=== PATIENT | male | born 1965 | race Caucasian/White ===

== ENCOUNTER 2017-10-02 02:49 | Observation (INO) | payer MEDICAID, SELFPAY ==
[2017-10-02] VITALS (16 sets, daily range): BP systolic 108–132; BP diastolic 65–93; PULSE 48–81; RESP 16–22; TEMP 36.5–36.9; O2SAT 97–100; BMI 25.0; BMI 24.5
--- NOTE | 2017-10-02 02:51 | NURSING ---
CALLED FOR EKG PER RN REQUEST, PULLED OLD EKG'S FOR
--- NOTE | 2017-10-02 03:08 | ED.DCSUM_ITS ---
- ER Visit Summary Date of Service: 10/02/17 Chief Complaint: Palpitations History of Present Illness: The patient is a 51 M since to the emergency department and he has been in intermittent atrial fibrillation. The patient has a history of dilated cardiomyopathy. He is unsure of the acute etiology. He states he was told it may be from alcohol, but he states that he would only drink 2 or 3 beers a day. Both his brothers and his father have a dilated cardiomyopathy. The patient states that 2 years ago, he was actually admitted up at [facility]. He underwent significant testing. He was having intermittent runs of ventricular tachycardia. He states that they did place a LifeVest on him but found that he did not meet criteria for defibrillator. He does have a standing EF of 40%. He did follow with Dr. Granado, but when he left, he has not seen cardiology since. He takes 100 mg of Toprol daily. He states that over the past 2 weeks, he has been having increasing intermittent palpitations. Tonight, woke him from sleep. He states he felt his heart was racing he felt very flushed. He did have some chest tightness and felt that he was going to pass out. He states this is the worst it has been. Physical Examination: Vital signs reviewed General: Well-nourished, well-developed Head: Normocephalic, atraumatic Eyes: Pupils equal and reactive, extraocular muscles intact Neck, supple, no lymphadenopathy Heart: Regular rate and rhythm Respiratory: No distress, clear bilaterally Abdomen: Soft, nontender, nondistended, no peritoneal signs Back: Nontender Extremities: Nontender, no edema, no cords Skin: Normal color no rash Neuro: Alert and oriented, no focal or lateralizing deficits Test Results: EKG demonstrates sinus rhythm with normal intervals. There is no acute ischemic change. Screening labs are unremarkable. Emergency Department Course and Treatment: Patient presents with palpitations and then tonight had an episode where he felt as if he was going to pass out because his heart was racing. He does have a history of ventricular tachycardia. He has not seen cardiology in some time. I do have some concern that he is having significant dysrhythmia. Labs were obtained were unremarkable. The patient has had no arrhythmia here on the monitor. With his near syncopal episode and chest pain, I do feel he would benefit from observation on telemetry for further investigation. The patient was discussed with the hospitalist will be admitted to PCU. Treatment Plan: [] Disposition: Admission Impression: 1. Dysrhythmia 2. Near syncope 3. Chest pain This note was generated with [employer] dictation software. It may contain incorrect words, spelling, and punctuation that were not noted in review of the chart prior to signing ED Disposition - Plan for ED Patient: Chief Complaint: Palpitations Referrals: Martin Chung [Primary Care Provider] -
--- NOTE | 2017-10-02 03:08 | RAD_ITS ---
STUDY: X-RAY CHEST REASON FOR EXAM: Male, 51 years old. Palpitations. Patient woke up hot and sweaty. Intermittent episodes for over a month. TECHNIQUE: AP portable chest. COMPARISON: June 14, 2016. June 25, 2015. FINDINGS: The lungs are clear and expanded. There is no demonstrated pleural abnormality. Normal size heart. Normal mediastinum and villa. Normal visualized pulmonary arteries. Normal visualized aortic arch and descending thoracic aorta. Thoracic dextroscoliosis. Normal visualized ribs, clavicles, and shoulders. There is no demonstrated abnormality of the visualized soft tissue structures of the upper abdomen. RAD/Chest 1 View (Portable) IMPRESSION: Stable chest, no acute cardiopulmonary disease. Electronically Signed: Jr Winkler MD at 3:40 EST , Service support ,
--- NOTE | 2017-10-02 03:08 | EKG12_ITS ---
Test Reason : ARRHYTHMIA Blood Pressure : / mmHG Vent. Rate : 070 BPM Atrial Rate : 070 BPM P-R Int : 166 ms QRS Dur : 092 ms QT Int : 388 ms P-R-T Axes : 063 100 070 degrees QTc Int : 419 ms Normal sinus rhythm Low voltage QRS Borderline ECG Confirmed by JASEN MOON, RICH ([id number]), video effects editor ANNITA BROWN ([id number]) on 10/03/2017 2:10:40 PM Referred By: FELIX Confirmed By:RICH AGGARWAL MD
[2017-10-02 03:26] LABS: Absolute Lymphocyte Count 1.61 X10^3/ul (0.83-4.51); Absolute Neutrophil Count 4.9 X10^3/uL (2.0-7.7); Basophil# 0.01 X10^3/uL; Basophil% 0.1 % (0-1); Eosinophil# 0.26 X10^3/uL; Eosinophils% 3.5 % (0-5); Hematocrit 40.2 % (40-54); Hemoglobin 14.2 g/dl (13.0-16.5); Lymphocyte # 1.61 X10^3/ul (4.0); Mean Corp Hgb Conc 35.3 g/gl (32-36); Mean Corpuscular Hgb 34.5 pg (27.0-32.0); Mean Corpuscular Volume 97.6 fL (80-94); Mean Platelet Vol. 9.3 fl (6.2-12.0); Monocyte# 0.58 X10^3/uL; Monocyte% 7.9 % (0-10); Neutrophil # 4.85 X10^3/uL (2.7-7.7); Neutrophil % 66.2 % (47-70); Platelet Count 191 K/mm3 (150-450); RBC Distribution Width CV 11.9 % (11.6-14.6); RBC Distribution Width SD 41.3 fl (35.1-43.9); Red Blood Count 4.12 M/mm3 (4.6-6.2); White Blood Count 7.3 K/mm3 (4.4-11.0)
[2017-10-02] MEDS: 0.9% Normal Saline 1,000 ML 150 ML IV (03:27)
[2017-10-02] MEDS: Aspirin 81 MG TAB.CHEW 324 MG PO (03:27)
[2017-10-02 03:30] LABS: POSITIVE COUNT NO; POSITIVE DIFFERENTIAL NO; POSITIVE MORPHOLOGY NO
[2017-10-02 03:43] LABS: Anion Gap 9 (5-15); BUN 20 mg/dL (7-18); BUN/Creat Ratio 21.5 RATIO (10-20); Calcium,Total 8.7 mg/dL (8.5-10.1); Chloride 104 mmol/L (98-107); Creatinine, Serum 0.93 mg/dL (0.70-1.30); EST Glomerular Filtration Rate 90 mL/min (>60); Est Glom Filt Rate - Afr Amer 109 mL/min (>60); Estimated Creatinine Clearance 100.82 ml/min; Glucose 103 mg/dL (74-106); Magnesium 2.2 mg/dL (1.6-2.6); Sodium Level 139 mmol/L (136-145)
--- NOTE | 2017-10-02 04:08 | PCM.HP.STD ---
Problem List (1) History of cardiomyopathy Status: Chronic (2) Palpitations Status: Acute (3) Near syncope Status: Acute History of Present Illness Date of Admission: 10/02/17 Chief Complaint: irregular heart beat, nearly passing out The patient is a 51 year old male patient who presents to the ER after waking up from sleep with irregular heart palpitations and dizziness. The patient had a significant past medical history of dilated cardiomyopathy thought to have been caused by alcohol , however, he only drank 2-3 beers daily at that time. He pursued his arrhythmia and low ejection fraction by wearing a life vest just over two years ago but he did not meet criteria fo further intervention at that time. He has not followed up since. He is now feeling more comfortable and is free of any chest discomfort and shortness of breath. He will be admitted for further cardiac workup including an echocardiogram. Past Medical History Past Medical History (Chronic Problems): Chronic Problems History of cardiomyopathy (Chronic) Allergies No Known Allergies Allergy (Verified 10/02/17 02:54) Home Medications: Ambulatory Orders Medication Instructions Recorded Metoprolol(XL)Succ [Toprol Xl 100 mg PO DAILY 06/17/15 (Beta Steven)] Lisinopril [Zestril] 10 mg PO DAILY 06/25/15 Aspirin [Lo-Dose Aspirin EC] 81 mg PO DAILY 06/14/16 Smoking Status: Never smoker - *Family History Maternal History Items: No pertinent history Review of Systems Constitutional: Denies: Chills, Fever, Weight Change HEENT: Denies: Head Aches, Sinus Congestion, Sinus Drainage Cardiovascular: Reports: Heaviness, Palpitations. Denies: Chest Pain Respiratory: Denies: Cough, Shortness of breath at rest, Sputum production Gastrointestinal: Denies: Abdominal Pain, Nausea, Vomiting Genitourinary: Denies: Dysuria Musculoskeletal: Denies: Joint Pain, Joint Tenderness Skin: Denies: Rash, Wounds Neurological: Denies: Numbness, Tingling, Focal weakness Psychiatric: Denies: Anxiety, Depression, Homicidal Ideations, Suicidal Ideations Hematologic/ Lymphatic: Denies: Easy Bruising, Easy Bleeding VTE Information - Inpt Only VTE Present on Admission: No VTE Mechan Device Prophylaxis: None VTE Pharm Prophylaxis ordered?: Yes Patient Problems: Active and Suspected Problems Palpitations (Acute) Near syncope (Acute) - Physical Exam General: Alert, Oriented x3, Cooperative HEENT: Atraumatic, Normocephalic Neck: Supple Lungs: Clear to auscultation, Normal air movement, No rhonchi, No wheeze, No rales Cardiovascular: Normal S1, Normal S2, No murmurs, Irregular Rate Abdomen: Bowel Sounds Present, Soft, Non Tender Extremities: No edema Skin: No rashes Musculoskeletal: No Tenderness to Palpation of Joints or Extremities Neurological: Neuro grossly intact Psych/Mental Status: Normal Affect, Appropriate Vital Signs Temp Pulse Resp BP Pulse Ox 97.7 F L 70 20 H 131/93 H 100 10/02/17 02:51 10/02/17 02:51 10/02/17 02:51 10/02/17 02:51 10/02/17 02:51 Oxygen Delivery Method Room Air Weight: 184 lb 4.903 oz Body Mass Index (BMI) 25.0 Finger Stick Blood Glucose 85 Laboratory Tests Past 24 Hrs 10/02/17 10/02/17 03:10 03:10 WBC 7.3 RBC 4.12 L Hgb 14.2 Hct 40.2 MCV 97.6 H MCH 34.5 H MCHC 35.3 RDW 11.9 RDW Differential 41.3 Plt Count 191 MPV 9.3 Immature Gran % (Auto) 0.300 Neut % (Auto) 66.2 Lymph % (Auto) 22.0 Ballard % (Auto) 7.9 Eos % (Auto) 3.5 Baso % (Auto) 0.1 Absolute Neuts (auto) 4.9 Absolute Lymphs (auto) 1.61 Total Counted Not Reportable Sodium 139 Potassium 4.0 Chloride 104 Carbon Dioxide 26.0 Anion Gap 9 BUN 20 H Creatinine 0.93 Estim Creat Clear Calc 100.82 Est GFR (MDRD) Af Amer 109 Est GFR (MDRD) Non-Af 90 BUN/Creatinine Ratio 21.5 H Glucose 103 Calcium 8.7 Magnesium 2.2 Troponin I < 0.02 Assessment/Plan Active and Suspected Problems Palpitations (Acute) Near syncope (Acute) Chronic conditions - hypertension Plan - admit to progressive care unit - cycle cardiac markers - echocardiogram - consider cardiology consult - nitro as needed - continue routine home medications - LMWH for DVT prophylaxis Code Visit Inpatient E&M: 09173 Init Hosp L3
--- NOTE | 2017-10-02 05:55 | ECHOD_ITS ---
Reason For Study: ABN EKG Procedure This was a 2D Doppler, Color Flow transthoracic echocardiogram. Exam performed portable in patient room. Left Ventricle Normal size and thickness. The estimated ejection fraction is 55 %. No regional wall motion abnormalities noted. Right Ventricle Normal size and thickness. Normal systolic function. Atria Normal left atrium. Normal right atrium. Normal atrial septum. Mitral Valve The mitral valve is structurally normal. No prolapse or stenosis seen. Tricuspid Valve Normal tricuspid valve. Trivial tricuspid valve insufficiency. Right ventricular systolic pressure estimated to be 20 mmHg. Aortic Valve Trisinus/trileaflet aortic valve. Mild diffuse aortic valve thickening. Trivial aortic valve insufficiency. Pulmonic Valve Normal pulmonic valve. Great Vessels Normal aortic root. Normal arch. Normal inferior vena cava. Inferior vena cava collapse with sniff. Pericardium/Pleural No pericardial effusion. MMode/2D Measurements & Calculations LVIDd: 5.7 cm IVSd: 0.99 cm Ao root diam: 3.6 cm LVIDs: 4.2 cm LVPWd: 1.1 cm LA dimension: 3.9 cm RVDd: 3.5 cm FS: 26.9 % LAV(MOD-bp): 43.7 ml LA A4 area: 16.9 cm2 RA A4 area: 11.1 cm2 LAV(MOD-bp) Indexed: 21.4 ml/m2 LAV(MOD-sp2): 39.3 ml LAV(MOD-sp4): 47.6 ml Doppler Measurements & Calculations MV E max desmond: 67.2 cm/sec Ao V2 max: 115.1 cm/sec AI max desmond: 371.1 cm/sec MV A max desmond: 63.7 cm/sec Ao max P.3 mmHg AI max P.1 mmHg MV E/A: 1.1 AI dec slope: 200.0 cm/sec2 AI P1/2t: 543.4 msec LV V1 max: 102.2 cm/sec PA V2 max: 98.0 cm/sec PI end-d desmond: 69.5 cm/sec LV V1 max P.2 mmHg TR max desmond: 191.5 cm/sec TR max P.7 mmHg Interpretation Summary The estimated ejection fraction is 55 %. Trivial tricuspid valve insufficiency. Right ventricular systolic pressure estimated to be 20 mmHg. Trivial aortic valve insufficiency. Compared to echo report dated 03/14/2007, LV function has improved from 45% to 55%. Ordering Physician: Nate Singh Referring Physician: RACHAEL MELENDEZ Performed By: Lolita White RDCS, RVT
[2017-10-02 07:12] LABS: Absolute Lymphocyte Count 1.62 X10^3/ul (0.83-4.51); Absolute Neutrophil Count 4.4 X10^3/uL (2.0-7.7); Basophil# 0.01 X10^3/uL; Basophil% 0.2 % (0-1); Eosinophil# 0.16 X10^3/uL; Eosinophils% 2.4 % (0-5); Hematocrit 38.8 % (40-54); Lymphocyte # 1.62 X10^3/ul (4.0); Lymphocyte % 24.6 % (19-41); Mean Corp Hgb Conc 33.5 g/gl (32-36); Mean Corpuscular Hgb 32.7 pg (27.0-32.0); Mean Corpuscular Volume 97.7 fL (80-94); Monocyte# 0.35 X10^3/uL; Monocyte% 5.3 % (0-10); Neutrophil # 4.42 X10^3/uL (2.7-7.7); Neutrophil % 67.2 % (47-70); Platelet Count 167 K/mm3 (150-450); RBC Distribution Width CV 12.1 % (11.6-14.6); RBC Distribution Width SD 43.4 fl (35.1-43.9); Red Blood Count 3.97 M/mm3 (4.6-6.2); White Blood Count 6.6 K/mm3 (4.4-11.0)
[2017-10-02 07:14] LABS: POSITIVE COUNT NO; POSITIVE DIFFERENTIAL NO; POSITIVE MORPHOLOGY NO
[2017-10-02] MEDS: 0.9% Normal Saline 1,000 ML 75 ML IV (07:48)
[2017-10-02 08:01] LABS: Anion Gap 7 (5-15); BUN 19 mg/dL (7-18); BUN/Creat Ratio 21.7 RATIO (10-20); Calcium,Total 8.6 mg/dL (8.5-10.1); Chloride 106 mmol/L (98-107); Cholesterol 212 mg/dL (200); Creatinine, Serum 0.87 mg/dL (0.70-1.30); EST Glomerular Filtration Rate 97 mL/min (>60); Est Glom Filt Rate - Afr Amer 117 mL/min (>60); Estimated Creatinine Clearance 107.78 ml/min; Glucose 90 mg/dL (74-106); High Density Lipoprotein 36 mg/dL; Potassium 4.4 mmol/L (3.5-5.1); Sodium Level 141 mmol/L (136-145); Thyroid Stim Hormone (TSH) 1.03 uIU/mL (0.358-3.74); Triglycerides 278 mg/dL; Very Low Density Lipoprotein 56 mg/dL (5-40)
[2017-10-02] MEDS: Aspirin E.C. 81 MG Tablet PO (10:21)
[2017-10-02] MEDS: Enoxaparin 40 MG/0.4 ML Syringe SC (10:21)
[2017-10-02] MEDS: Metoprolol(XL)Succ 100 MG Tablet PO (10:21)
--- NOTE | 2017-10-02 19:30 | PCM.PN.BLA ---
Progress Note The patient is a 51-year-old male with a past medical history of dilated cardiomyopathy thought to be due to alcohol. He wore a life vest at one point in time. He has not recently followed up with a overedge sewer. He awoke from sleep with palpitations and lightheadedness and came to the ED at [facility]. Vital signs at presentation to the emergency room were temperature 97.7, pulse rate 70, blood pressure 131/93, respiratory rate 20 and he was 100% saturated on room air. Significant lab included a BUN of 20 with a creatinine of 0.93 and normal electrolytes. TSH is normal at 1.03. HDL was 36 with an LDL of 120. Magnesium is normal at 2.2. Serial troponins have been negative. Echocardiogram showed a normal estimated ejection fraction of 55% with trivial TR and trivial AI. Chest x-ray showed no pleural effusions, pulmonary vascular congestion or infiltrates. drink 1-2 cups of coffee. not taking any decongestants recently. No stimulants of any kind. He has never had a PE or DVT. He travels in the car for about 2 hours at a time. Denies any CP with exertion and had a Can in [employer] 2 years ago that had no significant CAD. EF has improved from 30% to 55% in the time. He is not drinking. He does have Restless leg at night and states he jerks in his sleep. Pertaining oriented ?3, no apparent distress Lungs-clear to auscultation throughout with good air exchange No JVD, no carotid bruits Heart-regular rate and rhythm, no murmur, no gallop, no rub, no ectopy Abdomen-soft, flat, nontender, nondistended, normal bowel sounds No peripheral edema, no cyanosis, normal pulses Skin is warm and dry Impressions 1. palpitations associated with diaphoresis not associated with exertion....seem to happen mostly at night.....last night it awoke him from sleep 2. hx of a dilated CM with a 30% EF in 2014 and no significant CAD on cath - possibly due to ETOH or viral 3. HTN - controlled 4. RLS check an overnight trending pulse ox DC the IV fluids encouraged him to ambulate in the halls and see what the HR will do. Unlikely he developed any significant CAD since cath in 2014 If no dysrhythmia overnight will discuss with Dr. Hernandez in the AM......may need an OP holtor to start with.
--- NOTE | 2017-10-02 19:37 | PN_ITS ---
Progress Note The patient is a 51-year-old male with a past medical history of dilated cardiomyopathy thought to be due to alcohol. He wore a life vest at one point in time. He has not recently followed up with a hair spinning machine operator. He awoke from sleep with palpitations and lightheadedness and came to the ED at [facility]. Vital signs at presentation to the emergency room were temperature 97.7, pulse rate 70 , blood pressure 131/93, respiratory rate 20 and he was 100% saturated on room air. Significant lab included a BUN of 20 with a creatinine of 0.93 and normal electrolytes. TSH is normal at 1.03. HDL was 36 with an LDL of 120. Magnesium is normal at 2.2. Serial troponins have been negative. Echocardiogram showed a normal estimated ejection fraction of 55% with trivial TR and trivial AI. Chest x-ray showed no pleural effusions, pulmonary vascular congestion or infiltrates. drink 1-2 cups of coffee. not taking any decongestants recently. No stimulants of any kind. He has never had a PE or DVT. He travels in the car for about 2 hours at a time. Denies any CP with exertion and had a Can in [employer] 2 years ago that had no significant CAD. EF has improved from 30% to 55% in the time. He is not drinking. He does have Restless leg at night and states he jerks in his sleep. Pertaining oriented ?3, no apparent distress Lungs-clear to auscultation throughout with good air exchange No JVD, no carotid bruits Heart-regular rate and rhythm, no murmur, no gallop, no rub, no ectopy Abdomen-soft, flat, nontender, nondistended, normal bowel sounds No peripheral edema, no cyanosis, normal pulses Skin is warm and dry Impressions 1. palpitations associated with diaphoresis not associated with exertion....seem to happen mostly at night.....last night it awoke him from sleep 2. hx of a dilated CM with a 30% EF in 2014 and no significant CAD on cath - possibly due to ETOH or viral 3. HTN - controlled 4. RLS check an overnight trending pulse ox DC the IV fluids encouraged him to ambulate in the halls and see what the HR will do. Unlikely he developed any significant CAD since cath in 2014 If no dysrhythmia overnight will discuss with Dr. Hernandez in the AM......may need an OP holtor to start with.
[2017-10-02] MEDS: Lisinopril 10 MG Tablet PO (21:13)
[2017-10-03] VITALS (8 sets, daily range): BP systolic 100–110; BP diastolic 67–70; PULSE 60–79; RESP 16–20; TEMP 36.7–36.9; O2SAT 96–99
[2017-10-03] MEDS: Metoprolol(XL)Succ 100 MG Tablet PO (08:55)
[2017-10-03] MEDS: Aspirin E.C. 81 MG Tablet PO (08:55)
[2017-10-03] MEDS: Enoxaparin 40 MG/0.4 ML Syringe SC (08:55)
--- NOTE | 2017-10-03 15:30 | PCM.DC ---
- Discharge Diagnoses Current Active Problems: Current Active and Chronic Problems History of cardiomyopathy (Chronic) Palpitations (Acute) Near syncope (Acute) You will use the following diet at home:: Other - Resume previous diet Your food should be the consistency of: Regular Your liquids should be the consistency of: Regular/Thin Discharge Activity: Return to Normal Activity Call your doctor if you observe: Fever of 101 or Higher, Shortness of breath, Fainting spells, Swelling in the ankles, Chest pain Additional Instructions: Everything is negative. There were no significant findings on the overnight trending pulse ox. There was 1 single PVC on the telemetry since admission. I spoke to Dr. Hernandez and he would like you to call the office when you get home to schedulae a time to pick out hand a monitor. Continue the same medications. Allergies/Adverse Reactions: Allergies No Known Allergies Allergy (Verified 10/02/17 02:54) Medications to take at Discharge Metoprolol(XL)Succ [Toprol Xl (Beta Steven)] 100 mg PO DAILY 06/17/15 Lisinopril [Zestril] 10 mg PO QHS 06/25/15 Aspirin [Lo-Dose Aspirin EC] 81 mg PO DAILY 06/14/16 Primary Care Physician: Martin Chung [Primary Care Provider] - Please follow up with your Primary Care Physician in: 7-10 days Please Follow Up With: Nathaniel Hernandez MD When: call the office for appt Proposed Discharge Date: 10/03/17
--- NOTE | 2017-10-03 15:36 | DCINST_ITS ---
- Discharge Diagnoses Current Active Problems: Current Active and Chronic Problems History of cardiomyopathy (Chronic) Palpitations (Acute) Near syncope (Acute) You will use the following diet at home:: Other - Resume previous diet Your food should be the consistency of: Regular Your liquids should be the consistency of: Regular/Thin Discharge Activity: Return to Normal Activity Call your doctor if you observe: Fever of 101 or Higher, Shortness of breath, Fainting spells, Swelling in the ankles, Chest pain Additional Instructions: Everything is negative. There were no significant findings on the overnight trending pulse ox. There was 1 single PVC on the telemetry since admission. I spoke to Dr. Hernandez and he would like you to call the office when you get home to schedulae a time to leaf size picker a monitor. Continue the same medications. Allergies/Adverse Reactions: Allergies No Known Allergies Allergy (Verified 10/02/17 02:54) Medications to take at Discharge Metoprolol(XL)Succ [Toprol Xl (Beta Steven)] 100 mg PO DAILY 06/17/15 Lisinopril [Zestril] 10 mg PO QHS 06/25/15 Aspirin [Lo-Dose Aspirin EC] 81 mg PO DAILY 06/14/16 Primary Care Physician: Martin Chung [Primary Care Provider] - Please follow up with your Primary Care Physician in: 7-10 days Please Follow Up With: Nathaniel Hernandez MD When: call the office for appt Proposed Discharge Date: 10/03/17
--- NOTE | 2017-10-03 15:36 | PCM.DC.SUM ---
Discharge Date and Diagnosis Date of Admission: 10/02/17 Date of Discharge: 10/03/17 - Primary Discharge Diagnosis Active and Suspected Problems Palpitations (Acute) Near syncope (Acute) Suspected panic attack - Secondary Discharge Diagnosis Chronic Problems History of cardiomyopathy (Chronic) anxiety Hospital Course and Treatment Imaging Results: Clinical Impression(s) from Imaging Studies Chest X-Ray 10/02/17 03:08 IMPRESSION: Stable chest, no acute cardiopulmonary disease. Electronically Signed: Jr Winkler MD at 3:40 EST , Service support , Laboratory Tests 10/02/17 10/02/17 10/02/17 03:10 03:10 06:45 WBC 7.3 RBC 4.12 L Hgb 14.2 Hct 40.2 MCV 97.6 H MCH 34.5 H MCHC 35.3 RDW 11.9 RDW Differential 41.3 Plt Count 191 MPV 9.3 Immature Gran % (Auto) 0.300 Neut % (Auto) 66.2 Lymph % (Auto) 22.0 [place] % (Auto) 7.9 Eos % (Auto) 3.5 Baso % (Auto) 0.1 Absolute Neuts (auto) 4.9 Absolute Lymphs (auto) 1.61 Total Counted Not Reportable Sodium 139 141 Potassium 4.0 4.4 Chloride 104 106 Carbon Dioxide 26.0 28.0 Anion Gap 9 7 BUN 20 H 19 H Creatinine 0.93 0.87 Estim Creat Clear Calc 100.82 107.78 Est GFR (MDRD) Af Amer 109 117 Est GFR (MDRD) Non-Af 90 97 BUN/Creatinine Ratio 21.5 H 21.7 H Glucose 103 90 Calcium 8.7 8.6 Magnesium 2.2 Troponin I < 0.02 Triglycerides 278 H Cholesterol 212 H LDL Cholesterol 120 VLDL Cholesterol 56 H HDL Cholesterol 36 L TSH 1.03 10/02/17 10/02/17 10/02/17 06:45 06:45 12:00 WBC 6.6 RBC 3.97 L Hgb 13.0 Hct 38.8 L MCV 97.7 H MCH 32.7 H MCHC 33.5 RDW 12.1 RDW Differential 43.4 Plt Count 167 MPV 9.0 Immature Gran % (Auto) 0.300 Neut % (Auto) 67.2 Lymph % (Auto) 24.6 [place] % (Auto) 5.3 Eos % (Auto) 2.4 Baso % (Auto) 0.2 Absolute Neuts (auto) 4.4 Absolute Lymphs (auto) 1.62 Total Counted Not Reportable Sodium Potassium Chloride Carbon Dioxide Anion Gap BUN Creatinine Estim Creat Clear Calc Est GFR (MDRD) Af Amer Est GFR (MDRD) Non-Af BUN/Creatinine Ratio Glucose Calcium Magnesium Troponin I < 0.02 < 0.02 Triglycerides Cholesterol LDL Cholesterol VLDL Cholesterol HDL Cholesterol TSH 10/02/17 17:02 WBC RBC Hgb Hct MCV MCH MCHC RDW RDW Differential Plt Count MPV Immature Gran % (Auto) Neut % (Auto) Lymph % (Auto) [place] % (Auto) Eos % (Auto) Baso % (Auto) Absolute Neuts (auto) Absolute Lymphs (auto) Total Counted Sodium Potassium Chloride Carbon Dioxide Anion Gap BUN Creatinine Estim Creat Clear Calc Est GFR (MDRD) Af Amer Est GFR (MDRD) Non-Af BUN/Creatinine Ratio Glucose Calcium Magnesium Troponin I < 0.02 Triglycerides Cholesterol LDL Cholesterol VLDL Cholesterol HDL Cholesterol TSH none Operations: None Procedures: 2-D Echocardiogram - Ejection fraction 55%, trivial tricuspid valve insufficiency and trivial aortic valve insufficiency. Right ventricular systolic pressure was estimated at 20 mmHg. Summary of Care Provided: The patient is a 51-year-old male with a past medical history of dilated cardiomyopathy thought to be due to alcohol. He wore a life vest at one point in time. He had not recently followed up with a resistor testing machine operator but had seen Dr. Reyes Hernandez and Dr. Granado in the past. He awoke from sleep with palpitations, diaphoresis and lightheadedness and came to the ED at [facility]. Vital signs at presentation to the emergency room were temperature 97.7, pulse rate 70, blood pressure 131/93, respiratory rate 20 and he was 100% saturated on room air. Significant lab included a BUN of 20 with a creatinine of 0.93 and normal electrolytes. TSH was normal at 1.03. HDL was 36 with an LDL of 120. Magnesium was normal at 2.2. Serial troponins were negative. Echocardiogram showed a normal estimated ejection fraction of 55% with trivial TR and trivial AI. Chest x-ray showed no pleural effusions, pulmonary vascular congestion or infiltrates. He drink 1-2 cups of coffee a day. He denied taking any decongestants recently. No stimulants of any kind. He has never had a PE or DVT. He travels in the car for about 2 hours at a time but, denied any calf pain. Denied any CP with exertion and had a Cath in [place] in 2014 that had no significant CAD. EF has improved from 31% to 55% since the cardiac catheterization. He denied alcohol use. He has Restless leg at night and stated he jerks in his sleep. He was admitted to a monitored bed on the progressive care unit and serial cardiac enzymes were ordered. Cardiac enzymes were negative. Telemetry showed NSR with no SVT, VT or significant ectopy. An overnight trending pulse ox was unremarkable. I spoke with Dr. Hernandez and apparently he has been evaluated multiple times for this complaint and has even had an EP study and no reason for his complaints has been found. I had a discussion with him and his about anxiety and panic attacks. I recommended he seek counselling and discuss possible medication with Dr. Chung. He will call Dr. Hernandez's office and arrange a time to supervisor picking crew a monitor and he will follow up with Dr. Hernandez after the results of the monitor are available. He will follow-up with Dr. Chung in the office in 7-10 days to discuss referral for psychotherapy and possible treatment for anxiety. This note was generated with [employer] dictation software. It may contain incorrect words, spelling, and punctuation that were not noted in checking the note before signing. Discharge Activity: Return to Normal Activity Call your doctor if you observe: Fever of 101 or Higher, Shortness of breath, Fainting spells, Swelling in the ankles, Chest pain Home Medications: Medications to take at Discharge Metoprolol(XL)Succ [Toprol Xl (Beta Steven)] 100 mg PO DAILY 06/17/15 Lisinopril [Zestril] 10 mg PO QHS 06/25/15 Aspirin [Lo-Dose Aspirin EC] 81 mg PO DAILY 06/14/16 Primary Care Physician: Martin Chung [Primary Care Provider] - Please follow up with your Primary Care Physician in: 7-10 days Please Follow Up With: Nathaniel Hernandez MD When: call the office for appt Disposition: Home Minutes spent on discharge:: 35 Patient Condition:: Good Meaningful Use Info Meaningful Use Diagnoses (Choose all that apply): None applicable Code Visit Inpatient E&M: 21687 Disch Hosp
== END 2017-10-03 16:15 | disposition home or self-care (01) ==
LOC: ED 03:13 → PCU 04:45
PROVIDERS: Admitting Provider Family Medicine; Emergency Provider Emergency Medicine; Family Provider Family Medicine; Visit Provider Internal Medicine
DX: R00.2 Palpitations (principal); R55 Syncope and collapse; I08.2 Rheumatic disorders of both aortic and tricuspid valves; I42.0 Dilated cardiomyopathy; G25.81 Restless legs syndrome; I48.91 Unspecified atrial fibrillation; Z79.899 Other long term (current) drug therapy; Z79.82 Long term (current) use of aspirin
CPT/HCPCS: 36415; 71045; 80048; 80061; 83735; 84443; 84484; 85025; 93005; 93306; 94762; 96360; 96361; 96372; 99218; 99283; J7030; A4216; G0378

== ENCOUNTER 2019-04-01 12:18 | Emergency (ER) | payer OTHER, SELFPAY ==
[2019-04-01 12:18] VITALS: BP 118/81; PULSE 71; RESP 16; TEMP 36.2; O2SAT 96; BMI 25.0
--- NOTE | 2019-04-01 12:29 | EKG12_ITS ---
Test Reason : PALP Blood Pressure : / mmHG Vent. Rate : 074 BPM Atrial Rate : 074 BPM P-R Int : 160 ms QRS Dur : 094 ms QT Int : 400 ms P-R-T Axes : 050 091 065 degrees QTc Int : 444 ms Sinus rhythm with occasional Premature ventricular complexes Rightward axis Low voltage QRS Borderline ECG Confirmed by REYES LUU ([id number]), non linear editor RACHANA TINAJERO ([id number]) on 04/08/2019 10:11:28 AM Referred By: MALA
--- NOTE | 2019-04-01 12:37 | ED.VIS.GEN ---
History of Present Illness Chief Complaint: Palpitations Informant: Patient, Significant Other Onset: Yesterday Context: Sudden Onset Timing: Intermittent Quality: Palpitations, nausea and diaphoresis Location: Chest Current Severity: - - Presently no symptoms Maximum Severity: Moderate Worsened by: Nothing Relieved by: Nothing Associated Symptoms: Nausea, lightheadedness and diaphoresis Narrative: Patient is a 53-year-old male with history of hypertension, V. tach secondary to cardiomyopathy who presents with palpitations. He did not check his pulse. States he felt his heart pounding and it was fast. He reported lightheadedness and diaphoresis. He denied neurologic symptoms. He denied chest discomfort of any type. He denies vomiting, melena or hematochezia. He has not seen a physician in greater than [address] Reyes Webb prior to retiring. He had an echo which he states was concerning to Dr. Nathaniel Hernandez. He was instructed to increase his beta-zakiya. He states that made him worse. He went back to his regular dose. Presently has no symptoms. Patient was unaware that he was having ectopy on the monitor. Prior similar symptoms: Yes Recent Illness/Hospitalization: No - Past Medical History (1) History of ventricular tachycardia Status: Acute (2) Palpitations Status: Acute (3) History of cardiomyopathy Status: Chronic Past Medical History - Allergies and Home Meds Allergies/Adverse Reactions: Allergies No Known Allergies Allergy (Verified 04/01/19 12:21) Primary Care Physician: Martin Chung [Primary Care Provider] - Prior records reviewed: Yes Lives: Spouse/ Significant Other Smoking Status: Current some day smoker Alcohol: None Drugs: None - Family History Maternal Family History: Reports: No pertinent history Review of Systems General: Denies: Chills, Fever, Sweats Eyes: Denies: Visual changes - bilaterally, Diplopia ENT: Denies: Rhinorrhea, Sore throat Cardiovascular: Reports: Palpitations, Heart racing, - - Denies symptoms of claudication.. Denies: Chest pain Respiratory: Denies: Dyspnea, Cough, Dyspnea on exertion Gastrointestinal: Denies: Abdominal pain, Nausea, Vomiting, Diarrhea, Melena, Hematochezia Genitourinary: Denies: Dysuria, Hematuria, Frequency Musculoskeletal: Denies: Myalgias, Arthralgias, Neck pain, Back pain, Swelling, Extremity Pain Skin: Denies: Rash, Wounds Neurological: Denies: Headache, Weakness, Numbness Hematologic: Denies: Easy bruising, Easy bleeding Physical Exam Vital Signs/Narrative: Vital Signs Temp Pulse Resp BP Pulse Ox 04/01/19 12:18 97.1 F L 71 16 118/81 H 96 Inital Vital Signs reviewed: Yes General: Well nourished, Well developed, No Acute Distress Head: Normocephalic, Atraumatic Eyes: Perrl, EOMI ENT: Moist mucous membranes, No rhinorrhea Neck: Supple, Nontender, No lymphadenopathy, No JVD Cardiovascular: Regular rate, Regular rhythm, No murmurs, Normal S1, Normal S2 Respiratory: No distress, CTA bilaterally, Chest nontender Abdomen: Soft, Nontender, Nondistended, Normal bowel sounds Back: Nontender, Normal Inspection Extremities: Nontender, No edema Skin: Normal color, No rash Neurological: Alert, Oriented x3, Cranial nerves II-XII grossly intact, Normal Strength, Normal Sensation, Normal DTR Psychological: Normal affect, Normal Mood Diagnostic/Tx/Re-eval Laboratory Results 04/01/19 04/01/19 12:36 12:36 WBC 6.5 RBC 4.35 L Hgb 14.5 Hct 42.3 MCV 97.2 H MCH 33.3 H MCHC 34.3 RDW Std Deviation 43.6 RDW Coeff of Vibha 11.9 Plt Count 175 MPV 9.1 Sodium 142 Potassium 3.9 Chloride 111 H Carbon Dioxide 24.0 Anion Gap 7 BUN 15 Creatinine 0.77 Estim Creat Clear Calc 118.98 Est GFR (MDRD) Af Amer 135 Est GFR (MDRD) Non-Af 112 BUN/Creatinine Ratio 19.5 Glucose 91 Calcium 8.9 Troponin I < 0.015 Laboratory results are unremarkable. Troponin is negative with onset of symptoms approximately 24 hours ago. There is no evidence of anemia. Potassium is normal. - Rhythm Strip Rhythm Strip: Sinus Rhythm Rate: 71 Ectopy: PVC(s) - EKG Initial EKG Interpretation: Sinus Rhythm - Ventricular rate is 74. ME interval is 160 ms. QS duration 94 ms. QT durations 100 ms with a QTC of 444 ms. [place] to the right. There are premature ventricular complexes noted. There is no ischemic changes noted. Voltage is low. - Medical Decision Making Patient presents with palpitations. This may represent premature ventricular beats. This may also represent nonsustained V. tach. With patient's vague symptoms and history of cardiac disease will obtain troponin, CBC to evaluate for anemia, basic medical panel to assess specifically for potassium as well as renal function. EKG was obtained and reveals no acute ischemic changes. Patient has been monitored in the department with no evidence of sustained or nonsustained V. tach. He has had premature ventricular beats noted. He and his were informed of results. She made the comment that he has had symptoms for 30 years and when he comes to the emergency room no one finds anything. ED Disposition - Plan for ED Patient: Disposition: Home or Assisted Living Diagnosis: Ventricular premature beats seen on monitoring engineer, Heart palpitations Instructions: Premature Ventricular Contractions Referrals: Martin Chung [Primary Care Provider] - 1 Week
[2019-04-01 12:42] LABS: Hematocrit 42.3 % (40-54); Hemoglobin 14.5 g/dL (13.0-16.5); Mean Corp Hgb Conc 34.3 g/dL (32-36); Mean Corpuscular Hgb 33.3 pg (27.0-32.0); Mean Corpuscular Volume 97.2 fL (80-94); Mean Platelet Vol. 9.1 fl (6.2-12.0); Platelet Count 175 K/mm3 (150-450); RBC Distribution Width CV 11.9 % (11.6-14.6); RBC Distribution Width SD 43.6 fl (35.1-43.9); Red Blood Count 4.35 M/mm3 (4.6-6.2); White Blood Count 6.5 K/mm3 (4.4-11.0)
[2019-04-01 13:00] LABS: Anion Gap 7 (5-15); BUN 15 mg/dL (7-18); BUN/Creat Ratio 19.5 RATIO (10-20); Calcium,Total 8.9 mg/dL (8.5-10.1); Chloride 111 mmol/L (98-107); Creatinine, Serum 0.77 mg/dL (0.70-1.30); EST Glomerular Filtration Rate 112 mL/min (>60); Est Glom Filt Rate - Afr Amer 135 mL/min (>60); Estimated Creatinine Clearance 118.98 ml/min; Glucose 91 mg/dL (74-106); Potassium 3.9 mmol/L (3.5-5.1); Sodium Level 142 mmol/L (136-145)
[2019-04-01 13:38] VITALS: BP 117/80; PULSE 62; RESP 23; O2SAT 97
== END 2019-04-01 13:39 | disposition home or self-care (01) ==
PROVIDERS: Emergency Provider Emergency Medicine; Family Provider Family Medicine
DX: R00.2 Palpitations (principal); I49.3 Ventricular premature depolarization; I42.9 Cardiomyopathy, unspecified; I10 Essential (primary) hypertension; Z79.899 Other long term (current) drug therapy; Z79.82 Long term (current) use of aspirin; F17.200 Nicotine dependence, unspecified, uncomplicated
CPT/HCPCS: 80048; 84484; 85027; 93005; 99284; A4216

== ENCOUNTER → 2025-02-09 | Outpatient (CLI) | payer OTHER, SELFPAY ==
[2025-02-09 09:30] LABS: AST(SGOT) 25 U/L (<=37); Alanine Aminotransfer ALT/SGPT 23 U/L (<=46); Albumin, Serum 4.4 g/dL (3.4-4.8); Alkaline Phosphatase 51 U/L (40-129); Anion Gap 11 (5-15); BUN 12 mg/dL (4-19); BUN/Creat Ratio 11.7 RATIO (10-20); Calcium,Total 9.3 mg/dL (7.6-11.0); Carbon Dioxide 23.7 mmol/L (21.0-32.0); Chloride 105 mmol/L (98-108); Cholesterol 258 mg/dL (<=200); Globulin 2.7 g/dL (2.2-4.2); Glucose 103 mg/dL (70-99); Low Density Lipoprotein Calc. 151 mg/dL; Magnesium 2.2 mg/dL (1.5-2.2); Potassium 4.3 mmol/L (3.3-5.1); Triglycerides 309 mg/dL; Very Low Density Lipoprotein 62 mg/dL (5-40); cholesterol:hdl ratio screen 5.65
== END | disposition home or self-care (01) ==
PROVIDERS: PCP Clinical Nurse Specialist Adult Health; Referring Provider Internal Medicine Cardiovascular Disease; Visit Provider Internal Medicine Cardiovascular Disease
DX: R00.2 Palpitations (principal); I47.20 Ventricular tachycardia, unspecified; I49.3 Ventricular premature depolarization; E78.2 Mixed hyperlipidemia; Z86.79 Personal history of other diseases of the circulatory system; R55 Syncope and collapse; R42 Dizziness and giddiness
CPT/HCPCS: 36415; 80053; 80061; 83735; 84443; 93225; 93226

== ENCOUNTER → 2025-02-27 | Outpatient (CLI) | payer OTHER, SELFPAY ==
--- NOTE | 2025-02-27 14:20 | ECHOCS_ITS ---
Reason For Study Reason For Study: Other Procedure This was a 2D Doppler, Color Flow transthoracic echocardiogram. Contrast injection was performed. Exam performed in department. Left Ventricle Normal left ventricular thickness. Mildly dilated left ventricle. Moderate global hypokinesis. Estimated LVEF 40-45%. Stage I diastolic dysfunction. Right Ventricle Normal right ventricle. Atria The left and right atria are normal. Mitral Valve Mild (1+) mitral valve insufficiency. Tricuspid Valve Mild tricuspid valve insufficiency. Normal pulmonary artery pressure. Aortic Valve Trisinus/trileaflet aortic valve. Mild (1+) aortic valve insufficiency. Pulmonic Valve The pulmonic valve is not well visualized. Trivial pulmonic valve insufficiency. Great Vessels Normal sized aortic root. Pericardium/Pleural No pericardial effusion. Medication Diluted definity 2ml given slow IV push to enhance endocardial definition. MMode/2D Measurements & Calculations LVIDd: 6.0 cm IVSd: 1.0 cm Ao root diam: 3.0 cm LVIDs: 4.3 cm LVPWd: 0.99 cm RVDd: 4.2 cm FS: 28.7 % LAV(MOD-bp): 51.5 ml LVAd ap4: 43.0 cm2 LVAd ap2: 41.2 cm2 LAV(MOD-bp) Indexed: 25.1 ml/m2 LVLd ap4: 9.0 cm LVLd ap2: 8.0 cm LAV(MOD-sp2): 54.4 ml EDV(MOD-sp4): 170.7 ml EDV(MOD-sp2): 175.7 ml LAV(MOD-sp4): 42.9 ml EDV(sp4-el): 174.1 ml EDV(sp2-el): 180.2 ml LVAs ap4: 26.7 cm2 LVAs ap2: 28.9 cm2 LVLs ap4: 7.3 cm LVLs ap2: 7.4 cm ESV(MOD-sp4): 84.7 ml ESV(MOD-sp2): 95.6 ml ESV(sp4-el): 83.1 ml ESV(sp2-el): 96.4 ml EF(MOD-sp4): 50.4 % EF(MOD-sp2): 45.6 % EF(sp4-el): 52.3 % SV(MOD-sp4): 86.1 ml SV(MOD-sp2): 80.1 ml SV(sp4-el): 91.0 ml SI(MOD-sp4): 41.9 ml/m2 SI(MOD-sp2): 39.1 ml/m2 LA A4 area: 16.9 cm2 LA dimension(2D): 3.5 cm RA A4 area: 15.9 cm2 TAPSE: 2.2 cm Time Measurements MV dec time: 0.18 sec Doppler Measurements & Calculations MV E max lino: 58.4 cm/sec Lat Peak E' Lino: 13.1 cm/sec Med Peak E' Lino: 8.1 cm/sec MV A max lino: 50.0 cm/sec E/E' lat: 4.4 E/E' med: 7.2 MV E/A: 1.2 MV dec slope: 324.2 cm/sec2 Ao V2 max: 93.1 cm/sec LV V1 max: 70.9 cm/sec Ao max P.5 mmHg LV V1 max P.0 mmHg Ao V2 mean: 72.8 cm/sec LV V1 mean P.1 mmHg Ao mean P.2 mmHg LV V1 mean: 47.1 cm/sec Ao V2 VTI: 19.1 cm LV V1 VTI: 14.7 cm AV (velocity ratio): 0.77 PA V2 max: 78.7 cm/sec TR max lino: 206.1 cm/sec TR max P.0 mmHg ECHO/Echo Complete W/ Contrast Interpretation Summary Mildly dilated left ventricle. Moderate global hypokinesis. Estimated LVEF 40-45%. Stage I diastolic dysfuncti on. Mild (1+) mitral valve insufficiency. Mild tricuspid valve insufficiency. Mild (1+) aortic valve insufficiency. Ordering Physician: Qi Martínez Referring Physician: Lynn Tomlin Performed By: Natalie Sosa, BARBARA, RVT
== END | disposition home or self-care (01) ==
LOC: CVS 14:20
PROVIDERS: PCP Clinical Nurse Specialist Adult Health; Referring Provider Internal Medicine Cardiovascular Disease; Visit Provider Internal Medicine Cardiovascular Disease
DX: I51.9 Heart disease, unspecified (principal)
CPT/HCPCS: 93306; Q9957; A4216; C8929

== ENCOUNTER → 2025-03-23 | Outpatient (CLI) | payer OTHER, SELFPAY ==
--- OUTSIDE RECORDS SUMMARY | 2025-03-23 07:08 | XMS RPT_ITS | CCD ---
Author Organization [facility] Care Team Providers Care Maintenance Mechanic Millwright Name Role Phone MARIELLE, NATHANIEL E Unavailable Unavailable MARIELLE, NATHANIEL E Unavailable Unavailable MARIELLE, NATHANIEL E Unavailable Unavailable MARIELLE, NATHANIEL Unavailable Unavailable Al, Martin Unavailable Unavailable MARIELLE, NATHANIEL Unavailable Unavailable MARIELLE, NATHANIEL Unavailable Unavailable Acacia Villas, Martin Unavailable Unavailable Al, Martin Unavailable Unavailable MARIELLE, NATHANIEL Unavailable Unavailable MARIELLE, NATHANIEL Unavailable Unavailable Al, Martin Unavailable Unavailable MARIELLE, NATHANIEL Unavailable Unavailable MARIELLE, NATHANIEL Unavailable Unavailable WILFRED KAPOOR DO Consulting Unavailable [facility] Admitting Unava ilable [facility] Primary Care Unava ilable [facility] Attending Unava ilable PROVIDER, UNKNOWN Consulting Unavailable WILFRED KAPOOR DO Consulting Unavailable [facility] Admitting Unava ilable [facility] Primary Care Unava ilable [facility] Attending Unava ilable PROVIDER, UNKNOWN Consulting Unavailable Martin Melendez MD Primary Care Provider No, Referral Unavailable Unavailable Martin Melendez MD Primary Care Provider No, Referral Unavailable Unavailable Martin Melendez MD Primary Care Provider No, Referral Unavailable Unavailable Martin Melendez MD Primary Care Provider Haagen OSD CLERK.Aretha BERMAN Unavailable Suppan OSD CLERK.Lynn BERMAN Unavailable Suppan OSD CLERK.Lynn BERMAN Unavailable Martin Marks Referring Provider Unavailable Suppan DIRECTOR CRAFT CENTER, Lynn Primary Care Provider Mauricio MOON, Dr. Busby Attending Provider [phone] Dr. Qi Martínez MD Referring Provider [phone] AL, MARTIN Agee Primary Care Unavailable SUPPAN, LYNN Attending Unavailable AL, MARTIN J Primary Care Unavailable SUPPAN, LYNN Referring Unavailable AL, MARTIN J Primary Care Unavailable SUPPAN, LYNN Attending Unavailable AL, MARTIN J Primary Care Unavailable SUPPAN, LYNN Referring Unavailable SUPPAN, LYNN Attending Unavailable AL, MARTIN J Primary Care Unavailable AL, MARTIN J Primary Care Unavailable SUPPAN, LYNN Attending Unavailable AL, MARTIN J Primary Care Unavailable Suppan, Lynn Primary Care Unavailable Mauricio, Qi Attending Unavailable Suppan, Lynn Primary Care Unavailable Mauricio, Qi Attending Unavailable Mauricio, Qi Referring Unavailable Suppan, Lynn Primary Care Unavailable Mike TAXATION AGENT, Gladis Attending Unavailable Mike NESBITT, Gladis Referring Unavailable Suppan, Lynn Primary Care Unavailable Mauricio, Qi Attending Unavailable Al Martin HEARD Referring Unavailable Suppan, Lynn Primary Care Unavailable Mauricio, Qi Attending Unavailable Mauricio, Qi Referring Unavailable Suppan, Lynn Primary Care Unavailable Muaricio, Qi Attending Unavailable Mauricio, Qi Referring Unavailable Allergies Allergy Classification Reported Allergen(s) Allergy Type Date of Onset Reaction(s) Facility (4 sources) Environmental Allergies: Uncoded; Translations: [Environmental Allergies: Uncoded] Allergy to substance Nasal Congestion [facility] Medications Current Medications Medication Drug Class(es) Dates Sig (Normalized) Sig (Original) amoxicillin 875 mg / clavulanate 125 mg oral tablet (1 source) Penicillin-class Antibacterial Start: 01-30-2025 End: 02-09-2025 take 1 tablet by mouth every twelve hours amoxicillin-clavul anate potassium (AUGMENTIN) 875-125 mg per tablet Indications: Tonsillitis , Acute otitis externa of both ears, unspecified type Take 1 tablet by mouth every 12 hours for 10 days. 20 tablet 01/30/2025 02/09/2025 Active aspirin 81 mg delayed release oral tablet (20 sources) Platelet Aggregation Inhibitor, Nonsteroidal Anti-inflammatory Drug Start: 08-01-2011 take 1 tablet by mouth once daily aspirin, enteric coated (ASPIRIN, ENTERIC COATED) 81 mg EC tablet Take 1 tablet by mouth once daily. 0 08/01/2011 Active Comment on above: Take 1 tablet by wandy once daily. azithromycin 250 mg oral tablet (1 source) Macrolide Antimicrobial Start: 12-26-2024 End: 12-31-2024 azithromycin (ZITHROMAX Z-ENA) 250 mg tablet Indications: Pharyngitis due to Streptococcus species Take 2 tablets day one, then, 1 tablet daily until gone. 6 tablet 12/26/2024 12/31/2024 Active dapagliflozin 10 mg oral tablet (6 sources) Sodium-Glucose Cotransporter 2 Inhibitor Start: 01-19-2025 End: 01-21-2025 take 1 tablet by mouth once daily FARXIGA 10 mg tablet Take 1 tablet by mouth once daily. 01/19/2025 Active fexofenadine hydrochloride 180 mg oral tablet (13 sources) Histamine-1 Receptor Antagonist Start: 07-31-2024 End: 07-31-2025 take 1 tablet by mouth once daily Fexofenadine (Allergy Relief (Fexofenadine)) 180 mg tablet Active 180 mg PO daily January 12, 2025 12:00am Start: 11-07-2022 take 1 tablet by wandy once daily fexofenadine (JESSICA) 180 mg tablet Take 180 mg by mouth once daily. 0 11/07/2022 Active Start: 03-06-2022 End: 09-02-2022 take 1 tablet by mouth once daily fexofenadine (JESSICA ALLERGY) 180 mg tablet Take 1 tablet by mouth once daily. 90 tablet 3 03/06/2022 09/02/2022 Active Comment on above: Take 1 tablet by wandy th once daily. Take 180 mg by mouth once daily. 24 hr metoprolol succinate 50 mg extended release oral tablet (20 sources) beta-Adrenergic Zakiya Start: 10-03-2023 End: 07-31-2024 Metoprolol Succinate 50 mg tablet extended release 24 hr Active 75 mg PO DAILY January 19, 2025 9:13am bp Start: 08-11-2021 End: 10-01-2023 take 1.5 tablets by mouth once daily metoprolol succinate ER (TOPROL XL) 50 mg 24 hr tablet Take 1.5 tablets by mouth once daily. 135 tablet 3 08/23/2022 10/01/2023 Discontinued Start: 06-17-2015 End: 01-19-2025 take 1 tablet by mouth once daily Metoprolol Succinate 50 MG tablet Discontinued 50 mg PO DAILY June 17, 2015 1:00am January 19, 2025 9:13am bp Comment on above: Take 1.5 tablets by mouth once daily. MULTIVITAMIN ORAL (18 sources) MULTIVITAMIN ORA L Take by mouth. Active MULTIVITAMIN ORA L Take by mouth. 0 Active Comment on above: Take by mouth. Multivitamin tablet (3 sources) Start: Multivitamin tablet Active 1 {tbl} PO daily January 12, 2025 12:00am ondansetron 4 mg oral tablet (1 source) Serotonin-3 Receptor Antagonist Start: End: take 1 tablet by mouth every eight hours as needed for nausea and nausea ondansetron (ZOFRAN) 4 mg tablet Indications: Nausea Take 1 tablet by mouth every 8 hours as needed for nausea/vomiting. 60 tablet 03/16/2025 04/15/2025 Active sacubitril 24 mg / valsartan 26 mg oral tablet (6 sources) Angiotensin 2 Receptor Zakiya Start: take 1 tablet by mouth every twelve hours ENTRESTO 24-26 mg tablet Take 1 tablet by mouth every 12 hours. 01/19/2025 Active Start: 01-19-2025 End: 01-21-2025 Sacubitril-Valsartan (Entres to) 24-26 mg tablet Active 1 {tbl} PO TWICE A DAY 90 3 January 21, 2025 12:47pm triamcinolone acetonide 1 mg/ml topical cream (1 source) Corticosteroid Start: 06-13-2022 End: 06-20-2022 triamcinolone acetonide (KENALOG) 0.1 % cream Apply 1 application to affected area three times daily for 7 days. Apply sparingly to area for rash/itching. 80 g 0 06/13/2022 06/20/2022 Active Comment on above: Apply 1 application to affected area three times daily for 7 days. Apply sparingly to area for rash/itching. vancomycin 250 mg oral capsule (1 source) Glycopeptide Antibacterial Start: 03-13-2025 End: 03-27-2025 take 1 capsule by mouth four times daily vancomycin (VANCOCIN HCL) 250 mg capsule Indications: Diarrhea of presumed infectious origin Take 1 capsule by mouth four times daily for 14 days. 56 capsule 03/13/2025 03/27/2025 Active Completed/Discontinued Medications Medication Drug Class(es) Dates Sig (Normalized) Sig (Original) lidocaine 0.05 mg/mg medicated patch (5 sources) Antiarrhythmic, Amide Local Anesthetic Start: 09-14-2020 apply 1 dose transdermal route every twelve hours, then apply 1 dose transdermal route every twelve hours lidocaine (LIDODERM) 5 % Apply 1 Patch as directed every 12 hours. Remove old patch prior to placing new patch, 12 hours on 12 hours off. Location: back 7 Patch 0 09/14/2020 Active Comment on above: Apply 1 Patch as dir ected every 12 hours. Remove old patch prior to placing new patch, 12 hours on 12 hours off. Location: back lisinopril 5 mg oral tablet (4 sources) Angiotensin Converting Enzyme Inhibitor Start: 07-31-2024 End: 07-31-2025 take 1 tablet by mouth once daily Lisinopril 5 mg tablet Discontinued 5 mg PO daily January 12, 2025 12:00am January 19, 2025 9:11am meclizine hydrochloride 25 mg oral tablet (5 sources) Antiemetic Start: 04-10-2021 take 1 tablet by mouth every six hours as needed for dizziness meclizine (ANTIVERT) 25 mg tab Indications: Vertigo Take 1 tablet by mouth every 6 hours as needed (dizziness). 12 tablet 0 04/10/2021 Active Comment on above: Take 1 tablet by wandy every 6 hours as needed (dizziness). meloxicam 15 mg oral tablet (4 sources) Nonsteroidal Anti-inflammatory Drug Start: 08-25-2023 End: 09-04-2023 take 1 tablet by mouth once daily at mealtime meloxicam (MOBIC) 15 mg tablet Indications: Lateral epicondylitis of left elbow Take 1 tablet by mouth once daily for 10 days. With food. 10 tablet 08/25/2023 09/04/2023 Start: 09-15-2022 End: 12-18-2022 take 1 tablet by mouth once daily at mealtime meloxicam (MOBIC) 15 mg tablet Indications: Chronic right shoulder pain Take 1 tablet by mouth once daily. Take with food. 10 tablet 0 09/15/2022 12/18/2022 Discontinued Comment on above: Take 1 tablet by wandy th once daily. Take with food. perflutren lipid microspheres 1.3 mL in NaCl (PF) 0.9% 10 mL injection (DEFINITY) (5 sources) Start: 3 End: 4 perflutren lipid microspheres 1.3 mL in NaCl (PF) 0.9% 10 mL injection (DEFINITY) pravastatin sodium 20 mg oral tablet (2 sources) HMG-CoA Reductase Inhibitor Start: 3 take 1 tablet by mouth once daily pravastatin (PRAVACHOL) 20 mg tablet TAKE 1 TABLET BY MOUTH EVERY DAY 30 tablet 11 01/15/2023 Active Start: 12-18-2022 take 1 tablet by wandy th once daily pravastatin (PRAVACHOL) 20 mg tablet Take 1 tablet by mouth once daily. 30 tablet 11 12/18/2022 Active Comment on above: Take 1 tablet by wandy th once daily. TAKE 1 TABLET BY WANDY TH EVERY DAY rosuvastatin calcium 5 mg oral tablet (4 sources) HMG-CoA Reductase Inhibitor Start: 4 End: 5 take 1 tablet by mouth once daily Rosuvastatin 5 mg tablet Discontinued 5 mg PO daily January 12, 2025 12:00am January 19, 2025 9:11am 125 ml sodium chloride 9 mg/ml prefilled syringe (5 sources) Start: 3 End: 4 sodium chloride 0.9 % (flush) 10 mL (BD POSIFLUSH) Problems Active Problems Problem Classification Problem Date Documented Da te Episodic/Chronic Acute and chronic tonsillitis (2 sources) Tonsillitis; Translations: [Acute tonsillitis, unspecified] Onset: 01-30-2025 01-30-2025 Episodic Cardiac dysrhythmias (20 sources) Ventricular tachycardia; Translations: [Ventricular tachycardia] Onset: 07-28-2015 07-28-2015 Chronic Congestive heart failure; nonhypertensive (2 sources) Congestive heart failure; Translations: [Unspecified systolic (congestive) heart failure] Onset: 07-31-2024 07-31-2024 Chronic Coronary atherosclerosis and other heart disease (20 sources) Coronary atherosclerosis; Translations: [Atherosclerotic heart disease of n[place] coronary artery without angina pectoris] Onset: 03-12-2020 03-12-2020 Chronic Disorders of lipid metabolism (20 sources) Mixed hyperlipidemia; Translations: [Mixed hyperlipidemia] Onset: 05-27-2019 05-27-2019 Chronic Essential hypertension (20 sources) Essential (primary) hypertension; Translations: [Essential hypertension] Onset: 10-10-2017 05-27-2019 Chronic Immunizations and screening for infectious disease (4 sources) Patient encounter status; Translations: [Encounter for immunization] 07-31-2024 Episodic Intestinal infection (2 sources) Diarrhea of presumed infectious origin; Translations: [Diarrhea, unspecified] 03-16-2025 Episodic Nausea and vomiting (1 source) Nausea; Translations: [Nausea] 03-16-2025 Episodic Other and ill-defined heart disease (3 sources) Left ventricular systolic dysfunction; Translations: [Other ill-defined heart diseases] 01-12-2025 Chronic Other and ill-defined heart disease (6 sources) Chronic systolic dysfunction of left ventricle; Translations: [Heart disease, unspecified] 01-19-2025 Chronic Other and ill-defined heart disease (1 source) Heart disease, unspecified; Translations: [Heart disease, unspecified] Onset: 03-03-2025 Chronic Other circulatory disease (3 sources) History of cardiac arrhythmia; Translations: [Personal history of other diseases of the circulatory system] 04-01-2019 Episodic Other circulatory disease (3 sources) History of cardiomyopathy; Translations: [Personal history of other diseases of the circulatory system] 10-02-2017 Episodic Other circulatory disease (2 sources) Personal history of other diseases of the circulatory system; Translations: [Personal history of other diseases of the circulatory system] Onset: 01-19-2025 Episodic Other connective tissue disease (1 source) Lateral epicondylitis of left humerus; Translations: [Lateral epicondylitis, left elbow] 08-25-2023 Episodic Other ear and sense organ disorders (1 source) Acute otitis externa of bilateral ears; Translations: [Unspecified acute noninfective otitis externa, bilateral] 01-30-2025 Episodic Other ear and sense organ disorders (1 source) Unspecified acute noninfective otitis externa, bilateral; Translations: [Acute otitis externa of both ears, unspecified type] Onset: 01-30-2025 Episodic Other gastrointestinal disorders (1 source) Diarrhea, unspecified; Translations: [Diarrhea of presumed infectious origin] Onset: 03-13-2025 Episodic Other non-traumatic joint disorders (1 source) Chronic pain of right upper limb; Translations: [Pain in right shoulder] 09-15-2022 Episodic Other screening for suspected conditions (not mental disorders or infectious disease) (2 sources) Encounter for screening for malignant neoplasm of prostate; Translations: [Encounter for screening for diabetes mellitus] Onset: 07-31-2024 Episodic Other upper respiratory infections (1 source) Streptococcal pharyngitis; Translations: [Pharyngitis due to Streptococcus species] Onset: 12-26-2024 Episodic Mana-; endo-; and myocarditis; cardiomyopathy (20 sources) Cardiomyopathy, unspecified; Translations: [Cardiomyopathy] Onset: 06-28-2015 05-27-2019 Chronic Screening and history of mental health and substance abuse codes (3 sources) Tobacco use and exposure - finding; Translations: [Personal history of nicotine dependence] 01-12-2025 Episodic Substance-related disorders (7 sources) Nicotine dependence; Translations: [Nicotine dependence, unspecified, uncomplicated] Onset: 01-19-2025 01-19-2025 Chronic Unclassified (1 source) Unknown / UNK(Unknown) Onset: 10-04-2017 Unclassified (1 source) VT (ventricular tachycardia) (HCC); Translations: [VT (ventricular tachycardia) (HCC)] Onset: 07-28-2015 Unclassified (1 source) Ventricular tachycardia, unspecified; Translations: [Ventricular tachycardia, unspecified] Onset: 03-15-2025 Past or Other Problems Problem Classification Problem Date Documented Da te Episodic/Chronic Alcohol-related disorders (15 sources) Alcohol abuse; Translations: [Alcohol abuse, uncomplicated] Onset: 07-28-2015 Resolved: 07-17-2017 07-17-2017 Chronic Cardiac dysrhythmias (20 sources) Palpitations; Translations: [Palpitations] Onset: 05-27-2019 05-27-2019 Episodic Conditions associated with dizziness or vertigo (20 sources) Lightheadedness; Translations: [Dizziness and giddiness] Onset: 07-28-2015 07-28-2015 Episodic Malaise and fatigue (19 sources) Asthenia; Translations: [Weakness] Onset: 09-15-2022 09-15-2022 Episodic Other connective tissue disease (8 sources) Pain in upper limb; Translations: [Pain in arm, unspecified] Onset: 06-28-2015 Resolved: 07-17-2017 07-17-2017 Episodic Syncope (20 sources) Syncope and collapse; Translations: [Near syncope] Onset: 10-04-2017 Resolved: 09-15-2022 09-15-2022 Episodic Results Test Name Value Interpretation Reference Range Facility C diff Tox gens Stl Ql CADENCE+p robeon 03-14-2025 C. difficile toxin genes CADENCE+probe Ql (Stl) Negative Normal Negative for C. difficile toxin by PCR [facility] Comment on above: Order Comment: Speci men Type: BLOOD SPECIMEN Ordering Facility: [facility] Address: [address] [place] [address] Performed By: #### P SAS1 #### [facility] [place] [id number] [address] [place] [address] OF [facility] FECAL LACTOFERRIN/LEUKOCYTES on 03-14-2025 Lactoferrin IA Ql (Stl) Negative for lactoferrin, which may indicate the absence of fecal white blood cells Normal Negative [facility] Comment on above: Order Comment: Vidal fonseca Type: BLOOD SPECIMEN Ordering Facility: [facility] Address: [address] [place] [address] Performed By: #### P SAS1 #### [facility] [place] [id number] [address] [place] [address] [place] G lamblia+Cryptosp Ag Stl Ql IAon 03-14-2025 G. lamblia+Cryptospori dium sp Ag IA Ql (Stl) CRYPTOSPORIDIUM ANTIGEN BY EIA: Negative for Cryptosporidium by EIA. GIARDIA ANTIGEN BY EIA: Negative for Giardia lamblia by EIA. Normal [facility] Comment on above: Performed By: #### P SAS1 #### [facility] CLIA [id number] [address] [place] [address] [place] CBC W Auto Differential pane l (Bld)on 03-13-2025 Basophils (Bld) [#/Vol] 0.06 10*3/uL Normal <0.11 [facility] Comment on above: Order Comment: Speci men Type: BLOOD SPECIMEN Ordering Facility: [facility] Address: [address] [place] [address] Performed By: #### P SAS1 #### [facility] CLIA [id number] [address] [place] [address] [place] Basophils/100 WBC (Bld) 0.8 % Normal [facility] Comment on above: Order Comment: Speci men Type: BLOOD SPECIMEN Ordering Facility: [facility] Address: [address] [place] [address] Performed By: #### P SAS1 #### [facility] CLIA [id number] [address] [place] [address] [place] Differential cell count method Nom (Bld) Auto Normal [facility] Comment on above: Order Comment: Speci men Type: BLOOD SPECIMEN Ordering Facility: [facility] Address: [address] [place] [address] Performed By: #### P SAS1 #### [facility] CLIA [id number] [address] [place] [address] [place] Eosinophils (Bld) [#/Vol] 0.26 10*3/uL Normal <0.46 [facility] Comment on above: Order Comment: Speci men Type: BLOOD SPECIMEN Ordering Facility: [facility] Address: [address] [place] [address] Performed By: #### P SAS1 #### [facility] CLIA [id number] [address] [place] [address] [place] Eosinophils/100 WBC (Bld) 3.4 % Normal [facility] Comment on above: Order Comment: Speci men Type: BLOOD SPECIMEN Ordering Facility: [facility] Address: [address] [place] [address] Performed By: #### P SAS1 #### [facility] CLIA [id number] [address] [place] [address] [place] Erythrocyte distribution width (RBC) [Ratio] 13.0 % Normal 11.5-15.0 [facility] Comment on above: Order Comment: Speci men Type: BLOOD SPECIMEN Ordering Facility: [facility] Address: [address] [place] [address] Performed By: #### P SAS1 #### [facility] CLIA [id number] [address] [place] [address] [place] Hematocrit (Bld) [Volume fraction] 41.0 % Normal 39.0-51.0 [facility] Comment on above: Order Comment: Speci men Type: BLOOD SPECIMEN Ordering Facility: [facility] Address: [address] [place] [address] Performed By: #### P SAS1 #### [facility] CLIA [id number] [address] [place] [address] [place] Hemoglobin (Bld) [Mass/Vol] 14.0 g/dL Normal 13.0-17.0 [facility] Comment on above: Order Comment: Speci men Type: BLOOD SPECIMEN Ordering Facility: [facility] Address: [address] [place] [address] Performed By: #### P SAS1 #### [facility] CLIA [id number] [address] [place] [address] [place] Immature granulocytes (Bld) [#/Vol] 0.03 10*3/uL Normal <0.10 [facility] Comment on above: Order Comment: Speci men Type: BLOOD SPECIMEN Ordering Facility: [facility] Address: [address] [place] [address] Performed By: #### P SAS1 #### [facility] CLIA [id number] [address] [id number] [address] [place] Immature granulocytes/100 WBC (Bld) 0.4 % Normal [facility] Comment on above: Order Comment: Speci men Type: BLOOD SPECIMEN Ordering Facility: [facility] Address: [address] [place] [address] Performed By: #### P SAS1 #### [facility] CLIA [id number] [address] [place] [address] [place] Lymphocytes (Bld) [#/Vol] 2.02 10*3/uL Normal 1.00-4.00 [facility] Comment on above: Order Comment: Speci men Type: BLOOD SPECIMEN Ordering Facility: [facility] Address: [address] [place] [address] Performed By: #### P SAS1 #### [facility] CLIA [id number] [address] [place] [address] [place] Lymphocytes/100 WBC (Bld) 26.3 % Normal [facility] Comment on above: Order Comment: Speci men Type: BLOOD SPECIMEN Ordering Facility: [facility] Address: [address] [place] [address] Performed By: #### P SAS1 #### [facility] CLIA [id number] [address] [place] [address] [place] MCH (RBC) [Entitic mass] 33.8 pg Normal 26.0-34.0 [facility] Comment on above: Order Comment: Speci men Type: BLOOD SPECIMEN Ordering Facility: [facility] Address: [address] [place] [address] Performed By: #### P SAS1 #### [facility] CLIA [id number] [address] [place] [address] [place] MCHC (RBC) [Mass/Vol] 34.1 g/dL Normal 30.5-36.0 [facility] Comment on above: Order Comment: Speci men Type: BLOOD SPECIMEN Ordering Facility: [facility] Address: [address] [place] [address] Performed By: #### P SAS1 #### [facility] CLIA [id number] [address] [place] [address] [place] MCV (RBC) [Entitic vol] 99.0 fL Normal 80.0-100.0 [facility] Comment on above: Order Comment: Speci men Type: BLOOD SPECIMEN Ordering Facility: [facility] Address: [address] [place] [address] Performed By: #### P SAS1 #### [facility] CLIA [id number] [address] [place] [address] [place] Monocytes (Bld) [#/Vol] 0.54 10*3/uL Normal <0.87 [facility] Comment on above: Order Comment: Speci men Type: BLOOD SPECIMEN Ordering Facility: [facility] Address: [address] [place] [address] Performed By: #### P SAS1 #### [facility] CLIA [id number] [address] [place] [address] [place] Monocytes/100 WBC (Bld) 7.0 % Normal [facility] Comment on above: Order Comment: Speci men Type: BLOOD SPECIMEN Ordering Facility: [facility] Address: [address] [place] [address] Performed By: #### P SAS1 #### [facility] CLIA [id number] [address] [place] [address] [place] Neutrophils (Bld) [#/Vol] 4.78 10*3/uL Normal 1.45-7.50 [facility] Comment on above: Order Comment: Speci men Type: BLOOD SPECIMEN Ordering Facility: [facility] Address: [address] [place] [address] Performed By: #### P SAS1 #### [facility] CLIA [id number] [address] [place] [address] [place] Neutrophils/100 WBC (Bld) 62.1 % Normal [facility] Comment on above: Order Comment: Speci men Type: BLOOD SPECIMEN Ordering Facility: [facility] Address: [address] [place] [address] Performed By: #### P SAS1 #### [facility] CLIA [id number] [address] [place] [address] [place] Nucleated RBC (Bld) [#/Vol] 10*3/uL Normal <0.01 [facility] Comment on above: Order Comment: Speci men Type: BLOOD SPECIMEN Ordering Facility: [facility] Address: [address] [place] [address] Performed By: #### P SAS1 #### [facility] CLIA [id number] [address] [place] [address] [place] Nucleated RBC/100 WBC (Bld) [Ratio] 0.0 /100 WBC Normal [facility] Comment on above: Order Comment: Speci men Type: BLOOD SPECIMEN Ordering Facility: [facility] Address: [address] [place] [address] Performed By: #### P SAS1 #### [facility] CLIA [id number] [address] [place] [address] [place] Platelet mean volume (Bld) [Entitic vol] 9.8 fL Normal 9.0-12.7 [facility] Comment on above: Order Comment: Speci men Type: BLOOD SPECIMEN Ordering Facility: [facility] Address: [address] [place] [address] Performed By: #### P SAS1 #### [facility] CLIA [id number] [address] [place] [address] [place] Platelets (Bld) [#/Vol] 238 10*3/uL Normal 150-400 [facility] Comment on above: Order Comment: Speci men Type: BLOOD SPECIMEN Ordering Facility: [facility] Address: [address] [place] [address] Performed By: #### P SAS1 #### [facility] CLIA [id number] [address] [place] [address] [place] RBC (Bld) [#/Vol] 4.14 10*6/uL Low 4.20-6.00 [facility] Comment on above: Order Comment: Speci men Type: BLOOD SPECIMEN Ordering Facility: [facility] Address: [address] [place] [address] Performed By: #### P SAS1 #### [facility] CLIA [id number] [address] [place] [address] [place] WBC (Bld) [#/Vol] 7.69 10*3/uL Normal 3.70-11.00 [facility] Comment on above: Order Comment: Speci men Type: BLOOD SPECIMEN Ordering Facility: [facility] Address: [address] [place] [address] Performed By: #### P SAS1 #### [facility] CLIA [id number] [address] [place] [address] [place] CNOVon 03-13-2025 CNOV Office Visit (FAMPWS ) JUANCARLOSKELSI ORTEGA ([id number]) 1965 M Date Time Provider Department 03/13/25 4:00 PM LYNN AVALOS FAMPWS During your visit today, we recorded the following information about you: Temperature Pulse Blood pressure Weight 98.7 degrees 80/minute 122/64 81.6 kg Lynn Avalos, OSD CLERK.BIZTALK ADMINISTRATOR 03/13/2025 4:37 PM Addendum This is a 59 year old male who presents today with: Patient presents with: Diarrhea HISTORY OF PRESENT ILLNESS: Kelsi Soto is a 59 year old male. Patient presents with: Diarrhea Kelsi Soto is a 59-year-old male with a history of CHF, presenting with chronic diarrhea. Chronic Diarrhea: - Onset approximately 3 weeks ago, following a course of Augmentin for a sinus infection and suspected food poisoning. - Initially took a Z-Ena, followed by amoxicillin. - Consistency: Watery, with a really bad smell. - Frequency: 3-5 times per night; exacerbated by eating, especially at night. - Associated symptoms: Fatigue, bloating, decreased appetite, mild nausea, and headaches. - Denies fever, chills, abdominal pain, or dysuria. - Attempted to manage symptoms with Pepto-Bismol, which resulted in black, loose stools. - Tried a fiber supplement without relief. - Consuming fluids and able to hold down food, but reports a significant decrease in appetite. - Denies recent camping, hunting, or drinking from streams. - Suspected dehydration led to a temporary discontinuation of Entresto for 2 days, resulting in serious chest pains. - Continues to take Farxiga. PAST MEDICAL HISTORY: PAST MEDICAL HISTORY Diagnosis Date Dilated cardiomyopathy (HCC) Dyslipidemia Essential hypertension Left ventricular systolic dysfunction Nonsustained ventricular tachycardia (HCC) Pain in wrist PAST SURGICAL HISTORY Procedure Laterality Date COLONOSCOPY FLX DX W/COLLJ SPEC WHEN PFRMD 05/27/2018 Colonoscopy EPS: EP STUDY Neelima Reeves - negative LEFT HEART CATH 06/21/2015 ALLERGIES Patient has no known allergies. MEDICATIONS Current Outpatient Medications Medication Sig FARXIGA 10 mg tablet Take 1 tablet by mouth once daily. ENTRESTO 24-26 mg tablet Take 1 tablet by mouth every 12 hours. metoprolol succinate ER (TOPROL XL) 50 mg 24 hr tablet Take 1.5 tablets by mouth once daily. MULTIVITAMIN ORAL Take by mouth. aspirin, enteric coated (ASPIRIN, ENTERIC COATED) 81 mg EC tablet Take 1 tablet by mouth once daily. No current facility-administered medications for this visit. FAMILY HISTORY Problem Relation Age of Onset Heart Father Cardiomyopathy No Known Problems Mother Heart Brother AFIB Heart Brother AFIB Heart Son Age 27 - Cardiomyopathy Social History Tobacco Use Smoking status: Former Current packs/day: 0.00 Average packs/day: 0.3 packs/day for 20.0 years (6.0 ttl pk-yrs) Types: Cigarettes Start date: 06/17/1995 Quit date: 06/17/2015 Years since quittin.7 Smokeless tobacco: Former Types: Snuff Quit date: 06/23/2015 Tobacco comments: Occasional cigar Vaping Use Vaping status: Never Used Substance Use Topics Alcohol use: Yes Alcohol/week: 2.0 standard drinks of alcohol Types: 2 Cans of Beer (12oz) per week Drug use: Never REVIEW OF SYSTEMS Constitutional: (+) fatigue, (+) decreased appetite, (-) fever, (-) chills Head: (+) headache Gastrointestinal: (+) watery diarrhea, (+) abdominal bloating, (+) nausea, (-) abdominal pain, (-) abdominal tenderness Genitourinary: (-) dysuria Musculoskeletal: (+) low back pain EXAM: BP 122/64 Pulse 80 Temp 37.1 ?C (98.7 ?F) (Right Tympanic) Wt 81.6 kg (180 lb) SpO2 96% BMI 24.41 kg/m? PHYSICAL EXAM: GENERAL: NAD, alert and oriented. SKIN: Unremarkable, no rash or skin lesions. LUNGS: Clear to auscultation bilaterally, no wheezes/rhonchi/rales. HEART: Regular rate and rhythm, no murmurs. No ectopy. ABDOMEN: Soft, non-tender, no guarding or rebound tenderness. Bowel sounds hyperactive. NEURO: Awake, alert and oriented x3, normal gait, no involuntary motions. LABS: labs and stool specimen ASSESSMENT/PLAN: 1. Diarrhea of presumed infectious origin - ICD9: 009.3, ICD10: R19.7 - Persistent watery diarrhea for 2-3 weeks following recent antibiotic use (Z-Ena, amoxicillin, Augmentin) and suspected food poisoning; no fever or chills, but notable fatigue, bloating, and decreased appetite. - Differential includes C. difficile infection and prolonged infectious gastroenteritis. - Ordered stool studies to evaluate for C. difficile and other infectious etiologies. - Ordered labs to assess renal function and hydration status. - Advised against use of anti-diarrheal medications such as Imodium until infectious causes are ruled out. - Emphasized importance of maintaining adequate hydration. - Will follow up by phone with results; patient (more content not included)... Normal [facility] Comprehensive metabolic 2000 panelon 03-13-2025 Albumin [Mass/Vol] 4.3 g/dL Normal 3.9-4.9 [facility] Comment on above: Order Comment: Speci men Type: BLOOD SPECIMENOrdering Facility: [facility] Address: [address] [place] [address] Performed By: #### 1 9123-9, 3, ####[facility] [id number] [address] [address] [place] ALP [Catalytic activity/Vol] 46 U/L Normal 38-113 [facility] Comment on above: Order Comment: Speci men Type: BLOOD SPECIMENOrdering Facility: [facility] Address: [address] [place], [place] [address] Performed By: #### 1 9123-9, 3, ####[facility] [id number] [place] [id number] [place] ALT [Catalytic activity/Vol] 22 U/L Normal 10-54 [facility] Comment on above: Order Comment: Speci men Type: BLOOD SPECIMENOrdering Facility: [facility] Address: [address] [place] [address] Performed By: #### 1 9123-9, 3, ####[facility] [id number] [address] [address] [place] Anion gap [Moles/Vol] 14 mmol/L Normal 8-15 [facility] Comment on above: Order Comment: Speci men Type: BLOOD SPECIMENOrdering Facility: [facility] Address: [address] [place] [address] Performed By: #### 1 9123-9, 3, 06696-7 ####[facility] [id number] [address] [address] [place] AST [Catalytic activity/Vol] 23 U/L Normal 14-40 [facility] Comment on above: Order Comment: Speci men Type: BLOOD SPECIMENOrdering Facility: [facility] Address: [address] [place] [address] Performed By: #### 1 9123-9, 3016-3, 76445-6 ####[facility] [id number] [place] [address] [place] Bilirubin [Mass/Vol] 0.3 mg/dL Normal 0.2-1.3 [facility] Comment on above: Order Comment: Speci men Type: BLOOD SPECIMENOrdering Facility: [facility] Address: [address] [place] [address] Performed By: #### 1 9123-9, 3015-3, 33186-5 ####[facility] [id number] [place] [address] [place] Calcium [Mass/Vol] 9.7 mg/dL Normal 8.5-10.2 [facility] Comment on above: Order Comment: Speci men Type: BLOOD SPECIMENOrdering Facility: [facility] Address: [address] [place] [address] Performed By: #### 1 9123-9, 3015-3, 05218-2 ####[facility] [id number] [place] [address] [place] Chloride [Moles/Vol] 108 mmol/L High 98-107 [facility] Comment on above: Order Comment: Speci men Type: BLOOD SPECIMENOrdering Facility: [facility] Address: [address] [place] [address] Performed By: #### 1 9123-9, 6-3, 69658-3 ####[facility] [id number] [place] [id number] [place] CO2 [Moles/Vol] 22 mmol/L Normal 22-30 [facility] Comment on above: Order Comment: Speci men Type: BLOOD SPECIMENOrdering Facility: [facility] Address: [address] [place] [address] Performed By: #### 1 9123-9, 3016-3, 90794-7 ####[facility] [id number] [address] [address] [place] Creatinine [Mass/Vol] 0.86 mg/dL Normal 0.73-1.22 [facility] Comment on above: Order Comment: Speci men Type: BLOOD SPECIMENOrdering Facility: [facility] Address: [address] [place] [address] Performed By: #### 1 9123-9, 6-3, 68915-6 ####[facility] [id number] [address] [address] [place] eGFRcr SerPlBld CKD-EPI 2020 99 mL/min/1.73m??? Normal >=60 [facility] Comment on above: Order Comment: [facility] Type: BLOOD SPECIMENOrdering Facility: [facility] Address: [address] [place] [address] Result Comment: Sejal mated Glomerular Filtration Rate (eGFR) is calculated using the 2020 CKD-EPI creatinine equation. This equation utilizes serum creatinine, sex, and age as parameters. The creatinine assay has traceable calibration to isotope dilution-mass spectrometry. Refer to KDIGO guidelines for clinical interpretation. In patients with unstable renal function, e.g. those with acute kidney injury, the eGFR may not accurately reflect actual GFR. Performed By: #### 1 9123-9, 3015-3, 26550-0 ####[facility] [id number] [address] [address] [place] Glucose [Mass/Vol] 78 mg/dL Normal 74-99 [facility] Comment on above: Order Comment: Speci men Type: BLOOD SPECIMENOrdering Facility: [facility] Address: [address] [place] [address] Result Comment: The [place] Diabetes Association (ADA) provides guidance for cutoff values for fasting glucose and random glucose. The ADA defines fasting as no caloric intake for at least 8 hours. Fasting plasma glucose results between 100 to 125 mg/dL indicate increased risk for diabetes (prediabetes). Fasting plasma glucose results greater than or equal to 126 mg/dL meet the criteria for diagnosis of diabetes. In the absence of unequivocal hyperglycemia, results should be confirmed by repeat testing. In a patient with classic symptoms of hyperglycemia or hyperglycemic crisis, random plasma glucose results greater than or equal to 200 mg/dL meet the criteria for diagnosis of diabetes. Reference: Standards of Medical Care in Diabetes 2016, [place] Diabetes Association. Diabetes Care. 2016.39(Suppl 1). Performed By: #### 1 9123-9, 3015-10, ####[facility] [id number] [place] [address] [place] Potassium [Moles/Vol] 4.2 mmol/L Normal 3.7-5.1 [facility] Comment on above: Order Comment: Speci men Type: BLOOD SPECIMENOrdering Facility: [facility] Address: [address] [place] [address] Performed By: #### 1 9123-9, 3015-10, ####[facility] [id number] [place] [address] [place] Protein [Mass/Vol] 7.0 g/dL Normal 6.3-8.0 [facility] Comment on above: Order Comment: Speci men Type: BLOOD SPECIMENOrdering Facility: [facility] Address: [address] [place] [address] Performed By: #### 1 9123-9, 3015-10, ####[facility] [id number] [place] [id number] [place] Sodium [Moles/Vol] 144 mmol/L Normal 136-144 [facility] Comment on above: Order Comment: Speci men Type: BLOOD SPECIMENOrdering Facility: [facility] Address: [address] [place] [address] Performed By: #### 1 9123-9, 3015-10, ####[facility] [id number] [place] [id number] [place] Urea nitrogen [Mass/Vol] 14 mg/dL Normal 9-24 [facility] Comment on above: Order Comment: Speci men Type: BLOOD SPECIMENOrdering Facility: [facility] Address: [address] [place] [address] Performed By: #### 1 9123-9, 3016-3, 93737-1 ####[facility] [id number] [place] [id number] [place] Magnesium SerPl-mCncon 03-13 Magnesium [Mass/Vol] 2.3 mg/dL Normal 1.7-2.3 [facility] Comment on above: Order Comment: Speci men Type: BLOOD SPECIMENOrdering Facility: [facility] Address: [address] [place] [address] Performed By: #### 1 9123-9, 3016-3, 92086-1 ####[facility] [id number] [place] [id number] [place] TSH SerPl-aCncon 03-13-2025 TSH Qn 0.931 m[IU]/L Normal 0.270-4.20 0 [facility] Comment on above: Order Comment: Speci men Type: BLOOD SPECIMENOrdering Facility: [facility] Address: [address] [place] [address] Performed By: #### 1 9123-9, 3016-3, 27487-5 ####[facility] [id number] [place] [id number] [place] Echocardiogram study reportO rdered By: Qi Martínez on 03-02-2025 Study report [facility] Cardiovascular Services [address] [place] [address] Echo Complete W/ Contrast 02/27/25 1458 MR#: [id number] Acct: [id number] Name: KELSI SOTO Rep #:[id number] : 1965 59 From: Qi Martínez MD Attending Dr: Dr. Qi Martínez MD Status: REG CLI Ordering Dr: Qi Martínez MD Date: Location: [facility] Sex: M C Admitted: Reason For Study Reason For Study: Other Procedure This was a 2D Doppler, Color Flow transthoracic echocardiogram. Contrast injection was performed. Exam performed in department. Left Ventricle Normal left ventricular thickness. Mildly dilated left ventricle. Moderate global hypokinesis. Estimated LVEF 40-45%. Stage I diastolic dysfunction. Right Ventricle Normal right ventricle. Atria The left and right atria are normal. Mitral Valve Mild (1+) mitral valve insufficiency. Tricuspid Valve Mild tricuspid valve insufficiency. Normal pulmonary artery pressure. Aortic Valve Trisinus/trileaflet aortic valve. Mild (1+) aortic valve insufficiency. Pulmonic Valve The pulmonic valve is not well visualized. Trivial pulmonic valve insufficiency. Great Vessels Normal sized aortic root. Pericardium/Pleural No pericardial effusion. Medication Diluted definity 2ml given slow IV push to enhance endocardial definition. MMode/2D Measurements & Calculations LVIDd: 6.0 cm IVSd: 1.0 cm Ao root diam: 3.0 cm LVIDs: 4.3 cm LVPWd: 0.99 cm RVDd: 4.2 cm FS: 28.7 % ____ LAV(MOD-bp): 51.5 ml LVAd ap4: 43.0 cm2 LVAd ap2: 41.2 cm2 LAV(MOD-bp) Indexed: 25.1 ml/m2 LVLd ap4: 9.0 cm LVLd ap2: 8.0 cm LAV(MOD-sp2): 54.4 ml EDV(MOD-sp4): 170.7 ml EDV(MOD-sp2): 175.7 ml LAV(MOD-sp4): 42.9 ml EDV(sp4-el): 174.1 ml EDV(sp2-el): 180.2 ml LVAs ap4: 26.7 cm2 LVAs ap2: 28.9 cm2 LVLs ap4: 7.3 cm LVLs ap2: 7.4 cm ESV(MOD-sp4): 84.7 ml ESV(MOD-sp2): 95.6 ml ESV(sp4-el): 83.1 ml ESV(sp2-el): 96.4 ml EF(MOD-sp4): 50.4 % EF(MOD-sp2): 45.6 % EF(sp4-el): 52.3 % SV(MOD-sp4): 86.1 ml SV(MOD-sp2): 80.1 ml SV(sp4-el): 91.0 ml SI(MOD-sp4): 41.9 ml/m2 SI(MOD-sp2): 39.1 ml/m2 ____ LA A4 area: 16.9 cm2 LA dimension(2D): 3.5 cm RA A4 area: 15.9 cm2 ____ TAPSE: 2.2 cm Time Measurements MV dec time: 0.18 sec Doppler Measurements & Calculations MV E max desmond: 58.4 cm/sec Lat Peak E' Desmond: 13.1 cm/sec Med Peak E' Desmond: 8.1 cm/sec MV A max desmond: 50.0 cm/sec E/E' lat: 4.4 E/E' med: 7.2 MV E/A: 1.2 MV dec slope: 324.2 cm/sec2 Ao V2 max: 93.1 cm/sec LV V1 max: 70.9 cm/sec Ao max P.5 mmHg LV V1 max P.0 mmHg Ao V2 mean: 72.8 cm/sec LV V1 mean P.1 mmHg Ao mean P.2 mmHg LV V1 mean: 47.1 cm/sec Ao V2 VTI: 19.1 cm LV V1 VTI: 14.7 cm AV (velocity ratio): 0.77 PA V2 max: 78.7 cm/sec TR max desmond: 206.1 cm/sec TR max P.0 mmHg ECHO/Echo Complete W/ Contrast Interpretation Summary Mildly dilated left ventricle. Moderate global hypokinesis. Estimated LVEF 40-45%. Stage I diastolic dysfunction. Mild (1+) mitral valve insufficiency. Mild tricuspid valve insufficiency. Mild (1+) aortic valve insufficiency. Ordering Physician: Qi Martínez Referring Physician: Lynn Avalos Performed By: Natalie Sosa, BARBARA, RVT 03/02/25 1324 Date ___ _ Qi Martínez MD CC: MARY Avalos; Dr. Qi Martínez MD ~ Date Dictated: 02/27/258 Date Transcribed: 03/02/25 132 Safety Relief Valve Technician: Signed [facility] Work Phone: Echo Complete W/ Contraston 02-27-2025 Echo Complete W/ Contrast [facility] Cardiovascular Services [address] [place] [address] Echo Complete W/ Contrast 02/27/258 MR#: [id number] Acct: [id number] Name: KELSI SOTO Rep #: [id number] : 1965 59 From: Qi Martínez MD Attending Dr: Dr. Qi Martínez MD Status: REG CLI Ordering Dr: Qi Martínez MD Date: 02/27/25 Location: [facility] Sex: M C Admitted: Reason For Study Reason For Study: Other Procedure This was a 2D Doppler, Color Flow transthoracic echocardiogram. Contrast injection was performed. Exam performed in department. Left Ventricle Normal left ventricular thickness. Mildly dilated left ventricle. Moderate global hypokinesis. Estimated LVEF 40-45%. Stage I diastolic dysfunction. Right Ventricle Normal right ventricle. Atria The left and right atria are normal. Mitral Valve Mild (1+) mitral valve insufficiency. Tricuspid Valve Mild tricuspid valve insufficiency. Normal pulmonary artery pressure. Aortic Valve Trisinus/trileaflet aortic valve. Mild (1+) aortic valve insufficiency. Pulmonic Valve The pulmonic valve is not well visualized. Trivial pulmonic valve insufficiency. Great Vessels Normal sized aortic root. Pericardium/Pleural No pericardial effusion. Medication Diluted definity 2ml given slow IV push to enhance endocardial definition. MMode/2D Measurements Calculations LVIDd: 6.0 cm IVSd: 1.0 cm Ao root diam: 3.0 cm LVIDs: 4.3 cm LVPWd: 0.99 cm RVDd: 4.2 cm FS: 28.7 % ____ LAV(MOD-bp): 51.5 ml LVAd ap4: 43.0 cm2 LVAd ap2: 41.2 cm2 LAV(MOD-bp) Indexed: 25.1 ml/m2 LVLd ap4: 9.0 cm LVLd ap2: 8.0 cm LAV(MOD-sp2): 54.4 ml EDV(MOD-sp4): 170.7 ml EDV(MOD-sp2): 175.7 ml LAV(MOD-sp4): 42.9 ml EDV(sp4-el): 174.1 ml EDV(sp2-el): 180.2 ml LVAs ap4: 26.7 cm2 LVAs ap2: 28.9 cm2 LVLs ap4: 7.3 cm LVLs ap2: 7.4 cm ESV(MOD-sp4): 84.7 ml ESV(MOD-sp2): 95.6 ml ESV(sp4-el): 83.1 ml ESV(sp2-el): 96.4 ml EF(MOD-sp4): 50.4 % EF(MOD-sp2): 45.6 % EF(sp4-el): 52.3 % ____ SV(MOD-sp4): 86.1 ml SV(MOD-sp2): 80.1 ml SV(sp4-el): 91.0 ml SI(MOD-sp4): 41.9 ml/m2 SI(MOD-sp2): 39.1 ml/m2 ____ LA A4 area: 16.9 cm2 LA dimension(2D): 3.5 cm RA A4 area: 15.9 cm2 ____ TAPSE: 2.2 cm Time Measurements MV dec time: 0.18 sec Doppler Measurements Calculations MV E max desmond: 58.4 cm/sec Lat Peak E' Desmond: 13.1 cm/sec Med Peak E' Desmond: 8.1 cm/sec MV A max desmond: 50.0 cm/sec E/E' lat: 4.4 E/E' med: 7.2 MV E/A: 1.2 ____ MV dec slope: 324.2 cm/sec2 Ao V2 max: 93.1 cm/sec LV V1 max: 70.9 cm/sec Ao max P.5 mmHg LV V1 max P.0 mmHg Ao V2 mean: 72.8 cm/sec LV V1 mean P.1 mmHg Ao mean P.2 mmHg LV V1 mean: 47.1 cm/sec Ao V2 VTI: 19.1 cm LV V1 VTI: 14.7 cm AV (velocity ratio): 0.77 ____ PA V2 max: 78.7 cm/sec TR max desmond: 206.1 cm/sec TR max P.0 mmHg ECHO/Echo Complete W/ Contrast Interpretation Summary Mildly dilated left ventricle. Moderate global hypokinesis. Estimated LVEF 40-45%. Stage I diastolic dysfunction. Mild (1+) mitral valve insufficiency. Mild tricuspid valve insufficiency. Mild (1+) aortic valve insufficiency. Ordering Physician: Qi Martínez Referring Physician: Lynn Avalos Performed By: Natalie Sosa, BARBARA, RVT 03/02/25 1324 Date ____ Qi Martínez MD CC: MARY vAalos; Dr. Qi Martínez MD Date Dictated: 02/27/25 1458 Date Transcribed: 03/02/25 1324 Safety Relief Valve Technician: Signed Normal [facility] Anion gap in Serum or Plasma Ordered By: Qi Martínez on 02-09-2025 Anion gap [Moles/Vol] 11 mmol/L 5-15 [facility] BUN/creatinine ratioOrdered By: Qi Martínez on 02-09-2025 Urea nitrogen/Creatinine [Mass ratio] 11.7 mg/mg 10-20 [facility] Bilirubin, totalOrdered By: Qi Martínez on 02-09-2025 Bilirubin [Mass/Vol] 0.43 mg/dL 0.00-1.30 [facility] Calculated very low density lipoprotein (VLDL) cholesterol measurementOrdered By: Qi Martínez on 02-09-2025 Calculated very low density lipoprotein (VLDL) cholesterol measurement 62 mg/dL High 5-40 [facility] Carbon dioxide, total [Moles /volume] in Central venous bloodOrdered By: Qi Martínez on 02-09-2025 CO2 [Moles/Vol] 23.7 mmol/L 21.0-32.0 [facility] Chloride assayOrdered By: Adolfo Martínez on 02-09-2025 Chloride [Moles/Vol] 105 mmol/L 98-108 [facility] Comprehensive Metabolic Prof ilon 02-09-2025 Albumin [Mass/Vol] 4.4 g/dL Normal 3.4-4.8 [facility] Comment on above: Performed By: #### L 501.5200, L501.9520, L500.4050, L500.4100 #### [facility] [address] [place] [place], [address] Albumin/Globulin [Mass ratio] 1.6 {ratio} Normal 0.9-2.4 [facility] Comment on above: Performed By: #### L 501.5200, L501.9520, L500.4050, L500.4100 #### [facility] [address] [place], [address] ALK PHOS 51 U/L Normal 40-129 [facility] Comment on above: Performed By: #### L 501.5200, L501.9520, L500.4050, L500.4100 #### [facility] [address] [place], [address] ALT [Catalytic activity/Vol] 23 U/L Normal <=46 [facility] Comment on above: Performed By: #### L 501.5200, L501.9520, L500.4050, L500.4100 #### [facility] [address] [place], [address] AST [Catalytic activity/Vol] 25 U/L Normal <=37 [facility] Comment on above: Performed By: #### L 501.5200, L501.9520, L500.4050, L500.4100 #### [facility] [address] [place], [address] Bilirubin [Mass/Vol] 0.43 mg/dL Normal 0.00-1.30 [facility] Comment on above: Performed By: #### L 501.5200, L501.9520, L500.4050, L500.4100 #### [facility] [address] [place], [address] BUN/CRE 11.7 RATIO Normal 10-20 [facility] Comment on above: Performed By: #### L 501.5200, L501.9520, L500.4050, L500.4100 #### [facility] [address] [place], [address] Calcium [Mass/Vol] 9.3 mg/dL Normal 7.6-11.0 [facility] Comment on above: Performed By: #### L 501.5200, L501.9520, L500.4050, L500.4100 #### [facility] [address] [place], [address] Chloride [Moles/Vol] 105 mmol/L Normal 98-108 [facility] Comment on above: Performed By: #### L 501.5200, L501.9520, L500.4050, L500.4100 #### [facility] [address] [place], [address] CO2 [Moles/Vol] 23.7 mmol/L Normal 21.0-32.0 [facility] Comment on above: Performed By: #### L 501.5200, L501.9520, L500.4050, L500.4100 #### [facility] [address] [place], [address] Creatinine [Mass/Vol] 1.01 mg/dL Normal 0.70-1.20 [facility] Comment on above: Performed By: #### L 501.5200, L501.9520, L500.4050, L500.4100 #### [facility] [address] [place], [address] GAP 11 Normal 5-15 [facility] Comment on above: Performed By: #### L 501.5200, L501.9520, L500.4050, L500.4100 #### [facility] [address] [place], [address] GFR/1.73 sq M.predicted among non-blacks MDRD (S/P/Bld) [Vol rate/Area] 85 mL/min/{1.73_m2} Normal >60 [facility] Comment on above: Result Comment: mL/m in/1.73m2 CKD-EPI Creatinine Equation (2020) Performed By: #### L 501.5200, L501.9520, L500.4050, L500.4100 #### [facility] [address] [place], [address] Globulin (S) [Mass/Vol] 2.7 g/dL Normal 2.2-4.2 [facility] Comment on above: Performed By: #### L 501.5200, L501.9520, L500.4050, L500.4100 #### [facility] [address] [place], [address] Glucose [Mass/Vol] 103 mg/dL High 70-99 [facility] Comment on above: Performed By: #### L 501.5200, L501.9520, L500.4050, L500.4100 #### [facility] [address] [place], [address] Potassium [Moles/Vol] 4.3 mmol/L Normal 3.3-5.1 [facility] Comment on above: Performed By: #### L 501.5200, L501.9520, L500.4050, L500.4100 #### [facility] [address] [place], [address] Sodium [Moles/Vol] 139 mmol/L Normal 133-145 [facility] Comment on above: Performed By: #### L 501.5200, L501.9520, L500.4050, L500.4100 #### [facility] [address] [place], [address] T PROT 7.1 g/dL Normal 5.9-8.4 [facility] Comment on above: Performed By: #### L 501.5200, L501.9520, L500.4050, L500.4100 #### [facility] [address] [place], [address] Urea nitrogen [Mass/Vol] 12 mg/dL Normal 4-19 [facility] Comment on above: Performed By: #### L 501.5200, L501.9520, L500.4050, L500.4100 #### [facility] [address] [place], [place], [address] Glomerular filtration rate ( GFR) estimation/1.73 sq m using serum, plasma, or whole bOrdered By: Qi Martínez on 02-09-2025 GFR/1.73 sq M.predicted among non-blacks MDRD (S/P/Bld) [Vol rate/Area] 85 mL/min/{1.73_m2} >60 [facility] Comment on above: mL/min/1.73m2 CKD-EP I Creatinine Equation (2020) LDL calc ser/plasOrdered By: Qi Martínez on 02-09-2025 Cholesterol in LDL [Mass/Vol] 151 mg/dL [facility] Comment on above: Sshzqyckdw=585-420 m g/dL & Higher Pchg=152 mg/dL or greater Laboratory - Chemistry and C hemistry - challengeOrdered By: Qi Martínez on 02-09-2025 AST [Catalytic activity/Vol] 25 U/L <38 [facility] Lipid Profileon 02-09-2025 CHOL:HDL 5.65 Normal [facility] Comment on above: Performed By: #### L 501.5200, L501.9520, L500.4050, L500.4100 #### [facility] [address] [place] [place], [address] Cholesterol [Mass/Vol] 258 mg/dL High <=200 [facility] Comment on above: Result Comment: Chol esterol level, Desirable <200 mg/dL Borderline high cholesterol 200-239 mg/dL High cholesterol >=240 mg/dL Recommendations of the NCEP Adult Treatment Panel for the following risk-cutoff thresholds for the [place] population. Performed By: #### L 501.5200, L501.9520, L500.4050, L500.4100 #### [facility] [address] [place], [place], [address] Cholesterol in HDL [Mass/Vol] 46 mg/dL Normal [facility] Comment on above: Result Comment: Georgina onalicia Cholesterol Education Program (NCEP) guidelines: <40 mg/dL: Low HDL-cholesterol (major risk factor for CHD) >= 60 mg/dL: High HDL-cholesterol (negative risk factor for CHD) HDL-cholesterol is affected by a number of factors, e.g. smoking, exercise, hormones, sex and age. Performed By: #### L 501.5200, L501.9520, L500.4050, L500.4100 #### [facility] [address] [place], [address] Cholesterol in LDL [Mass/Vol] 151 mg/dL Normal [facility] Comment on above: Result Comment: Bord qqpjzl=239-573 mg/dL Higher Gume=908 mg/dL or greater Performed By: #### L 501.5200, L501.9520, L500.4050, L500.4100 #### [facility] [address] [place], [address] Cholesterol in VLDL [Mass/Vol] 62 mg/dL High 5-40 [facility] Comment on above: Performed By: #### L 501.5200, L501.9520, L500.4050, L500.4100 #### [facility] [address] [place], [address] Triglyceride [Mass/Vol] 309 mg/dL High [facility] Comment on above: Result Comment: The drugs N-Acetylcysteine and Metamizole may falsely depress this assay. Normal range: <150 mg/dL Borderline High: 150-199 mg/dL High: 200-499 mg/dL Very High: >500 mg/dL Performed By: #### L 501.5200, L501.9520, L500.4050, L500.4100 #### [facility] [address] [place], [address] Magnesiumon 02-09-2025 Magnesium [Mass/Vol] 2.2 mg/dL Normal 1.5-2.2 [facility] Comment on above: Performed By: #### L 501.5200, L501.9520, L500.4050, L500.4100 #### [facility] [place], [address] Magnesium measurement (mass/ volume)Ordered By: Qi Martínez on 02-09-2025 Magnesium (Unsp spec) [Mass/Vol] 2.2 mg/dL 1.5-2.2 [facility] Potassium measurement (mass/ volume)Ordered By: Qi Martínez on 02-09-2025 Potassium (Unsp spec) [Mass/Vol] 4.3 mmol/L 3.3-5.1 [facility] Screening total cholesterol/ high density lipoprotein (HDL) cholesterol ratioOrdered By: Qi Martínez on 02-09-2025 Cholesterol.total/C holesterol in HDL [Mass ratio] 5.65 {ratio} [facility] Serum creatinine measurement (mass/volume)Ordered By: Qi Martínez on 02-09-2025 Creatinine [Mass/Vol] 1.01 mg/dL 0.70-1.20 [facility] Serum globulin measurementOr dered By: Qi Martínez on 02-09-2025 Globulin (S) [Mass/Vol] 2.7 g/dL 2.2-4.2 [facility] Serum glucose measurement (m ass/volume)Ordered By: Qi Martínez on 02-09-2025 Glucose [Mass/Vol] 103 mg/dL High 70-99 [facility] Serum or plasma alanine shore otransferase (ALT) measurementOrdered By: Qi Martínez on 02-09-2025 ALT [Catalytic activity/Vol] 23 U/L <47 [facility] Serum or plasma albumin wan urement (mass/volume)Ordered By: Qi Martínez on 02-09-2025 Albumin [Mass/Vol] 4.4 g/dL 3.4-4.8 [facility] Serum or plasma albumin/glob ulin mass ratioOrdered By: Qi Martínez on 02-09-2025 Albumin/Globulin [Mass ratio] 1.6 {ratio} 0.9-2.4 [facility] Serum or plasma alkaline abigail sphatase measurementOrdered By: Qi Martínez on 02-09-2025 ALP [Catalytic activity/Vol] 51 U/L 40-129 [facility] Serum or plasma calcium wan urement (mass/volume)Ordered By: Qi Martínez on 02-09-2025 Calcium [Mass/Vol] 9.3 mg/dL 7.6-11.0 [facility] Serum or plasma cholesterol in HDL measurement (mass/volume)Ordered By: Qi Martínez on 02-09-2025 Cholesterol in HDL [Mass/Vol] 46 mg/dL >40 [facility] Comment on above: National Cholesterol Education Program (NCEP) guidelines:<40 mg/dL: Low HDL-cholesterol (major risk factor for CHD)>= 60 mg/dL: High HDL-cholesterol (negative risk factor for CHD)HDL-cholesterol is affected by a number of factors, e.g. smoking, exercise, hormones, sex and age. Serum or plasma cholesterol measurement (mass/volume)Ordered By: Qi Martínez on 02-09-2025 Cholesterol [Mass/Vol] 258 mg/dL High <201 [facility] Comment on above: Cholesterol level, D esirable <200 mg/dLBorderline high cholesterol 200-239 mg/dLHigh cholesterol >=240 mg/dLRecommendations of the NCEP Adult Treatment Panel for the following risk-cutoff thresholds for the [place] population. Serum or plasma urea nitroge n measurement (mass/volume)Ordered By: Qi Martínez on 02-09-2025 Urea nitrogen [Mass/Vol] 12 mg/dL 4-19 [facility] Sodium levelOrdered By: Yoni Martínez on 02-09-2025 Sodium [Moles/Vol] 139 mmol/L 133-145 [facility] TSH DL <= 0.005 mIU/L QnOrde red By: Qi Martínez on 02-09-2025 TSH Qn 1.170 uIU/mL 0.300-4.20 0 [facility] Thyroid Stim Hormone (TSH)on 02-09-2025 TSH 1.170 uIU/mL Normal 0.300-4.20 0 [facility] Comment on above: Performed By: #### L 501.5200, L501.9520, L500.4050, L500.4100 #### [facility] [address] [place], [address] Total proteinOrdered By: Denys Martínez on 02-09-2025 Protein [Mass/Vol] 7.1 g/dL 5.9-8.4 [facility] Triglycerides measurementOrd ered By: Qi Martínez on 02-09-2025 Triglyceride [Mass/Vol] 309 mg/dL High <199 [facility] Comment on above: The drugs N-Acetylcy steine and Metamizole may falsely depress this assay. Normal range: <150 mg/dLBorderline High: 150-199 mg/dLHigh: 200-499 mg/dLVery High: >500 mg/dL CNOVon 01-30-2025 CNOV Office Visit ([facility] ) JUANCARLOSKELSI ([id number]) 1965 M Date Time Provider Department 01/30/25 4:20 PM [facility] During your visit today, we recorded the following information about you: Temperature Pulse Blood pressure Weight 97.7 degrees 76/minute 112/68 82.6 kg Lynn Avalos APRN.BIZTALK ADMINISTRATOR 01/30/2025 5:00 PM Signed This is a 59 year old male who presents today with: Patient presents with: 6 Month Exam HISTORY OF PRESENT ILLNESS: Kelsi Soto is a 59 year old male. Patient presents with: 6 Month Exam Kelsi Soto is a 59-year-old male with a history of CHF, presenting for evaluation of persistent earache and sore throat. Earache and Sore Throat: - Persistent earache and sore throat x1 month. - Completed a course of Z-Ena with no improvement. - Right ear pain, sore throat, and neck soreness. - Occasional pinching sensation under the arms. - Night sweats, headaches, and tinnitus. - No fever, chills, or swelling noted. - Denies blurred or double vision, hearing loss, or chest pain. 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 CHF: - Managed by a medical center manager; taking Entresto and Farxiga. - Denies dyspnea, cough, wheezing, or orthopnea. - Occasional palpitations, attributed to inadequate hydration. - Denies leg swelling. PAST MEDICAL HISTORY: PAST MEDICAL HISTORY Diagnosis Date Dilated cardiomyopathy (HCC) Dyslipidemia Essential hypertension Left ventricular systolic dysfunction Nonsustained ventricular tachycardia (HCC) Pain in wrist PAST SURGICAL HISTORY Procedure Laterality Date COLONOSCOPY FLX DX W/COLLJ SPEC WHEN PFRMD 05/27/2018 Colonoscopy EPS: EP STUDY [facility] - negative LEFT HEART CATH 06/21/2015 ALLERGIES Patient has no known allergies. MEDICATIONS Current Outpatient Medications Medication Sig FARXIGA 10 mg tablet Take 1 tablet by mouth once daily. ENTRESTO 24-26 mg tablet Take 1 tablet by mouth every 12 hours. metoprolol succinate ER (TOPROL XL) 50 mg 24 hr tablet Take 1.5 tablets by mouth once daily. MULTIVITAMIN ORAL Take by mouth. aspirin, enteric coated (ASPIRIN, ENTERIC COATED) 81 mg EC tablet Take 1 tablet by mouth once daily. fexofenadine (JESSICA ALLERGY) 180 mg tablet Take 1 tablet by mouth once daily. (Patient not taking: Reported on 01/30/2025) No current facility-administered medications for this visit. FAMILY HISTORY Problem Relation Age of Onset Heart Father Cardiomyopathy No Known Problems Mother Heart Brother AFIB Heart Brother AFIB Heart Son Age 27 - Cardiomyopathy Social History Tobacco Use Smoking status: Former Current packs/day: 0.00 Average packs/day: 0.3 packs/day for 20.0 years (6.0 ttl pk-yrs) Types: Cigarettes Start date: 06/17/1995 Quit date: 06/17/2015 Years since quittin.6 Smokeless tobacco: Former Types: Snuff Quit date: 06/23/2015 Tobacco comments: Occasional cigar Vaping Use Vaping status: Never Used Substance Use Topics Alcohol use: Yes Alcohol/week: 2.0 standard drinks of alcohol Types: 2 Cans of Beer (12oz) per week Drug use: Never REVIEW OF SYSTEMS Constitutional: (+) night sweats, (-) fever, (-) chills Head: (+) headache Ears/Nose/Mouth/Throat: (+) right ear pain, (+) tinnitus, (+) sore throat Neck: (+) neck pain Breast: (+) intermittent axillary pain Cardiovascular: (+) palpitations Respiratory: (-) shortness of breath Gastrointestinal: (+) nausea, (-) diarrhea, (-) constipation Musculoskeletal: (+) joint pain Skin: (-) rash, (-) pruritus EXAM: BP 112/68 Pulse 76 Temp 36.5 ?C (97.7 ?F) (Left Tympanic) Wt 82.6 kg (182 lb) SpO2 96% BMI 24.68 kg/m? PHYSICAL EXAM: GENERAL: NAD, alert and oriented. SKIN: Unremarkable, no rash or skin lesions. HEAD: Normocephalic. EARS: External ears normal. Left ear canal with mild erythema. Right ear canal with significant erythema and bulging noted. NOSE/SINUSES: Nares normal. Septum midline. OROPHARYNX: Lips, mucosa, and tongue normal, good dentition. Pustules noted on tonsils. NECK: Supple, no lymphadenopathy, normal thyroid, no carotid bruits. LUNGS: Clear to auscultation bilaterally, no wheezes/rhonchi/rales. HEART: Regular rate and rhythm, no murmurs. No ectopy. EXTREMITIES: Normal, no deformities, no skin discoloration, no edema. LABS: ASSESSMENT/PLAN: 1. Tonsillitis - ICD9: 463, ICD10: J03.90 (primary diagnosis) Augmentin 2 x day for 10 days 2. Acute otitis externa of both ears, unspecified type - ICD9: 380.10, ICD10: H60.503 Augmentin 2 x day for 10 days 3. Nonischemic cardiomyopathy (HCC) - ICD9: 425.4, ICD10: I42.8 Following with cardiology - on Entresto - on 4. Essential hypertension - ICD9: 401.9, ICD10: I10 - Controlled - Recommend home blood pressure monitoring, to (more content not included)... Normal [facility] Cardiology Visit Reporton Cardiology Visit Report [facility] [address] [place] [address] [address] [place] [address] OFFICE VISIT Date of Service: 01/19/25 MR#: [id number] Acct: [id number] Name: KELSI SOTO Rep #: [id number] : 1965 Provider: Dr. Qi Martínez MD Age/Sex: 59/M Location: [facility] [place] Status: Signed HPI HPI History of Present Illness Details: This gentleman was diagnosed with nonischemic cardiomyopathy about 10 years ago. His last echocardiogram was in 2022 which showed LVEF 40%. A coronary CT angio in 2019 showed mild nonobstructive calcific disease. Patient was previously established with another medical center manager. He wishes to switch to our care. Denies any chest pains or shortness of breath either at rest or with exertion. According to the patient, he gets palpitations almost on a daily basis. No associated lightheadedness or dizziness. No syncope or presyncope. No orthopnea. No PND. No ankle edema. Patient is an occasional smoker. According to him, he drinks 6-12 beers a day on weekends. 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 Intake Vital Signs 01/19/25 08:10 Height 6 ft Weight: 185 lb BMI 25.0 BP 118/82 H Blood Pressure Location Lt brachial Position Sitting Respiration 16 Pulse 69 Pulse Source NIBP Intake Visit Reasons: TACHYCARDIA Reinsurance Claim Analyst Required: No Accompanied by: Self Is patient in pain?: No Allergies Environmental Allergies: Uncoded (seasonal) Allergy (Mild, Verified 01/19/25 09:10) Nasal Congestion Medications ???Medication ???Instructions ???Recorded ???Confirmed ???Type aspirin 81 mg tablet,delayed 81 mg PO DAILY heart health 01/19/25 History release (Lo-Dose Aspirin) fexofenadine 180 mg tablet 180 mg PO QDAY 01/12/25 01/19/25 H istory (Allergy Relief (fexofenadine)) multivitamin 1 tab PO QDAY 01/12/25 01/19/25 Hi story metoprolol succinate 50 mg 75 mg PO DAILY bp 01/19/25 5 History tablet,extended release 24 hr Ejection fraction %: 40 Have you fallen in the past year?: No PFSH Medical History Asthenia 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 Dilated cardiomyopathy Dyslipidemia Earache Essential hypertension Fatigue History of electrophysiologic study History of left heart catheterization Left ventricular systolic dysfunction Lightheadedness Mixed hyperlipidemia Nonischemic cardiomyopathy Nonsustained ventricular tachycardia Other dental procedure status Pain in wrist PVCs (premature ventricular contractions) Sinus congestion Smoking history Sore throat Ventricular tachycardia Surgical History History of colonoscopy Family History Father Cardiomyopathy Brother A-fib Son Cardiomyopathy Social History Smoking Status: Current some day smoker Smokeless tobacco user: snuff and other Electronic Cigarette Use: not used alcohol intake: current alcohol intake frequency: a few times a week substance use type: does not use ROS Const Const: Negative for fatigue, weakness, headache(s) or weight gain ENT ENT: Negative for headache(s), dizziness, Nosebleed/epistaxis or balance problems Cardio Chest Pain: No Palpitations: No Edema: None Muscle aches with walking: None Resp Respiratory: Negative for SOB with activity, SOB at rest or SOB orthopnea SOB lying down GI GI: Negative nausea, vomiting or heartburn Musc Musc: Negative for muscle aches/ myalgia, muscle weakness, joint pain or balance problems Neuro Neuro: Negative for dizziness, lightheadedness, near syncope, syncope, headache(s) or weakness Endo Endo: Negative for fatigue Cardiology Exam Const Appearance: comfortable and no acute distress Nutritional Appearance: well nourished Neck Neck: no JVD Carotids: Negative bruit Chest Auscultation: Bilateral: Clear to Auscultation Cardio Rate: regular rate Rhythm: regular rhythm Heart sounds: S1 normal and S2 normal Neuro General: patient alert, patient awake and patient oriented x3 Extremities Lower Extremity Edema: None: Bilateral Supplemental Info Supplemental Information Echocardiogram 01/12/2023: Conclusions: -Exam indication: NICM -The left ventricle is normal in size. Left ventricular systolic function is moderatelyy decreased. EF = 40 +/- 5% (visual est.) Indeterminate left ventricular diastolic dysfunction. -The right ventricle is normal in size. Right ventricular systolic function is normal. -There are no significant valvular abnormalities. -Exam was compared with the prior echocardiog (more content not included)... Normal [facility] Lipid 1996 panelon 5 Cholesterol [Mass/Vol] 254 mg/dL High <200 [facility] Comment on above: Order Comment: Vidal fonseca Type: BLOOD SPECIMEN Ordering Facility: [facility] Address: [address] [place] [address] Result Comment: <200 mg/dL, Desirable 200-239 mg/dL, Borderline high >239 mg/dL, High Performed By: #### P SAS1 #### [facility] CLIA [id number] [address] [place] [address] [place] Cholesterol in HDL [Mass/Vol] 47 mg/dL Normal >39 [facility] Comment on above: Order Comment: Vidal fonseca Type: BLOOD SPECIMEN Ordering Facility: [facility] Address: [address] [place] [address] Result Comment: 40-5 9 mg/dL, Acceptable >59 mg/dL, High: Negative risk factor for coronary heart disease <40 mg/dL, Low: Positive risk factor for coronary heart disease Performed By: #### P SAS1 #### [facility] CLIA [id number] [address] [place] [address] [place] Cholesterol in LDL [Mass/Vol] 178 mg/dL High <100 [facility] Comment on above: Order Comment: Modestoi marian Type: BLOOD SPECIMEN Ordering Facility: [facility] Address: [address] [place] [address] Result Comment: <100 mg/dL, Optimal 100-129 mg/dL, Near optimal/above optimal 130-159 mg/dL, Borderline high 160-189 mg/dL, High >189 mg/dL, Very high Secondary prevention optimal LDL Cholesterol levels are recommended to be <70 mg/dL LDL cholesterol is calculated using the Sanchez-NIH equation. Performed By: #### P SAS1 #### [facility] CLIA [id number] [address] [place] [address] [place] Cholesterol in LDL/Cholesterol in HDL [Mass ratio] 3.79 {ratio} High <2.54 [facility] Comment on above: Order Comment: Vidal fonseca Type: BLOOD SPECIMEN Ordering Facility: [facility] Address: [address] [place] [address] Result Comment: Jammie prater: 1. National Cholesterol Education Program ATP III Guideline At-A-Glance Quick Desk Reference: National Heart, Lung, and Blood [place]. National Institutes of Health. 2001: NIH Publication No. 01-3305. 2. An International Atherosclerosis Society position paper: global recommendations for the management of dyslipidemia: executive summary, Atherosclerosis. 2014: 232(2):410-413. Performed By: #### P SAS1 #### [facility] CLIA [id number] [address] [place] [address] [place] Cholesterol in VLDL [Mass/Vol] 32 mg/dL High <30 [facility] Comment on above: Order Comment: Vidal fonseca Type: BLOOD SPECIMEN Ordering Facility: [facility] Address: [address] [place] [address] Performed By: #### P SAS1 #### [facility] CLIA [id number] [address] [place] [address] [place] Cholesterol non HDL [Mass/Vol] 207 mg/dL High <130 [facility] Comment on above: Order Comment: Vidal fonseca Type: BLOOD SPECIMEN Ordering Facility: [facility] Address: [address] [place] [address] Result Comment: <130 mg/dL, Optimal 130-159 mg/dL, Near optimal/above optimal 160-189 mg/dL, Borderline high 190-219 mg/dL, High >219 mg/dL, Very high Secondary prevention optimal non HDL Cholesterol levels are recommended to be <100 mg/dL Performed By: #### P SAS1 #### [facility] CLIA [id number] [address] [place] [address] [place] Cholesterol.total/C holesterol in HDL [Mass ratio] 5.40 {ratio} High <5.10 [facility] Comment on above: Order Comment: Vidal fonseca Type: BLOOD SPECIMEN Ordering Facility: [facility] Address: [address] [place] [address] Performed By: #### P SAS1 #### [facility] CLIA [id number] [address] [place] [place] [address] [place] FASTING TIME 12 hrs Normal [facility] Comment on above: Order Comment: Speci men Type: BLOOD SPECIMEN Ordering Facility: [facility] Address: [address] [place] [address] Performed By: #### P SAS1 #### [facility] CLIA [id number] [address] [place] [address] [place] Triglyceride [Mass/Vol] 159 mg/dL High <150 [facility] Comment on above: Order Comment: Speci men Type: BLOOD SPECIMEN Ordering Facility: [facility] Address: [address] [place] [address] Result Comment: <150 mg/dL, Normal 150-199 mg/dL, Borderline high 200-499 mg/dL, High >499 mg/dL, Very high Performed By: #### P SAS1 #### [facility] CLIA [id number] [address] [place] [address] [place] Magnesium SerPl-mCncon 01-19 Magnesium [Mass/Vol] 2.1 mg/dL Normal 1.7-2.3 [facility] Comment on above: Order Comment: Speci men Type: BLOOD SPECIMEN Ordering Facility: [facility] Address: [address] [place] [address] Performed By: #### P SAS1 #### [facility] CLIA [id number] [address] [place] [address] [place] PSA/PROSTATE SPECIFIC ANTIGE N SCREENINGon 01-19-2025 Prostate specific Ag [Mass/Vol] 0.72 ng/mL Normal <2.60 [facility] Comment on above: Order Comment: Speci men Type: BLOOD SPECIMEN Ordering Facility: [facility] Address: [address] [place] [address] Result Comment: Tota l PSA test methodology used is the Electrochemiluminescence Immunoassay by [employer]. Total PSA values by differing methodologies cannot be interchanged. Performed By: #### P SAS1 #### [facility] CLIA [id number] [address] [place] [address] [place] TSH SerPl-aCncon 01-19-2025 TSH Qn 0.716 m[IU]/L Normal 0.270-4.20 0 [facility] Comment on above: Order Comment: Speci men Type: BLOOD SPECIMEN Ordering Facility: [facility] Address: [address] [place] [address] Performed By: #### P SAS1 #### [facility] CLIA [id number] [address] [place] [address] [place] CNPNon 12-31-2024 [facility] KELSI SOTO ([id number]) 1965 M Date Time Provider Department 12/31/24 MARTIN MELENDEZ [facility] During your visit today, we recorded the following information about you: Pati Hdz RN 12/31/2024 8:41 AM Signed Juliane with [facility] called in and reports they have tried to get a hold of Pt twice so far with no success. I told her the work phone # is Pts , to try and call that. She said she will try that, then send him a letter. VIRAJ Duvall William J, MD 12/31/2024 8:43 AM Signed Noted. Thank you. Chloe Hernandez LPN 12/31/2024 1:38 PM Signed Juliane from [facility] calling she did reach the patient and he is scheduled with Dr Meyer on [place] at 9 am. Allergies As of Date: 12/31/2024 (No Known Allergies) Date Reviewed: 12/26/2024 Reviewed by: Didi Valenzuela MA - Fully Assessed Reason for Visit: Appointment [186] Prescriptions as of 12/31/2024 - azithromycin (ZITHROMAX Z-ENA) 250 mg tablet Take 2 tablets day one, then, 1 tablet daily until gone. - fexofenadine (JESSICA ALLERGY) 180 mg tablet Take 1 tablet by mouth once daily. - metoprolol succinate ER (TOPROL XL) 50 mg 24 hr tablet Take 1.5 tablets by mouth once daily. - MULTIVITAMIN ORAL Take by mouth. - aspirin, enteric coated (ASPIRIN, ENTERIC COATED) 81 mg EC tablet Take 1 tablet by mouth once daily. Problem List As Of Date 12/31/2024 Noted Resolved Nonischemic cardiomyopathy (HCC) [I42.8] 06/28/2015 Arm pain, anterior [M79.603] 06/28/2015 07/17/2017 VT (ventricular tachycardia) (HCC) [I47.20] 07/28/2015 Alcohol abuse [F10.10] 07/28/2015 07/17/2017 Episodic lightheadedness [R42] 07/28/2015 PVC's (premature ventricular contractions) [I49*06/15/2016 Essential hypertension [I10] 05/27/2019 Mixed hyperlipidemia [E78.2] 05/27/2019 Palpitations [R00.2] 05/27/2019 Coronary artery disease involving nikolski daigle*03/12/2020 Asthenia [R53.1] 09/15/2022 Near syncope [R55] 09/15/2022 Syncope and collapse [R55] 10/04/2017 09/15/2022 Encounter Status:Closed by MARTIN MELENDEZ on 12/31/24 [facility] Rick 12-26-2024 CNOV Office Visit ([facility] ) JUANCARLOS,KELSI ([id number]) 1965 M Date Time Provider Department 12/26/24 1:40 PM LYNN AVALOS During your visit today, we recorded the following information about you: Temperature Pulse Blood pressure Weight 97.3 degrees 69/minute 120/72 83 kg Lynn Avalos APRN.BIZTALK ADMINISTRATOR 12/26/2024 2:11 PM Signed This is a 59 year old male who presents today with: Patient presents with: Acute Visit: Sore throat, night sweats, swollen lymph nodes in arm pits, and intermittent shortness of breath HISTORY OF PRESENT ILLNESS: Kelsi Soto is a 59 year old male. Patient presents with: Acute Visit: Sore throat, night sweats, swollen lymph nodes in arm pits, and intermittent shortness of breath Kelsi is a 59-year-old male presenting with sore throat, earache, and sinus congestion. Sore Throat: - Onset 5-7 days ago. - Painful swallowing; describes a burning sensation when eating or drinking carbonated beverages. - Denies fever, chills, or headaches. - Denies history of strep throat. Earache: - Right ear pain. - Denies any recent ear infections. Sinus Congestion: - Right-sided head congestion. - Occasional dizziness. - Denies significant sinus pain or pressure. Fatigue: - Reports feeling really tired. Dental Procedures: - Multiple doses of amoxicillin in the past 2 years for dental procedures, including a bridge removal, post placement, and root canal. Smoking History: - Former smoker; occasionally smokes cigarettes from his 's pack. - Has not smoked a cigarette for a while. Stated quit rosuvastatin made him very achy, he quit it Lisinopril made him nauseated. Seeing [facility] [facility] for dilated CM PAST MEDICAL HISTORY: PAST MEDICAL HISTORY Diagnosis Date Dilated cardiomyopathy (HCC) Dyslipidemia Essential hypertension Left ventricular systolic dysfunction Nonsustained ventricular tachycardia (HCC) Pain in wrist PAST SURGICAL HISTORY Procedure Laterality Date COLONOSCOPY FLX DX W/COLLJ SPEC WHEN PFRMD 05/27/2018 Colonoscopy EPS: EP STUDY [facility] - negative LEFT HEART CATH 06/21/2015 ALLERGIES Patient has no known allergies. MEDICATIONS Current Outpatient Medications Medication Sig fexofenadine (JESSICA ALLERGY) 180 mg tablet Take 1 tablet by mouth once daily. metoprolol succinate ER (TOPROL XL) 50 mg 24 hr tablet Take 1.5 tablets by mouth once daily. MULTIVITAMIN ORAL Take by mouth. aspirin, enteric coated (ASPIRIN, ENTERIC COATED) 81 mg EC tablet Take 1 tablet by mouth once daily. lisinopril (ZESTRIL) 5 mg tablet Take 1 tablet by mouth once daily. (Patient not taking: Reported on 12/26/2024) rosuvastatin (CRESTOR) 5 mg tablet Take 1 tablet by mouth once daily. (Patient not taking: Reported on 12/26/2024) No current facility-administered medications for this visit. FAMILY HISTORY Problem Relation Age of Onset Heart Father Cardiomyopathy No Known Problems Mother Heart Brother AFIB Heart Brother AFIB Heart Son Age 27 - Cardiomyopathy Social History Tobacco Use Smoking status: Former Current packs/day: 0.00 Average packs/day: 0.3 packs/day for 20.0 years (6.0 ttl pk-yrs) Types: Cigarettes Start date: 06/17/1995 Quit date: 06/17/2015 Years since quittin.5 Smokeless tobacco: Former Types: Snuff Quit date: 06/23/2015 Tobacco comments: Occasional cigar Vaping Use Vaping status: Never Used Substance Use Topics Alcohol use: Yes Alcohol/week: 2.0 standard drinks of alcohol Types: 2 Cans of Beer (12oz) per week Drug use: Never REVIEW OF SYSTEMS Constitutional: (-) fever, (-) chills, (+) fatigue, (+) generalized discomfort Head: (-) headache Ears/Nose/Mouth/Throat: (+) ear pain (right), (+) sore throat, (+) difficulty swallowing, (+) nasal congestion (right) Respiratory: (+) chest congestion, (+) cough Gastrointestinal: (-) nausea, (-) vomiting, (-) diarrhea Musculoskeletal: (+) myalgia (arms) Neurological: (+) dizziness EXAM: BP 120/72 Pulse 69 Temp 36.3 ?C (97.3 ?F) (Left Tympanic) Wt 83 kg (183 lb) SpO2 97% BMI 24.82 kg/m? PHYSICAL EXAM: GENERAL: NAD, alert and oriented. SKIN: Unremarkable, no rash or skin lesions. HEAD: Normocephalic. EARS: External ears normal. Left canal clear, TM normal. Right TM erythematous and bulging. NOSE/SINUSES: Nares normal. Septum midline. Minimal sinus tenderness. OROPHARYNX: Lips, mucosa, and tongue normal, good dentition. Significant erythema and drainage noted in the oropharynx. NECK: Supple, no lymphadenopathy, normal thyroid, no carotid bruits. LUNGS: Clear to auscultation bilaterally, no wheezes/rhonchi/rales. HEART: Regular rate and rhythm, no murmurs. No ectopy. LABS: Labs: Tests: - EKG: Normal, normal QT interval Imaging: ASSESSMENT/PLAN: 1. Pharyngitis due to Streptococcus specie (more content not included)... Normal [facility] KELSI SOTO ([id number]) 1965 M Date Time Provider Department 12/26/24 MARTIN MELENDEZ [facility] During your visit today, we recorded the following information about you: Carson Chin RN 12/26/2024 10:26 AM Signed Spouse calls to request appointment for sore throat and swollen lymph nodes for atleast 5 days. Scheduled same day. Spouse also reports that patient was to see [facility] cardiology in [place] in February but was cancelled and rescheduled 07/13/2025 which spouse feels is too far out. Faxed cardiology referral to [facility]. Spouse will cancel appt with [facility] once gets scheduled with [facility] to make sure it is sooner. Carson Chin RN Allergies As of Date: 12/26/2024 (No Known Allergies) Date Reviewed: 07/31/2024 Reviewed by: Lynn Avalos APRN.BIZTALK ADMINISTRATOR - Fully Assessed Reason for Visit: Appointment [186] Patient Update [1234] Prescriptions as of 12/26/2024 - fexofenadine (JESSICA ALLERGY) 180 mg tablet Take 1 tablet by mouth once daily. - lisinopril (ZESTRIL) 5 mg tablet Take 1 tablet by mouth once daily. - metoprolol succinate ER (TOPROL XL) 50 mg 24 hr tablet Take 1.5 tablets by mouth once daily. - rosuvastatin (CRESTOR) 5 mg tablet Take 1 tablet by mouth once daily. - MULTIVITAMIN ORAL Take by mouth. - aspirin, enteric coated (ASPIRIN, ENTERIC COATED) 81 mg EC tablet Take 1 tablet by mouth once daily. Problem List As Of Date 12/26/2024 Noted Resolved Nonischemic cardiomyopathy (HCC) [I42.8] 06/28/2015 Arm pain, anterior [M79.603] 06/28/2015 07/17/2017 VT (ventricular tachycardia) (HCC) [I47.20] 07/28/2015 Alcohol abuse [F10.10] 07/28/2015 07/17/2017 Episodic lightheadedness [R42] 07/28/2015 PVC's (premature ventricular contractions) [I49*06/15/2016 Essential hypertension [I10] 05/27/2019 Mixed hyperlipidemia [E78.2] 05/27/2019 Palpitations [R00.2] 05/27/2019 Coronary artery disease involving nikolski daigle*03/12/2020 Asthenia [R53.1] 09/15/2022 Near syncope [R55] 09/15/2022 Syncope and collapse [R55] 10/04/2017 09/15/2022 Encounter Status:Closed by CARSON CHIN on 12/26/24 Normal [facility] CBC W Auto Differential pane l (Bld)on 07-31-2024 Basophils (Bld) [#/Vol] 0.04 10*3/uL [facility] Basophils/100 WBC (Bld) 0.5 % [facility] Differential cell count method Nom (Bld) Auto [facility] Eosinophils (Bld) [#/Vol] 0.28 10*3/uL [facility] Eosinophils/100 WBC (Bld) 3.5 % [facility] Erythrocyte distribution width (RBC) [Ratio] 12.3 % 11.5 - 15.0 % [facility] Hematocrit (Bld) [Volume fraction] 41.7 % 39.0 - 51.0 % [facility] Hemoglobin (Bld) [Mass/Vol] 14.2 g/dL 13.0 - 17.0 g/dL [facility] Immature granulocytes (Bld) [#/Vol] 0.03 10*3/uL [facility] Immature granulocytes/100 WBC (Bld) 0.4 % [facility] Lymphocytes (Bld) [#/Vol] 1.80 10*3/uL [facility] Lymphocytes/100 WBC (Bld) 22.6 % [facility] MCH (RBC) [Entitic mass] 33.4 pg 26.0 - 34.0 pg [facility] MCHC (RBC) [Mass/Vol] 34.1 g/dL 30.5 - 36.0 g/dL [facility] MCV (RBC) [Entitic vol] 98.1 fL 80.0 - 100.0 fL [facility] Monocytes (Bld) [#/Vol] 0.69 10*3/uL [facility] Monocytes/100 WBC (Bld) 8.6 % [facility] Neutrophils (Bld) [#/Vol] 5.14 10*3/uL [facility] Neutrophils/100 WBC (Bld) 64.4 % [facility] Nucleated RBC (Bld) [#/Vol] [facility] Nucleated RBC/100 WBC (Bld) [Ratio] 0.0 % /100 WBC [facility] Platelet mean volume (Bld) [Entitic vol] 9.3 fL 9.0 - 12.7 fL [facility] Platelets (Bld) [#/Vol] 209 10*3/uL [facility] RBC (Bld) [#/Vol] 4.25 10*6/uL 4.20 - 6.00 m/uL [facility] WBC (Bld) [#/Vol] 7.98 10*3/uL [facility] Basophils (Bld) [#/Vol] 0.04 10*3/uL Normal <0.11 [facility] Comment on above: Order Comment: Speci men Type: BLOOD SPECIMEN Ordering Facility: [facility] Address: [address] [place], [place] [address] Performed By: #### 5 7021-8 #### [facility] CLIA [id number] [address] [place], [place] [id number] [place] Basophils/100 WBC (Bld) 0.5 % Normal [facility] Comment on above: Order Comment: Speci men Type: BLOOD SPECIMEN Ordering Facility: [facility] Address: [address] [place] [address] Performed By: #### 5 7021-8 #### [facility] CLIA [id number] [address] [place] [address] [place] Differential cell count method Nom (Bld) Auto Normal [facility] Comment on above: Order Comment: Speci men Type: BLOOD SPECIMEN Ordering Facility: [facility] Address: [address] [place] [address] Performed By: #### 5 7021-8 #### [facility] CLIA [id number] [address] [place] [address] [place] Eosinophils (Bld) [#/Vol] 0.28 10*3/uL Normal <0.46 [facility] Comment on above: Order Comment: Speci men Type: BLOOD SPECIMEN Ordering Facility: [facility] Address: [address] [place] [address] Performed By: #### 5 7021-8 #### [facility] CLIA [id number] [address] [place] [address] [place] Eosinophils/100 WBC (Bld) 3.5 % Normal [facility] Comment on above: Order Comment: Speci men Type: BLOOD SPECIMEN Ordering Facility: [facility] Address: [address] [place] [address] Performed By: #### 5 7021-8 #### [facility] CLIA [id number] [address] [place] [address] [place] Erythrocyte distribution width (RBC) [Ratio] 12.3 % Normal 11.5-15.0 [facility] Comment on above: Order Comment: Speci men Type: BLOOD SPECIMEN Ordering Facility: [facility] Address: [address] [place] [address] Performed By: #### 5 7021-8 #### [facility] CLIA [id number] [address] [place] [address] [place] Hematocrit (Bld) [Volume fraction] 41.7 % Normal 39.0-51.0 [facility] Comment on above: Order Comment: Speci men Type: BLOOD SPECIMEN Ordering Facility: [facility] Address: [address] [place] [address] Performed By: #### 5 7021-8 #### [facility] CLIA [id number] [address] [place] [address] [place] Hemoglobin (Bld) [Mass/Vol] 14.2 g/dL Normal 13.0-17.0 [facility] Comment on above: Order Comment: Speci men Type: BLOOD SPECIMEN Ordering Facility: [facility] Address: [address] [place] [address] Performed By: #### 5 7021-8 #### [facility] CLIA [id number] [address] [place] [address] [place] Immature granulocytes (Bld) [#/Vol] 0.03 10*3/uL Normal <0.10 [facility] Comment on above: Order Comment: Speci men Type: BLOOD SPECIMEN Ordering Facility: [facility] Address: [address] [place] [address] Performed By: #### 5 7021-8 #### [facility] CLIA [id number] [address] [place] [address] [place] Immature granulocytes/100 WBC (Bld) 0.4 % Normal [facility] Comment on above: Order Comment: Speci men Type: BLOOD SPECIMEN Ordering Facility: [facility] Address: [address] [place] [address] Performed By: #### 5 7021-8 #### [facility] CLIA [id number] [address] [place] [address] [place] Lymphocytes (Bld) [#/Vol] 1.80 10*3/uL Normal 1.00-4.00 [facility] Comment on above: Order Comment: Speci men Type: BLOOD SPECIMEN Ordering Facility: [facility] Address: [address] [place] [address] Performed By: #### 5 7021-8 #### [facility] CLIA [id number] [address] [place] [address] [place] Lymphocytes/100 WBC (Bld) 22.6 % Normal [facility] Comment on above: Order Comment: Speci men Type: BLOOD SPECIMEN Ordering Facility: [facility] Address: [address] [place] [address] Performed By: #### 5 7021-8 #### [facility] CLIA [id number] [address] [place] [address] [place] MCH (RBC) [Entitic mass] 33.4 pg Normal 26.0-34.0 [facility] Comment on above: Order Comment: Speci men Type: BLOOD SPECIMEN Ordering Facility: [facility] Address: [address] [place] [address] Performed By: #### 5 7021-8 #### [facility] CLIA [id number] [address] [place] [address] [place] MCHC (RBC) [Mass/Vol] 34.1 g/dL Normal 30.5-36.0 [facility] Comment on above: Order Comment: Speci men Type: BLOOD SPECIMEN Ordering Facility: [facility] Address: [address] [place] [address] Performed By: #### 5 7021-8 #### [facility] CLIA [id number] [address] [place] [address] [place] MCV (RBC) [Entitic vol] 98.1 fL Normal 80.0-100.0 [facility] Comment on above: Order Comment: Speci men Type: BLOOD SPECIMEN Ordering Facility: [facility] Address: [address] [place] [address] Performed By: #### 5 7021-8 #### [facility] CLIA [id number] [address] [place] [address] [place] Monocytes (Bld) [#/Vol] 0.69 10*3/uL Normal <0.87 [facility] Comment on above: Order Comment: Speci men Type: BLOOD SPECIMEN Ordering Facility: [facility] Address: [address] [place] [address] Performed By: #### 5 7021-8 #### [facility] CLIA [id number] [address] [place] [address] [place] Monocytes/100 WBC (Bld) 8.6 % Normal [facility] Comment on above: Order Comment: Speci men Type: BLOOD SPECIMEN Ordering Facility: [facility] Address: [address] [place] [address] Performed By: #### 5 7021-8 #### [facility] CLIA [id number] [address] [place] [address] [place] Neutrophils (Bld) [#/Vol] 5.14 10*3/uL Normal 1.45-7.50 [facility] Comment on above: Order Comment: Speci men Type: BLOOD SPECIMEN Ordering Facility: [facility] Address: [address] [place] [address] Performed By: #### 5 7021-8 #### [facility] CLIA [id number] [address] [place] [address] [place] Neutrophils/100 WBC (Bld) 64.4 % Normal [facility] Comment on above: Order Comment: Speci men Type: BLOOD SPECIMEN Ordering Facility: [facility] Address: [address] [place] [address] Performed By: #### 5 7021-8 #### [facility] CLIA [id number] [address] [place] [address] [place] Nucleated RBC (Bld) [#/Vol] 10*3/uL Normal <0.01 [facility] Comment on above: Order Comment: Speci men Type: BLOOD SPECIMEN Ordering Facility: [facility] Address: [address] [place] [address] Performed By: #### 5 7021-8 #### [facility] CLIA [id number] [address] [place] [address] [place] Nucleated RBC/100 WBC (Bld) [Ratio] 0.0 /100 WBC Normal [facility] Comment on above: Order Comment: Speci men Type: BLOOD SPECIMEN Ordering Facility: [facility] Address: [address] [place] [address] Performed By: #### 5 7021-8 #### [facility] CLIA [id number] [address] [place] [address] [place] Platelet mean volume (Bld) [Entitic vol] 9.3 fL Normal 9.0-12.7 [facility] Comment on above: Order Comment: Speci men Type: BLOOD SPECIMEN [facility] [facility] Address: [address] [place] [address] Performed By: #### 5 7021-8 #### [facility] CLIA [id number] [address] [place] [address] [place] Platelets (Bld) [#/Vol] 209 10*3/uL Normal 150-400 [facility] Comment on above: Order Comment: Speci men Type: BLOOD SPECIMEN Ordering Facility: [facility] Address: [address] [place] [address] Performed By: #### 5 7021-8 #### [facility] CLIA [id number] [address] [place] [address] [place] RBC (Bld) [#/Vol] 4.25 10*6/uL Normal 4.20-6.00 [facility] Comment on above: Order Comment: Speci men Type: BLOOD SPECIMEN Ordering Facility: [facility] Address: [address] [place] [address] Performed By: #### 5 7021-8 #### [facility] CLIA [id number] [address] [place] [address] [place] WBC (Bld) [#/Vol] 7.98 10*3/uL Normal 3.70-11.00 [facility] Comment on above: Order Comment: Speci men Type: BLOOD SPECIMEN Ordering Facility: [facility] Address: [address] [place] [address] Performed By: #### 5 7021-8 #### [facility] CLIA [id number] [address] [place] [address] [place] CNOVon 07-31-2024 CNOV Office Visit (FAMPWS ) KELSI SOTO ([id number]) 1965 M Date Time Provider Department 07/31/24 9:00 AM [facility] During your visit today, we recorded the following information about you: Pulse Respiration Blood pressure Weight 75/minute 16/minute 120/62 83.9 kg Lynn Avalos APRN.CNP 07/31/2024 10:51 AM Signed Chief Reason For Appointment Patient presents with: Yearly Exam Kelsi Soto is a 58 year old male who presents for annual exam. Last office visit date: 08/25/2023 Accompanied By spouse Have you had any critical events, hospital stays, ER visits, surgeries or procedures since your last visit here in our office: No Specialists/Other Healthcare Providers Seen: Patient Care Team: Martin Melendez MD as PCP - General (Family Medicine) No, Referral as Referring (Cardiology) Aretha Hemphill APRN.CNP as Global Coordinator (Family Medicine) Lynn Avalos APRN.CNP as Global Coordinator (Family Medicine) Concerns today: None HPI Hasn't seen cardiology lately, would like to see someone closer Reviewed echo from January Active Problems ACTIVE PROBLEM LIST Asthenia - 09/15/2022 Near Syncope - 09/15/2022 Coronary Artery Disease Involving [place] Coronary Artery of [place] Heart Without Angina Pectoris - 03/12/2020 Comment: Mild CAD by coronary CTA Essential Hypertension - 05/27/2019 Mixed Hyperlipidemia - 05/27/2019 Palpitations - 05/27/2019 Pvc's (Premature Ventricular Contractions) - 06/15/2016 Vt (Ventricular Tachycardia) (Hcc) - 07/28/2015 Episodic Lightheadedness - 07/28/2015 Nonischemic Cardiomyopathy (Hcc) - 06/28/2015 ROS: REVIEW OF SYSTEMS GENERAL: No weight loss, malaise or fevers/chills HEENT: Negative for frequent or significant headaches, No changes in hearing or vision. NECK: Negative for lumps, goiter, pain and significant neck swelling RESPIRATORY: Negative for cough, hemoptysis, wheezing, dyspnea or shortness of breath- smokes on occ, no chewing tobacco CARDIOVASCULAR: Negative for chest pain, leg swelling, orthopnea, or palpitations- occ skipped beats GI: No nausea, vomiting, or diarrhea/constipation. No hematochezia/melena. Occ heartburn or reflux symptoms. : No history of dysuria, frequency or incontinence MUSCULOSKELETAL: Occ. joint pain or swelling. Right tennis elbow SKIN: Negative for lesions, rash, and itching ENDOCRINE: Negative for cold or heat intolerance, polyuria, polydipsia and goiter NEURO: No history of headaches, syncope, paralysis, seizures or tremors MOOD: Negative for depression, anxiety, or suicidal ideation. PAST MEDICAL HISTORY Diagnosis Date Dilated cardiomyopathy (HCC) Dyslipidemia Essential hypertension Left ventricular systolic dysfunction Nonsustained ventricular tachycardia (HCC) Pain in wrist PAST SURGICAL HISTORY Procedure Laterality Date COLONOSCOPY FLX DX W/COLLJ SPEC WHEN PFRMD 05/27/2018 Colonoscopy EPS: EP STUDY Neelima Reeves - negative LEFT HEART CATH 06/21/2015 Medication List Current Outpatient Medications Medication Sig Dispense Refill metoprolol succinate ER (TOPROL XL) 50 mg 24 hr tablet Take 1.5 tablets by mouth once daily. 135 tablet 3 MULTIVITAMIN ORAL Take by mouth. aspirin, enteric coated (ASPIRIN, ENTERIC COATED) 81 mg EC tablet Take 1 tablet by mouth once daily. 0 No current facility-administered medications for this visit. Weight Summary: Weight Change: Body mass index is 25.09 kg/m?. Last Wt 07/31/24 : 83.9 kg (185 lb) 08/25/23 : 86.6 kg (191 lb) 12/18/22 : 84.8 kg (187 lb) 09/15/22 : 86.6 kg (191 lb) 06/13/22 : 86.6 kg (191 lb) Physical Exam: General Appearance: well appearing, alert and oriented. Skin: no suspicious lesion, no rash, no open sores; right forearm with nickel sized area that is freely moving or inflamed Head: normocephalic, no obvious masses, lesions, tenderness or abnormalities. Eyes: Anicteric sclera. Pupils are equally round and reactive to light. Extraocular movements are intact. Ears: external ears normal. Hearing to conversational voice intact. Neck: trachea midline, thyroid without mass or nodularity, thyroid moves normally with swallow, no regional lymphadenopathy. Carotids normal upstroke, no bruit or thrill. Back:no pain to palpation of vertebrae, no percussion tenderness over spine. Lungs: Chest rise AND fall symmetrical, Lungs clear to auscultation. No wheezing or rhonchi. No rales. Abdomen: normal bowel sounds, no mass, non-tender Heart: S1S2, no gallop, no rub, no murmur Lymph Nodes: no lymphadenopathy. Ext: no clubbing, cyanosis or edema. Mood: bright affect, speech clear, answers questions appropriately SCREENINGS Health Maintenance Listing Depression Screening Anxiety Screening Pneumococcal Vaccine: 50+(2 of 2 - PCV) LDL Cholesterol TEST RESULTS: Lab Studies: Date of la (more content not included)... Normal [facility] Comprehensive metabolic 2000 panelon 07-31-2024 Albumin [Mass/Vol] 4.8 g/dL Normal 3.9-4.9 [facility] Comment on above: Order Comment: Speci men Type: BLOOD SPECIMENOrdering Facility: [facility] Address: [address] [place] [address] Performed By: #### 2 4323-8, 33436-0, 3016-3, LIPNF ####[facility] [id number] [address] [address] [place] ALP [Catalytic activity/Vol] 62 U/L Normal 38-113 [facility] Comment on above: Order Comment: Speci men Type: BLOOD SPECIMENOrdering Facility: [facility] Address: [address] [place] [address] Performed By: #### 2 4323-8, 93151-6, 3015-3, LIPNF ####[facility] [id number] [place] [id number] [place] ALT [Catalytic activity/Vol] 24 U/L Normal 10-54 [facility] Comment on above: Order Comment: Speci men Type: BLOOD SPECIMENOrdering Facility: [facility] Address: [address] [place] [address] Performed By: #### 2 4323-8, , 3015-3, LIPNF ####[facility] [id number] [place] [id number] [place] Anion gap [Moles/Vol] 11 mmol/L Normal 8-15 [facility] Comment on above: Order Comment: Speci men Type: BLOOD SPECIMENOrdering Facility: [facility] Address: [address] [place] [address] Performed By: #### 2 4323-8, 99038-6, 3, LIPNF ####[facility] [id number] [place] [id number] [place] AST [Catalytic activity/Vol] 27 U/L Normal 14-40 [facility] Comment on above: Order Comment: Speci men Type: BLOOD SPECIMENOrdering Facility: [facility] Address: [address] [place], [place] [address] Performed By: #### 2 4323-8, 12445-9, 3015-3, LIPNF ####[facility] [id number] [address] [address] [place] Bilirubin [Mass/Vol] 0.5 mg/dL Normal 0.2-1.3 [facility] Comment on above: Order Comment: Speci men Type: BLOOD SPECIMENOrdering Facility: [facility] Address: [address] [place] [address] Performed By: #### 2 4323-8, 67055-5, 3015-3, LIPNF ####[facility] [id number] [place] [id number] [place] Calcium [Mass/Vol] 10.1 mg/dL Normal 8.5-10.2 [facility] Comment on above: Order Comment: Speci men Type: BLOOD SPECIMENOrdering Facility: [facility] Address: [address] [place] [address] Performed By: #### 2 4323-8, , 3, LIPNF ####[facility] [id number] [place] [address] [place] Chloride [Moles/Vol] 102 mmol/L Normal 98-107 [facility] Comment on above: Order Comment: Speci men Type: BLOOD SPECIMENOrdering Facility: [facility] Address: [address] [place] [address] Performed By: #### 2 4323-8, 45440-4, 3, LIPNF ####[facility] [id number] [place] [id number] [place] CO2 [Moles/Vol] 26 mmol/L Normal 22-30 [facility] Comment on above: Order Comment: Speci men Type: BLOOD SPECIMENOrdering Facility: [facility] Address: [address] [place] [address] Performed By: #### 2 4323-8, 68141-9, 3015-3, LIPNF ####[facility] [id number] [place] [id number] [place] Creatinine [Mass/Vol] 0.93 mg/dL Normal 0.73-1.22 [facility] Comment on above: Order Comment: Vidal fonseca Type: BLOOD SPECIMENOrdering Facility: [facility] Address: [address] [place] [address] Performed By: #### 2 4323-8, 50756-6, 3016-3, LIPNF ####[facility] [id number] [place] [address] [place] Creatinine and Glomerular filtration rate.predicted panel (S/P/Bld) 94 mL/min/1.73m??? Normal >=60 [facility] Comment on above: Order Comment: Vidal fonseca Type: BLOOD SPECIMENOrdering Facility: [facility] Address: [address] [place] [address] Result Comment: Sejal mated Glomerular Filtration Rate (eGFR) is calculated using the 2020 CKD-EPI creatinine equation. This equation utilizes serum creatinine, sex, and age as parameters. The creatinine assay has traceable calibration to isotope dilution-mass spectrometry. Refer to KDIGO guidelines for clinical interpretation. In patients with unstable renal function, e.g. those with acute kidney injury, the eGFR may not accurately reflect actual GFR. Performed By: #### 2 4323-8, 80940-3, 3016-3, LIPNF ####[facility] [id number] [place] [address] [place] Glucose [Mass/Vol] 85 mg/dL Normal 74-99 [facility] Comment on above: Order Comment: Vidal fonseca Type: BLOOD SPECIMENOrdering Facility: [facility] Address: [address] [place] [address] Result Comment: The [place] Diabetes Association (ADA) provides guidance for cutoff values for fasting glucose and random glucose. The ADA defines fasting as no caloric intake for at least 8 hours. Fasting plasma glucose results between 100 to 125 mg/dL indicate increased risk for diabetes (prediabetes). Fasting plasma glucose results greater than or equal to 126 mg/dL meet the criteria for diagnosis of diabetes. In the absence of unequivocal hyperglycemia, results should be confirmed by repeat testing. In a patient with classic symptoms of hyperglycemia or hyperglycemic crisis, random plasma glucose results greater than or equal to 200 mg/dL meet the criteria for diagnosis of diabetes. Reference: Standards of Medical Care in Diabetes 2016, [place] Diabetes Association. Diabetes Care. 2016.39(Suppl 1). Performed By: #### 2 4323-8, 49021-3, 6-3, LIPNF ####[facility] [id number] [place] [address] [place] Potassium [Moles/Vol] 4.6 mmol/L Normal 3.7-5.1 [facility] Comment on above: Order Comment: Vidal men Type: BLOOD SPECIMENOrdering Facility: [facility] Address: [address] [place] [address] Performed By: #### 2 4323-8, 03572-6, 3015-3, LIPNF ####[facility] [id number] [place] [address] [place] Protein [Mass/Vol] 7.7 g/dL Normal 6.3-8.0 [facility] Comment on above: Order Comment: Vidal fonseca Type: BLOOD SPECIMENOrdering Facility: [facility] Address: [address] [place] [address] Performed By: #### 2 4323-8, , 3015-3, LIPNF ####[facility] [id number] [place] [address] [place] Sodium [Moles/Vol] 139 mmol/L Normal 136-144 [facility] Comment on above: Order Comment: Modestoi men Type: BLOOD SPECIMENOrdering Facility: [facility] Address: [address] [place] [address] Performed By: #### 2 4323-8, 05837-7, 6-3, LIPNF ####[facility] [id number] [place] [id number] [place] Urea nitrogen [Mass/Vol] 15 mg/dL Normal 9-24 [facility] Comment on above: Order Comment: Vidal fonseca Type: BLOOD SPECIMENOrdering Facility: [facility] Address: [address] [place] [address] Performed By: #### 2 4323-8, 48240-2, 3016-3, LIPNF ####[facility] [id number] [place] [address] [place] HbA1c (Bld)on 07-31-2024 Average glucose Estimated from glycated hemoglobin (Bld) [Mass/Vol] 100 mg/dL Normal [facility] Comment on above: Order Comment: Vidal fonseca Type: BLOOD SPECIMENOrdering Facility: [facility] Address: [address] [place] [address] Result Comment: eAG: (Estimated average glucose) is a calculated value from HgbA1c and is patient registration representative of the average blood glucose level in the last 2-3 month period. Performed By: #### 5 5454-3 ####[facility] [id number] [place] [address] [place] HbA1c (Bld) [Mass fraction] 5.1 % Normal 4.3-5.6 [facility] Comment on above: Order Comment: Vidal fonseca Type: BLOOD SPECIMENOrdering Facility: [facility] Address: [address] [place] [address] Result Comment: [place] Diabetes Association guidelines indicate that patients with HgbA1c in the range 5.7-6.4% are at increased risk for development of diabetes, and intervention by lifestyle modification may be beneficial. HgbA1c greater or equal to 6.5% is considered diagnostic of diabetes. Performed By: #### 5 5454-3 ####[facility] [id number] [place] [id number] [place] LIPID PANEL, NONFASTINGon Cholesterol [Mass/Vol] 292 mg/dL High <200 [facility] Comment on above: Order Comment: Speci men Type: BLOOD SPECIMENOrdering Facility: [facility] Address: [address] [place] [address] Result Comment: <200 mg/dL, Desirable 200-239 mg/dL, Borderline high >239 mg/dL, High Performed By: #### 2 4323-8, 44628-8, 6-3, LIPNF ####[facility] [id number] [place] [address] [place] HDL CHOLESTEROL, NF 50 mg/dL Normal >39 [facility] Comment on above: Order Comment: Speci men Type: BLOOD SPECIMENOrdering Facility: [facility] Address: [address] [place] [address] Result Comment: 40-5 9 mg/dL, Acceptable >59 mg/dL, High: Negative risk factor for coronary heart disease <40 mg/dL, Low: Positive risk factor for coronary heart disease Performed By: #### 2 4323-8, , 3015-3, LIPNF ####[facility] [id number] [place] [address] [place] LDL CHOLESTEROL, NF Normal [facility] Comment on above: Order Comment: Speci men Type: BLOOD SPECIMENOrdering Facility: [facility] Address: [address] [place] [address] Result Comment: Unab le to calculate due to increased Triglycerides. A Direct LDL Cholesterol measurement will not be performed. If clinically indicated, a fasting Basic Lipid Panel (LIPB) may be ordered. Performed By: #### 2 4323-8, 84186-2, 3015-3, LIPNF ####[facility] [id number] [place] [address] [place] LDL/HDL RATIO, NF Normal [facility] Comment on above: Order Comment: Speci men Type: BLOOD SPECIMENOrdering Facility: [facility] Address: [address] [place] [address] Result Comment: Unab le to calculate due to elevated Triglycerides. Reference: 1. National Cholesterol Education Program ATP III Guideline At-A-Glance Quick Desk Reference: National Heart, Lung, and Blood [place]. National Institutes of Health. 2001: NIH Publication No. 01-3305. 2. An International Atherosclerosis Society position paper: global recommendations for the management of dyslipidemia: executive summary, Atherosclerosis. 2014: 232(2):410-413. Performed By: #### 2 4323-8, 11543-3, 3016-3, LIPNF ####[facility] [id number] [place] [address] [place] NON HDL CHOL, NF 242 mg/dL High <130 [facility] Comment on above: Order Comment: Speci men Type: BLOOD SPECIMENOrdering Facility: [facility] Address: [address] [place] [address] Result Comment: <130 mg/dL, Optimal 130-159 mg/dL, Near optimal/above optimal 160-189 mg/dL, Borderline high 190-219 mg/dL, High >219 mg/dL, Very high Secondary prevention optimal non HDL Cholesterol levels are recommended to be <100 mg/dL Performed By: #### 2 4323-8, 59075-8, 3016-3, LIPNF ####[facility] [id number] [place] [address] [place] T CHOL/HDL RATIO NF 5.84 mg/dL High <5.10 [facility] Comment on above: Order Comment: Speci men Type: BLOOD SPECIMENOrdering Facility: [facility] Address: [address] [place] [address] Performed By: #### 2 4323-8, 74920-2, 3016-3, LIPNF ####[facility] [id number] [place] [address] [place] TRIGLYCERIDES, NF 404 mg/dL High <150 [facility] Comment on above: Order Comment: Speci men Type: BLOOD SPECIMENOrdering Facility: [facility] Address: [address] [place] [address] Result Comment: <150 mg/dL, Normal 150-199 mg/dL, Borderline high 200-499 mg/dL, High >499 mg/dL, Very high Performed By: #### 2 3-8, 86693-5, 3, LIPNF ####[facility] [id number] [place] [address] [place] VLDL CHOLESTEROL, NF Normal [facility] Comment on above: Order Comment: Speci men Type: BLOOD SPECIMENOrdering Facility: [facility] Address: [address] [place] [address] Result Comment: Unab le to calculate due to elevated Triglycerides. Performed By: #### 2 4323-8, , 3015-10, LIPNF ####[facility] [id number] [place] [address] [place] Magnesium SerPl-mCncon 07-31 Magnesium [Mass/Vol] 2.2 mg/dL Normal 1.7-2.3 [facility] Comment on above: Order Comment: Speci men Type: BLOOD SPECIMENOrdering Facility: [facility] Address: [address] [place] [address] Performed By: #### 2 4323-8, , 3015-10, LIPNF ####[facility] [id number] [place] [address] [place] TSH SerPl-aCncon 07-31-2024 TSH Qn 0.973 m[IU]/L Normal 0.270-4.20 0 [facility] Comment on above: Order Comment: Speci men Type: BLOOD SPECIMENOrdering Facility: [facility] Address: [address] [place] [address] Performed By: #### 2 4323-8, 28306-5, 3, LIPNF ####[facility] [id number] [place] [address] [place] Vit B12 SerPl-mCncon 024 Cobalamin (Vitamin B12) [Mass/Vol] 662 pg/mL Normal 232-1245 [facility] Comment on above: Order Comment: Speci men Type: BLOOD SPECIMEN Ordering Facility: [facility] Address: [address] [place] [address] Performed By: #### P SAS1 #### [facility] CLIA [id number] [address] [place] [address] [place] [address] [place] XR Elbow - left AP and Later becca 08-26-2023 IMPRESSION: Unremark able left elbow Safety Relief Valve Technician: KATHLEEN Transcribe Date/Time: Aug 26 2023 6:21P Dictated by : REJI SAUNDERS MD This examination was interpreted and the report reviewed and electronically signed by: REJI SAUNDERS MD on Aug 26 2023 6:21PM [facility] DIVISION OF RADIOLOGY * * *Final Report* * * DATE OF EXAM: Aug 25 2023 10:42AM WOX 5322 - XR ELBOW 2V AP/LAT LT / PROCEDURE REASON: Lateral epicondylitis of left elbow * * * * Physician Interpretation * * * * XR ELBOW 2V AP/LAT LT PROVIDED HISTORY: Lateral epicondylitis of left elbow COMPARISON: No previous similar exams are available for comparison TECHNIQUE: 2 views RESULT: Bony mineralization within normal limits. Osseous alignment appears intact. No joint effusion or acute fractures seen DIVISION OF RADIOLOGY Provider, [facility] - 08/26/2023 * * *Final Report* * * DATE OF EXAM: Aug 25 2023 10:42AM WOX 5322 - XR ELBOW 2V AP/LAT LT / PROCEDURE REASON: Lateral epicondylitis of left elbow * * * * Physician Interpretation * * * * XR ELBOW 2V AP/LAT LT PROVIDED HISTORY: Lateral epicondylitis of left elbow COMPARISON: No previous similar exams are available for comparison TECHNIQUE: 2 views RESULT: Bony mineralization within normal limits. Osseous alignment appears intact. No joint effusion or acute fractures seen IMPRESSION IMPRESSION: Unremarkable left elbow Safety Relief Valve Technician: KATHLEEN Transcribe Date/Time: Aug 26 2023 6:21P Dictated by : REJI SAUNDERS MD This examination was interpreted and the report reviewed and electronically signed by: REJI SAUNDERS MD on Aug 26 2023 6:21PM EST [facility] XR Elbow - left AP and Later alOrdered By: [facility] Provider on 08-26-2023 [facility] XR Elbow - left AP and Later becca 08-25-2023 Radiology Study observation (narrative) [facility] XR Shoulder - right 3 Viewso n 09-20-2022 IMPRESSION: Degenerative changes as described. Safety Relief Valve Technician: KATHLEEN Transcribe Date/Time: Sep 20 2022 10:30A Dictated by : ORLANDO ARIAS MD This examination was interpreted and the report reviewed and electronically signed by: ORLANDO ARIAS MD on Sep 20 2022 10:31AM EST DIVISION OF RADIOLOGY * * *Final Report* * * DATE OF EXAM: Sep 15 2022 3:38PM WOX 5253 - XR SHLDR >/=3V AP/EAGLE AP/OTHR RT / PROCEDURE REASON: multiple diagnoses * * * * Physician Interpretation * * * * TITLE: XR SHLDR >/=3V AP/EAGLE AP/OTHR RT CLINICAL INDICATION: Shoulder pain TECHNIQUE: 3 view radiographic study of the right shoulder COMPARISON: None FINDINGS: No acute fracture or dislocation identified. Acromioclavicular joint intact with mild hypertrophic spur formation. No soft tissue calcifications. Dextrocurvature of the visualized upper thoracic spine with multilevel degenerative changes DIVISION OF RADIOLOGY Provider, [facility] - 09/20/2022 * * *Final Report* * * DATE OF EXAM: Sep 15 2022 3:38PM WOX [id number] - XR SHLDR >/=3V AP/EAGLE AP/OTHR RT / PROCEDURE REASON: multiple diagnoses * * * * Physician Interpretation * * * * TITLE: XR SHLDR >/=3V AP/EAGLE AP/OTHR RT CLINICAL INDICATION: Shoulder pain TECHNIQUE: 3 view radiographic study of the right shoulder COMPARISON: None FINDINGS: No acute fracture or dislocation identified. Acromioclavicular joint intact with mild hypertrophic spur formation. No soft tissue calcifications. Dextrocurvature of the visualized upper thoracic spine with multilevel degenerative changes IMPRESSION IMPRESSION: Degenerative changes as described. Safety Relief Valve Technician: PSCB Transcribe Date/Time: Sep 20 2022 10:30A Dictated by : ORLANDO ARIAS MD This examination was interpreted and the report reviewed and electronically signed by: ORLANDO ARIAS MD on Sep 20 2022 10:31AM EST [facility] XR Shoulder - right 3 ViewsO rdered By: [facility] Provider on 09-20-2022 [facility] XR Shoulder - right 3 Viewso n 09-15-2022 Radiology Study observation (narrative) [facility] ALLIED HEALTHon 02-23-2020 ALLIED HEALTH HNO ID: [id number] Author: Jania (Ct) Lazara, CT Service: ? Author Type: Clinical Financial Auditor Type: Allied Health Filed: 02/23/2020 1:13 PM Note Text: Radiology Service Progress Note DATE OF SERVICE: February 23, 2020 TIME: 1:12 PM PATIENT IDENTITY VERIFICATION COMPLETED USING TWO (2) STANDARD IDENTIFIERS: Name and Date of confirmed by patient verbally and Name and Date of confirmed by identification band. FALL SCREENING: Has the patient had 2 falls in the last year or 1 fall with injury or currently using an Ambulatory Assistive Device (Walker, Cane, Wheelchair, Crutches, etc.)? No PATIENT GENDER DATA: Male PATIENT RELEVANT IMPLANT DATA REVIEWED: Not Applicable ALLERGIES: Reviewed and unchanged CONTRAST ALLERGY: NO. EXAM: CT -CONTRAST INDUCED NEPHROPATHY RISK FACTORS: Not applicable CREATININE: Creatinine Date Value Ref Range Status 12/12/2018 0.79 0.73 - 1.22 mg/dL Final 07/17/2017 0.90 0.73 - 1.22 mg/dL Final 06/19/2015 0.83 0.67 - 1.17 mg/dL Final eGFR-All Other Races Date Value Ref Range Status 12/12/2018 >60 . Final Comment: eGFR (Estimated GFR) Units of measure: mL/min/1.73 meters squared eGFR is derived from the reexpressed MDRD Study equation using the following parameters: serum creatinine, age, gender and race. The creatinine assay has been calibrated to be traceable to IDMS. An eGFR <60 mL/min/1.73m2 for >3 months is consistent with chronic kidney disease. Refer to KDOQI guidelines for clinical interpretation. In patients with unstable renal function, e.g. those with acute kidney injury, the eGFR may not accurately reflect actual GFR. eGFR- Date Value Ref Range Status 12/12/2018 >60 Final P.O.C.T. RESULTS: N/A February 23, 2020 TREATMENT: N/A PERIPHERAL IV DATA: air turning machine feeder started iv RADIOLOGY DEPARTMENT: CT; Exam(s) Completed: coronary SIGNATURE: LI Omer PATIENT NAME: Kelsi Soto DATE: February 23, 2020 TIME: 1:12 PM [facility] CTA CORONARY W IVCONon 02-22 CTA CORONARY W IVCON * * *Final Report* * * DATE OF EXAM: Feb 23 2020 1:15PM [facility] [place] [facility] - CTA CORONARY W IVCON / PROCEDURE REASON: multiple diagnoses * * * * Physician Interpretation * * * * Coronary CTA dated 02/23/2020 1:15 PM Comparison: None History: 54 years old Male with chest pain and a history of dilated cardiomyopathy, NSVT/PVCs, hypertension, and dyslipidemia. There is need to define coronary anatomy. Technique: Multi-detector CT technology was employed ( Siemens Definition Flash dual source scanner). Spiral imaging with retrospective gating and minimal slice thickness was performed following the IV administration of contrast material. Because of the patient's cardiovascular disease history, a low-osmolar contrast agent was used (90 ml Omnipaque 350). The patient was premedicated 0.3 mg sublingual nitroglycerin for coronary dilation. CT Dose-Length Product (DLP): [address] Dose Reduction Employed: Yes For optimization of anatomic evaluation, multiplanar reconstruction, maximum intensity projections, and advanced 3-D off-line postprocessing were performed on a dedicated stand-alone workstation under the direct supervision of the interpreting physician. RESULT: Potential study limitations: None. The chest wall, mediastinum, and pericardium are unremarkable. The pulmonary arteries appear normal. No significant adenopathy is identified in the axilla, mediastinum, and villa. Lung windows reveal no acute abnormalities. There is no pulmonary parenchymal mass, infiltrate, or pleural effusion. Bibasilar atelectasis The cardiac chambers demonstrate normal atrioventricular and ventriculoarterial concordance, and systemic and pulmonary venous return. Enlarged left ventricle (basal diastolic dimension 6.3 cm). No mitral annular calcifications. The aortic valve appears trileaflet, and free from calcifications. The visualized thoracic aorta is normal in course, caliber, and contour (aortic root 3.7 cm, mid ascending aorta 3.2 cm). There is no acute aortic pathology, such as dissection, intramural hematoma, or contained rupture. The aortic arch is not included on this examination. Coronary anatomy: There is normal origin of the coronary arteries. Left Main Coronary Artery: The left main is normal sized vessel that bifurcates into the LAD and circumflex. There is no significant atherosclerotic change or stenotic disease. Left Anterior Descending Coronary Artery: The LAD is a normal size vessel that wraps around the apex. It gives rise to 2 acute diagonal branches. Mild focal calcified plaque in the proximal LAD with minimal (1-25%) stenosis, otherwise no atherosclerotic change or stenotic disease. Left Circumflex Coronary Artery: The LCX is a normal size vessel, which is dominant. It gives rise to 2 obtuse marginal branches. Minimal focal calcified plaque in the proximal first OM, otherwise no atherosclerotic change or stenotic disease. Right Coronary Artery: The RCA is a normal size vessel, which is non-dominant. It gives rise to a conus branch, AV rancho branch, and 1 acute marginal branches. In its distal segment it bifurcates into the PDA and PV branch. There is no significant atherosclerotic change or stenotic disease. UPPER ABDOMEN: Limited images of the upper abdomen reveal no abnormalities of the visualized organs. Thickening of the distal esophagus; clinical correlation recommended, and further evaluation with endoscopy could be considered. IMPRESSION: 1. Normal coronary artery origins and courses. Mild focal calcified plaque in the proximal LAD with minimal (1-25%) stenosis and minimal calcified plaque in the proximal first obtuse marginal branch with no significant stenotic disease. 2. Thickening of the distal esophagus; clinical correlation recommended, and further evaluation with endoscopy could be considered. Safety Relief Valve Technician: PSCMaryan Transcribe Date/Time: Feb 23 2020 1:44P Dictated by : JENNIFER DELGADILLO MD This examination was interpreted and the report reviewed and electronically signed by: DAVIDE QUINTANA MD on Feb 23 2020 4:08PM EST [id number] [facility] OBSOLETEon 10-15-2017 OBSOLETE Refill (AGCARDWST) JOSE KELSI BHATIA ([id number]) 1965 [facility] Time Provider Department10/15/17 NATHANIEL PALOMARES During your visit today, we recorded the following information about you:Kirk Adhikari RN, RN 10/15/2017 11:13 AM SignedPatient's spouse phones requesting refills as follows:Pending Prescriptions Disp Refills METOPROLOL SUCCINATE ER 100 MG TABLET,EXTENDED RELEASE 24 HR 90 tablet 3 Sig: Take 1 tablet by mouth once daily. IRENE: No Please review and advise.Chaya Johnson has been identified by name and date of : YesPending Prescriptions Disp Refills METOPROLOL SUCCINATE ER 100 MG TABLET,EXTENDED RELEASE 24 HR 90 tablet 3 Sig: Take 1 tablet by mouth once daily. IRENE: NoRX INSTRUCTIONS:Patient aware RX will be sent to pharmacy. No need to notify patient.Barbara Johnson MD 10/15/2017 11:16 AM SignedNoted and agree.Leti Shin RN, RN 10/15/2017 3:37 PM Signedescript confirmedAllergies As of Date: 10/15/2017(No Known Allergies)Date Reviewed: 10/10/2017Reviewed by: Ayanna Echeverria - Fully AssessedReason for Visit: Refill Request [94]Order(s):metoprolol succinate ER (TOPROL XL) 100 mg Bw50Eand 1 tablet by mouth once daily.Disp: 90 tabletRfl: 3Prescriptions as of 10/15/2017 Sig: METOPROLOL SUCCINATE ER 100 M* Take 1 tablet by mouth once d* LISINOPRIL ORAL Take 10 mg by mouth. FOLIC ACID ORAL Take by mouth. MULTIVITAMIN ORAL Take by mouth. FLUTICASONE 50 MCG/ACTUATION * Use 2 Sprays in each nostril * ASPIRIN 81 MG TABLET,DELAYED * Take 1 tablet by mouth once d*Problem List As Of Date 10/15/2017 Noted Resolved Cardiomyopathy, nonischemic (HCC) [I42.8] INVALID FOR* Arm pain, anterior [M79.603] INVALID FOR*07/17/2017 VT (ventricular tachycardia) (HCC) [I47.2] INVALID FOR* Alcohol abuse [F10.10] INVALID FOR*07/17/2017 Episodic lightheadedness [R42] INVALID FOR* PVC's (premature ventricular contractions) [I49*INVALID FOR*Prescriptions ordered this encounter Disp Refills Start End METOPROLOL SUCCINATE ER 100 MG TABLE* 90 t* 3 10/15/2017 Route: ORAL Sig: Take 1 tablet by mouth once daily.Medications Discontinued During This Encounter metoprolol succinate ER (TOPROL XL) * 07/17/2017 10/15/2017 Class: Med Update Route: ORAL Sig: Take 1 tablet by mouth once daily. Disc: Reason for discontinue is not on file. Status:Closed by KIRK ADHIKARI on 10/15/17 [facility] CNOVon 10-10-2017 CNOV Office Visit (AGCARDWST) [facility] ([id number]) 1965 [facility]10[facility]17 11:00 AM NATHANIEL PALOMARES AGCARDWST During your visit today, we recorded the following information about you: Pulse Blood pressure Weight 62/minute 104/71 82.4 kgNathaniel Palomares MD 10/10/2017 5:09 PM SignedPERTINENT CARDIAC HISTORYCardiomyopathy - nonischemicHTNHLTobaccoismChest pain - cath normal 2000, 2014Ventricular arrhythmia - EPS ANDquot;negativeANDquot;Questio nable history of atrial fibrillation.ADHERENCE TO GUIDELINESACE-I or ARB for HF with prior LVEFANDlt;40 (NQF 0081) - N/AASA or Plavix for ASHD (NQF 0067) - N/ABeta zakiya for ASHD with prior RI or prior LVEFANDlt;40 (NQF 0070) - N/ABeta zakiya for HF with prior LVEFANDlt;40 (NQF 0083) - N/AACE-I or ARB for ASHD with DM or prior LVEFANDlt;40 ([facility] 0066) - N/AStatin therapy for ASHD or FHL or DM - N/ABMI documented and plan if ANDgt;25 ([facility] 0421) - lifestyle recommendation formTobacco use screening and referral ([facility] 0028) - lifestyle recommendation formRecommendation for whole food, plant based diet - lifestyle recommendation formCLINICAL IMPRESSION/PLAN:Kelsi Soto has had improvement in his cardiomyopathy. It is unclear ifthere was an abnormal rhythm that caused his current symptoms. He will finishhis event monitor.There is no contraindication to continuing to drive. He has had nolife-threatening arrhythmias, a negative EP study by history, and normalizationof his LV function. There is no evidence of obstructive coronary disease.We will not make a change in medication at this time. I reminded him that hemay have had an adverse reaction to carvedilol in the past. I recommended thathe finish his event monitor and we can discuss further.He will be advised to watch closely for symptoms and signs of sleep apnea. Thesymptoms that precipitated the recent admission may have been related to anepisode of apnea.Written and verbal health teaching given to patient, patient verbalizesunderstanding and agrees with treatment plan.This note was generated using [employer] voice recognition system, and there may besome incorrect words, spellings, and punctuation that were not noted inchecking the note before saving.DIAGNOSIS FOR VISIT:Cardiomyopathy, improvedVentricular arrhythmiaHISTORY OF PRESENT ILLNESSKelsi Soto is a 51-year-old gentleman who is seen now for follow-up ofmultiple cardiac issues. He was recently hospitalized with an episode ofdizziness, palpitations, anxiety. He was observed on telemetry and no abnormalrhythms were noted. He was discharged with an event detector.He reports that he has had occasional palpitations, but this episode wasdifferent from those he has had in the past. He reports stable exercisetolerance. He has decreased his alcohol use. He declined ICD. 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 His ejection fraction has improved.He has had no orthopnea, edema, syncope, TIAs, amaurosis or claudication.He initially denies history of sleep apnea , but his is not here tocomment.He asked whether he should consider going back to carvedilol. He cannotremember having any adverse side effects, but my records indicate that he didnote them.ALLERGIES:ALLERGIESNo Known AllergiesCURRENT OUTPATIENT MEDICATIONS:LISINOPRIL ORAL Take 10 mg by mouth.metoprolol succinate ER (TOPROL XL) 100 mg Tb24 Take 1 tablet by mouth oncedaily.FOLIC ACID ORAL Take by mouth.MULTIVITAMIN ORAL Take by mouth.fluticasone (FLONASE) 50 mcg/actuation nasal spray Use 2 Sprays in each nostrilonce daily. Rinse mouth after use.aspirin, enteric coated (ECOTRIN LOW STRENGTH) 81 mg ORAL EC tablet Take 1tablet by mouth once daily.PAST MEDICAL HISTORYDiagnosis Date- Dilated cardiomyopathy (HCC)- Dyslipidemia- Essential hypertension- Left ventricular systolic dysfunction- Nonsustained ventricular tachycardia (HCC)- Pain in wristPAST SURGICAL HISTORYProcedure Laterality Date- LEFT HEART CATH 06/21/2015FAMILY HISTORYProblem Relation Age of Onset- Heart FatherSocial History Marital status: Spouse name: Years of education: Number of children:Social History Main Topics Smoking status: Former Smoker Packs/day: 0.30 Years: 20.00 Types: Cigarettes Quit date: 06/17/2015 Smokeless status: Former User Types: Snuff Quit date: 06/23/2015 Alcohol use: Yes 3.0 oz/week 2 Cans of Beer (12oz) per week Drug use: NoOther Topics ConcernCaffeine Concern Not Asked Comment:none notedSpecial Diet Not Asked Comment:none notedExercise Not Asked Comment:none notedREVIEW OF SYSTEMS: General: No chills, fever, weight loss, night sweats.Respiratory: No productive cough. Cardiac: As noted above. GI: No melena.: No dysuria. Musculoskeletal: No myalgias.PHYSICAL EXAMINATION: S/he is alert and in no distress.VITAL SIGNS: BP 104/71 Pulse 62 Wt 181 lb 9.6 oz (82.4kg)SHEENT: Skin is warm and dry. No xanthelasmas appreciated. Pharynx isbenign. There is no oral cyanosis. Neck: supple. No adenopathy or thyroidenlargement. Chest: Clear to percussion and auscultation. Trachea is midline. Air entry is equal. There is no chest wall tenderness. Cardiac: Regularrhythm. S1 and S2 are normal. PMI is nondisplaced. There is a soft systolicejection murmur. No click is heard. Carotids are brisk without bruits. JVPis less than 10 cm. Abdomen: Soft and nontender. There are no pulsatilemasses or bruits. No liver enlargement. Bowel sounds are active.Extremities: No edema. Pulses are intact and symmetrical. No clubbing orcyanosis. No femoral bruits. Neurologic: Grossly normal motor and sensory.S/he is alert and oriented x4.Prior records were reviewed in detail. His most recent ejection fraction hadimproved to 50% by echocardiogram done at [facility].EKG showed sinus rhythm with right axis deviation. There was no significantabnormality.By report, prior angiography showed no evidence of obstructive coronary disease.Recent labs show normal LV function. LDL was 126. TSH was normal. Troponin wasundetectable on recent admission and magnesium level was normal.He now has an event monitor. He has made multiple transmissions, but noabnormal rhythms have been detected.Electronically Signed:Nathaniel Palomares, [facility] 2017 11:32 [facility]:Luis Rubio MD 10/10/2017 11:32 AM SignedLIFESTYLE CHANGEA healthy lifestyle is the most important component of your overall treatmentplan. Please give serious thought to the following areas and commit to makinglong term changes.EAT A WHOLE FOOD, PLANT BASED DIETThe nutrition your body gets is more important than the medicine you take.What matters most is the overall way you eat. We encourage you to minimize theuse of animal products (which include dairy and all meats except fatty fish)and use whole, unprocessed plant foods to provide your protein, vitamins andother nutrients. We have a lot of information to share with you on this topic. We also hold Shared Medical Appointments, where you can come visit with in the company of other patients and spend over an hour talking aboutthe challenges of changing the way you eat. This is not a ANDquot;dietANDquot;.It is a way of life that you will keep with you.EXERCISE REGULARLYIt is not important to spend hours in the gym, lifting weights and perspiringheavily. A total of 2-3 hours per week of aerobic (causing you to bemoderately short of breath) exercise is sufficient to improve your health.Talk to us before you begin a new exercise program, if you have heart diseaseor experience shortness of breath or chest pain.REDUCE STRESSChronic emotional and physical stress leads to disease. Ways of reducingstress include meditation, visualization, prayer, yoga and other forms ofrelaxation therapy. Consistency is the champion. Find a technique that works foryou and do it every day.CULTIVATE RELATIONSHIPSLoneliness and isolation have a major negative impact on health. Seek outothers who can love, care for and nurture you. Avoid hurtful relationships.MAINTAIN IDEAL BODY WEIGHTThe best way to do this is to do all the things above. Our bodies naturallyfind the right weight if we keep moving and feed ourselves the right food. Ifyour BMI is greater than 25, we strongly recommend a referral to a weightmanagement program. Please speak to us or your family physician aboutavailable programs.AVOID NICOTINE IN ALL FORMSThis includes all tobacco products, whether chewed, smoked, vaped, or rubbed onthe skin. Smoking cessation programs, which can make use of tobaccosubstitutes, medications to suppress cravings and behavior management, areavailable. Please contact your family physician about programs in your area.Referring Provider: NATHANIEL PALOMARES [[id number]]Allergies As of Date: 10/10/2017(No Known Allergies)Date Reviewed: 10/10/2017Reviewed by: Ayanna Echeverria - Fully AssessedReason for Visit: Recheck [92]Primary Visit Diagnosis:Cardiomyopathy, unspecified type (HCC) [I42.9] Other Visit Diagnosis:Hypertension, essential [I10]Prescriptions as of 10/10/2017 Sig: LISINOPRIL ORAL Take 10 mg by mouth. METOPROLOL SUCCINATE ER 100 M* Take 1 tablet by mouth once d* FOLIC ACID ORAL Take by mouth. MULTIVITAMIN ORAL Take by mouth. FLUTICASONE 50 MCG/ACTUATION * Use 2 Sprays in each nostril * ASPIRIN 81 MG TABLET,DELAYED * Take 1 tablet by mouth once d*Problem List As Of Date 10/10/2017 Noted Resolved Cardiomyopathy, nonischemic (HCC) [I42.8] INVALID FOR* Arm pain, anterior [M79.603] INVALID FOR*07/17/2017 VT (ventricular tachycardia) (HCC) [I47.2] INVALID FOR* Alcohol abuse [F10.10] INVALID FOR*07/17/2017 Episodic lightheadedness [R42] INVALID FOR* PVC's (premature ventricular contractions) [I49*INVALID FOR* Other instructions from your clinician: LIFESTYLE CHANGE A healthy lifestyle is the most important component of your overall treatment plan. Please give serious thought to the following areas and commit to making detention changes. EAT A WHOLE FOOD, PLANT BASED DIET The nutrition your body gets is more important than the medicine you take. What matters most is the overall way you eat. We encourage you to minimize the use of animal products (which include dairy and all meats except fatty fish) and use whole, unprocessed plant foods to provide your protein, vitamins and other nutrients. We have a lot of information to share with you on this topic. We also hold Shared Medical Appointments, where you can come visit with Dr. Palomares in the company of other patients and spend over an hour talking about the challenges of changing the way you eat. This is not a diet. It is a way of life that you will keep with you. EXERCISE REGULARLY It is not important to spend hours in the gym, lifting weights and perspiring heavily. A total of 2-3 hours per week of aerobic (causing you to be moderately short of breath) exercise is sufficient to improve your health. Talk to us before you begin a new exercise program, if you have heart disease or experience shortness of breath or chest pain. REDUCE STRESS Chronic emotional and physical stress leads to disease. Ways of reducing stress include meditation, visualization, prayer, yoga and other forms of relaxation therapy. Consistency is the champion. Find a technique that works for you and do it every day. CULTIVATE RELATIONSHIPS Loneliness and isolation have a major negative impact on health. Seek out others who can love, care for and nurture you. Avoid hurtful relationships. MAINTAIN IDEAL BODY WEIGHT The best way to do this is to do all the things above. Our bodies naturally find the right weight if we keep moving and feed ourselves the right food. If your BMI is greater than 25, we strongly recommend a referral to a weight management program. Please speak to us or your family physician about available programs. AVOID NICOTINE IN ALL FORMS This includes all tobacco products, whether chewed, smoked, vaped, or rubbed on the skin. Smoking cessation programs, which can make use of tobacco substitutes, medications to suppress cravings and behavior management, are available. Please contact your family physician about programs in your area.Follow-up and Disposition History RecordedEncounter Number: [id number] Status:Closed by NATHANIEL PALOMARES MD on 10/10/17 Normal [facility] PROGRESSon 10-10-2017 PROGRESS HNO ID: [id number] thor: Nathaniel Nunez: (none)Author Type: PhysicianType: Progress NotesFiled: 10/10/2017 5:09 PMNote Text:PERTINENT CARDIAC HISTORYCardiomyopathy - nonischemicHTNHLTobaccoismChest pain - cath normal 2000, 2015Ventricular arrhythmia - EPS negativeQuestionable history of atrial fibrillation.ADHERENCE TO GUIDELINESACE-I or ARB for HF with prior LVEF<40 (NQF 0081) - N/AASA or Plavix for ASHD (NQF 0067) - N/ABeta zakiya for ASHD with prior RI or prior LVEF<40 (NQF 0070) - N/ABeta zakiya for HF with prior LVEF<40 (NQF 0083) - N/AACE-I or ARB for ASHD with DM or prior LVEF<40 (NQF 0066) - N/AStatin therapy for ASHD or FHL or DM - N/ABMI documented and plan if >25 (NQF 0421) - lifestyle recommendation formTobacco use screening and referral (NQF 0028) - lifestyle recommendationformRecommendatio n for whole food, plant based diet - lifestyle recommendationformCLINICAL IMPRESSION/PLAN:Kelsi Soto has had improvement in his cardiomyopathy. It is unclearif there was an abnormal rhythm that caused his current symptoms. He willfinish his event monitor.There is no contraindication to continuing to drive. He has had nolife-threatening arrhythmias, a negative EP study by history, andnormalization of his LV function. There is no evidence of obstructivecoronary disease.We will not make a change in medication at this time. I reminded him thathe may have had an adverse reaction to carvedilol in the past. Irecommended that he finish his event monitor and we can discuss further.He will be advised to watch closely for symptoms and signs of sleep apnea.The symptoms that precipitated the recent admission may have been relatedto an episode of apnea.Written and verbal health teaching given to patient, patient verbalizesunderstanding and agrees with treatment plan.This note was generated using [employer] voice recognition system, and theremay be some incorrect words, spellings, and punctuation that were notnoted in checking the note before saving.DIAGNOSIS FOR VISIT:Cardiomyopathy, improvedVentricular arrhythmiaHISTORY OF PRESENT ILLNESSKelsi Soto is a 51-year-old gentleman who is seen now for follow-upof multiple cardiac issues. He was recently hospitalized with an episodeof dizziness, palpitations, anxiety. He was observed on telemetry and noabnormal rhythms were noted. He was discharged with an event detector.He reports that he has had occasional palpitations, but this episode wasdifferent from those he has had in the past. He reports stable exercisetolerance. He has decreased his alcohol use. He declined ICD. 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 His ejection fraction has improved.He has had no orthopnea, edema, syncope, TIAs, amaurosis or claudication.He initially denies history of sleep apnea , but his is not here tocomment.He asked whether he should consider going back to carvedilol. He cannotremember having any adverse side effects, but my records indicate that hedid note them.ALLERGIES:ALLERGIESNo Known AllergiesCURRENT OUTPATIENT MEDICATIONS:LISINOPRIL ORAL Take 10 mg by mouth.metoprolol succinate ER (TOPROL XL) 100 mg Tb24 Take 1 tablet by mouthonce daily.FOLIC ACID ORAL Take by mouth.MULTIVITAMIN ORAL Take by mouth.fluticasone (FLONASE) 50 mcg/actuation nasal spray Use 2 Sprays in eachnostril once daily. Rinse mouth after use.aspirin, enteric coated (ECOTRIN LOW STRENGTH) 81 mg ORAL EC tablet Take 1tablet by mouth once daily.PAST MEDICAL HISTORYDiagnosis Date- Dilated cardiomyopathy (HCC)- Dyslipidemia- Essential hypertension- Left ventricular systolic dysfunction- Nonsustained ventricular tachycardia (HCC)- Pain in wristPAST SURGICAL HISTORYProcedure Laterality Date- LEFT HEART CATH 06/21/2015FAMILY HISTORYProblem Relation Age of Onset- Heart FatherSocial History Marital status: Spouse name: Years of education: Number of children:Social History Main Topics Smoking status: Former Smoker Packs/day: 0.30 Years: 20.00 Types: Cigarettes Quit date: 06/17/2015 Smokeless status: Former User Types: Snuff Quit date: 06/23/2015 Alcohol use: Yes 3.0 oz/week 2 Cans of Beer (12oz) per week Drug use: NoOther Topics ConcernCaffeine Concern Not Asked Comment:none notedSpecial Diet Not Asked Comment:none notedExercise Not Asked Comment:none notedREVIEW OF SYSTEMS: General: No chills, fever, weight loss, night sweats. Respiratory: No productive cough. Cardiac: As noted above. GI: Nomelena. : No dysuria. Musculoskeletal: No myalgias.PHYSICAL EXAMINATION: S/he is alert and in no distress.VITAL SIGNS: BP 104/71 Pulse 62 Wt 181 lb 9.6 oz (82.4kg)SHEENT: Skin is warm and dry. No xanthelasmas appreciated. Pharynx isbenign. There is no oral cyanosis. Neck: supple. No adenopathy orthyroid enlargement. Chest: Clear to percussion and auscultation.Trachea is midline. Air entry is equal. There is no chest walltenderness. Cardiac: Regular rhythm. S1 and S2 are normal. PMI isnondisplaced. There is a soft systolic ejection murmur. No click isheard. Carotids are brisk without bruits. JVP is less than 10 cm.Abdomen: Soft and nontender. There are no pulsatile masses or bruits. Noliver enlargement. Bowel sounds are active. Extremities: No edema.Pulses are intact and symmetrical. No clubbing or cyanosis. No femoralbruits. Neurologic: Grossly normal motor and sensory. S/he is alert andoriented x4.Prior records were reviewed in detail. His most recent ejection fractionhad improved to 50% by echocardiogram done at [facility].EKG showed sinus rhythm with right axis deviation. There was nosignificant abnormality.By report, prior angiography showed no evidence of obstructive coronarydisease.Recent labs show normal LV function. LDL was 126. TSH was normal. Troponinwas undetectable on recent admission and magnesium level was normal.He now has an event monitor. He has made multiple transmissions, but noabnormal rhythms have been detected.Electronically Signed:Nathaniel Palomares [facility] 11:32 [facility]:Martin Melendez MD [facility] CNNURSE 10-04-2017 CNNURSE Nurse Visit (AGCARDWST) JOSE ELAYNECRISTINOKELSI ([id number]) 1965 MDate Time Provider Department10/04/17 3:00 PM NURSE CARD AG DONA AGCARDWST During your visit today, we recorded the following information about you:Pati Feliciano MA 10/04/2017 3:15 PM Iloseq52 day Lifewatch monitor applied and instructions given.Patient verbalized understanding.Lizbeth Lomeli Provider: NATHANIEL PALOMARES [[id number]]Allergies As of Date: 10/04/2017(No Known Allergies)Date Reviewed: 07/17/2017Reviewed by: Katty Grant [facility] - Fully AssessedReason for Visit: Nurse Visit [792]Primary Visit Diagnosis:Cardiac syncope [R55]Prescriptions as of 10/04/2017 Sig: LISINOPRIL ORAL Take 10 mg by mouth. METOPROLOL SUCCINATE ER 100 M* Take 1 tablet by mouth once d* FOLIC ACID ORAL Take by mouth. MULTIVITAMIN ORAL Take by mouth. FLUTICASONE 50 MCG/ACTUATION * Use 2 Sprays in each nostril * ASPIRIN 81 MG TABLET,DELAYED * Take 1 tablet by mouth once d*Problem List As Of Date 10/04/2017 Noted Resolved Cardiomyopathy, nonischemic (HCC) [I42.8] INVALID FOR* Arm pain, anterior [M79.603] INVALID FOR*07/17/2017 VT (ventricular tachycardia) (HCC) [I47.2] INVALID FOR* Alcohol abuse [F10.10] INVALID FOR*07/17/2017 Episodic lightheadedness [R42] INVALID FOR* PVC's (premature ventricular contractions) [I49*INVALID FOR* Status:Closed by PATI FELICIANO MA on 10/04/17 [facility] PROGRESSon 10-04-2017 PROGRESS HNO ID: [id number] thor: Pati Jiang) JonathonkeyService: (none)Author Type: Medical AssistantType: Progress NotesFiled: 10/04/2017 3:15 PMNote Text:30 day Lifewatch monitor applied and instructions given.Patient verbalized understanding.Pati Feliciano MA [facility] Vital Signs Date Time Vital Sign Value Performing Clinician Wilma cavazos 01-30-2025 16:31-0400 Body mass index (BMI) [Ratio] 24.68 kg/m2 Lynn Suppwalter OSD CLERK.BIZTALK ADMINISTRATOR Work Phone: [facility] 01-30-2025 16:31-0400 Body temperature 97.7 [degF] Lynn Suppwalter OSD CLERK.BIZTALK ADMINISTRATOR Work Phone: [facility] 01-30-2025 16:31-0400 Body weight 82.56 kg Lynn Suppwalter OSD CLERK.BIZTALK ADMINISTRATOR Work Phone: [facility] 01-30-2025 16:31-0400 Diastolic blood pressure 68 mm[Hg] Lynn Suppan OSD CLERK.BIZTALK ADMINISTRATOR Work Phone: [facility] 01-30-2025 16:31-0400 Heart rate 76 /min Lynn Suppwalter OSD CLERK.BIZTALK ADMINISTRATOR Work Phone: [facility] 01-30-2025 16:31-0400 SaO2% (BldA) [Mass fraction] 96 % Lynn Suppan OSD CLERK.BIZTALK ADMINISTRATOR Work Phone: [facility] 01-30-2025 16:31-0400 Systolic blood pressure 112 mm[Hg] Lynn Suppan OSD CLERK.BIZTALK ADMINISTRATOR Work Phone: [facility] 01-19-2025 08:10-0400 Body height 182.88 cm [facility] 01-19-2025 08:10-0400 Body mass index (BMI) [Ratio] 25 kg/m2 [facility] 01-19-2025 08:10-0400 Body weight 83.91 kg [facility] 01-19-2025 08:10-0400 Diastolic blood pressure 82 mm[Hg] [facility] 01-19-2025 08:10-0400 Heart rate 69 /min [facility] 01-19-2025 08:10-0400 Respiratory rate 16 /min [facility] 01-19-2025 08:10-0400 Systolic blood pressure 118 mm[Hg] [facility] 07-31-2024 09:14-0500 Body mass index (BMI) [Ratio] 25.09 kg/m2 Lynn Suppan OSD CLERK.BIZTALK ADMINISTRATOR Work Phone: [facility] 07-31-2024 09:14-0500 Body weight 83.92 kg Lynn Suppan OSD CLERK.BIZTALK ADMINISTRATOR Work Phone: [facility] 07-31-2024 09:14-0500 Diastolic blood pressure 62 mm[Hg] Lynn Suppan OSD CLERK.BIZTALK ADMINISTRATOR Work Phone: [facility] 07-31-2024 09:14-0500 Heart rate 75 /min Lynn Suppan OSD CLERK.BIZTALK ADMINISTRATOR Work Phone: [facility] 07-31-2024 09:14-0500 Respiratory rate 16 /min Lynn Suppan OSD CLERK.BIZTALK ADMINISTRATOR Work Phone: [facility] 07-31-2024 09:14-0500 SaO2% (BldA) [Mass fraction] 97 % Lynn Suppan OSD CLERK.BIZTALK ADMINISTRATOR Work Phone: [facility] 07-31-2024 09:14-0500 Systolic blood pressure 120 mm[Hg] Lynn Suppan OSD CLERK.BIZTALK ADMINISTRATOR Work Phone: [facility] 12-18-2022 13:42-0400 Body height 182.9 cm Keshav Landry DO Work Phone: [facility] 12-18-2022 13:42-0400 Body weight 84.82 kg Keshav Landry DO Work Phone: [facility] 12-18-2022 13:42-0400 Diastolic blood pressure 80 mm[Hg] Keshav Landry DO Work Phone: [facility] 12-18-2022 13:42-0400 Heart rate 74 /min Keshav Landry DO Work Phone: [facility] 12-18-2022 13:42-0400 SaO2% (BldA) [Mass fraction] 96 % Keshav Landry DO Work Phone: [facility] 12-18-2022 13:42-0400 Systolic blood pressure 110 mm[Hg] Keshav Landry DO Work Phone: [facility] Encounters Encounter Date Encounter Type Care Provider Facility Start: 03-23-2025 ambulatory Lynn Estheran Facil ity:[facility] Start: 03-16-2025 End: 03-16-2025 Follow-up encounter Lynn Avalos OSD CLERK.BIZTALK ADMINISTRATOR Work Phone: [facility] Comment on above: Nausea Start: 03-13-2025 End: 03-13-2025 ambulatory [facility] Facility:[facility] Start: 02-27-2025 Non-patient / Non-visit Dr. Qi caicedo MD -[facility] Start: 02-27-2025 End: 02-27-2025 ambulatory [facility] -Cardiovascular Services Start: 02-27-2025 End: 02-27-[address] Qi Martínez MD -Cardiovascular Services Work Phone: Start: 02-27-2025 End: 02-27-2025 ambulatory Lynn Suppwalter Facility:[facility] Start: 02-09-2025 Non-patient / Non-visit Dr. Qi caicedo MD -[facility] Work Phone: Start: 02-09-2025 End: 02-09-2025 ambulatory [facility] -Pulmonary Services/Neurology Start: 02-09-2025 End: 02-09-[address] Qi Martínez MD -Pulmonary Services/Neurology Work Phone: Start: 02-09-2025 End: 02-09-2025 ambulatory Lynn Avalos Facility:[facility] Start: 01-30-2025 End: 01-30-2025 Office outpatient visit 15 minutes Lynn Avalos OSD CLERK.BIZTALK ADMINISTRATOR Work Phone: [facility] Comment on above: Tonsillitis (Primary Dx); Acute otitis externa of both ears, unspecified type; Nonischemic cardiomyopathy (HCC); Essential hypertension; 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; VT (ventricular tachycardia) (HCC) Start: 01-30-2025 End: 01-30-2025 ambulatory [facility] Facility:[facility] Start: 01-21-2025 End: 01-21-2025 Follow-up encounter Martin Melendez MD Work Phone: [facility] Start: 01-19-2025 End: 01-19-[address] Qi Martínez MD -[facility] Work Phone: Start: 01-19-2025 End: 01-19-2025 ambulatory [facility] Work Phone: Start: 12-31-2024 End: 12-31-2024 Telephone encounter Martin Melendez MD Work Phone: [facility] Comment on above: Appointment Start: 12-26-2024 End: 12-26-2024 ambulatory [facility] Facility:[facility] Start: 07-31-2024 End: 07-31-2024 ambulatory [facility] Facility:[facility] Start: 07-31-2024 End: 07-31-2024 Office outpatient visit 25 minutes Lynn Avalso OSD CLERK.BIZTALK ADMINISTRATOR Work Phone: [facility] Comment on above: Systolic congestive heart failure, unspecified HF chronicity (HCC) (Primary Dx); Encounter for immunization; Screening for depression; Encounter for screening examination for other mental health and behavioral disorders; VT (ventricular tachycardia) (HCC); Hyperlipidemia, mixed; 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; Screening for diabetes mellitus Start: 11-26-2023 Telephone encounter Martin Melendez MD Work Phone: [facility] Comment on above: Patient Question Start: 10-01-2023 Refill Martin Melendez MD Work Phone: [facility] Comment on above: Refill Request Start: 08-25-2023 End: 08-25-2023 Subsequent hospital visit by physician [facility] Work Phone: Radiology Comment on above: Lateral epicondyliti s of left elbow [M77.12] Start: 03-01-2023 Telephone encounter Keshav Malone abdifatahsylvia Landry DO Work Phone: Cardiology Comment on above: Forms Start: 12-18-2022 End: 12-18-2022 Patient encounter procedure Keshav Landry DO Work Phone: Cardiology Comment on above: Nonischemic cardiomy opathy (HCC) (Primary Dx); 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; Essential hypertension; Mixed hyperlipidemia; PVC's (premature ventricular contractions) Start: 09-25-2022 Telephone encounter Keshav Malone abdifatah Gris DO Work Phone: Cardiology Comment on above: Forms Start: 09-20-2022 Telephone encounter Martin Melendez MD Work Phone: [facility] Comment on above: Results (Xray ) Start: 09-15-2022 End: 09-15-2022 Subsequent hospital visit by physician [facility] Work Phone: Radiology Comment on above: Chronic right should er pain [M25.511, G89.29] Start: 09-08-2022 Telephone encounter Martin Melendez MD Work Phone: [facility] Comment on above: Results Start: 08-23-2022 Refill Martin Melendez MD Work Phone: [facility] Comment on above: Refill Request Start: 08-15-2022 Telephone encounter Martin Melendez MD Work Phone: Family [facility] Comment on above: Patient Question Start: 06-14-2022 Telephone encounter Larry Ryann kramer OSD CLERK.BIZTALK ADMINISTRATOR Work Phone: [facility] Comment on above: Results Start: 03-06-2022 Refill Martin Melendez MD Work Phone: [facility] Comment on above: Refill Request Start: 02-02-2021 End: 02-02-2021 ambulatory [facility] Start: 01-28-2021 ambulatory [facility] Start: 04-12-2018 Ambulatory [facility] Start: 04-10-2018 Ambulatory [facility] Facility:[facility] Start: 10-10-2017 End: 10-10-2017 Ambulatory [facility] Start: 10-04-2017 Ambulatory [facility] Procedures Date Procedure Procedure Detail Performing Clinician Start: 01-19-2025 Lipid 1996 panel - S chrissy or Plasma Martin Melendez MD Work Phone: Start: 07-31-2024 Adult depression scr eening assessment Lynn Avalos OSD CLERK.BIZTALK ADMINISTRATOR Work Phone: Start: 07-31-2024 Lipid 1996 panel - S chrissy or Plasma Martin Melendez MD Work Phone: Start: 08-25-2023 Radex elbow 2 views Kan dorota Melendez MD Work Phone: Start: 12-18-2022 Ecg routine ecg w/le ast 12 lds i&r only [facility] Provider Start: 09-15-2022 Radex shoulder compl ete minimum 2 views Martin Melendez MD Work Phone: Start: 08-30-2022 Lipid 1996 panel - S chrissy or Plasma Martin Melendez MD Work Phone: Start: 05-27-2018 Nanci Soriano MD Work Phone: Plan of Treatment Date Care Activity Detail Author Start: 10-27-2038 RSV Vaccine (1 - 1-d ose 75+ series) RSV Vaccine (1 - 1-dose 75+ series) [facility] Start: 01-19-2030 Lipid panel Lipid Screening [facility] Start: 01-19-2030 Prostate specific an tigen measurement Prostate Cancer Screening Discussion [facility] Start: 07-31-2029 Lipid panel Lipid Screening [facility] Start: 05-27-2028 Colonoscopy COLONOSCOPY [facility] Start: 05-27-2028 COLORECTAL CANCER SCREENING COLORECTAL CANCER SCREENING [facility] Start: 05-27-2028 Screening for malign ant neoplasm of colon [facility] Start: 03-13-2028 Diabetes Screening Diabetes Screenin g [facility] Start: 09-15-2027 PROSTATE CANCER SCRE ENING DISCUSSION PROSTATE CANCER SCREENING DISCUSSION [facility] Start: 09-15-2027 Prostate specific an tigen measurement Prostate Cancer Screening Discussion [facility] Start: 08-30-2027 Lipid panel Lipid Screening [facility] Start: 08-30-2027 LIPID SCREEN LIPID SCREEN [facility] Start: 07-31-2027 Diabetes Screening Diabetes Screenin g [facility] Start: 03-13-2026 Annual PCP Team [employer] chino Disease Visit Annual PCP Team Chronic Disease Visit [facility] Start: 01-30-2026 Annual PCP Team [employer] chino Disease Visit Annual PCP Team Chronic Disease Visit [facility] Start: 01-19-2026 Hepatitis B surface antibody level LDL Cholesterol [facility] Start: 01-01-2026 LIPID SCREEN LIPID SCREEN [facility] Start: 12-26-2025 Annual PCP Team [employer] chino Disease Visit Annual PCP Team Chronic Disease Visit [facility] Start: 12-26-2025 BP Controlled (<130/80) BP Controlle d (<130/80) [facility] Start: 08-30-2025 DIABETES SCREEN DIABETES SCREEN [facility] Start: 08-30-2025 Diabetes Screening Diabetes Screenin g [facility] Start: 08-07-2025 End: 08-07-2025 Patient encounter procedure 08/07/2025 2:40 PM EST Office Visit [facility] [address] [place] [id number] Martin Melendez MD [address] [place] [id number] 6 month exam [facility] Comment on above: 6 month exam Start: 07-31-2025 Anxiety Screening Anxiety Screening [facility] Start: 07-31-2025 BP Controlled (<130/80) BP Controlle d (<130/80) [facility] Start: 07-31-2025 Covid-19 Vaccine ( season) Covid-19 Vaccine ( season) [facility] Comment on above: Postponed from 04/06 (Declined at this time) Start: 07-31-2025 Depression Screening Depression Scre ening [facility] Start: 07-31-2025 Hepatitis B surface antibody level LDL Cholesterol [facility] Start: 07-13-2025 End: 07-13-2025 Patient encounter procedure 07/13/2025 1:40 PM EST Office Visit Cardiology [address] [place], [place] [id number] Andrew Lowry MD [address], [address] [place] [address] Systolic congestive heart failure, unspecified HF chronicity (HCC) [I50.20]; VT (ventricular tachycardia) (HCC) [I47.20] Cardiology Comment on above: Systolic congestive heart failure, unspecified HF chronicity (HCC) [I50.20]; VT (ventricular tachycardia) (HCC) [I47.20] Start: 04-06-2025 Influenza vaccination [facility] Start: 02-09-2025 End: 02-09-2025 Patient encounter procedure 02/09/2025 3:00 PM EDT Office Visit Cardiology [address] [place] [id number] Andrew Lowry MD [address], [address] [place] [address] Systolic congestive heart failure, unspecified HF chronicity (HCC) [I50.20]; VT (ventricular tachycardia) (HCC) [I47.20] Cardiology Comment on above: Systolic congestive heart failure, unspecified HF chronicity (HCC) [I50.20]; VT (ventricular tachycardia) (HCC) [I47.20] Start: 06-30-2025 Influenza vaccination Influenza Vacc ine (#1) [facility] Comment on above: Postponed from 04/06 (Declined at this time) Start: 01-30-2025 End: 01-30-2025 Patient encounter procedure 01/30/2025 4:20 PM EDT Office Visit [facility] [address] [place] [address] Lynn Avalos APRN.BIZTALK ADMINISTRATOR [address] [place] [address] 6 month exam [facility] [place] Comment on above: 6 month exam Start: 01-19-2025 Evaluation of diagno stic study results [facility] Start: 08-25-2024 Annual PCP Team [employer] chino Disease Visit Annual PCP Team Chronic Disease Visit [facility] Start: 08-25-2024 BP Controlled (<130/80) BP Controlle d (<130/80) [facility] Start: 08-25-2024 Covid-19 Vaccine (#1) Covid-19 Vacci ne (#1) [facility] Comment on above: Postponed from 04/29 (Declined at this time) Start: 08-25-2024 Covid-19 Vaccine ( season) Covid-19 Vaccine ( - season) [facility] Comment on above: Postponed from 04/06 (Declined at this time) Start: 08-25-2024 Shingrix Vaccine (1 of 2) Souza grix Vaccine (1 of 2) [facility] Comment on above: Postponed from 10/27 (Declined at this time) Start: 08-25-2024 Urine microalbumin profile DTa P,Tdap,Td Vaccine (1 - Tdap) [facility] Comment on above: Postponed from 10/27 (Declined at this time) Start: 07-31-2024 End: 10-30-2024 Cobalamin (Vitamin B12) [Mass/volume] in Serum or Plasma [facility] Comment on above: Expected: 07/31/2024 , Expires: 10/30/2024 Start: 07-31-2024 End: 10-30-2024 Comprehensive metabolic 2000 panel - Serum or Plasma [facility] Comment on above: Expected: 07/31/2024 , Expires: 10/30/2024 Start: 07-31-2024 End: 10-30-2024 Hemoglobin A1c in Blood [facility] Comment on above: Expected: 07/31/2024 , Expires: 10/30/2024 Start: 07-31-2024 End: 10-30-2024 LIPID PANEL, NONFASTING [facility] Work Phone: Comment on above: Expected: 07/31/2024 , Expires: 10/30/2024 Start: 07-31-2024 End: 10-30-2024 Magnesium [Mass/volume] in Serum or Plasma [facility] Comment on above: Expected: 07/31/2024 , Expires: 10/30/2024 Start: 07-31-2024 End: 10-30-2024 Thyrotropin [Units/volume] in Serum or Plasma [facility] Comment on above: Expected: 07/31/2024 , Expires: 10/30/2024 Start: 04-06-2024 Covid-19 Vaccine ( season) Covid-19 Vaccine ( season) [facility] Start: 04-06-2024 Covid-19 Vaccine ( season) Covid-19 Vaccine ( season) [facility] Start: 04-06-2024 Influenza vaccination [facility] Start: 02-29-2024 End: 02-29-2024 Patient encounter procedure 02/29/2024 8:40 AM EDT Office Visit [facility] [address] [place] [id number] Martin Melendez MD [address] [place] [address] 6 mo follow up [facility] Comment on above: 6 mo follow up Start: 02-03-2024 Influenza vaccination Influenza Vacc ine (#1) [facility] Comment on above: Postponed from 04/06 (Declined at this time) Start: 01-02-2024 DIABETES SCREEN DIABETES SCREEN [facility] Start: 2023 RSV Vaccine (1 - 1-d ose 60+ series) RSV Vaccine (1 - 1-dose 60+ series) [facility] Start: 2023 RSV Vaccine (1 - Ris k 60-74 years 1-dose series) RSV Vaccine (1 - Risk 60-74 years 1-dose series) [facility] Start: 09-15-2023 ANNUAL PCP TEAM 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 CHINO DISEASE VISIT ANNUAL PCP TEAM CHRONIC DISEASE VISIT [facility] Start: 08-30-2023 Hepatitis B surface antibody level LDL CHOLESTEROL [facility] Start: 08-06-2023 Behavioral Health Screening Behavioral Health Screening [facility] Start: 06-13-2023 BP CONTROLLED (<130/80) BP CONTROLLE D (<130/80) [facility] Start: 04-06-2023 Influenza vaccination [facility] Start: 08-23-2022 End: 10-23-2022 CBC W Auto Differential panel - Blood CBC + DIFF Lab Routine Essential hypertension Expected: 08/23/2022, Expires: 10/23/2022 [facility] Work Phone: Comment on above: Expected: 08/23/2022 , Expires: 10/23/2022 Start: 08-23-2022 End: 10-23-2022 Comprehensive metabolic 2000 panel - Serum or Plasma COMP METABOLIC PANEL Lab Routine Essential hypertension Mixed hyperlipidemia Expected: 08/23/2022, Expires: 10/23/2022 [facility] Work Phone: Comment on above: Expected: 08/23/2022 , Expires: 10/23/2022 Start: 08-23-2022 End: 10-23-2022 Lipid 1996 panel - Serum or Plasma LIPID PANEL BASIC Lab Routine Mixed hyperlipidemia Expected: 08/23/2022, Expires: 10/23/2022 [facility] Work Phone: Comment on above: Expected: 08/23/2022 , Expires: 10/23/2022 Start: 08-06-2022 DEPRESSION ASSESSMENT DEPRESSION ASS ESSMENT [facility] Start: 07-17-2022 PROSTATE CANCER SCRE ENING DISCUSSION PROSTATE CANCER SCREENING DISCUSSION [facility] Start: 04-06-2022 Influenza vaccination INFLUENZA (#1) [facility] Start: 01-04-2022 ANNUAL PCP TEAM 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 CHINO DISEASE VISIT ANNUAL PCP TEAM CHRONIC DISEASE VISIT [facility] Start: 01-01-2022 Hepatitis B surface antibody level LDL CHOLESTEROL [facility] Start: 08-06-2021 DEPRESSION ASSESSMENT DEPRESSION ASS ESSMENT [facility] Start: 10-27-2013 SHINGRIX VACCINE (1 of 2) SOUZA GRIX VACCINE (1 of 2) [facility] Start: 10-27-2008 COLOGUARD (FIT-DNA) COLOGUARD (FIT-D NA) [facility] Start: 10-27-[address] COLONOGRAPHY [facility] Start: 10-27-2008 FECAL OCCULT BLOOD FECAL OCCULT BLOO D [facility] Start: 10-27-2008 Screening for malign ant neoplasm of colon [facility] Start: 10-27-2008 SIGMOIDOSCOPY SIGMOIDOSCOPY [facility] Start: 10-27-1982 Urine microalbumin profile [facility] Start: 10-27-1981 Anxiety Screening Anxiety Screening [facility] Start: 10-27-1981 BP CONTROLLED (<130/80) BP CONTROLLE D (<130/80) [facility] Start: 10-27-1981 Depression Screening Depression Scre ening [facility] Start: 10-27-1981 HIV SCREENING HIV SCREENING [facility] Start: 1975 Adult depression scr eening assessment DEPRESSION SCREENING [facility] Start: 04-29-1964 COVID-19 VACCINE (#1) COVID-19 VACCI NE (#1) [facility] Start: 1965 HEPATITIS B (1 of 3 - 3-dose series) HEPATITIS B (1 of 3 - 3-dose series) [facility] ECG COMPLETE ECG COMPLETE ECG 12/18/2022 1:45 PM EDT [facility] End: 12-19-2023 Echocardiography ECHO Cardiology Routine Nonischemic cardiomyopathy (HCC) 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 Essential hypertension Mixed hyperlipidemia PVC's (premature ventricular contractions) 1 Occurrences starting 12/18/2022 until 12/19/2023 [facility] Work Phone: Comment on above: 1 Occurrences starti ng 12/18/2022 until 12/19/2023 Lipid 1996 panel - S chrissy or Plasma [facility] Thyroid stimulating hormone measurement [facility] Immunizations Immunization Date Immunization Notes Care Provider Rehan alcocer 07-31-2024 pneumococcal conjuga te (PCV20) vaccine, 20 valent (PREVNAR 20) Lynn Avalos APRN.BIZTALK ADMINISTRATOR Work Phone: [facility] 07-31-2024 pneumococcal Conjuga te, unspecified formulation Lynn Avalos OSD CLERK.BIZTALK ADMINISTRATOR Work Phone: [facility] 07-02-2019 influenza, injectabl e, quadrivalent, contains preservative Martin Melendez MD Work Phone: [facility] 07-02-2019 influenza virus vacc ine, unspecified formulation Martin Melendez MD Work Phone: [facility] 07-17-2017 influenza, injectabl e, quadrivalent, contains preservative Martin Melendez MD Work Phone: [facility] 06-06-2017 Influenza virus vaccine Martin Melendez [facility] 06-06-2017 influenza, seasonal, injectable, preservative free Martin Melendez MD Work Phone: [facility] 05-06-2011 influenza virus vacc ine, unspecified formulation Martin Melendez MD Work Phone: [facility] 05-06-2010 influenza virus vacc ine, unspecified formulation Martin Melendez MD Work Phone: [facility] 05-06-2009 pneumococcal polysaccharide vaccine, 23 valent Martin Melendez MD Work Phone: [facility] Payers Date Payer Category Payer Unknown [id number] 2025 Self-pay 2025 Unknown [id number] 2023 Private Health Insurance [id number] 2023 Unknown [id number] 2022 Unknown [id number] 2018 Unknown MMO MMO [employer] [id number] 2018-Present [phone] [address] [place] [address] O [id number] Medicaid [id number] Unknown [id number] Unknown [id number] Unknown [id number] 62 Unknown [id number] 62 Unknown [id number] 62 Unknown [id number] 62 Unknown [id number] 62 Unknown [id number] 62 Social History Date Type Detail Facility Start: 06-28-2015 End: 07-31-2024 Tobacco smoking status NHIS Ex-smoker [facility] Start: 06-17-1995 End: 06-17-2015 History of tobacco use Current smoker [facility] Start: 06-17-1995 End: 06-17-2015 History of tobacco use Cigarette Smoker [facility] Start: 06-28-2015 End: 08-25-2023 Cigarettes smoked current (pack per day) - Reported 0.3 [facility] Work Phone: Start: 06-28-2015 End: 07-31-2024 Tobacco use and exposure Former smokeless tobacco user [facility] End: 06-23-2015 History of tobacco use Snuff User [facility] Start: 04-10-2021 End: 03-13-2025 Alcohol intake Current drinker of alcohol (finding) [facility] Start: 01-12-2020 History SDOH Alcohol Frequency 3 [facility] Start: 01-12-2020 History SDOH Alcohol Std Drinks 1 [facility] Start: 05-27-2018 End: 06-13-2022 Tobacco Comment Occasional cigar [facility] Start: 1965 Sex Assigned At Not on file [facility] Start: 06-03-2022 End: 06-13-2022 Exposure to SARS-CoV-2 (event) Not sure [facility] Work Phone: Start: 12-18-2022 End: 08-25-2023 Tobacco use panel [facility] Work Phone: Start: 07-07-2012 Adult Depression Screening Assessment 0 [facility] Work Phone: How often to you hav e a drink containing alcohol? 2-4 times a month [facility] Work Phone: How many standard drinks containing alcohol do you have on a typical day? 1 or 2 [facility] Work Phone: How often do you hav e 6 or more drinks on 1 occasion? Never [facility] Work Phone: Start: 01-12-2025 Tobacco smoking stat us NHIS Current some day smoker [facility] Start: 04-01-[address] [facility] Start: 04-01-[address] [facility] Start: 1965 Sex Assigned At Male W [facility] Clinical Notes 07-28-2015 to 03-16-2025 Telephone Encounter - Didi Valenzuela MA - 03/16/2025 10:39 AM EDTTelephone Encounter - Didi Valenzuela MA - 03/16/2025 10:39 AM EDTTelephone Encounter - Didi Valenzuela MA - 03/16/2025 10:39 AM EDT Note Date & Type Note Facility 03-16-2025 Telephone encounter Note Patient was made aware of the results. Patient verbalizes understanding. Transferred to percussion instrument tuner Didi Valenzuela Ma [facility] 03-16-2025 Telephone encounter Note Lynn Avalos APRN.CNP to [facility] 03/16/25 10:18 AM Note Sorry, I will refer to GI. Start on the metamucil.. Could even take it 2 x day. I will also order him ondansetron 4 mg as needed up to every 8 hours for nausea. Please call and schedule GI appointment. FECAL LACTOFERRIN/LEUKOCYTES; CRYPTOSPORIDIUM AND GIARDIA ANTIGENS BY EIA; CLOSTRIDIUM DIFFICILE TOXIN BY PCR [facility] 03-16-2025 Miscellaneous Notes Patient was made aware of the results. Patient verbalizes understanding. Transferred to percussion instrument tuner Didi Valenzuela Ma Lynn Avalos APRN.CNP to [facility] 03/16/25 10:18 AM Note Sorry, I will refer to GI. Start on the metamucil.. Could even take it 2 x day. I will also order him ondansetron 4 mg as needed up to every 8 hours for nausea. Please call and schedule GI appointment. FECAL LACTOFERRIN/LEUKOCYTES; CRYPTOSPORIDIUM AND GIARDIA ANTIGENS BY EIA; CLOSTRIDIUM DIFFICILE TOXIN BY PCR Sorry, I will refer to GI. Start on the metamucil.. Could even take it 2 x day. I will also order him ondansetron 4 mg as needed up to every 8 hours for nausea. Please call and schedule GI appointment. Pt notified of results and provider message. Pt reports he started having nausea yesterday. No vomiting. Pt reports he is still having diarrhea as much as before. Pt reports he has had diarrhea 4-5 times this morning and came home from work. Maxine Lawson LPN Please let patient know that stool was negative for C. difficile. He does not need to take the antibiotic. Stool studies were okay. No parasite. Blood counts, kidney function, magnesium, thyroid all normal. Please add 1 Teaspoon of Metamucil in 8 ounces of water daily. This will help add bulk and slow the diarrhea. Make certain that he is drinking 64 ounces of water or more daily. documented in this encounter [facility] 03-16-2025 Progress note Formatting of t his note might be different from the original. Sorry, I will refer to GI. Start on the metamucil.. Could even take it 2 x day. I will also order him ondansetron 4 mg as needed up to every 8 hours for nausea. Please call and schedule GI appointment. [facility] 03-16-2025 Telephone encounter Note Pt notified of results and provider message. Pt reports he started having nausea yesterday. No vomiting. Pt reports he is still having diarrhea as much as before. Pt reports he has had diarrhea 4-5 times this morning and came home from work. Maxine Lawson LPN [facility] 03-16-2025 Progress note Formatting of t his note might be different from the original. Please let patient know that stool was negative for C. difficile. He does not need to take the antibiotic. Stool studies were okay. No parasite. Blood counts, kidney function, magnesium, thyroid all normal. Please add 1 Teaspoon of Metamucil in 8 ounces of water daily. This will help add bulk and slow the diarrhea. Make certain that he is drinking 64 ounces of water or more daily. [facility] 03-13-2025 Note HNO ID: [id number] Author: LYNN AVALOS APRN.CULLEN Service: ? Author Type: Nurse Practitioner Type: Progress Notes Filed: 03/13/2025 16:37 Note Text: This is a 59 year old male who presents today with: Patient presents with: Diarrhea HISTORY OF PRESENT ILLNESS: Kelsi Soto is a 59 year old male. Patient presents with: Diarrhea Kelsi Soto is a 59-year-old male with a history of CHF, presenting with chronic diarrhea. Chronic Diarrhea: - Onset approximately 3 weeks ago, following a course of Augmentin for a sinus infection and suspected food poisoning. - Initially took a Z-Ena, followed by amoxicillin. - Consistency: Watery, with a really bad smell. - Frequency: 3-5 times per night; exacerbated by eating, especially at night. - Associated symptoms: Fatigue, bloating, decreased appetite, mild nausea, and headaches. - Denies fever, chills, abdominal pain, or dysuria. - Attempted to manage symptoms with Pepto-Bismol, which resulted in black, loose stools. - Tried a fiber supplement without relief. - Consuming fluids and able to hold down food, but reports a significant decrease in appetite. - Denies recent camping, hunting, or drinking from streams. - Suspected dehydration led to a temporary discontinuation of Entresto for 2 days, resulting in serious chest pains. - Continues to take Farxiga. PAST MEDICAL HISTORY: PAST MEDICAL HISTORY Diagnosis Date Dilated cardiomyopathy (HCC) Dyslipidemia Essential hypertension Left ventricular systolic dysfunction Nonsustained ventricular tachycardia (HCC) Pain in wrist PAST SURGICAL HISTORY Procedure Laterality Date COLONOSCOPY FLX DX W/COLLJ SPEC WHEN PFRMD 05/27/2018 Colonoscopy EPS: EP STUDY [facility] - negative LEFT HEART CATH 06/21/2015 ALLERGIES Patient has no known allergies. MEDICATIONS Current Outpatient Medications Medication Sig FARXIGA 10 mg tablet Take 1 tablet by mouth once daily. ENTRESTO 24-26 mg tablet Take 1 tablet by mouth every 12 hours. metoprolol succinate ER (TOPROL XL) 50 mg 24 hr tablet Take 1.5 tablets by mouth once daily. MULTIVITAMIN ORAL Take by mouth. aspirin, enteric coated (ASPIRIN, ENTERIC COATED) 81 mg EC tablet Take 1 tablet by mouth once daily. No current facility-administered medications for this visit. FAMILY HISTORY Problem Relation Age of Onset Heart Father Cardiomyopathy No Known Problems Mother Heart Brother AFIB Heart Brother AFIB Heart Son Age 27 - Cardiomyopathy Social History Tobacco Use Smoking status: Former Current packs/day: 0.00 Average packs/day: 0.3 packs/day for 20.0 years (6.0 ttl pk-yrs) Types: Cigarettes Start date: 06/17/1995 Quit date: 06/17/2015 Years since quittin.7 Smokeless tobacco: Former Types: Snuff Quit date: 06/23/2015 Tobacco comments: Occasional cigar Vaping Use Vaping status: Never Used Substance Use Topics Alcohol use: Yes Alcohol/week: 2.0 standard drinks of alcohol Types: 2 Cans of Beer (12oz) per week Drug use: Never REVIEW OF SYSTEMS Constitutional: (+) fatigue, (+) decreased appetite, (-) fever, (-) chills Head: (+) headache Gastrointestinal: (+) watery diarrhea, (+) abdominal bloating, (+) nausea, (-) abdominal pain, (-) abdominal tenderness Genitourinary: (-) dysuria Musculoskeletal: (+) low back pain EXAM: BP 122/64 Pulse 80 Temp 37.1 ?C (98.7 ?F) (Right Tympanic) Wt 81.6 kg (180 lb) SpO2 96% BMI 24.41 kg/m? PHYSICAL EXAM: GENERAL: NAD, alert and oriented. SKIN: Unremarkable, no rash or skin lesions. LUNGS: Clear to auscultation bilaterally, no wheezes/rhonchi/rales. HEART: Regular rate and rhythm, no murmurs. No ectopy. ABDOMEN: Soft, non-tender, no guarding or rebound tenderness. Bowel sounds hyperactive. NEURO: Awake, alert and oriented x3, normal gait, no involuntary motions. LABS: labs and stool specimen ASSESSMENT/PLAN: 1. Diarrhea of presumed infectious origin - ICD9: 009.3, ICD10: R19.7 - Persistent watery diarrhea for 2-3 weeks following recent antibiotic use (Z-Ena, amoxicillin, Augmentin) and suspected food poisoning; no fever or chills, but notable fatigue, bloating, and decreased appetite. - Differential includes C. difficile infection and prolonged infectious gastroenteritis. - Ordered stool studies to evaluate for C. difficile and other infectious etiologies. - Ordered labs to assess renal function and hydration status. - Advised against use of anti-diarrheal medications such as Imodium until infectious causes are ruled out. - Emphasized importance of maintaining adequate hydration. - Will follow up by phone with results; patient instructed to drop off stool specimen tomorrow before noon. - CLOSTRIDIUM DIFFICILE TOXIN BY PCR - CRYPTOSPORIDIUM AND GIARDIA ANTIGENS BY EIA - FECAL LACTOFERRIN/LEUKOCYTES - THYROID STIMULATING HORMONE - COMPLETE BLOOD COUNT AND DIFFERENTIAL - COMPREHENSIVE (more content not included)... [facility] 01-30-2025 Instructions Lynn Avalos APRN.CNP - 01/30/2025 5:00 PM EDT - Complete the blood work soon as your medical center manager recommended to check on everything. - Watch for any signs of a yeast infection in your groin (itching, redness, or discharge) while taking Farxiga, and let us know right away if you notice these symptoms. - Augmentin 875 mg 2 x day for 10 days - Sample of Zyrtec given for trial documented in this encounter [facility] 01-30-2025 Note HNO ID: [id number] Author: LYNN AVALOS APRN.CNP Service: ? Author Type: Nurse Practitioner Type: Progress Notes Filed: 01/30/2025 17:00 Note Text: This is a 59 year old male who presents today with: Patient presents with: 6 Month Exam HISTORY OF PRESENT ILLNESS: Kelsi Soto is a 59 year old male. Patient presents with: 6 Month Exam Kelsi Soto is a 59-year-old male with a history of CHF, presenting for evaluation of persistent earache and sore throat. Earache and Sore Throat: - Persistent earache and sore throat x1 month. - Completed a course of Z-Ena with no improvement. - Right ear pain, sore throat, and neck soreness. - Occasional pinching sensation under the arms. - Night sweats, headaches, and tinnitus. - No fever, chills, or swelling noted. - Denies blurred or double vision, hearing loss, or chest pain. 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 CHF: - Managed by a medical center manager; taking Entresto and Farxiga. - Denies dyspnea, cough, wheezing, or orthopnea. - Occasional palpitations, attributed to inadequate hydration. - Denies leg swelling. PAST MEDICAL HISTORY: PAST MEDICAL HISTORY Diagnosis Date Dilated cardiomyopathy (HCC) Dyslipidemia Essential hypertension Left ventricular systolic dysfunction Nonsustained ventricular tachycardia (HCC) Pain in wrist PAST SURGICAL HISTORY Procedure Laterality Date COLONOSCOPY FLX DX W/COLLJ SPEC WHEN PFRMD 05/27/2018 Colonoscopy EPS: EP STUDY [facility] - negative LEFT HEART CATH 06/21/2015 ALLERGIES Patient has no known allergies. MEDICATIONS Current Outpatient Medications Medication Sig FARXIGA 10 mg tablet Take 1 tablet by mouth once daily. ENTRESTO 24-26 mg tablet Take 1 tablet by mouth every 12 hours. metoprolol succinate ER (TOPROL XL) 50 mg 24 hr tablet Take 1.5 tablets by mouth once daily. MULTIVITAMIN ORAL Take by mouth. aspirin, enteric coated (ASPIRIN, ENTERIC COATED) 81 mg EC tablet Take 1 tablet by mouth once daily. fexofenadine (JESSICA ALLERGY) 180 mg tablet Take 1 tablet by mouth once daily. (Patient not taking: Reported on 01/30/2025) No current facility-administered medications for this visit. FAMILY HISTORY Problem Relation Age of Onset Heart Father Cardiomyopathy No Known Problems Mother Heart Brother AFIB Heart Brother AFIB Heart Son Age 27 - Cardiomyopathy Social History Tobacco Use Smoking status: Former Current packs/day: 0.00 Average packs/day: 0.3 packs/day for 20.0 years (6.0 ttl pk-yrs) Types: Cigarettes Start date: 06/17/1995 Quit date: 06/17/2015 Years since quittin.6 Smokeless tobacco: Former Types: Snuff Quit date: 06/23/2015 Tobacco comments: Occasional cigar Vaping Use Vaping status: Never Used Substance Use Topics Alcohol use: Yes Alcohol/week: 2.0 standard drinks of alcohol Types: 2 Cans of Beer (12oz) per week Drug use: Never REVIEW OF SYSTEMS Constitutional: (+) night sweats, (-) fever, (-) chills Head: (+) headache Ears/Nose/Mouth/Throat: (+) right ear pain, (+) tinnitus, (+) sore throat Neck: (+) neck pain Breast: (+) intermittent axillary pain Cardiovascular: (+) palpitations Respiratory: (-) shortness of breath Gastrointestinal: (+) nausea, (-) diarrhea, (-) constipation Musculoskeletal: (+) joint pain Skin: (-) rash, (-) pruritus EXAM: BP 112/68 Pulse 76 Temp 36.5 ?C (97.7 ?F) (Left Tympanic) Wt 82.6 kg (182 lb) SpO2 96% BMI 24.68 kg/m? PHYSICAL EXAM: GENERAL: NAD, alert and oriented. SKIN: Unremarkable, no rash or skin lesions. HEAD: Normocephalic. EARS: External ears normal. Left ear canal with mild erythema. Right ear canal with significant erythema and bulging noted. NOSE/SINUSES: Nares normal. Septum midline. OROPHARYNX: Lips, mucosa, and tongue normal, good dentition. Pustules noted on tonsils. NECK: Supple, no lymphadenopathy, normal thyroid, no carotid bruits. LUNGS: Clear to auscultation bilaterally, no wheezes/rhonchi/rales. HEART: Regular rate and rhythm, no murmurs. No ectopy. EXTREMITIES: Normal, no deformities, no skin discoloration, no edema. LABS: ASSESSMENT/PLAN: 1. Tonsillitis - ICD9: 463, ICD10: J03.90 (primary diagnosis) Augmentin 2 x day for 10 days 2. Acute otitis externa of both ears, unspecified type - ICD9: 380.10, ICD10: H60.503 Augmentin 2 x day for 10 days 3. Nonischemic cardiomyopathy (HCC) - ICD9: 425.4, ICD10: I42.8 Following with cardiology - on Entresto - on 4. Essential hypertension - ICD9: 401.9, ICD10: I10 - Controlled - Recommend home blood pressure monitoring, to bring results to next visit - Encouraged sodium restriction, DASH or Mediterranean diet - Recommend regular aerobic exercise 5. 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 [facility] 01-30-2025 History of Presen t illness Narrative This is a 59 year old male who presents today with: Patient presents with: 6 Month Exam HISTORY OF PRESENT ILLNESS: Kelsi Soto is a 59 year old male. Patient presents with: 6 Month Exam Kelsi Soto is a 59-year-old male with a history of CHF, presenting for evaluation of persistent earache and sore throat. Earache and Sore Throat: - Persistent earache and sore throat x1 month. - Completed a course of Z-Ena with no improvement. - Right ear pain, sore throat, and neck soreness. - Occasional pinching sensation under the arms. - Night sweats, headaches, and tinnitus. - No fever, chills, or swelling noted. - Denies blurred or double vision, hearing loss, or chest pain. 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 CHF: - Managed by a medical center manager; taking Entresto and Farxiga. - Denies dyspnea, cough, wheezing, or orthopnea. - Occasional palpitations, attributed to inadequate hydration. - Denies leg swelling. PAST MEDICAL HISTORY: PAST MEDICAL HISTORY Diagnosis Date Dilated cardiomyopathy (HCC) Dyslipidemia Essential hypertension Left ventricular systolic dysfunction Nonsustained ventricular tachycardia (HCC) Pain in wrist PAST SURGICAL HISTORY Procedure Laterality Date COLONOSCOPY FLX DX W/COLLJ SPEC WHEN PFRMD 05/27/2018 Colonoscopy EPS: EP STUDY [facility] - negative LEFT HEART CATH 06/21/2015 ALLERGIES Patient has no known allergies. MEDICATIONS Current Outpatient Medications Medication Sig FARXIGA 10 mg tablet Take 1 tablet by mouth once daily. ENTRESTO 24-26 mg tablet Take 1 tablet by mouth every 12 hours. metoprolol succinate ER (TOPROL XL) 50 mg 24 hr tablet Take 1.5 tablets by mouth once daily. MULTIVITAMIN ORAL Take by mouth. aspirin, enteric coated (ASPIRIN, ENTERIC COATED) 81 mg EC tablet Take 1 tablet by mouth once daily. fexofenadine (JESSICA ALLERGY) 180 mg tablet Take 1 tablet by mouth once daily. (Patient not taking: Reported on 01/30/2025) No current facility-administered medications for this visit. FAMILY HISTORY Problem Relation Age of Onset Heart Father Cardiomyopathy No Known Problems Mother Heart Brother AFIB Heart Brother AFIB Heart Son Age 27 - Cardiomyopathy Social History Tobacco Use Smoking status: Former Current packs/day: 0.00 Average packs/day: 0.3 packs/day for 20.0 years (6.0 ttl pk-yrs) Types: Cigarettes Start date: 06/17/1995 Quit date: 06/17/2015 Years since quittin.6 Smokeless tobacco: Former Types: Snuff Quit date: 06/23/2015 Tobacco comments: Occasional cigar Vaping Use Vaping status: Never Used Substance Use Topics Alcohol use: Yes Alcohol/week: 2.0 standard drinks of alcohol Types: 2 Cans of Beer (12oz) per week Drug use: Never REVIEW OF SYSTEMS Constitutional: (+) night sweats, (-) fever, (-) chills Head: (+) headache Ears/Nose/Mouth/Throat: (+) right ear pain, (+) tinnitus, (+) sore throat Neck: (+) neck pain Breast: (+) intermittent axillary pain Cardiovascular: (+) palpitations Respiratory: (-) shortness of breath Gastrointestinal: (+) nausea, (-) diarrhea, (-) constipation Musculoskeletal: (+) joint pain Skin: (-) rash, (-) pruritus EXAM: BP 112/68 Pulse 76 Temp 36.5 C (97.7 F) (Left Tympanic) Wt 82.6 kg (182 lb) SpO2 96% BMI 24.68 kg/m PHYSICAL EXAM: GENERAL: NAD, alert and oriented. SKIN: Unremarkable, no rash or skin lesions. HEAD: Normocephalic. EARS: External ears normal. Left ear canal with mild erythema. Right ear canal with significant erythema and bulging noted. NOSE/SINUSES: Nares normal. Septum midline. OROPHARYNX: Lips, mucosa, and tongue normal, good dentition. Pustules noted on tonsils. NECK: Supple, no lymphadenopathy, normal thyroid, no carotid bruits. LUNGS: Clear to auscultation bilaterally, no wheezes/rhonchi/rales. HEART: Regular rate and rhythm, no murmurs. No ectopy. EXTREMITIES: Normal, no deformities, no skin discoloration, no edema. LABS: ASSESSMENT/PLAN: 1. Tonsillitis - ICD9: 463, ICD10: J03.90 (primary diagnosis) Augmentin 2 x day for 10 days 2. Acute otitis externa of both ears, unspecified type - ICD9: 380.10, ICD10: H60.503 Augmentin 2 x day for 10 days 3. Nonischemic cardiomyopathy (HCC) - ICD9: 425.4, ICD10: I42.8 Following with cardiology - on Entresto - on 4. Essential hypertension - ICD9: 401.9, ICD10: I10 - Controlled - Recommend home blood pressure monitoring, to bring results to next visit - Encouraged sodium restriction, DASH or Mediterranean diet - Recommend regular aerobic exercise 5. 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 - ICD9: 414.01, ICD10: I25.10 Stable 6. VT (ventricular tachycardia) (HCC) - ICD9: 427.1, ICD10: I47.20 Stable Discussed treatment plan and patient voices understanding. Patient's questions answered appropriately. Medications and potential side effects were discussed and patient voices understanding. Return to the office as scheduled or as needed for worsening/no improvement. Lynn Avalos APRN.BIZTALK ADMINISTRATOR documented in this encounter [facility] 01-21-2025 Telephone encounter Note Would like to review at upcoming visit on 01/30/25. [facility] 01-21-2025 Miscellaneous Notes Would like to review at upcoming visit on 01/30/25. documented in this encounter [facility] 01-19-2025 Evaluation note Diagnosis Onset Date Resolution Chronic left ventricular systolic dysfunction (LVSD) chronic January 19, 2025 9:05am Coronary artery disease involving nikolski coronary artery of nikolski heart wi chronic January 19, 2025 9:05am Dyslipidemia chronic January 19, 025 9:05am Essential hypertension chronic Chaya 2024 9:05am ETOH abuse chronic January 19 9:05am Nicotine dependence chronic January 19, 2025 9:05am Nonischemic cardiomyopathy chronic January 19, 2025 9:05am Palpitations chronic January 19, 025 9:05am [facility] Work Phone: 1(898) 922-793306-16-2025 Progress [facility] [address] [place] [address] OFFICE VISIT Date of Service: 01/19/25 MR#: [id number] Acct: [id number] Name: KELSI SOTO Rep #: [id number] : 1965 Provider: Dr. Yoni Martínez MD Age/Sex: 59/M Location[place] [facility] [place] Status: Signed HPI HPI History of Present Illness Details: This gentleman was diagnosed with nonischemic cardiomyopathy about 10 years ago. His last echocardiogram was in 2022 which showed LVEF 40%. A coronary CT angioin 2019 showed mild nonobstructive calcific disease. Patient was previously established with another medical center manager. He wishes to switch to our care. Denies any chest pains or shortness of breath either at rest or with exertion. According to the patient, he gets palpitations almost on a daily basis. No associated lightheadedness or dizziness. No syncope or presyncope. No orthopnea. No PND. No ankle edema. Patient is an occasional smoker. According to him, he drinks 6-12 beers a day on weekends. 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 Intake Vital Signs 01/19/25 08:10 Height 6 ft Weight: 185 lb BMI 25.0 BP 118/82 H Blood Pressure Location Lt brachial Position Sitting Respiration 16 Pulse 69 Pulse Source NIBP Intake Visit Reasons: TACHYCARDIA Reinsurance Claim Analyst Required: No Accompanied by: Self Is patient in pain?: No Allergies Environmental Allergies: Uncoded (seasonal) Allergy (Mild, Verified 01/19/25 09:10) Nasal Congestion Medications ?Medication ?Instructions ?Recorded ?Confirmed ?Type aspirin 81 mg tablet,delayed 81 mg PO DAILY heart heal th 06/14/16 01/19/25 History release (Lo-Dose Aspirin) fexofenadine 180 mg tablet 180 mg PO QDAY 01/12/25 History (Allergy Relief (fexofenadine)) multivitamin 1 tab PO QDAY 01/12/2501/19 History metoprolol succinate 50 mg 75 mg PO DAILY bp 01/19/25 01/19/25 History tablet,extended release 24 hr Ejection fraction %: 40 Have you fallen in the past year?: No PFSH Medical History Asthenia Coronary artery disease involving 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angina pectoris Dilated cardiomyopathy Dyslipidemia Earache Essential hypertension Fatigue History of electrophysiologic study History of left heart catheterization Left ventricular systolic dysfunction Lightheadedness Mixed hyperlipidemia Nonischemic cardiomyopathy Nonsustained ventricular tachycardia Other dental procedure status Pain in wrist PVCs (premature ventricular contractions) Sinus congestion Smoking history Sore throat Ventricular tachycardia Surgical History History of colonoscopy Family History Father Cardiomyopathy Brother A-fib Son Cardiomyopathy Social History Smoking Status: Current some day smoker Smokeless tobacco user: snuff and other Electronic Cigarette Use: not used alcohol intake: current alcohol intake frequency: a few times a week substance use type: does not use ROS Const Const: Negative for fatigue, weakness, headache(s) or weight gain ENT ENT: Negative for headache(s), dizziness, Nosebleed/epistaxis or balance problems Cardio Chest Pain: No Palpitations: No Edema: None Muscle aches with walking: None Resp Respiratory: Negative for SOB with activity, SOB at rest or SOB orthopneaundefinedSOB lying down GI GI: Negative nausea, vomiting or heartburn Musc Musc: Negative for muscle aches/ myalgia, muscle weakness, joint pain or balanceproblems Neuro Neuro: Negative for dizziness, lightheadedness, near syncope, syncope, headache(s) or weakness Endo Endo: Negative for fatigue Cardiology Exam Const Appearance: comfortable and no acute distress Nutritional Appearance: well nourished Neck Neck: no JVD Carotids: Negative bruit Chest Auscultation: Bilateral: Clear to Auscultation Cardio Rate: regular rate Rhythm: regular rhythm Heart sounds: S1 normal and S2 normal Neuro General: patient alert, patient awake and patient oriented x3 Extremities Lower Extremity Edema: None: Bilateral Supplemental Info Supplemental Information Echocardiogram 01/12/2023: Conclusions: -Exam indication: NICM -The left ventricle is normal in size. Left ventricular systolic function is moderatelyy decreased.EF = 40 +/- 5% (visual est.) Indeterminate left ventricular diastolic dysfunction. -The right ventricle is normal in size. Right ventricular systolic function is normal. -There are no significant valvular abnormalities. -Exam was compared with the prior CC echocardiographic exam performed on 01/30/2020. LVEF is reduced. Echocardiogram 01/30/2020: Conclusions: -Exam indication: Routine surveillance (>1yr) of known cardiomyopathy without a change in clinical status. -The left ventricle is mildly dilated. Left ventricular systolic function is mildly decreased. EF =51 +/- 5% (2D 4-ch) Grade I left ventricular diastolic dysfunction. Segmental wall motion abnormalities as stated above. -The right ventricle is normal in size. Right ventricle systolic function is normal. -No apparent significant valvular abnormalities. -PVCs were noted throughout testing -Exam was compared with the prior CC echocardiographic exam performed on 12/12/18,WMA not visualized as well on prior as well as a slight decrease in LVEF. Stress Test 06/18/2015: Impression: 1. No clear evidence of myocardial ischemia or scar. 2. Dilated cardiomyopathy with an ejection fraction of 32%. 3. Normal stress EKG. Stress Test 10/15/2007: Impression: 1. No definite scintigraphic evidence of exercise-induced ischemia 2. LVEF 50% CTA Coronary w/IVCON 02/23/2020: Impression: 1. Normal coronary artery origins and courses. Mild focal calcified plaque in the proxima LAD with minimal (1-25%) stenosis and minimal calcified plaque in the proximal first obtuse marginal branch with no significant stenotic disease. 2. Thickening of the distal esophagus; clinical correlation recommended, and further evaluation with endoscopy could be considered. Event Monitor 06/18/2019: Conclusion: 1. Appropriate heart rate variability. 2. One trigger event consistent with PVCs 3. Short runs of a wide-complex tachycardia with a regular cycle length which may be SVT with aberrancy. 4. No apparent paroxysms of atrial fibrillation. 5. Rare PVCs and PACs. Cardiac Catheterization 06/21/2015: Impression: Normal coronary angiography; there was no evidence of significant coronary artery disease. 48-Hour Holter Monitor 06/22/2015: Impressions and Findings: Sinus rhythm with frequent sinus tachycardia and rare sinus arrhythmia. Heart rate 60-176 bpm, average rate is 93 bpm. Rare supraventricular ectopics in isolation and triplet at 125 bpm. Occasional multiform ventricular ectopics in isolation, fusion complexes, bigeminy trigeminy, quadrigeminy, couplets and nonsustained runs of ventricular tachycardia 3-5 beats with rates to 214 bpm. Diary returned; symptoms of dizziness/nausea are associated with sinus rhythm and ventricular ectopy. Assessment and Plan Assessment and Plan (1) Nonischemic cardiomyopathy: Status: Chronic Plan: Chronic LV systolic dysfunction. Repeat echocardiogram. Continue beta-blockers. Start on Entresto. SGLT2 inhibitors. (2) Chronic left ventricular systolic dysfunction (LVSD): Status: Chronic Plan: See #1 above. Beta-blockers, Entresto, SGLT2 inhibitors. (3) Palpitations: Status: Chronic Plan: Check 48-hour Holter. (4) 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: Status: Chronic Plan: Mild nonobstructive CAD noted on coronary CT angio in 2020. Continue aspirin. Risk factor modification. (5) Dyslipidemia: Status: Chronic Plan: Repeat lipid profile. Target LDL cholesterol less than 70 mg/dL. (6) Essential hypertension: Status: Chronic Plan: Beta-blockers, add Entresto. (7) Nicotine dependence: Status: Chronic Plan: Counseled to quit. (8) ETOH abuse: Status: Chronic Plan: History of drinking on the weekends. Counseled to quit. Orders: Orders 12 Lead EKG performed by BMS Today I49.3 - Ventricular premature depolarization, R00.2 - Palpitations, R42 - Dizziness and giddiness, R55 - Syncope and collapse, Z86.79 - Personal history of other diseases of the circulatory system Plan Details Follow Up: 6 Months Coding Level of Care Code Off vis,new,level 4 Diagnoses Nonischemic cardiomyopathy I42.8 Chronic left ventricular systolic dysfunction (LVSD) I51.9 Palpitations R00.2 Coronary artery disease involving 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angina pectoris I25.10 Dyslipidemia E78.5 Essential hypertension I10 Nicotine dependence F17.200 ETOH abuse F10.10 Coding Level of Care Code Off vis,new,level 4 Diagnoses Nonischemic cardiomyopathy I42.8 Chronic left ventricular systolic dysfunction (LVSD) I51.9 Palpitations R00.2 Coronary artery disease involving 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angina pectoris I25.10 Dyslipidemia E78.5 Essential hypertension I10 Nicotine dependence F17.200 ETOH abuse F10.10 Clinical Quality Measures Falls Risk Screening/Assistive Devices Have you fallen in the past year?: No Cardiac Ejection fraction %: 40 01/19/25 0938 MD> Date _ Qi Martínez MD Cosigner Signature: Date (if applicable) CC: MARY Avalos ~ [facility]06-16-2025 Progress note Author Qi Martínez [facility] Note Date/Time January 19, 2025 9:38 am [facility] [address] [place] [address] OFFICE VISIT Date of Service: 01/19/25 MR#: [id number] Acct: [id number] Name: KELSI SOTO Rep #: [id number] : 1965 Provider: Dr. Yoni Martínez MD Age/Sex: 59/M [place] [facility] [place] Signed HPI HPI History of Present Illness Details: This gentleman was diagnosed with nonischemic cardiomyopathy about 10 years ago. His last echocardiogram was in 2022 which showed LVEF 40%. A coronary CT angioin 2019 showed mild nonobstructive calcific disease. Patient was previously established with another medical center manager. He wishes to switch to our care. Denies any chest pains or shortness of breath either at rest or with exertion. According to the patient, he gets palpitations almost on a daily basis. No associated lightheadedness or dizziness. No syncope or presyncope. No orthopnea. No PND. No ankle edema. Patient is an occasional smoker. According to him, he drinks 6-12 beers a day on weekends. 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 Intake Vital Signs 01/19/25 08:10 Height 6 ft Weight: 185 lb BMI 25.0 BP 118/82 H Blood Pressure Location Lt brachial Position Sitting Respiration 16 Pulse 69 Pulse Source NIBP Intake Visit Reasons: TACHYCARDIA Reinsurance Claim Analyst Required: No Accompanied by: Self Is patient in pain?: No Allergies Environmental Allergies: Uncoded (seasonal) Allergy (Mild, Verified 01/19/25 09:10) Nasal Congestion Medications ?Medication ?Instructions ?Recorded ?Confirmed ?Type aspirin 81 mg tablet,delayed 81 mg PO DAILY heart heal th 06/14/16 01/19/25 History release (Lo-Dose Aspirin) fexofenadine 180 mg tablet 180 mg PO QDAY 01/12/25 History (Allergy Relief (fexofenadine)) multivitamin 1 tab PO QDAY 01/12/2501/19 History metoprolol succinate 50 mg 75 mg PO DAILY bp 01/19/25 01/19/25 History tablet,extended release 24 hr Ejection fraction %: 40 Have you fallen in the past year?: No PFSH Medical History Asthenia Coronary artery disease involving 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angina pectoris Dilated cardiomyopathy Dyslipidemia Earache Essential hypertension Fatigue History of electrophysiologic study History of left heart catheterization Left ventricular systolic dysfunction Lightheadedness Mixed hyperlipidemia Nonischemic cardiomyopathy Nonsustained ventricular tachycardia Other dental procedure status Pain in wrist PVCs (premature ventricular contractions) Sinus congestion Smoking history Sore throat Ventricular tachycardia Surgical History History of colonoscopy Family History Father Cardiomyopathy Brother A-fib Son Cardiomyopathy Social History Smoking Status: Current some day smoker Smokeless tobacco user: snuff and other Electronic Cigarette Use: not used alcohol intake: current alcohol intake frequency: a few times a week substance use type: does not use ROS Const Const: Negative for fatigue, weakness, headache(s) or weight gain ENT ENT: Negative for headache(s), dizziness, Nosebleed/epistaxis or balance problems Cardio Chest Pain: No Palpitations: No Edema: None Muscle aches with walking: None Resp Respiratory: Negative for SOB with activity, SOB at rest or SOB orthopneaundefinedSOB lying down GI GI: Negative nausea, vomiting or heartburn Musc Musc: Negative for muscle aches/ myalgia, muscle weakness, joint pain or balanceproblems Neuro Neuro: Negative for dizziness, lightheadedness, near syncope, syncope, headache(s) or weakness Endo Endo: Negative for fatigue Cardiology Exam Const Appearance: comfortable and no acute distress Nutritional Appearance: well nourished Neck Neck: no JVD Carotids: Negative bruit Chest Auscultation: Bilateral: Clear to Auscultation Cardio Rate: regular rate Rhythm: regular rhythm Heart sounds: S1 normal and S2 normal Neuro General: patient alert, patient awake and patient oriented x3 Extremities Lower Extremity Edema: None: Bilateral Supplemental Info Supplemental Information Echocardiogram 01/12/2023: Conclusions: -Exam indication: NICM -The left ventricle is normal in size. Left ventricular systolic function is moderatelyy decreased. EF = 40 +/- 5% (visual est.) Indeterminate left ventricular diastolic dysfunction. -The right ventricle is normal in size. Right ventricular systolic function is normal. -There are no significant valvular abnormalities. -Exam was compared with the prior echocardiographic exam performed on 01/30/2020. LVEF is reduced. Echocardiogram 01/30/2020: Conclusions: -Exam indication: Routine surveillance (>1yr) of known cardiomyopathy without a change in clinical status. -The left ventricle is mildly dilated. Left ventricular systolic function is mildly decreased. EF = 51 +/- 5% (2D 4-ch) Grade I left ventricular diastolic dysfunction. Segmental wall motion abnormalities as stated above. -The right ventricle is normal in size. Right ventricle systolic function is normal. -No apparent significant valvular abnormalities. -PVCs were noted throughout testing -Exam was compared with the prior CC echocardiographic exam performed on 12/12/18,WMA not visualized as well on prior as well as a slight decrease in LVEF. Stress Test 06/18/2015: Impression: 1. No clear evidence of myocardial ischemia or scar. 2. Dilated cardiomyopathy with an ejection fraction of 32%. 3. Normal stress EKG. Stress Test 10/15/2007: Impression: 1. No definite scintigraphic evidence of exercise-induced ischemia 2. LVEF 50% CTA Coronary w/IVCON 02/23/2020: Impression: 1. Normal coronary artery origins and courses. Mild focal calcified plaque in the proxima LAD with minimal (1-25%) stenosis and minimal calcified plaque in the proximal first obtuse marginal branch with no significant stenotic disease. 2. Thickening of the distal esophagus; clinical correlation recommended, and further evaluation with endoscopy could be considered. Event Monitor 06/18/2019: Conclusion: 1. Appropriate heart rate variability. 2. One trigger event consistent with PVCs 3. Short runs of a wide-complex tachycardia with a regular cycle length which may be SVT with aberrancy. 4. No apparent paroxysms of atrial fibrillation. 5. Rare PVCs and PACs. Cardiac Catheterization 06/21/2015: Impression: Normal coronary angiography; there was no evidence of significant coronary artery disease. 48-Hour Holter Monitor 06/22/2015: Impressions and Findings: Sinus rhythm with frequent sinus tachycardia and rare sinus arrhythmia. Heart rate 60-176 bpm, average rate is 93 bpm. Rare supraventricular ectopics in isolation and triplet at 125 bpm. Occasional multiform ventricular ectopics in isolation, fusion complexes, bigeminy trigeminy, quadrigeminy, couplets and nonsustained runs of ventricular tachycardia 3-5 beats with rates to 214 bpm. Diary returned; symptoms of dizziness/nausea are associated with sinus rhythm and ventricular ectopy. Assessment and Plan Assessment and Plan (1) Nonischemic cardiomyopathy: Status: Chronic Plan: Chronic LV systolic dysfunction. Repeat echocardiogram. Continue beta-blockers. Start on Entresto. SGLT2 inhibitors. (2) Chronic left ventricular systolic dysfunction (LVSD): Status: Chronic Plan: See #1 above. Beta-blockers, Entresto, SGLT2 inhibitors. (3) Palpitations: Status: Chronic Plan: Check 48-hour Holter. (4) 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: Status: Chronic Plan: Mild nonobstructive CAD noted on coronary CT angio in 2019. Continue aspirin. Risk factor modification. (5) Dyslipidemia: Status: Chronic Plan: Repeat lipid profile. Target LDL cholesterol less than 70 mg/dL. (6) Essential hypertension: Status: Chronic Plan: Beta-blockers, add Entresto. (7) Nicotine dependence: Status: Chronic Plan: Counseled to quit. (8) ETOH abuse: Status: Chronic Plan: History of drinking on the weekends. Counseled to quit. Orders: Orders 12 Lead EKG performed by BMS Today I49.3 - Ventricular premature depolarization, R00.2 - Palpitations, R42 - Dizziness and giddiness, R55 - Syncope and collapse, Z86.79 - Personal history of other diseases of the circulatory system Plan Details Follow Up: 6 Months Coding Level of Care Code Off vis,new,level 4 Diagnoses Nonischemic cardiomyopathy I42.8 Chronic left ventricular systolic dysfunction (LVSD) I51.9 Palpitations R00.2 Coronary artery disease involving 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angina pectoris I25.10 Dyslipidemia E78.5 Essential hypertension I10 Nicotine dependence F17.200 ETOH abuse F10.10 Coding Level of Care Code Off vis,new,level 4 Diagnoses Nonischemic cardiomyopathy I42.8 Chronic left ventricular systolic dysfunction (LVSD) I51.9 Palpitations R00.2 Coronary artery disease involving 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angina pectoris I25.10 Dyslipidemia E78.5 Essential hypertension I10 Nicotine dependence F17.200 ETOH abuse F10.10 Clinical Quality Measures Falls Risk Screening/Assistive Devices Have you fallen in the past year?: No Cardiac Ejection fraction %: 40 01/19/25 0938 <Electronically signed by Qi Martínez MD> Date _ Qi Martínez MD Cosigner Signature: Date (if applicable) CC: MARY Avalos ~ [employer] Work Phone: [phone] 437-290905-28-2025 Telephone encounter Note* Telephone Encounter - Martin Melendez MD - 12/31/2024 8:43 AM EDT Noted. Thank you. [facility]05-28-2025 Miscellaneous Notes* Telephone Encounter - Martin Melendez MD - 12/31/2024 8:43 AM EDT Noted. Thank you. * Telephone Encounter - Pati Hdz RN - 12/31/2024 8:37 AM EDT Juliane with [facility] called in and reports they have tried to get a hold of Pt twice so farwith no success. I told her the work phone # is Pts , to try and call that. She said she will try that, then send him a letter. Pati Hdz RN [facility] Telephone encounter Note * Telephone Encounter - Pati Hdz RN - 12/31/2024 8:37 AM EDT Juliane with [facility] called in and reports they have tried to get a hold of Pt twice so farwith no success. I told her the work phone # is Pts , to try and call that. She said she will try that, then send him a letter. Pati Hdz RN [facility]05-23-2025 NoteHNO ID: [id number] Author: LYNN AVALOS APRN.CULLEN Service: ? Author Type: Nurse Practitioner Type: Progress Notes Filed: 12/26/2024 14:11 Note Text: This is a 59 year old male who presents today with: Patient presents with: Acute Visit: Sore throat, night sweats, swollen lymph nodes in arm pits, and intermittent shortness of breath HISTORY OF PRESENT ILLNESS: Kelsi Soto is a 59 year old male. Patient presents with: Acute Visit: Sore throat, night sweats, swollen lymph nodes in arm pits, and intermittent shortness of breath Kelsi is a 59-year-old male presenting with sore throat, earache, and sinus congestion. Sore Throat: - Onset 5-7 days ago. - Painful swallowing; describes a burning sensation when eating or drinking carbonated beverages. - Denies fever, chills, or headaches. - Denies history of strep throat. Earache: - Right ear pain. - Denies any recent ear infections. Sinus Congestion: - Right-sided head congestion. - Occasional dizziness. - Denies significant sinus pain or pressure. Fatigue: - Reports feeling really tired. Dental Procedures: - Multiple doses of amoxicillin in the past 2 years for dental procedures, including a bridge removal, post placement, and root canal. Smoking History: - Former smoker; occasionally smokes cigarettes from his 's pack. - Has not smoked a cigarette for a while. Stated quit rosuvastatin made him very achy, he quit it Lisinopril made him nauseated. Seeing [facility] for dilated CM PAST MEDICAL HISTORY: PAST MEDICAL HISTORY Diagnosis Date Dilated cardiomyopathy (HCC) Dyslipidemia Essential hypertension Left ventricular systolic dysfunction Nonsustained ventricular tachycardia (HCC) Pain in wrist PAST SURGICAL HISTORY Procedure Laterality Date COLONOSCOPY FLX DX W/COLLJ SPEC WHEN PFRMD 05/27/2018 Colonoscopy EPS: EP STUDY [facility] General - negative LEFT HEART CATH 06/21/2015 ALLERGIES Patient has no known allergies. MEDICATIONS Current Outpatient Medications Medication Sig fexofenadine (JESSICA ALLERGY) 180 mg tablet Take 1 tablet by mouth once daily. metoprolol succinate ER (TOPROL XL) 50 mg 24 hr tablet Take 1.5 tablets by mouth once daily. MULTIVITAMIN ORAL Take by mouth. aspirin, enteric coated (ASPIRIN, ENTERIC COATED) 81 mg EC tablet Take 1 tablet by mouth once daily. lisinopril (ZESTRIL) 5 mg tablet Take 1 tablet by mouth once daily. (Patient not taking: Reported on 12/26/2024) rosuvastatin (CRESTOR) 5 mg tablet Take 1 tablet by mouth once daily. (Patient not taking: Reported on 12/26/2024) No current facility-administered medications for this visit. FAMILY HISTORY Problem Relation Age of Onset Heart Father Cardiomyopathy No Known Problems Mother Heart Brother AFIB Heart Brother AFIB Heart Son Age 27 - Cardiomyopathy Social History Tobacco Use Smoking status: Former Current packs/day: 0.00 Average packs/day: 0.3 packs/day for 20.0 years (6.0 ttl pk-yrs) Types: Cigarettes Start date: 06/17/1995 Quit date: 06/17/2015 Years since quittin.5 Smokeless tobacco: Former Types: Snuff Quit date: 06/23/2015 Tobacco comments: Occasional cigar Vaping Use Vaping status: Never Used Substance Use Topics Alcohol use: Yes Alcohol/week: 2.0 standard drinks of alcohol Types: 2 Cans of Beer (12oz) per week Drug use: Never REVIEW OF SYSTEMS Constitutional: (-) fever, (-) chills, (+) fatigue, (+) generalized discomfort Head: (-) headache Ears/Nose/Mouth/Throat: (+) ear pain (right), (+) sore throat, (+) difficulty swallowing, (+) nasal congestion (right) Respiratory: (+) chest congestion, (+) cough Gastrointestinal: (-) nausea, (-) vomiting, (-) diarrhea Musculoskeletal: (+) myalgia (arms) Neurological: (+) dizziness EXAM: BP 120/72 Pulse 69 Temp 36.3 ?C (97.3 ?F) (Left Tympanic) Wt 83 kg (183 lb) SpO2 97% BMI 24.82 kg/m? PHYSICAL EXAM: GENERAL: NAD, alert and oriented. SKIN: Unremarkable, no rash or skin lesions. HEAD: Normocephalic. EARS: External ears normal. Left canal clear, TM normal. Right TM erythematous and bulging. NOSE/SINUSES: Nares normal. Septum midline. Minimal sinus tenderness. OROPHARYNX: Lips, mucosa, and tongue normal, good dentition. Significant erythema and drainage noted in the oropharynx. NECK: Supple, no lymphadenopathy, normal thyroid, no carotid bruits. LUNGS: Clear to auscultation bilaterally, no wheezes/rhonchi/rales. HEART: Regular rate and rhythm, no murmurs. No ectopy. LABS: Labs: Tests: - EKG: Normal, normal QT interval Imaging: ASSESSMENT/PLAN: 1. Pharyngitis due to Streptococcus species - ICD9: 034.0, ICD10: J02.0 1. Pharyngitis due to Streptococcus species (J02.0) - Oropharyngeal examination reveals significant erythema and post-nasal drainage; right tympanic membrane is erythematous and bulging. - Initiated azithromycin, 500 mg PO on day 1, fol (more content not included)... [facility]12-26-2024 Instructions* Patient Instructions* Lynn Avalos APRN.CNP - 07/31/2024 10:03 AM EST 1) Start lisinopril 5 mg daily 2) Start rosuvastatin 5 mg daily 3) Check labs 4) Consult cardiology 5) Pneumonia vaccine 6) Follow up in 6 months documented [facility] NoteHNO ID: [id number] Author: LYNN AVALOS APRN.CNP Service: ? Author Type: Clinical Nurse Specialist Type: Progress Notes Filed: 07/31/2024 10:51 Note Text: Chief Reason For Appointment Patient presents with: Yearly Exam Kelsi Soto is a 58 year old male who presents for annual exam. Last office visit date: 08/25/2023 Accompanied By spouse Have you had any critical events, hospital stays, ER visits, surgeries or procedures since your last visit here in our office: No Specialists/Other Healthcare Providers Seen: Patient Care Team: Martin Melendez MD as PCP - General (Family Medicine) No, Referral as Referring (Cardiology) Aretha Hemphill APRN.CNP as Global Coordinator (Family Medicine) Lynn Avalos APRN.CNP as Global Coordinator (Family Medicine) Concerns today: None HPI Hasn't seen cardiology lately, would like to see someone closer Reviewed echo from January Active Problems ACTIVE PROBLEM LIST Asthenia - 09/15/2022 Near Syncope - 09/15/2022 Coronary Artery Disease Involving [place] Coronary Artery of [place] Heart Without Angina Pectoris - 03/12/2020 Comment: Mild CAD by coronary CTA Essential Hypertension - 05/27/2019 Mixed Hyperlipidemia - 05/27/2019 Palpitations - 05/27/2019 Pvc's (Premature Ventricular Contractions) - 06/15/2016 Vt (Ventricular Tachycardia) (Hcc) - 07/28/2015 Episodic Lightheadedness - 07/28/2015 Nonischemic Cardiomyopathy (Hcc) - 06/28/2015 ROS: REVIEW OF SYSTEMS GENERAL: No weight loss, malaise or fevers/chills HEENT: Negative for frequent or significant headaches, No changes in hearing or vision. NECK: Negative for lumps, goiter, pain and significant neck swelling RESPIRATORY: Negative for cough, hemoptysis, wheezing, dyspnea or shortness of breath- smokes on occ, no chewing tobacco CARDIOVASCULAR: Negative for chest pain, leg swelling, orthopnea, or palpitations- occ skipped beats GI: No nausea, vomiting, or diarrhea/constipation. No hematochezia/melena. Occ heartburn or reflux symptoms. : No history of dysuria, frequency or incontinence MUSCULOSKELETAL: Occ. joint pain or swelling. Right tennis elbow SKIN: Negative for lesions, rash, and itching ENDOCRINE: Negative for cold or heat intolerance, polyuria, polydipsia and goiter NEURO: No history of headaches, syncope, paralysis, seizures or tremors MOOD: Negative for depression, anxiety, or suicidal ideation. PAST MEDICAL HISTORY Diagnosis Date Dilated cardiomyopathy (HCC) Dyslipidemia Essential hypertension Left ventricular systolic dysfunction Nonsustained ventricular tachycardia (HCC) Pain in wrist PAST SURGICAL HISTORY Procedure Laterality Date COLONOSCOPY FLX DX W/COLLJ SPEC WHEN PFRMD 05/27/2018 Colonoscopy EPS: EP STUDY [facility] - negative LEFT HEART CATH 06/21/2015 Medication List Current Outpatient Medications Medication Sig Dispense Refill metoprolol succinate ER (TOPROL XL) 50 mg 24 hr tablet Take 1.5 tablets by mouth once daily. 135 tablet 3 MULTIVITAMIN ORAL Take by mouth. aspirin, enteric coated (ASPIRIN, ENTERIC COATED) 81 mg EC tablet Take 1 tablet by mouth once daily. 0 No current facility-administered medications for this visit. Weight Summary: Weight Change: Body mass index is 25.09 kg/m?. Last Wt 07/31/24 : 83.9 kg (185 lb) 08/25/23 : 86.6 kg (191 lb) 12/18/22 : 84.8 kg (187 lb) 09/15/22 : 86.6 kg (191 lb) 06/13/22 : 86.6 kg (191 lb) Physical Exam: General Appearance: well appearing, alert and oriented. Skin: no suspicious lesion, no rash, no open sores; right forearm with nickel sized area that is freely moving or inflamed Head: normocephalic, no obvious masses, lesions, tenderness or abnormalities. Eyes: Anicteric sclera. Pupils are equally round and reactive to light. Extraocular movements are intact. Ears: external ears normal. Hearing to conversational voice intact. Neck: trachea midline, thyroid without mass or nodularity, thyroid moves normally with swallow, no regional lymphadenopathy. Carotids normal upstroke, no bruit or thrill. Back:no pain to palpation of vertebrae, no percussion tenderness over spine. Lungs: Chest rise AND fall symmetrical, Lungs clear to auscultation. No wheezing or rhonchi. No rales. Abdomen: normal bowel sounds, no mass, non-tender Heart: S1S2, no gallop, no rub, no murmur Lymph Nodes: no lymphadenopathy. Ext: no clubbing, cyanosis or edema. Mood: bright affect, speech clear, answers questions appropriately SCREENINGS Health Maintenance Listing Depression Screening Anxiety Screening Pneumococcal Vaccine: 50+(2 of 2 - PCV) LDL Cholesterol TEST RESULTS: Lab Studies: Date of lab studies: labs ordered - glucose - potassium - Creatinine, gfr - LFTs Lipid: WBC, HANDH, Platelets: A1C: Vitamin D: Other: A/P: ASSESSMENT/PLAN: 1. Systolic congestive heart failure, unspecified HF chronicity (HCC) - ICD9: 428.20, 428.0, IC (more content not included)...[facility] 07-31-2024 History of Present illness Narrative* Lynn Avalos APRN.CNP - 07/31/2024 9:23 AM EST Chief Reason For Appointment Patient presents with: Yearly Exam Kelsi Soto is a 58 year old male who presents for annual exam. Last office visit date: 08/25/2023 Accompanied By spouse Have you had any critical events, hospital stays, ER visits, surgeries or procedures since your last visit here in our office: No Specialists/Other Healthcare Providers Seen: Patient Care Team: Martin Melendez MD as PCP - General (Family Medicine) No, Referral as Referring (Cardiology) Aretha Hemphill APRN.CNP as Global Coordinator (Family Medicine) Lynn Avlaos APRN.CNP as Global Coordinator (Family Medicine) Concerns today: None HPI Hasn't seen cardiology lately, would like to see someone closer Reviewed echo from January Active Problems ACTIVE PROBLEM LIST Asthenia - 09/15/2022 Near Syncope - 09/15/2022 Coronary Artery Disease Involving [place] Coronary Artery of [place] Heart Without Angina Pectoris - 03/12/2020 Comment: Mild CAD by coronary CTA Essential Hypertension - 05/27/2019 Mixed Hyperlipidemia - 05/27/2019 Palpitations - 05/27/2019 Pvc's (Premature Ventricular Contractions) - 06/15/2016 Vt (Ventricular Tachycardia) (Hcc) - 07/28/2015 Episodic Lightheadedness - 07/28/2015 Nonischemic Cardiomyopathy (Hcc) - 06/28/2015 ROS: REVIEW OF SYSTEMS GENERAL: No weight loss, malaise or fevers/chills HEENT: Negative for frequent or significant headaches, No changes in hearing or vision. NECK: Negative for lumps, goiter, pain and significant neck swelling RESPIRATORY: Negative for cough, hemoptysis, wheezing, dyspnea or shortness of breath- smokes on occ, no chewing tobacco CARDIOVASCULAR: Negative for chest pain, leg swelling, orthopnea, or palpitations- occ skipped beats GI: No nausea, vomiting, or diarrhea/constipation. No hematochezia/melena. Occ heartburn or reflux symptoms. : No history of dysuria, frequency or incontinence MUSCULOSKELETAL: Occ. joint pain or swelling. Right tennis elbow SKIN: Negative for lesions, rash, and itching ENDOCRINE: Negative for cold or heat intolerance, polyuria, polydipsia and goiter NEURO: No history of headaches, syncope, paralysis, seizures or tremors MOOD: Negative for depression, anxiety, or suicidal ideation. PAST MEDICAL HISTORY Diagnosis Date Dilated cardiomyopathy (HCC) Dyslipidemia Essential hypertension Left ventricular systolic dysfunction Nonsustained ventricular tachycardia (HCC) Pain in wrist PAST SURGICAL HISTORY Procedure Laterality Date COLONOSCOPY FLX DX W/COLLJ SPEC WHEN PFRMD 05/27/2018 Colonoscopy EPS: EP STUDY [facility] - negative LEFT HEART CATH 06/21/2015 Medication List Current Outpatient Medications Medication Sig Dispense Refill metoprolol succinate ER (TOPROL XL) 50 mg 24 hr tablet Take 1.5 tablets by mouth once daily. 135 tablet 3 MULTIVITAMIN ORAL Take by mouth. aspirin, enteric coated (ASPIRIN, ENTERIC COATED) 81 mg EC tablet Take 1 tablet by mouth once daily. 0 No current facility-administered medications for this visit. Weight Summary: Weight Change: Body mass index is 25.09 kg/m . Last Wt 07/31/24 : 83.9 kg (185 lb) 08/25/23 : 86.6 kg (191 lb) 12/18/22 : 84.8 kg (187 lb) 09/15/22 : 86.6 kg (191 lb) 06/13/22 : 86.6 kg (191 lb) Physical Exam: General Appearance: well appearing, alert and oriented. Skin: no suspicious lesion, no rash, no open sores; right forearm with nickel sized area that is freely moving or inflamed Head: normocephalic, no obvious masses, lesions, tenderness or abnormalities. Eyes: Anicteric sclera. Pupils are equally round and reactive to light. Extraocular movements are intact. Ears: external ears normal. Hearing to conversational voice intact. Neck: trachea midline, thyroid without mass or nodularity, thyroid moves normally with swallow, no regional lymphadenopathy. Carotids normal upstroke, no bruit or thrill. Back:no pain to palpation of vertebrae, no percussion tenderness over spine. Lungs: Chest rise & fall symmetrical, Lungs clear to auscultation. No wheezing or rhonchi. No rales. Abdomen: normal bowel sounds, no mass, non-tender Heart: S1S2, no gallop, no rub, no murmur Lymph Nodes: no lymphadenopathy. Ext: no clubbing, cyanosis or edema. Mood: bright affect, speech clear, answers questions appropriately SCREENINGS Health Maintenance Listing Depression Screening Anxiety Screening Pneumococcal Vaccine: 50+(2 of 2 - PCV) LDL Cholesterol TEST RESULTS: Lab Studies: Date of lab studies: labs ordered - glucose - potassium - Creatinine, gfr - LFTs Lipid: WBC, H&H, Platelets: A1C: Vitamin D: Other: A/P: ASSESSMENT/PLAN: 1. Systolic congestive heart failure, unspecified HF chronicity (HCC) - ICD9: 428.20, 428.0, ICD10:I50.20 (primary diagnosis) - HFrEF <=40 - Continue current medications - LISINOPRIL 5 MG TABLET added - METOPROLOL SUCCINATE ER 50 MG TABLET,EXTENDED RELEASE 24 HR- 75 mg daily - CONSULT TO CARDIOLOGY 2. Encounter for immunization - ICD9: V03.89, ICD10: Z23 - PNEUMOCOCCAL VACCINE, 20 VALENT (PREVNAR 20) 3. Screening for depression - ICD9: V79.0, ICD10: Z13.31 Stable - DEPRESSION SCREENING 4. Encounter for screening examination for other mental health and behavioral disorders - ICD9: V79.8, ICD10: Z13.39 Stable - ANXIETY SCREENING 5. VT (ventricular tachycardia) (HCC) - ICD9: 427.1, ICD10: I47.20 History of this - METOPROLOL SUCCINATE ER 50 MG TABLET,EXTENDED RELEASE 24 HR - CONSULT TO CARDIOLOGY 6. Hyperlipidemia, mixed - ICD9: 272.2, ICD10: E78.2 - Uncontrolled - Counseled on healthy diet and regular exercise - ROSUVASTATIN 5 MG TABLET added Discussed treatment plan and patient voices understanding. Patient's questions answered appropriately. Medications and potential side effects were discussed and patient voices understanding. Return to the office as scheduled or as needed for worsening/no improvement. Lynn Avalos APRN.BIZTALK ADMINISTRATOR Follow Up Plans: 6 m documented in [facility]04-[facility] Telephone encounter Note * Telephone Encounter - Yulissa Broussard MA - 11/26/2023 11:18 AM EDT Patient was notified Yulissa Broussard MA [facility]04-22-[facility]24 Miscellaneous Notes* Telephone Encounter - Yulissa Broussard MA - 11/26/2023 11:18 AM EDT Patient was notified Yulissa Broussard MA * Telephone Encounter - Martin Melendez MD - 11/26/2023 10:52 AM EDT Zyrtec is ok but can cause drowsiness. 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 * Telephone Encounter - Carson Chin RN - 11/26/2023 10:12 AM EDT Spouse (Didi) calls to ask if patient could take Zyrtec for on-going allergy symptoms (sinus inflammation/congestion/ear pressure). Jessica wasn't very helpful but wants to verify Zyrtec is safe with heart condition. Request prescription be sent to [facility] if provider agrees. Also asking for recommendations, for cold symptoms x 2 days. (Sneezing, runny nose, afebrile). Coricidin HBP Cough and Cold recommended. 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 Spouse asking for any other recommendations. Carson Chin RN documented in this encounterMer[facility]04-22-2024 Telephone encounter Note * Telephone Encounter - Martin Melendez MD - 11/26/2023 10:52 AM EDT Zyrtec is ok but can cause drowsiness. 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 [facility] Telephone encounter Note* Telephone Encounter - Carson Chin RN - 11/26/2023 10:12 AM EDT Spouse (Didi) calls to ask if patient could take Zyrtec for on-going allergy symptoms (sinus inflammation/congestion/ear pressure). Jessica wasn't very helpful but wants to verify Zyrtec is safe with heart condition. Request prescription be sent to [facility] if provider agrees. Also asking for recommendations, for cold symptoms x 2 days. (Sneezing, runny nose, afebrile). Coricidin HBP Cough and Cold recommended. 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 Spouse asking for any other recommendations. Carson Chin RN [facility]02-28-[facility] Miscellaneous Notes* Telephone Encounter - Natalie Lopez MA - 10/03/2023 2:01 PM EST Patient's notified and verbalized understanding. Natalie Lopez MA * Telephone Encounter - Jennifer Wild PA-C - 10/03/2023 8:42 AM EST Needs to complete outstanding lab The following approved medication requests have been transmitted electronically. Requested Prescriptions Signed Prescriptions Disp Refills metoprolol succinate ER (TOPROL XL) 50 mg 24 hr tablet 135 tablet 3 Sig: Take 1.5 tablets by mouth once daily. Authorizing Provider: Jennifer WILD PA-C * Telephone Encounter - Raven Mcdonnell RN - 10/01/2023 3:53 PM EST Patient has been identified by name and date of : Spouse phones for refill(s): Requested Prescriptions Pending Prescriptions Disp Refills metoprolol succinate ER (TOPROL XL) 50 mg 24 hr tablet 135 tablet 3 Sig: Take 1.5 tablets by mouth once daily. Date of last office visit in primary care: 08/25/2023 Date of next office visit in primary care: 02/29/2024 Please advise. Thank you. Raven Mcdonnell RN. documented in this encounterMer[facility]01-20-2024 History of Present illness Narrative* Thomas Booker RT(R) - 08/25/2023 10:40 AM EST Radiology Service Progress Note PATIENT NAME: Kelsi Soto DATE OF SERVICE: August 25, 2023 TIME: 10:36 AM PATIENT IDENTITY VERIFICATION COMPLETED USING TWO (2) IDENTIFIERS: Name and Date of confirmedby patient verbally. FALL SCREENING: Has the patient had 2 falls in the last year or 1 fall with injury or currently using an Ambulatory Assistive Device (Walker, Cane, Wheelchair, Crutches, etc.)? No PATIENT GENDER DATA: Male PATIENT RELEVANT IMPLANT DATA REVIEWED: Not Applicable RADIOLOGY DEPARTMENT: General X-ray: Exam(s) Completed: Upper Extremity X- Ray(s): Elbow, left PERIPHERAL IV DATA: Not applicable SIGNED BY: RT Jose(R) August 25, 2023 10:36 AM documented in this encounterMer[facility]08-02-2023 Miscellaneous Notes* Telephone Encounter - Nahomy Beltran MA - 03/07/2023 3:38 PM EDT Signed form was successfully faxed to [phone]. * Telephone Encounter - Gayle Humphries - 03/07/2023 10:32 AM EDT Dental office called stating patient's appointment with them is Sunday03/14/23 and is asking for forms to be sent * Telephone Encounter - Nahomy Beltran MA - 03/01/2023 1:56 PM EDT Received clearance form from Dental office. Placed form on Dr. Landry desk for review. documented in this encounterMer[facility]05-15-2023 History of Present illness Narrative* Keshav Landry DO - 12/18/2022 1:51 PM EDT Images from the original note were not included. [facility] OUTPATIENT VISIT DATE December 18, 2022 PRIMARY CARE PHYSICIAN: Martin Melendez [address] [place] [address] HISTORY OF PRESENT ILLNESS: Mr. Soto is a 57 year old male. The patient returns for follow-up second history of nonischemic cardiomyopathy with mild CAD as well as hypertension, hyperlipidemia and previous PVCs. He underwent electrophysiology study which was negative. He was to have an MRI but has not had such as yet. Hehas been lost to follow-up and recently returned to see us today due to need for preoperative recommendations and treatment options prior to bridgework at the dentist. He denies chest discomfort, dyspnea, orthopnea, paroxysmal nocturnal dyspnea, palpitations, near-syncope or syncope. He has been resistant to taking a statin. We have been unable to place him on afterload reduction therapy due to relative hypotension. The systolic function has dramatically improved with just titrating Toprol in the past. PLAN AND RECOMMENDATIONS: The patient appears stable without symptoms of angina or cardiac decompensation. Heart rate and blood pressure are favorable. Cholesterol profile is elevated. We discussed this in length and he is submitted to taking pravastatin 20 mg at bedtime. We will do further management to your discretion. Yamileth update an echocardiogram for now. In regards to his need for bridgework, we believe he is acceptable risk. Dietary and lifestyle medication was reemphasized to facilitate risk factor reduction. We will look forward to following up with him in 3 months time regardless. Vitals: BP 110/80 Pulse 74 Ht 182.9 cm (6') Wt 84.8 kg (187 lb) SpO2 96% BMI 25.36 kg/m Physical Exam Vitals reviewed. Constitutional: General: He is not in acute distress. Appearance: Normal appearance. He is well-developed. He is not diaphoretic. HENT: Head: Normocephalic and atraumatic. Right Ear: External ear normal. Left Ear: External ear normal. Nose: Nose normal. Eyes: General: No scleral icterus. Right eye: No discharge. Left eye: No discharge. Pupils: Pupils are equal, round, and reactive to light. Neck: Thyroid: No thyromegaly. Vascular: No carotid bruit or JVD. Cardiovascular: Rate and Rhythm: Normal rate and regular rhythm. Heart sounds: No murmur heard. No friction rub. No gallop. Pulmonary: Effort: Pulmonary effort is normal. No respiratory distress. Breath sounds: Normal breath sounds. No wheezing or rales. Abdominal: General: Bowel sounds are normal. Palpations: Abdomen is soft. Musculoskeletal: General: Normal range of motion. Cervical back: Neck supple. Skin: General: Skin is warm and dry. Capillary Refill: Capillary refill takes less than 2 seconds. Coloration: Skin is not pale. Neurological: Mental Status: He is alert and oriented to person, place, and time. Cranial Nerves: No cranial nerve deficit. Psychiatric: Mood and Affect: Mood normal. Mood is not anxious or depressed. Behavior: Behavior normal. Thought Content: Thought content normal. Judgment: Judgment normal. Review of Systems Constitutional: Negative for activity change, appetite change, fatigue and unexpected weight change. HENT: Negative for ear pain and trouble swallowing. Eyes: Negative for pain and visual disturbance. Respiratory: Negative for chest tightness and shortness of breath. Cardiovascular: Negative for chest pain, palpitations and leg swelling. Gastrointestinal: Negative for abdominal pain and blood in stool. Endocrine: Negative for cold intolerance and heat intolerance. Genitourinary: Negative for dysuria, hematuria and scrotal swelling. Musculoskeletal: Negative for arthralgias and myalgias. Skin: Negative for pallor and rash. Allergic/Immunologic: Negative for immunocompromised state. Neurological: Negative for dizziness, syncope and light-headedness. Hematological: Negative for adenopathy. Does not bruise/bleed easily. Psychiatric/Behavioral: Negative for sleep disturbance. The patient is not nervous/anxious. PAST MEDICAL HISTORY Diagnosis Date Dilated cardiomyopathy (HCC) Dyslipidemia Essential hypertension Left ventricular systolic dysfunction Nonsustained ventricular tachycardia (HCC) Pain in wrist PAST SURGICAL HISTORY Procedure Laterality Date COLONOSCOPY FLX DX W/COLLJ SPEC WHEN PFRMD 05/27/2018 Colonoscopy EPS: EP STUDY [facility] - negative LEFT HEART CATH 06/21/2015 Social History Tobacco Use Smoking status: Former Packs/day: 0.30 Years: 20.00 Pack years: 6.00 Types: Cigarettes Quit date: 06/17/2015 Years since quittin.5 Smokeless tobacco: Former Types: Snuff Quit date: 06/23/2015 Tobacco comments: Occasional cigar Vaping Use Vaping Use: Never used Substance Use Topics Alcohol use: Yes Alcohol/week: 5.0 standard drinks Types: 2 Cans of Beer (12oz) per week Drug use: Never FAMILY HISTORY Problem Relation Age of Onset Heart Father Cardiomyopathy No Known Problems Mother Heart Brother AFIB Heart Brother AFIB Heart Son Age 27 - Cardiomyopathy ALLERGIES No Known Allergies CURRENT MEDICATIONS: fexofenadine (JESSICA) 180 mg tablet Take 180 mg by mouth once daily. metoprolol succinate ER (TOPROL XL) 50 mg 24 hr tablet Take 1.5 tablets by mouth once daily. MULTIVITAMIN ORAL Take by mouth. aspirin, enteric coated (ASPIRIN, ENTERIC COATED) 81 mg EC tablet Take 1 tablet by mouth once daily. meloxicam (MOBIC) 15 mg tablet Take 1 tablet by mouth once daily. Take with food. (Patient not taking: Reported on 12/18/2022) EKG performed today demonstrates sinus rhythm with possible RVH and an age undetermined septal infarct, similar to previous. Keshav Landry DO, FACC, FACOI Clinical and Preventive Cardiology Department of Medicine and Division of Cardiology, [facility] Telephone Answering Service Operatorsnuff grinder and screener [facility] Telephone Answering Service Operator of Congestive Heart Failure Clinic [facility] Cardiology Office Telephone Answering Service Operator [facility] Staff Dietetic Assistant, Kelsi and Catherine Hastings Department of Cardiovascular Medicine/[facility] [place], [facility] Clinical Crts Profressor of Medicine, [facility] of Medicine - [facility] Please note: This note has been produced using speech recognition software and may contain errors related to that system including louann, punctuation, spelling, words, gender and phrases that may be inappropriate. documented in this encounterMercy Health Tiffin Hospital02-21-2023 Miscellaneous Notes* Telephone Encounter - Gayle Humphries - 09/26/2022 1:03 PM EST Patient is scheduled * Telephone Encounter - Nahomy Beltran MA - 09/25/2022 12:32 PM EST Received surgical clearance form from Thien Seaman DDS. Pt not seen since 03/12/2020 with heavy cardiac hx. Pt will need to schedule a follow up visit with Dr. Landry. documented in this encounterMercy Health Tiffin Hospital02-15-2023 Miscellaneous Notes* Telephone Encounter - Raven Mcdonnell RN - 09/20/2022 3:18 PM EST Patient notified of results and provider's instructions. Patient verbalizes understanding. Raven Mcdonnell RN * Telephone Encounter - Yulissa Broussard Ma - 09/20/2022 2:25 PM EST Left message for patient to call office back Yulissa Broussard Ma * Telephone Encounter - Yulissa Broussard Ma - 09/20/2022 2:25 PM EST ----- Message from Jennifer Wild PA-C sent at 09/20/2022 12:26 PM EST ----- Please advise Shoulder xr shows mild AC spurring, otherwise normal. Pain can improve with icing, stretching and antiinflammatories like ibuprofen or Aleve. Great site for shoulder stretching is https://orthoinfo.aaos.org/globalassets/pdfs/2017-rehab_shoulder.pdf ThanksKeith PA-C documented in this encounterMercy Health Tiffin Hospital02-10-2023 History of Present illness Narrative* Wendy Youssef RT(R) - 09/15/2022 3:30 PM EST Radiology Service Progress Note PATIENT NAME: Kelsi Soto DATE OF SERVICE: September 15, 2022 TIME: 3:29 PM PATIENT IDENTITY VERIFICATION COMPLETED USING TWO (2) IDENTIFIERS: Name and Date of confirmedby patient verbally. FALL SCREENING: Has the patient had 2 falls in the last year or 1 fall with injury or currently using an Ambulatory Assistive Device (Walker, Cane, Wheelchair, Crutches, etc.)? No PATIENT GENDER DATA: Male PATIENT RELEVANT IMPLANT DATA REVIEWED: Yes RADIOLOGY DEPARTMENT: General X-ray: Exam(s) Completed: Upper Extremity X- Ray(s): Shoulder, AP / TRUE AP / AXILLARY right PERIPHERAL IV DATA: Not applicable SIGNED BY: RT Lalo(R) September 15, 2022 3:29 PM documented in this encounterMercy Health Tiffin Hospital02-04-2023 Miscellaneous Notes* Telephone Encounter - Eileen Whitman LPN - 09/09/2022 10:30 AM EST Patient notified of results and provider's instructions. Patient verbalizes understanding. Appt rescheduled for 09/15/22. Eileen Whitman LPN * Telephone Encounter - Martin Melendez MD - 09/08/2022 7:15 PM EST We have to reschedule his appt due to computers being down.labs show cholesterol still up. We can discuss more at the appt. documented in this encounterMercy Health Tiffin Hospital01-18-2023 Miscellaneous Notes* Telephone Encounter - Cecy Michael LPN - 08/23/2022 1:59 PM EST Spoke with and information listed below given. verbalizes understanding. Cecy Michael LPN * Addendum Note - Martin Melendez MD - 08/23/2022 12:27 PM ESTAddended by: MARTIN MELENDEZ on: 08/23/2022 12:27 PM Modules accepted: Orders * Telephone Encounter - Martin Melendez MD - 08/23/2022 12:26 PM EST Labs were placed. * Telephone Encounter - Cecy Michael LPN - 08/23/2022 12:18 PM EST called for refill on medication below. Pt has not been seen since 01-05-21. 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 has scheduled apt for 09-08-22 to have a physical. Please put in lab orders for pt and leave a message on 's phone and she will get him in to get labs done before apt. I have instructed her to have pt fasting. Pt is almost out of medication and they are asking for a refill till he comes in then can discuss further. Patient has been identified by name and date of : Yes, Provider Dr. Melendez Date 08/23/22 Time 12:23 pm Spouse phones for refill(s): Requested Prescriptions Pending Prescriptions Disp Refills metoprolol succinate ER (TOPROL XL) 50 mg 24 hr tablet 135 tablet 3 Sig: Take 1.5 tablets by mouth once daily. Date of last office visit in primary care: 01/04/21 next apt 09-08-22 Last 2 Encounter Wt Readings: Date: Wt: 06/13/2022 86.6 kg (191 lb) 04/10/2021 83.6 kg (184 lb 6.4 oz) Previous labs/tests for medication: Blood Pressure: BUN (mg/dL) Date Value 01/01/2021 18 Sodium (mmol/L) Date Value 01/01/2021 138 Last 1 Encounter BP Readings: Date: BP: 06/13/2022 126/78 Please advise. Thank you. Cecy Michael LPN documented in this encounterMercy Health Tiffin Hospital01-11-2023 Miscellaneous Notes* Telephone Encounter - Liliana Kraus LPN - 08/16/2022 12:39 PM EST Notified and she verbalizes understanding. * Telephone Encounter - Martin Meelndez MD - 08/16/2022 11:20 AM EST Let him know we can't see anything in notes to suggest he needs it. I checked with cardiology as well. * Telephone Encounter - Martin Melendez MD - 08/15/2022 5:41 PM EST Not that I am aware of. If he had valve issues, that might be the case but I am not seeing anything. I can also run it by Cardiology as well. * Telephone Encounter - Jennifer Sepulveda RN - 08/15/2022 4:31 PM EST reports patient is having a dental problem. Will be seeing a dentist on or sooner if able. The current dentist who took over for previous dentist reports she sees something in his file that may indicate patient needs medication prior to dentist appt. The previous dentist took all of his records when he left. has no idea what kind of medication patient would need. Reports patient has no artificial parts in his body. Patient has not seen a dentist in she does not know how long. Asking if there is anything pcp is aware of that may indicate patient needs medication prior to dentist appt? Please advise . documented in this encounterMercy Health Tiffin Hospital11-09-2022 Miscellaneous Notes* Telephone Encounter - Nahomy Lama - 06/14/2022 7:22 AM EST Patient given results and verbalized understanding of instructions given. Nahomy Lama * Telephone Encounter - Larry Lopez APRN.BIZTALK ADMINISTRATOR - 06/14/2022 7:09 AM EST Follow the CDC guidelines for isolation: 1. Everyone, regardless of vaccination status, should stay home for 5 days. 2. If you have no symptoms or your symptoms are resolving after 5 days, you can leave your house. 3. Continue to wear a mask around others for 5 additional days. If you have a fever, continue to stay home until your fever resolves, even if it is longer than 5 days. Please monitor your symptoms, and for any worrisome symptoms, call your primary care provider or schedule a visit with [facility]. A test is not recommended to return to work/school when meeting the above criteria. documented in this encounterMercy Health Tiffin Hospital08-01-2022 Miscellaneous Notes* Telephone Encounter - Rossana Ann LPN - 03/06/2022 12:53 PM EDT Patient phones requesting refills as follows: Pending Prescriptions Disp Refills FEXOFENADINE 180 MG TABLET 90 tablet 3 Sig: Take 1 tablet by mouth once daily. IRENE: No Please review and advise. Rossana Ann LPN documented in this encounterMercy Health Tiffin Hospital03-01-2018 History of Past illness Narrative* Problem Noted Date Resolved Date Syncope and collapse 10/04/2017 09/15/2022 Alcohol abuse 07/28/2015 07/17/2017 Arm pain, anterior 06/28/2015 07/17/2017 documented as of this encounter (statuses as of 09/21/2022) [facility] History of Past illness Narrative* Problem Noted Date Resolved Date Syncope and collapse 10/04/2017 09/15/2022 Alcohol abuse 07/28/2015 07/17/2017 Arm pain, anterior 06/28/2015 07/17/2017 documented as of this encounter (statuses as of 09/26/2022) [facility] History of Past illness Narrative* Problem Noted Date Resolved Date Syncope and collapse 10/04/2017 09/15/2022 Alcohol abuse 07/28/2015 07/17/2017 Arm pain, anterior 06/28/2015 07/17/2017 documented as of this encounter (statuses as of 12/18/2022) [facility] History of Past illness Narrative* Problem Noted Date Diagnosed Date Resolved Date Syncope and collapse 10/04/2017 023 Alcohol abuse 07/28/2015 07/17/2017 Arm pain, anterior 06/28/2015 7 documented as of this encounter (statuses as of 03/08/2023) [facility] of Past illness Narrative* Problem Noted Date Diagnosed Date Resolved Date Syncope and collapse 10/04/2017 023 Alcohol abuse 07/28/2015 07/17/2017 Arm pain, anterior 06/28/2015 7 documented as of this encounter (statuses as of 10/04/2023) [facility] History of Past illness Narrative* Problem Noted Date Resolved Date Alcohol abuse 07/28/2015 07/17/2017 Arm pain, anterior 06/28/2015 07/17/2017 documented as of this encounter (statuses as of 03/06/2022) [facility] of Past illness Narrative* Problem Noted Date Resolved Date Alcohol abuse 07/28/2015 07/17/2017 Arm pain, anterior 06/28/2015 07/17/2017 documented as of this encounter (statuses as of 06/14/2022) [facility] of Past illness Narrative* Problem Noted Date Resolved Date Alcohol abuse 07/28/2015 07/17/2017 Arm pain, anterior 06/28/2015 07/17/2017 documented as of this encounter (statuses as of 08/16/2022) [facility] of Past illness Narrative* Problem Noted Date Resolved Date Alcohol abuse 07/28/2015 07/17/2017 Arm pain, anterior 06/28/2015 07/17/2017 documented as of this encounter (statuses as of 08/23/2022) [facility] of Past illness Narrative* Problem Noted Date Resolved Date Alcohol abuse 07/28/2015 07/17/2017 Arm pain, anterior 06/28/2015 07/17/2017 documented as of this encounter (statuses as of 09/09/2022) [facility] HospitalEvaluation note* Diagnosis Essential hypertension- Primary Unspecified essential hypertension Mixed hyperlipidemia [facility]* Diagnosis Nonischemic cardiomyopathy (HCC)- Primary Other primary cardiomyopathies 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 Essential hypertension Unspecified essential hypertension Mixed hyperlipidemia PVC's (premature ventricular contractions) Other premature beats documented in this encounter [facility]* Diagnosis Lateral epicondylitis of left elbow Lateral epicondylitis of elbow documented in this encounter [facility] note* Diagnosis Chronic right shoulder pain Pain in joint, shoulder region documented in this encounter [facility] HospitalEvformerly [facility]* Diagnosis Systolic congestive heart failure, unspecified HF chronicity (HCC)- Primary Encounter for immunization Need for other specified prophylactic vaccination against single bacterial disease Screening for depression Encounter for screening examination for other mental health and behavioral disorders VT (ventricular tachycardia) (HCC) Paroxysmal ventricular tachycardia Hyperlipidemia, mixed Mixed hyperlipidemia 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 Screening for diabetes mellitus documented in this encounter [facility] note* Diagnosis Onset Date Resolution Status Admit Date Chronic left ventricular systolic dysfunction (LVSD) chronic January 19, 2025 9:05am Coronary artery disease involving nikolski coronary artery of nikolski heart wi chronic January 19 9:05am Dyslipidemia chronic January 19 025 9:05am Essential hypertension chronic 2024 9:05am ETOH abuse chronic January 19 9:05am Nicotine dependence chronic January 19, 2025 9:05am Nonischemic cardiomyopathy chronic January 19, 2025 9:05am Palpitations chronic January 19 025 9:05am [place] [employer] Work Phone: Evaluation note* Diagnosis Tonsillitis- Primary Acute tonsillitis Acute otitis externa of both ears, unspecified type Nonischemic cardiomyopathy (HCC) Other primary cardiomyopathies Essential hypertension Unspecified essential hypertension 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 VT (ventricular tachycardia) (HCC) Paroxysmal ventricular tachycardia documented in this encounter [facility] note* Diagnosis Diarrhea of presumed infectious origin- Primary Nausea Nausea alone documented in this encounter [facility] for referral (narrative)* Outpatient Procedure (Routine) - Pending Review Specialty Diagnoses / Procedures Referred By Tino t Referred To Contact [facility] Diagnoses Nonischemic cardiomyopathy (HCC) 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 Essential hypertension Mixed hyperlipidemia PVC's (premature ventricular contractions) Procedures ECHO ECHO TTHRC R-T 2D W/WOM-MODE COMPL SPEC&COLR Keshav Babb DO [address] [place] [address] [facility] [place] [address] [place] [address] Referral ID Status Reason Start Date Expiration Date Visits Requested Visits Authorized [id number] Pending Review Auto-Generat ed Referral 12/18/2022 12/18/2023 1 1 [facility] for referral (narrative)* Diagnostic Procedure Only (Routine) - Closed Specialty Diagnoses / Procedures Referred By Tino covington Referred To Contact XR IMAGING Diagnoses Lateral epicondylitis of left elbow Procedures XR ELBOW GENERAL 2V AP/LAT LEFT RADEX ELBOW 2 VIEWS Martin Melendez MD [address] [place] [address] [place] [address] Referral ID Status Reason Start Date Expiration Date V isits Requested Visits Authorized [id number] Closed Auto-Generate d Referral 08/25/2023 09/23/2024 1 1 [facility] for referral (narrative)No reason for referral information availableK[facility] Work Phone: Reason for visit Narrative* Diagnostic Procedure Only (Routine) - Closed Specialty Diagnoses / Procedures Referred By Tino covington Referred To Contact XR IMAGING Diagnoses Lateral epicondylitis of left elbow Procedures XR ELBOW GENERAL 2V AP/LAT LEFT RADEX ELBOW 2 VIEWS Martin Melendez MD [address] [place] [address] [place] [address] Referral ID Status Reason Start Date Expiration Date V isits Requested Visits Authorized [id number] Closed Auto-Generate d Referral 08/25/2023 09/23/2024 1 1 [facility] Summary Purpose Family History Relationship Condition Age at Onset Recorded Date/T jennie father Cardiomyopathy Unknown brother Atrial fibrillation Unknown son Cardiomyopathy Unknown Advance Directives Documents on File Type Date 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 Advance Directive(s) 05/27/2018 8:08 AM Health Concerns Infection Onset Date Last Indicated Resolved Time COVID-19 Rule-Out 06/13/2022 06/13/2022 06/14/2022 3:07 AM EST COVID-19 Confirmed 06/13/2022 06/13/2022 Reason for Referral Specialty Diagnoses / Procedures Referred By Contac t Referred To Contact XR IMAGING Diagnoses Chronic right shoulder pain Procedures XR SHOULDER GENERAL 3V OR MORE AP/TRUE AP/OTHER RIGHT RADEX SHOULDER COMPLETE MINIMUM 2 VIEWS Martin Melendez MD [address] [place] [address] [place] [address] Referral ID Status Reason Start Date Expiration Date V isits Requested Visits Authorized [id number] Closed Auto-Generate d Referral 09/15/2022 08/05/2023 1 1 Specialty Diagnoses / Procedures Referred By Tino t Referred To Contact Cardiology Diagnoses Systolic congestive heart failure, unspecified HF chronicity (HCC) VT (ventricular tachycardia) (HCC) Procedures CONSULT TO CARDIOLOGY OFFICE/OUTPATIENT [facility] 60 MINUTES Lynn Avalos APRN.[address] [place] [address] Referral ID Status Reason Start Date Expiration Date Visits Requested Visits Authorized [id number] Authorized PCP Requested Referral 4 07/31/2025 1 1 Chief Complaint and Reason for Visit Chief Complaint Admit Date TACHYCARDIA January 19, 2025 9:05 am PALPITATIONS February 09, 2025 7:14a m Reason for Visit Admit Date Chronic left ventricular systolic dysfun ction (LVSD) January 19, 2025 9:05am Coronary artery disease invo lving nikolski coronary artery of nikolski heart wi January 19, 2025 9:05am Dyslipidemia January 19, 2025 9:05 am Essential hypertension January 19, 2025 9 :05am ETOH abuse January 19, 2025 9:05 am Nicotine dependence January 19, 2025 9:05 am Nonischemic cardiomyopathy January 19 9:05am Palpitations January 19, 2025 9:05 am Chief Complaint Admit Date TACHYCARDIA January 19, 2025 9:05 am Chief Complaint Admit Date TACHYCARDIA January 19, 2025 9:05 am PALPITATIONS February 09, 2025 7:14a m PALPITATIONS February 09, 2025 7:29a m HEART DISEASE,UNSPECIFIED February 27 2:17pm Additional Source Comments (unrecognized sect ion and content) No Status Records FoundNo Status Records FoundNo Status Records FoundNo Status Records FoundNo Status Records FoundNo Status Records Found INFORMATION SOURCE (unrecogn ized section and content) DATE CREATED AUTHOR [facility]/25/2018 [facility] DATE CREATED AUTHOR AUTHOR'S ORGANIZ ATION 01/25/2018 [facility] DATE CREATED AUTHOR AUTHOR'S ORGANIZ ATION 02/28/2020 [facility] DATE CREATED AUTHOR AUTHOR'S ORGANIZ ATION 02/03/2021 [facility] DATE CREATED AUTHOR AUTHOR'S ORGANIZ ATION 03/16/2025 [facility] DATE CREATED AUTHOR AUTHOR'S ORGANIZ ATION 03/16/2025 [facility] Source Comments (unrecognize d section and content) In the event this informatio n is protected by the Federal Confidentiality of Alcohol and Drug Abuse Patient Records regulations: The Federal rules restrict any use of the information to criminally investigate or prosecute any alcohol or drug abuse patient.[facility] HospitalIn the event this information is protected by the Federal Confidentiality of Alcohol and Drug Abuse Patient Records regulations: The Federal rules restrict any use of the information to criminally investigate or prosecute any alcohol or drug abuse patient.[facility] HospitalIn the event this information is protected by the Federal Confidentiality of Alcohol and Drug Abuse Patient Records regulations: The Federal rules restrict any use of the information to criminally investigate or prosecute any alcohol or drug abuse patient.[facility] HospitalIn the event this information is protected by the Federal Confidentiality of Alcohol and Drug Abuse Patient Records regulations: The Federal rules restrict any use of the information to criminally investigate or prosecute any alcohol or drug abuse patient.[facility] HospitalIn the event this information is protected by the Federal Confidentiality of Alcohol and Drug Abuse Patient Records regulations: The Federal rules restrict any use of the information to criminally investigate or prosecute any alcohol or drug abuse patient.[facility] HospitalIn the event this information is protected by the Federal Confidentiality of Alcohol and Drug Abuse Patient Records regulations: The Federal rules restrict any use of the information to criminally investigate or prosecute any alcohol or drug abuse patient.[facility] HospitalIn the event this information is protected by the Federal Confidentiality of Alcohol and Drug Abuse Patient Records regulations: The Federal rules restrict any use of the information to criminally investigate or prosecute any alcohol or drug abuse patient.[facility] HospitalIn the event this information is protected by the Federal Confidentiality of Alcohol and Drug Abuse Patient Records regulations: The Federal rules restrict any use of the information to criminally investigate or prosecute any alcohol or drug abuse patient.[facility] HospitalIn the event this information is protected by the Federal Confidentiality of Alcohol and Drug Abuse Patient Records regulations: The Federal rules restrict any use of the information to criminally investigate or prosecute any alcohol or drug abuse patient.[facility] HospitalIn the event this information is protected by the Federal Confidentiality of Alcohol and Drug Abuse Patient Records regulations: The Federal rules restrict any use of the information to criminally investigate or prosecute any alcohol or drug abuse patient.[facility] HospitalIn the event this information is protected by the Federal Confidentiality of Alcohol and Drug Abuse Patient Records regulations: The Federal rules restrict any use of the information to criminally investigate or prosecute any alcohol or drug abuse patient.[facility] HospitalIn the event this information is protected by the Federal Confidentiality of Alcohol and Drug Abuse Patient Records regulations: The Federal rules restrict any use of the information to criminally investigate or prosecute any alcohol or drug abuse patient.[facility] HospitalIn the event this information is protected by the Federal Confidentiality of Alcohol and Drug Abuse Patient Records regulations: The Federal rules restrict any use of the information to criminally investigate or prosecute any alcohol or drug abuse patient.[facility] HospitalIn the event this information is protected by the Federal Confidentiality of Alcohol and Drug Abuse Patient Records regulations: The Federal rules restrict any use of the information to criminally investigate or prosecute any alcohol or drug abuse patient.[facility] HospitalIn the event this information is protected by the Federal Confidentiality of Alcohol and Drug Abuse Patient Records regulations: The Federal rules restrict any use of the information to criminally investigate or prosecute any alcohol or drug abuse patient.[facility] HospitalIn the event this information is protected by the Federal Confidentiality of Alcohol and Drug Abuse Patient Records regulations: The Federal rules restrict any use of the information to criminally investigate or prosecute any alcohol or drug abuse patient.[facility] HospitalIn the event this information is protected by the Federal Confidentiality of Alcohol and Drug Abuse Patient Records regulations: The Federal rules restrict any use of the information to criminally investigate or prosecute any alcohol or drug abuse patient.[facility] HospitalIn the event this information is protected by the Federal Confidentiality of Alcohol and Drug Abuse Patient Records regulations: The Federal rules restrict any use of the information to criminally investigate or prosecute any alcohol or drug abuse patient.[facility] Reason for Visit (unrecogniz ed section and content) Reason Onset Date Comments Refill Request 03/06/2022 Reason Comments Results Reason Comments Patient Question Reason Onset Date Comments Refill Request 08/23/2022 Reason Comments Results Xray Reason Comments Forms Reason Comments Established Patient Follow-Up Surgical c learance Specialty Diagnoses / Procedures Referred By Contact Referred To Contact [facility]iology / [facility] Diagnoses cardiac clearance Procedures EST PATIENT GrisKeshav camposHANNAH VIL[place] [address] [place] [address] Keshav LandryHANNAH VILLE [address] [place] [address] Referral ID Status Reason Start Date Expiration Date Visits Re quested Visits Authorized [id number] Closed 12/18/2022 08/05/2023 1 1 Reason Onset Date Comments Refill Request 10/01/2023 Specialty Diagnoses / Procedures Referred By Contac t Referred To Contact XR IMAGING Diagnoses Chronic right shoulder pain Procedures XR SHOULDER GENERAL 3V OR MORE AP/TRUE AP/OTHER RIGHT RADEX SHOULDER COMPLETE MINIMUM 2 VIEWS Martin Melendez MD [address] [place] [address] [place] [address] Referral ID Status Reason Start Date Expiration Date V isits Requested Visits Authorized [id number] Closed Auto-Generate d Referral 09/15/2022 08/05/2023 1 1 Reason Comments Yearly Exam Reason Comments Appointment Reason Comments 6 Month Exam Reason Onset Date Comments Nausea 03/16/2025 Care Teams (unrecognized sec tion and content) Maintenance Mechanic Millwright Relationship Specialty Start Date End Date Martin Melendez MD [address] [place], [place] [id number] PCP - General Family Practice 07/17/17 No, Referral Referring Cardiology 01/12/20 Maintenance Mechanic Millwright Relationship Specialty Start Date End Date Martin Melendez MD [address] [facility], [place] [id number] PCP - General Family Medicine 07/17/17 No, Referral Referring Cardiology 01/12/20 Maintenance Mechanic Millwright Relationship Specialty Start Date End Date Martin Melendez MD [address] [place] [address] PCP - General Family Medicine 07/17/17 No, Referral Referring Cardiology 01/12/20 Maintenance Mechanic Millwright Relationship Specialty Start Date End Date Martin Melendez MD [address] [place] [address] PCP - General Family Medicine 07/17/17 No, Referral Referring Cardiology 01/12/20 Maintenance Mechanic Millwright Relationship Specialty Start Date End Date Martin Melendez MD [address] [place] [address] PCP - General Family Medicine 07/17/17 No, Referral Referring Cardiology 01/12/20 Maintenance Mechanic Millwright Relationship Specialty Start Date End Date Martin Melendez MD [address] [place] [address] PCP - General Family Medicine 07/17/17 No, Referral Referring Cardiology 01/12/20 Maintenance Mechanic Millwright Relationship Specialty Start Date End Date Martin Melendez MD [address] [place] [address] PCP - General Family Medicine 07/17/17 No, Referral Referring Cardiology 01/12/20 Maintenance Mechanic Millwright Relationship Specialty Start Date End Date Martin Melendez MD [address] [place] [address] PCP - General Family Medicine 07/17/17 No, Referral Referring Cardiology 01/12/20 Maintenance Mechanic Millwright Relationship Specialty Start Date End Date Martin Melendez MD [address] [place] [address] PCP - General Family Medicine 07/17/17 No, Referral Referring Cardiology 01/12/20 Maintenance Mechanic Millwright Relationship Specialty Start Date End Date Martin Melendez MD [address] [place] [address] PCP - General Family Medicine 07/17/17 No, Referral Referring Cardiology 01/12/20 Maintenance Mechanic Millwright Relationship Specialty Start Date End Date Martin Melendez MD [address] [place] [address] PCP - General Family Medicine 07/17/17 No, Referral Referring Cardiology 01/12/20 Maintenance Mechanic Millwright Relationship Specialty Start Date End Date Martin Melendez MD [address] [place] [address] PCP - General Family Medicine 07/17/17 No, Referral Referring Cardiology 01/12/20 Aretha Hemphill, OSD CLERK.BIZTALK ADMINISTRATOR [address] [facility] [place] [address] Global Coordinator Family Medicine 07/14/24 Lynn Avalos OSD CLERK.BIZTALK ADMINISTRATOR [address] [place] [address] Global Coordinator Family Medicine 07/14/24 Maintenance Mechanic Millwright Relationship Specialty Start Date End Date Martin Melendez MD [address] [place] [address] PCP - General Family Medicine 07/17/17 No, Referral Referring Cardiology 01/12/20 Aretha Hemphill, OSD CLERK.BIZTALK ADMINISTRATOR [address] [facility] [place] [address] [facility]24 Lynn Avalos APRN.BIZTALK ADMINISTRATOR [address] [place], [place] [id number] [facility]24 Team Status: Active Member Role Status Dates Dr. Martin Melendez MD Family Provider Active MARY Ann Primary Care Provider Active Team Status: Inactive Member Role Status Dates Martin Melendez OLS Referring Provider Active Start : January 19, 2025 End: January 19, 2025 MARY Ann Primary Care Provider Active Start: January 19, 2025 End: January 19, 2025 Dr. Qi Martínez MD Attending Provider Active Start: January 19, 2025 End: January 19, 2025 Maintenance Mechanic Millwright Relationship Specialty Start Date End Date Martin Melendez MD [address] [place] [address] PCP - General Family Medicine 07/17/17 No, Referral Referring Cardiology 01/12/20 Aretha Hemphill APRN.BIZTALK ADMINISTRATOR [address] [place] [address] [facility] 07/14/24 Lynn Avalos APRN.BIZTALK ADMINISTRATOR [address] [place], [place] [address] [facility] 07/14/24 Maintenance Mechanic Millwright Relationship Specialty Start Date End Date Martin Melendez MD [address] [place], [place] [address] PCP - General Family Medicine 07/17/17 No, Referral Referring Cardiology 01/12/20 Aretha Hemphill APRN.BIZTALK ADMINISTRATOR [address] [facility] [place] [address] Global Coordinator [facility] 07/14/24 Lynn Avalos APRN.CNP [address] [place] [address] Global Coordinator [facility] 07/14/24 Team Status: Active Member Role/Relationship Status Dates Lynn Avalos , DIRECTOR [employer] Primary Care Provider Active Team Status: Inactive Member Role/Relationship Status Dates Martin HEARD Referring Provider Active Start : January 19, 2025 End: January 19, 2025 Lynn Avalos , DIRECTOR [employer] C[employer] Primary Care Provider Active Start: January 19, 2025 End: January 19, 2025 Dr. Qi Martínez MD Attending Provider Active Start: January 19, 2025 End: January 19, 2025 Team Status: Inactive Member Role/Relationship Status Dates Lynn Avalos , DIRECTOR [employer] Primary Care Provider Active Start: February 09, 2025 End: February 09, 2025 Dr. Qi Martínez MD Attending Provider Active Start: February 09, 2025 End: February 09, 2025 Dr. Qi Martínez MD Referring Provider Active Start: February 09, 2025 End: February 09, 2025 Team Status: Active Member Role/Relationship Status Dates Lynn Avalos , DIRECTOR [employer] Primary Care Provider Active Start: February 09, 2025 Dr. Qi Martínez MD Attending Provider Active Start: February 09, 2025 Dr. Qi Martínez MD Referring Provider Active Start: February 09, 2025 Team Status: Inactive Member Role/Relationship Status Dates Lynn Avalos , DIRECTOR [employer] Primary Care Provider Active Start: February 27, 2025 End: February 27, 2025 Dr. Qi Martínez MD Attending Provider Active Start: February 27, 2025 End: February 27, 2025 Dr. Qi Martínez MD Referring Provider Active Start: February 27, 2025 End: February 27, 2025 Team Status: Active Member Role/Relationship Status Dates Lynn Avalos , DIRECTOR [employer] Primary Care Provider Active Start: February 27, 2025 Dr. Qi Martínez MD Attending Provider Active Start: Estela 25th, 2025 Maintenance Mechanic Millwright Relationship Specialty Start Date End Date Martin Melendez MD [address] [place] [address] PCP - General Family Medicine 07/17/17 No, Referral Referring Cardiology 01/12/20 Aretha Hemphill APRN.BIZTALK ADMINISTRATOR [address] [place] [address] [facility] 07/14/24 Lynn Avalos APRN.BIZTALK ADMINISTRATOR [address] [place] [address] [facility] 07/14/24 Goals (unrecognized section and content) Goals may be documented in a n alternate sectionGoals may be documented in an alternate sectionGoals may be documented in an alternate section FOR RECORDS PERTAINING TO PATIENTS WHO ARE OR HAVE BEEN ENROLLED IN A CHEMICAL DEPENDENCY/SUBSTANCEABUSE PROGRAM, SOME INFORMATION MAY BE OMITTED. This clinical summary was aggregated from multiple sources. Caution should be exercised in using it in the provision of clinical care. This summary normalizes information from multiple sources, and as a consequence, information in this document may materially change the coding, format and clinical context of patient data. In addition, data may be omitted in some cases. CLINICAL DECISIONS SHOULD BE BASED ON THE PRIMARY CLINICAL RECORDS. [facility] [employer] [facility]. provides no warranty or guarantee of the accuracy or completeness of information in this document.
--- NOTE | 2025-03-23 18:27 | STRESSREP ---
Stress Test Report Exercise myocardial perfusion stress test. 59-year-old man with a history of ventricular tachycardia. Stress protocol: Resting EKG demonstrates normal sinus rhythm with a rate of 65 bpm resting blood pressure is 110/72 mmHg. The patient exercised according to the regular Rafael protocol for a total duration of 8 minutes attaining a maximum heart rate of 139 bpm which was 87% of maximum predicted heart rate; the maximum workload was 10.1 metabolic equivalents. At rest there were no ST or T wave changes noted to suggest ischemia and at peak exercise upsloping ST changes only were noted which did not meet the criteria for ischemia. Premature ventricular complexes were noted during recovery with 1 couplet activity noted. No clinical angina was noted the test was terminated due to the target heart rate being achieved/fatigue. The peak blood pressure was 144/68 mmHg. Rate-pressure product was 19,700. Myocardial perfusion protocol. 11.8 mCi of technetium 99m sestamibi was injected at rest. The patient exercised according to regular Rafael protocol for total duration of 8 minutes and at peak exercise 33.5 mCi of technetium 99m sestamibi was injected stress images were obtained stress and rest images were reconstructed in comparing the short axis vertical long and horizontal long axis. Gated images were also obtained. Perfusion SPECT analysis: Review of the stress images demonstrate normal uptake of tracer noted in all areas of the myocardium. The resting images similarly demonstrate normal uptake of tracer noted in all areas of the myocardium. No areas of reversibility are noted to suggest ischemia no previous infarct was noted. Gated SPECT analysis: The gated ejection fraction is 42% %. Conclusion: Normal exercise myocardial perfusion stress test at a high workload. Mildly reduced ejection fraction
== END | disposition home or self-care (01) ==
LOC: CVS 06:53
PROVIDERS: PCP Clinical Nurse Specialist Adult Health; Referring Provider Nurse Practitioner Gerontology; Visit Provider Nurse Practitioner Gerontology
DX: I47.20 Ventricular tachycardia, unspecified (principal); I25.10 Atherosclerotic heart disease of native coronary artery without angina pectoris
CPT/HCPCS: 78452; 93017; A9500; A4216

== ENCOUNTER 2025-04-17 07:27 | Outpatient (CLI) | payer OTHER, SELFPAY ==
--- OUTSIDE RECORDS SUMMARY | 2025-04-17 07:44 | XMS RPT_ITS | CCD ---
Author Organization [facility] Care Team Providers Care Director Of Exhibits Name Role Phone MARIELLE, NATHANIEL E Unavailable Unavailable MARIELLE, NATHANIEL E Unavailable Unavailable MARIELLE, NATHANIEL E Unavailable Unavailable MARIELLE, NATHANIEL Unavailable Unavailable Al, Martin Unavailable Unavailable MARIELLE, NATHANIEL Unavailable Unavailable MARIELLE, NATHANIEL Unavailable Unavailable Al, Martin Unavailable Unavailable Al, Martin Unavailable Unavailable [...] Martin Melendez MD Primary Care Provider Haagen CHEF KITCHEN MANAGER.Aretha BERMAN Unavailable Suppan CHEF KITCHEN MANAGER.Lynn BERMAN Unavailable [phone] Suppan CHEF KITCHEN MANAGER.Lynn BERMAN A Unavailable Martin Mraks Referring Provider Unavailable SuppLynn Lopes Primary Care Provider Mauricio MD, Dr. Busby Attending Provider Dr. Qi Martínez MD Referring Provider AL, MARTIN J Primary Care Unavailable SUPPAN, [...] Unavailable AL, MARTIN J Primary Care Unavailable Mike INNER TUBE INSERTER-C, Gladis Attending Provider Mike INNER TUBE INSERTER-C, Gladis Referring Provider Mike NESBITT-C, Gladis Other Provider Merrill MOON, Dr. Michaud Attending Provider Suppan AUT[employer] DEALERSHIP PORTER, Lynn Referring Provider Brianne Lopez Attending Provider Gladis Mckeon Attending Unavailable Gladis Mckeon Referring Unavailable Suppan, Lynn Primary Care Unavailable Mauricio, Qi Referring Unavailable Suppan, Lynn Primary Care Unavailable Mauricio, Qi Attending Unavailable Gladis Mckeon Attending Unavailable Suppan, Lynn Primary Care Unavailable Suppan, Lynn Primary Care Unavailable Mauricio, Qi Attending Unavailable Mauricio, Qi Referring Unavailable Mauricio, Qi Attending Unavailable Suppan, Lynn Primary Care Unavailable Gladis Mckeon Referring Unavailable Jaswant Momin Attending Unavailable Suppan, Lynn Primary Care Unavailable Gladis Mckeon Consulting Unavailable Brianne Webster Attending Unavailable Suppan, Lynn Referring Unavailable Suppan, Lynn Primary Care Unavailable Al Martin HEARD Referring Unavailable Suppan, Lynn Primary Care Unavailable Mauricio, Qi Attending Unavailable Mauricio, Qi Referring Unavailable Suppan, Lynn Primary Care Unavailable Mauricio, Qi Attending Unavailable Allergies Allergy Classification Reported Allergen(s) Allergy Type Date of Onset Reaction(s) Facility (6 sources) Environmental Allergies: Uncoded; Translations: [Environmental Allergies: Uncoded] Allergy to substance 5 Nasal Congestion [facility] Medications Current Medications Medication Drug [...] Aggregation Inhibitor, Nonsteroidal Anti-inflammatory Drug Start: 08-01-2011 Aspirin (Lo-Dose Aspirin) 81 MG tablet,delayed release (DR/EC) Active 81 mg PO DAILY June 14, 2016 1:00am heart health Comment on above: Take 1 tablet by wandy th once daily. azithromycin 250 mg oral tablet (1 source) Macrolide Antimicrobial Start: 12-26-2024 End: 12-31-2024 azithromycin (ZITHROMAX Z-ENA) 250 mg tablet Indications: Pharyngitis due to Streptococcus species Take 2 tablets day one, then, 1 tablet daily until gone. 6 tablet 12/26/2024 12/31/2024 Active dapagliflozin 10 mg oral tablet (10 sources) Sodium-Glucose Cotransporter 2 Inhibitor Start: 01-19-2025 End: 01-21-2025 take 1 tablet by mouth once daily Dapagliflozin Propanediol (Farxiga) 10 mg tablet Active 10 mg PO daily 90 3 January 21, 2025 12:47pm 24 hr metoprolol succinate 50 mg extended release oral tablet (20 sources) beta-Adrenergic Zakiya Start: 04-13-2025 take 1 tablet by mouth once daily Metoprolol Succinate 50 mg tablet extended release 24 hr Active 50 mg PO daily April 13, 2025 12:00am Start: 01-19-2025 End: 04-13-2025 Metoprolol Succinate 50 mg t ablet extended release 24 hr Discontinued 75 mg PO DAILY January 19, 2025 9:13am April 13, 2025 3:18pm bp Start: 10-03-2023 End: 07-31-2024 Metoprolol Succinate 50 mg t ablet extended release 24 hr Active 75 mg PO DAILY January 19, 2025 9:13am bp Start: 06-17-2015 End: 01-19-2025 take 1.5 tablets by mouth once daily metoprolol succinate ER (TOPROL XL) 50 mg 24 hr tablet Take 1.5 tablets by mouth once daily. 135 tablet 3 08/23/2022 10/01/2023 Discontinued Comment on above: Take 1.5 tablets by mouth once daily. MULTIVITAMIN ORAL (18 sources) MULTIVITAMIN ORA L Take by mouth. Active MULTIVITAMIN ORA L Take by mouth. 0 Active Comment on above: Take by mouth. Multivitamin tablet (5 sources) Start: 5 Multivitamin tablet Active 1 {tbl} PO daily [...] mg / valsartan 26 mg oral tablet (10 sources) Angiotensin 2 Receptor Zakiya Start: 5 take 1 tablet by mouth every twelve [...] Drug Class(es) Dates Sig (Normalized) Sig (Original) fexofenadine hydrochloride 180 mg oral tablet (15 sources) Histamine-1 Receptor Antagonist Start: 07-31-2024 End: 07-31-2025 take 1 tablet by mouth once daily Fexofenadine (Allergy Relief (Fexofenadine)) 180 mg tablet Discontinued 180 mg PO daily January 12, 2025 12:00am April 13, 2025 3:18pm Start: 11-07-2022 take 1 tablet by wandy th once daily fexofenadine (JESSICA) 180 mg tablet [...] Take 180 mg by mouth once daily. lidocaine 0.05 mg/mg medicated patch (5 sources) Antiarrhythmic, Amide Local Anesthetic Start: apply 1 dose transdermal route every twelve [...] Location: back lisinopril 5 mg oral tablet (6 sources) Angiotensin Converting Enzyme Inhibitor Start: End: take 1 tablet by mouth once daily Lisinopril 5 mg tablet Discontinued 5 mg PO daily January 12, 2025 12:00am January 19, 2025 9:11am meclizine hydrochloride 25 mg oral tablet (5 sources) Antiemetic Start: take 1 tablet by mouth every six hours as needed for dizziness meclizine (ANTIVERT) 25 mg tab Indications: Vertigo Take 1 tablet by mouth every 6 hours as needed (dizziness). 12 tablet 0 04/10/2021 Active Comment on above: Take 1 tablet by wandy th every 6 hours as needed (dizziness). meloxicam 15 mg oral tablet (4 sources) Nonsteroidal Anti-inflammatory Drug Start: End: take 1 tablet by mouth once daily [...] DAY rosuvastatin calcium 5 mg oral tablet (6 sources) HMG-CoA Reductase Inhibitor Start: 4 End: [...] [Acute tonsillitis, unspecified] Onset: 01-30-2025 01-30-2025 Episodic Alcohol-related disorders (19 sources) Alcohol abuse; Translations: [Alcohol abuse, uncomplicated] Onset: 07-28-2015 Resolved: 07-17-2017 07-17-2017 Chronic Cardiac dysrhythmias (20 sources) Ventricular tachycardia; Translations: [Ventricular tachycardia] Onset: 07-28-2015 07-28-2015 Chronic Cardiac dysrhythmias (20 sources) Palpitations; Translations: [Palpitations] Onset: 05-27-2019 05-27-2019 Episodic Conditions associated with dizziness or vertigo (20 sources) Lightheadedness; Translations: [Dizziness and giddiness] Onset: 07-28-2015 07-28-2015 Episodic Congestive heart failure; nonhypertensive (2 sources) Congestive heart failure; Translations: [Unspecified systolic (congestive) heart failure] Onset: 07-31-2024 07-31-2024 Chronic Coronary atherosclerosis and other heart disease (20 sources) Coronary atherosclerosis; Translations: [Atherosclerotic heart disease of [place] coronary artery without angina pectoris] Onset: 03-12-2020 [...] infectious origin; Translations: [Diarrhea, unspecified] 03-16-2025 Episodic Malaise and fatigue (20 sources) Asthenia; Translations: [Weakness] Onset: 09-15-2022 09-15-2022 Episodic Nausea and vomiting (1 source) Nausea; Translations: [Nausea] 03-16-2025 Episodic Other and ill-defined heart disease (5 sources) Left ventricular systolic dysfunction; Translations: [Other ill-defined heart diseases] 01-12-2025 Chronic Other and ill-defined heart disease (10 sources) Chronic systolic dysfunction of left ventricle; Translations: [Heart disease, unspecified] 01-19-2025 Chronic Other and ill-defined heart disease (1 source) Heart disease, unspecified; Translations: [Heart disease, unspecified] Onset: 03-03-2025 Chronic Other circulatory disease (5 sources) History of cardiac arrhythmia; Translations: [Personal history of other diseases of the circulatory system] 04-01-2019 Episodic Other circulatory disease (5 sources) History of cardiomyopathy; Translations: [Personal history [...] 01-30-2025 Episodic Other gastrointestinal disorders (1 source) Irritable bowel syndrome without diarrhea; Translations: [Irritable bowel syndrome, unspecified] Onset: 04-14-2025 Chronic Other gastrointestinal disorders (2 sources) Diarrhea, unspecified; Translations: [Diarrhea of presumed infectious origin] Onset: 03-13-2025 Episodic Other gastrointestinal disorders (2 sources) Diarrhea; Translations: [Diarrhea, unspecified] 04-14-2025 Episodic Other non-traumatic joint disorders (1 source) [...] of mental health and substance abuse codes (5 sources) Tobacco use and exposure - finding; Translations: [Personal history of nicotine dependence] 01-12-2025 Episodic Substance-related disorders (11 sources) Nicotine dependence; Translations: [Nicotine dependence, unspecified, uncomplicated] Onset: 01-19-2025 01-19-2025 Chronic Syncope (20 sources) Syncope and collapse; Translations: [Near syncope] Onset: 10-04-2017 Resolved: 09-15-2022 09-15-2022 Episodic Unclassified (1 source) Unknown / UNK(Unknown) Onset: 10-04-2017 Unclassified (1 source) VT (ventricular tachycardia) (HCC); Translations: [VT (ventricular tachycardia) (HCC)] Onset: 07-28-2015 Unclassified (2 sources) Ventricular tachycardia, unspecified; Translations: [Ventricular tachycardia, unspecified] Onset: 03-24-2025 Past or Other Problems Problem Classification Problem Date Documented Da te Episodic/Chronic Other connective tissue disease (8 sources) Pain in upper limb; Translations: [Pain in arm, unspecified] Onset: 06-28-2015 Resolved: 07-17-2017 07-17-2017 Episodic Results Test Name Value Interpretation Reference Range Facility Gastroenterology Visit Repor ton 04-14-2025 Gastroenterology Visit Report [facility] [address] [place] [address] OFFICE VISIT Date of Service: 04/14/25 MR#: [id number] Acct: [id number] Name: KELSI SOTO Rep #: [id number] : 1965 Provider: KAITLIN Frias Age/Sex: 59/M Location: BMS.BGI Status: Signed Intake Vital Signs 01/19/25 08:10 Height 6 ft Intake Visit Reasons: DIARRHEA PRESUMED INFECTIOUS Chief Complaint: Loose stool Allergies Environmental Allergies: Uncoded (seasonal) Allergy (Mild, Verified 04/13/25 15:17) Nasal Congestion Medications ???Medication ???Instructions ???Recorded ???Confirmed ???Type aspirin 81 mg tablet,delayed 81 mg PO DAILY heart health 04/13/25 History release (Lo-Dose Aspirin) multivitamin 1 tab PO QDAY 01/12/25 04/13/25 Hi story dapagliflozin propanediol 10 mg 10 mg PO QDAY #90 tabs 01/21/25 Rx tablet (Farxiga) sacubitril 24 mg-valsartan 26 mg 1 tab PO BID #90 tabs 01/21/2503/30 Rx tablet (Entresto) metoprolol succinate 50 mg 50 mg PO QDAY 04/13/25 04/13/25 Hi story tablet,extended release 24 hr Nurse's Note: Pt reports diarrhea for the last several weeks. PCP ran stool tests that were neg. for c.diff and pathogens. States he is having multiple BMs daily. Metamucil is somewhat helpful. Denies bloody or dark stools. Has some RLQ pain relieved by passing gas. [facility] Medical History (Updated 04/14/25 @ 08:10 by KAITLIN Frias) Diarrhea Nonischemic cardiomyopathy Lightheadedness Ventricular tachycardia PVCs (premature ventricular contractions) Mixed hyperlipidemia Coronary artery disease involving [place] coronary artery of [place] heart without angina pectoris Asthenia History of left heart catheterization History of electrophysiologic study Pain in wrist Nonsustained ventricular tachycardia Left ventricular systolic dysfunction Essential hypertension Dyslipidemia Dilated cardiomyopathy Smoking history Other dental procedure status Sinus congestion Earache Fatigue Sore throat Surgical History History of colonoscopy Family History Father Cardiomyopathy Brother A-fib Son Cardiomyopathy Social History Smoking Status: Current some day smoker Smokeless tobacco user: snuff and other Electronic Cigarette Use: not used alcohol intake: current alcohol intake frequency: a few times a week substance use type: does not use HPI HPI Chief Complaint: Loose stool Details: KELSI SOTO, is a 59 M who presents to the office today for establishment. Patient has been having loose stool for 6 to 8 weeks after suspected food poisoning. Patient will have loose stool daily. It is sometimes soft and sometimes watery. He typically has bowel movements after he eats but it will wake him up during the night on occasion. He has not noticed any triggering foods. Patient does note he started Farxiga and Entresto just 2 weeks before this started. He did see his primary care provider who did C. difficile and enteric pathogens which was negative. He notes it does improve when he takes Metamucil on a consistent basis. Last colonoscopy was in 2018 without abnormalities. ROS Const Constitutional: No fatigue, fever(s) or weight change ENT ENT: No difficulty swallowing Gastro GI: Positive for abdominal pain, bloating, change in bowel habits, diarrhea, heartburn and excessive flatus; No belching, change in stool character, coffee ground emesis, constipation, cramping, difficulty swallowing, feeling full early, incontinent of stools, Vomiting blood/hematemesis, Blood in stool, loose stools, Black,tarry stools, nausea/dyspepsia, pain with swallowing, vomiting or other Musc Musculoskeletal: No joint pain Skin Skin: No yellowing of the eye or itchy eyes Psych Psychiatric: No anxiety and No depression Endo Endocrine: No fatigue or weight change Aller/Imm Allergy/Immunologic: No itchy eyes Mane/Lymp Hematologic/Lymphatic: No easy bleeding or easy bruising Exam Const General: cooperative, healthy appearing and comfortable Orientation: alert HENTN Head: normal to inspection Eyes General: appearance normal, both eyes and all related structures Neck Neck: normal visual inspection Chest Chest palpation inspection: normal inspection of the chest Resp Effort Inspection: normal respiratory effort Cardio Rate: regular rate Rhythm: regular rhythm GI Inspection: normal to inspection Auscultation: normal bowel sounds Palpation: not soft, firm, no guarding and nontender Assessment and Plan Assessment and Plan (1) Diarrhea: Status: Acute Plan: Kelsi is a 59-year-old male p (more content not included)... Normal [facility] Cardiovascular stress test r eportOrdered By: Jaswant Momin on 03-23-2025 Study report [facility] [address] [place] [address] MR#: [id number] Acct: [id number] Name: KELSI SOTO Rep #: [id number] : 1965 59 From: Jaswant Momin MD Primary Care: Lynn Avalos, AUT[employer] DEALERSHIP PORTER Stat us: REG CLI Referring Dr: Gladis Mckeon INNER TUBE INSERTER INNER TUBE INSERTER-C Sex: M C Stress Test Report Exercise myocardial perfusion stress test. 59-year-old man with a history of ventricular tachycardia. Stress protocol: Resting EKG demonstrates normal sinus rhythm with a rate of 65 bpm resting bloodpressure is 110/72 mmHg. The patient exercised according to the regular Rafael protocol for a total duration of 8 minutes attaining a maximum heart rate of 139bpm which was 87% of maximum predicted heart rate; the maximum workload was 10.1metabolic equivalents. At rest there were no ST or T wave changes noted to suggest ischemia and at peak exercise upsloping ST changes only were noted whichdid not meet the criteria for ischemia. Premature ventricular complexes were noted during recovery with 1 couplet activity noted. No clinical angina was noted the test was terminated due to the target heart rate being achieved/fatigue. The peak blood pressure was 144/68 mmHg. Rate-pressure productwas 19,700. Myocardial perfusion protocol. 11.8 mCi of technetium 99m sestamibi was injected at rest. The patient exercisedaccording to regular Rafael protocol for total duration of 8 minutes and at peak exercise 33.5 mCi of technetium 99m sestamibi was injected stress images were obtained stress and rest images were reconstructed in comparing the short axis vertical long and horizontal long axis. Gated images were also obtained. Perfusion SPECT analysis: Review of the stress images demonstrate normal uptake of tracer noted in all areas of the myocardium. The resting images similarly demonstrate normal uptake of tracer noted in all areas of the myocardium. No areas of reversibility are noted to suggest ischemia no previous infarct was noted. Gated SPECT analysis: The gated ejection fraction is 42% %. Conclusion: Normal exercise myocardial perfusion stress test at a high workload. Mildly reduced ejection fraction 03/23/25 1831 Date ___ _ Jaswant Momin MD CC: [employer] PORTER Lynn Avalos; INNER TUBE INSERTER-C Gladis Mckeon ~ Date Dictated: 03/23/251826 Date Transcribed: 03/23/251826 Adobe Layer: CO Signed [facility] Work Phone: Stress Reporton 03-23-2025 Stress Report [facility] Cardiovascular Services [address] [place] [address] MR#: [id number] Acct: [id number] Name: KELSI SOTO Rep #: [id number] : 1965 59 From: Jaswant Momin MD Primary Care: MARY Ann Status: REG CLI Referring Dr: Gladis Mckeon NP INNER TUBE INSERTER-Sonia Sex: M C Stress Test Report Exercise myocardial perfusion stress test. 59-year-old man with a history of ventricular tachycardia. Stress protocol: Resting EKG demonstrates normal sinus rhythm with a rate of 65 bpm resting blood pressure is 110/72 mmHg. The patient exercised according to the regular Rafael protocol for a total duration of 8 minutes attaining a maximum heart rate of 139 bpm which was 87% of maximum predicted heart rate; the maximum workload was 10.1 metabolic equivalents. At rest there were no ST or T wave changes noted to suggest ischemia and at peak exercise upsloping ST changes only were noted which did not meet the criteria for ischemia. Premature ventricular complexes were noted during recovery with 1 couplet activity noted. No clinical angina was noted the test was terminated due to the target heart rate being achieved/fatigue. The peak blood pressure was 144/68 mmHg. Rate-pressure product was 19,700. Myocardial perfusion protocol. 11.8 mCi of technetium 99m sestamibi was injected at rest. The patient exercised according to regular Rafael protocol for total duration of 8 minutes and at peak exercise 33.5 mCi of technetium 99m sestamibi was injected stress images were obtained stress and rest images were reconstructed in comparing the short axis vertical long and horizontal long axis. Gated images were also obtained. Perfusion SPECT analysis: Review of the stress images demonstrate normal uptake of tracer noted in all areas of the myocardium. The resting images similarly demonstrate normal uptake of tracer noted in all areas of the myocardium. No areas of reversibility are noted to suggest ischemia no previous infarct was noted. Gated SPECT analysis: The gated ejection fraction is 42% %. Conclusion: Normal exercise myocardial perfusion stress test at a high workload. Mildly reduced ejection fraction 03/23/25 1831 Date ____ Jaswant Momin MD CC: [employer] P[employer]TER Lynn Avalos; INNER TUBE INSERTER-Sonia Mckeon Date Dictated: 03/23/251826 Date Transcribed: 03/23/251826 Adobe Layer: CO Signed Normal [facility] C diff Tox gens Stl Ql CADENCE+p robeon 03-14-2025 C. difficile toxin genes CADENCE+probe Ql (Stl) Negative Normal Negative for C. difficile toxin by PCR [facility] Comment on above: Order Comment: Speci men Type: BLOOD SPECIMEN Ordering Facility: [facility] Address: [address] [place] [address] Performed By: #### P SAS1 #### [facility] [place] [id number] [address] [place] [address] [place] FECAL LACTOFERRIN/LEUKOCYTES on 03-14-2025 Lactoferrin IA Ql (Stl) Negative for lactoferrin, which may indicate the absence of fecal white blood cells Normal Negative [facility] Comment on above: Order Comment: Speci men Type: BLOOD SPECIMEN Ordering Facility: [facility] Address: [address] [place] [address] Performed By: #### P SAS1 #### [facility] [place] [id number] [address] [place] [address] [place] G lamblia+Cryptosp Ag Stl Ql IAon 03-14-2025 G. lamblia+Cryptospori dium sp Ag IA Ql (Stl) CRYPTOSPORIDIUM ANTIGEN BY EIA: Negative for Cryptosporidium by EIA. GIARDIA ANTIGEN BY EIA: Negative for Giardia lamblia by EIA. Normal [facility] Comment on above: Performed By: #### P SAS1 #### [facility] CLIA [id number] [address] [place] [address] [place] CBC W Auto Differential pane l (Bld)on 03-13-2025 Basophils (Bld) [#/Vol] 0.06 10*3/uL Normal <0.11 [facility] Comment on above: Order Comment: Speci men Type: BLOOD SPECIMEN Ordering Facility: [facility] Address: [address] [place] [address] Performed By: #### P SAS1 #### [facility] CLIA [id number] [address] [place] [address] [place] Basophils/100 WBC (Bld) 0.8 % Normal [facility] Comment on above: Order Comment: Speci men Type: BLOOD SPECIMEN Ordering Facility: [facility] Address: [address] [place] [address] Performed By: #### P SAS1 #### [facility] CLIA [id number] [address] [place] [address] [place] Differential cell count method Nom (Bld) Auto Normal [facility] Comment on above: Order Comment: Speci men Type: BLOOD SPECIMEN Ordering Facility: [facility] Address: [address] [place] [address] Performed By: #### P SAS1 #### [facility] CLIA [id number] [address] [place] [address] [place] Eosinophils (Bld) [#/Vol] 0.26 10*3/uL Normal <0.46 [facility] Comment on above: Order Comment: Speci men Type: BLOOD SPECIMEN Ordering Facility: [facility] Address: [address] [place] [address] Performed By: #### P SAS1 #### [facility] CLIA [id number] [address] [place] [address] [place] Eosinophils/100 WBC (Bld) 3.4 % Normal [facility] Comment on above: Order Comment: Speci men Type: BLOOD SPECIMEN Ordering Facility: [facility] Address: [address] [place] [address] Performed By: #### P SAS1 #### [facility] CLIA [id number] [address] [place] [address] [place] Erythrocyte distribution width (RBC) [Ratio] 13.0 % Normal 11.5-15.0 [facility] Comment on above: Order Comment: Speci men Type: BLOOD SPECIMEN Ordering Facility: [facility] Address: [address] [place] [address] Performed By: #### P SAS1 #### [facility] CLIA [id number] [address] [place] [address] [place] Hematocrit (Bld) [Volume fraction] 41.0 % Normal 39.0-51.0 [facility] Comment on above: Order Comment: Speci men Type: BLOOD SPECIMEN Ordering Facility: [facility] Address: [address] [place] [address] Performed By: #### P SAS1 #### [facility] CLIA [id number] [address] [place] [address] [place] Hemoglobin (Bld) [Mass/Vol] 14.0 g/dL Normal 13.0-17.0 [facility] Comment on above: Order Comment: Speci men Type: BLOOD SPECIMEN Ordering Facility: [facility] Address: [address] [place] [address] Performed By: #### P SAS1 #### [facility] CLIA [id number] [address] [place] [address] [place] Immature granulocytes (Bld) [#/Vol] 0.03 10*3/uL Normal <0.10 [facility] Comment on above: Order Comment: Speci men Type: BLOOD SPECIMEN Ordering Facility: [facility] Address: [address] [place] [address] Performed By: #### P SAS1 #### [facility] CLIA [id number] [address] [place], [place] [id number] [place] Immature granulocytes/100 WBC (Bld) 0.4 % Normal [facility] Comment on above: Order Comment: Speci men Type: BLOOD SPECIMEN Ordering Facility: [facility] Address: [address] [place] [address] Performed By: #### P SAS1 #### [facility] CLIA [id number] [address] [place] [address] [place] Lymphocytes (Bld) [#/Vol] 2.02 10*3/uL Normal 1.00-4.00 [facility] Comment on above: Order Comment: Speci men Type: BLOOD SPECIMEN Ordering Facility: [facility] Address: [address] [place] [address] Performed By: #### P SAS1 #### [facility] CLIA [id number] [address] [place] [address] [place] Lymphocytes/100 WBC (Bld) 26.3 % Normal [facility] Comment on above: Order Comment: Speci men Type: BLOOD SPECIMEN Ordering Facility: [facility] Address: [address] [place] [address] Performed By: #### P SAS1 #### [facility] CLIA [id number] [address] [place] [address] [place] MCH (RBC) [Entitic mass] 33.8 pg Normal 26.0-34.0 [facility] Comment on above: Order Comment: Speci men Type: BLOOD SPECIMEN Ordering Facility: [facility] Address: [address] [place] [address] Performed By: #### P SAS1 #### [facility] CLIA [id number] [address] [place] [address] [place] MCHC (RBC) [Mass/Vol] 34.1 g/dL Normal 30.5-36.0 [facility] Comment on above: Order Comment: Speci men Type: BLOOD SPECIMEN Ordering Facility: [facility] Address: [address] [place] [address] Performed By: #### P SAS1 #### [facility] CLIA [id number] [address] [place] [address] [place] MCV (RBC) [Entitic vol] 99.0 fL Normal 80.0-100.0 [facility] Comment on above: Order Comment: Speci men Type: BLOOD SPECIMEN Ordering Facility: [facility] Address: [address] [place] [address] Performed By: #### P SAS1 #### [facility] CLIA [id number] [address] [place] [address] [place] Monocytes (Bld) [#/Vol] 0.54 10*3/uL Normal <0.87 [facility] Comment on above: Order Comment: Speci men Type: BLOOD SPECIMEN Ordering Facility: [facility] Address: [address] [place] [address] Performed By: #### P SAS1 #### [facility] CLIA [id number] [address] [place] [address] [place] Monocytes/100 WBC (Bld) 7.0 % Normal [facility] Comment on above: Order Comment: Speci men Type: BLOOD SPECIMEN Ordering Facility: [facility] Address: [address] [place] [address] Performed By: #### P SAS1 #### [facility] CLIA [id number] [address] [place] [address] [place] Neutrophils (Bld) [#/Vol] 4.78 10*3/uL Normal 1.45-7.50 [facility] Comment on above: Order Comment: Speci men Type: BLOOD SPECIMEN Ordering Facility: [facility] Address: [address] [place] [address] Performed By: #### P SAS1 #### [facility] CLIA [id number] [address] [place] [address] [place] Neutrophils/100 WBC (Bld) 62.1 % Normal [facility] Comment on above: Order Comment: Speci men Type: BLOOD SPECIMEN Ordering Facility: [facility] Address: [address] [place] [address] Performed By: #### P SAS1 #### [facility] CLIA [id number] [address] [place] [address] [place] Nucleated RBC (Bld) [#/Vol] 10*3/uL Normal <0.01 [facility] Comment on above: Order Comment: Speci men Type: BLOOD SPECIMEN Ordering Facility: [facility] Address: [address] [place] [address] Performed By: #### P SAS1 #### [facility] CLIA [id number] [address] [place] [address] [place] Nucleated RBC/100 WBC (Bld) [Ratio] 0.0 /100 WBC Normal [facility] Comment on above: Order Comment: Speci men Type: BLOOD SPECIMEN Ordering Facility: [facility] Address: [address] [place] [address] Performed By: #### P SAS1 #### [facility] CLIA [id number] [address] [place] [address] [place] Platelet mean volume (Bld) [Entitic vol] 9.8 fL Normal 9.0-12.7 [facility] Comment on above: Order Comment: Speci men Type: BLOOD SPECIMEN Ordering Facility: [facility] Address: [address] [place] [address] Performed By: #### P SAS1 #### [facility] CLIA [id number] [address] [place] [address] [place] Platelets (Bld) [#/Vol] 238 10*3/uL Normal 150-400 [facility] Comment on above: Order Comment: Speci men Type: BLOOD SPECIMEN Ordering Facility: [facility] Address: [address] [place] [address] Performed By: #### P SAS1 #### [facility] CLIA [id number] [address] [place] [address] [place] RBC (Bld) [#/Vol] 4.14 10*6/uL Low 4.20-6.00 [facility] Comment on above: Order Comment: Speci men Type: BLOOD SPECIMEN Ordering Facility: [facility] Address: [address] [place] [address] Performed By: #### P SAS1 #### [facility] CLIA [id number] [address] [place] [address] [place] WBC (Bld) [#/Vol] 7.69 10*3/uL Normal 3.70-11.00 [facility] Comment on above: Order Comment: Speci men Type: BLOOD SPECIMEN Ordering Facility: [facility] Address: [address] [place] [address] Performed By: #### P SAS1 #### [facility] CLIA [id number] [address] [place] [address] OF [place] CNOVkip 03-13-2025 CNOV Office Visit (FAMPWS ) KELSI SOTO ([id number]) 1965 M Date Time Provider Department 03/13/25 4:00 PM LYNN AVALOS FAMPWS During your visit today, we recorded the following information about you: Temperature Pulse Blood pressure Weight 98.7 degrees 80/minute 122/64 81.6 kg Lynn Avalos APRN.SECRETARY OF STATE 03/13/2025 4:37 PM Addendum This is a 59 year old male who presents today with: Patient presents with: Diarrhea HISTORY OF PRESENT ILLNESS: Kelsi Soto is a 59 year old male. Patient presents with: Diarrhea Kelsi Stoo is a 59-year-old male with a history [...] WHEN PFRMD 05/27/2018 Colonoscopy EPS: EP STUDY [facility] - negative LEFT HEART CATH 06/21/2015 [...] results; patient (more content not included)... Normal [facility] Comprehensive metabolic 2000 panelon 03-13-2025 Albumin [Mass/Vol] 4.3 g/dL Normal 3.9-4.9 [facility] Comment on above: Order Comment: Speci men Type: BLOOD SPECIMENOrdering Facility: [facility] Address: [address] [place] [address] Performed By: #### 1 9123-9, 3, 23731-0 ####[facility] [id number] [facility] [place] [id number] [place] ALP [Catalytic activity/Vol] 46 U/L Normal 38-113 [facility] Comment on above: Order Comment: Speci men Type: BLOOD SPECIMENOrdering Facility: [facility] Address: [address] [place] [address] Performed By: #### 1 9123-9, 3, 33348-8 ####[facility] [id number] [place] [address] [place] ALT [Catalytic activity/Vol] 22 U/L Normal 10-54 [facility] Comment on above: Order Comment: Speci men Type: BLOOD SPECIMENOrdering Facility: [facility] Address: [address] [place] [address] Performed By: #### 1 9123-9, 3, 01089-6 ####[facility] [id number] [address] [address] [place] Anion gap [Moles/Vol] 14 mmol/L Normal 8-15 [facility] Comment on above: Order Comment: Speci men Type: BLOOD SPECIMENOrdering Facility: [facility] Address: [address] [place] [address] Performed By: #### 1 9123-9, 3, 60971-3 ####[facility] [id number] [facility] [address] [address] [place] AST [Catalytic activity/Vol] 23 U/L Normal 14-40 [facility] Comment on above: Order Comment: Speci men Type: BLOOD SPECIMENOrdering Facility: [facility] Address: [address] [place] [address] Performed By: #### 1 9123-9, 3015-3, 04753-3 ####[facility] [id number] [address] [address] [place] Bilirubin [Mass/Vol] 0.3 mg/dL Normal 0.2-1.3 [facility] Comment on above: Order Comment: Speci men Type: BLOOD SPECIMENOrdering Facility: [facility] Address: [address] [place], [place] [address] Performed By: #### 1 9123-9, 3015-3, 59000-0 ####[facility] [id number] [address] [address] [place] Calcium [Mass/Vol] 9.7 mg/dL Normal 8.5-10.2 [facility] Comment on above: Order Comment: Speci men Type: BLOOD SPECIMENOrdering Facility: [facility] Address: [address] [place], [place] [address] Performed By: #### 1 9123-9, 3, ####[facility] [id number] [address] [address] [place] Chloride [Moles/Vol] 108 mmol/L High 98-107 [facility] Comment on above: Order Comment: Speci men Type: BLOOD SPECIMENOrdering Facility: [facility] Address: [address] [place] [address] Performed By: #### 1 9123-9, 3, 03198-4 ####[facility] [id number] [address] [address] [place] CO2 [Moles/Vol] 22 mmol/L Normal 22-30 [facility] Comment on above: Order Comment: Speci men Type: BLOOD SPECIMENOrdering Facility: [facility] Address: [address] [place] [address] Performed By: #### 1 9123-9, 3016-3, 25196-8 ####[facility] [id number] [address] [address] [place] Creatinine [Mass/Vol] 0.86 mg/dL Normal 0.73-1.22 [facility] Comment on above: Order Comment: Speci men Type: BLOOD SPECIMENOrdering Facility: [facility] Address: [address] [place] [address] Performed By: #### 1 9123-9, 6-3, 42029-9 ####[facility] [id number] [place] [id number] [place] eGFRcr SerPlBld CKD-EPI 2020 99 mL/min/1.73m??? Normal >=60 [facility] Comment on above: Order Comment: Vidal fonseca Type: BLOOD SPECIMENOrdering Facility: [facility] Address: [address] [place] [address] Result Comment: Sejal mated Glomerular Filtration Rate [...] GFR. Performed By: #### 1 9123-9, 3015-3, 89855-2 ####[facility] [id number] [address] [address] [place] Glucose [Mass/Vol] 78 mg/dL Normal 74-99 [facility] Comment on above: Order Comment: Speci men Type: BLOOD SPECIMENOrdering Facility: [facility] Address: [address] [place] [address] Result Comment: The [place] Diabetes Association (ADA) provides guidance for cutoff [...] Standards of Medical Care in Diabetes 2016, [place] Diabetes Association. Diabetes Care. 2016.39(Suppl 1). Performed By: #### 1 9123-9, 3015-10, ####[facility] [id number] [address] [address] [place] Potassium [Moles/Vol] 4.2 mmol/L Normal 3.7-5.1 [facility] Comment on above: Order Comment: Speci men Type: BLOOD SPECIMENOrdering Facility: [facility] Address: [address] [place] [address] Performed By: #### 1 91239, 3015-10, ####[facility] [id number] [place] [id number] [place] Protein [Mass/Vol] 7.0 g/dL Normal 6.3-8.0 [facility] Comment on above: Order Comment: Speci men Type: BLOOD SPECIMENOrdering Facility: [facility] Address: [address] [place] [address] Performed By: #### 1 91239, 3015-10, ####[facility] [id number] [address] [address] [place] Sodium [Moles/Vol] 144 mmol/L Normal 136-144 [facility] Comment on above: Order Comment: Speci men Type: BLOOD SPECIMENOrdering Facility: [facility] Address: [address] [place] [address] Performed By: #### 1 9123-9, 3015-10, ####[facility] [id number] [address] [address] [place] Urea nitrogen [Mass/Vol] 14 mg/dL Normal 9-24 [facility] Comment on above: Order Comment: Speci men Type: BLOOD SPECIMENOrdering Facility: [facility] Address: [address] [place] [address] Performed By: #### 1 9123-9, 3016-3, 14603-7 ####[facility] [id number] [address] [address] [place] Magnesium SerPl-mCncon 03-13 Magnesium [Mass/Vol] 2.3 mg/dL Normal 1.7-2.3 [facility] Comment on above: Order Comment: Speci men Type: BLOOD SPECIMENOrdering Facility: [facility] Address: [address] [place] [address] Performed By: #### 1 9123-9, 3016-3, 90322-8 ####[facility] [id number] [place] [id number] [place] TSH SerPl-aCncon 03-13-2025 TSH Qn 0.931 m[IU]/L Normal 0.270-4.20 0 [facility] Comment on above: Order Comment: Speci men Type: BLOOD SPECIMENOrdering Facility: [facility] Address: [address] [place] [address] Performed By: #### 1 9123-9, 3016-3, 51893-9 ####[facility] [id number] [address] [address] [place] Echocardiogram study reportO rdered By: Qi Martínez on 03-02-2025 Study report [facility] [address] [place] [place] [address] Echo Complete W/ Contrast 02/27/25 1458 MR#: [id number] Acct: [id number] Name: KELSI SOTO Rep #:[id number] : 1965 59 From: Qi Martínez MD Attending Dr: Dr. Qi Martínez MD Status: REG CLI Ordering Dr: Qi Martínez MD Date: Location: [facility] Sex: M C Admitted: Reason For Study [...] Date Dictated: 02/27/258 Date Transcribed: 03/02/25 132 Adobe Layer: Signed [facility] Work Phone: Echo Complete W/ Contraston 02-27-2025 Echo Complete W/ Contrast [facility] [address] [place] [address] Echo Complete W/ Contrast 02/27/25 1458 MR#: [id number] Acct: [id number] Name: KELSI SOTO Rep #: [id number] : 1965 59 From: Qi Martínez MD Attending Dr: Dr. Qi Martínez MD Status: REG CLI Ordering Dr: Qi Martínez MD Date: 02/27/25 Location: [facility] Sex: M C Admitted: Reason For Study [...] Date ____ Qi Martínez MD CC: MARY Avalos; Dr. Qi Martínez MD Date Dictated: 02/27/25 1458 Date Transcribed: 03/02/25 1324 Adobe Layer: Signed Normal [facility] Anion gap in Serum or Plasma Ordered By: Qi Martínez on 02-09-2025 Anion gap [Moles/Vol] 11 mmol/L 5-15 [facility] BUN/creatinine ratioOrdered By: Qi Martínez on 02-09-2025 Urea nitrogen/Creatinine [Mass ratio] 11.7 mg/mg 10-20 [facility] Bilirubin, totalOrdered By: Qi Martínez on 02-09-2025 Bilirubin [Mass/Vol] 0.43 mg/dL 0.00-1.30 [facility] Calculated very low density lipoprotein (VLDL) cholesterol measurementOrdered By: Qi Martínez on 02-09-2025 Calculated very low density lipoprotein (VLDL) cholesterol measurement 62 mg/dL High 5-40 [facility] Carbon dioxide, total [Moles /volume] in Central venous bloodOrdered By: Qi Martínez on 02-09-2025 CO2 [Moles/Vol] 23.7 mmol/L 21.0-32.0 [facility] Chloride assayOrdered By: Adolfo Martínez on 02-09-2025 Chloride [Moles/Vol] 105 mmol/L 98-108 [facility] Comprehensive Metabolic Prof ilon 02-09-2025 Albumin [Mass/Vol] 4.4 g/dL Normal 3.4-4.8 [facility] Comment on above: Performed By: #### L 501.5200, L501.9520, L500.4050, L500.4100 #### [facility] [address] [place], [place], [address] Albumin/Globulin [Mass ratio] 1.6 {ratio} Normal 0.9-2.4 [facility] Comment on above: Performed By: #### L 501.5200, L501.9520, L500.4050, L500.4100 #### [facility] [address] [place], [address] ALK PHOS 51 U/L Normal 40-129 [facility] Comment on above: Performed By: #### L 501.5200, L501.9520, L500.4050, L500.4100 #### [facility] [address] [place], [address] ALT [Catalytic activity/Vol] 23 U/L Normal <=46 [facility] Comment on above: Performed By: #### L 501.5200, L501.9520, L500.4050, L500.4100 #### [facility] [address] [place], [address] AST [Catalytic activity/Vol] 25 U/L Normal <=37 [facility] Comment on above: Performed By: #### L 501.5200, L501.9520, L500.4050, L500.4100 #### [facility] [address] [place], [address] Bilirubin [Mass/Vol] 0.43 mg/dL Normal 0.00-1.30 [facility] Comment on above: Performed By: #### L 501.5200, L501.9520, L500.4050, L500.4100 #### [facility] [address] [place], [address] BUN/CRE 11.7 RATIO Normal 10-20 [facility] Comment on above: Performed By: #### L 501.5200, L501.9520, L500.4050, L500.4100 #### [facility] [address] [place], [address] Calcium [Mass/Vol] 9.3 mg/dL Normal 7.6-11.0 [facility] Comment on above: Performed By: #### L 501.5200, L501.9520, L500.4050, L500.4100 #### [facility] [address] [place], [address] Chloride [Moles/Vol] 105 mmol/L Normal 98-108 [facility] Comment on above: Performed By: #### L 501.5200, L501.9520, L500.4050, L500.4100 #### [facility] [address] [place], [address] CO2 [Moles/Vol] 23.7 mmol/L Normal 21.0-32.0 [facility] Comment on above: Performed By: #### L 501.5200, L501.9520, L500.4050, L500.4100 #### [facility] [address] [place], [address] Creatinine [Mass/Vol] 1.01 mg/dL Normal 0.70-1.20 [facility] Comment on above: Performed By: #### L 501.5200, L501.9520, L500.4050, L500.4100 #### [facility] [address] [place], [address] GAP 11 Normal 5-15 [facility] Comment on above: Performed By: #### L 501.5200, L501.9520, L500.4050, L500.4100 #### [facility] [address] [place], [address] GFR/1.73 sq M.predicted among non-blacks MDRD (S/P/Bld) [Vol rate/Area] 85 mL/min/{1.73_m2} Normal >60 [facility] Comment on above: Result Comment: mL/m in/1.73m2 CKD-EPI Creatinine Equation (2020) Performed By: #### L 501.5200, L501.9520, L500.4050, L500.4100 #### [facility] [address] [place], [address] Globulin (S) [Mass/Vol] 2.7 g/dL Normal 2.2-4.2 [facility] Comment on above: Performed By: #### L 501.5200, L501.9520, L500.4050, L500.4100 #### [facility] [address] [place], [address] Glucose [Mass/Vol] 103 mg/dL High 70-99 [facility] Comment on above: Performed By: #### L 501.5200, L501.9520, L500.4050, L500.4100 #### [facility] [address] [place], [address] Potassium [Moles/Vol] 4.3 mmol/L Normal 3.3-5.1 [facility] Comment on above: Performed By: #### L 501.5200, L501.9520, L500.4050, L500.4100 #### [facility] [address] [place], [address] Sodium [Moles/Vol] 139 mmol/L Normal 133-145 [facility] Comment on above: Performed By: #### L 501.5200, L501.9520, L500.4050, L500.4100 #### [facility] [address] [place], [address] T PROT 7.1 g/dL Normal 5.9-8.4 [facility] Comment on above: Performed By: #### L 501.5200, L501.9520, L500.4050, L500.4100 #### [facility] [address] [place], [address] Urea nitrogen [Mass/Vol] 12 mg/dL Normal 4-19 [facility] Comment on above: Performed By: #### L 501.5200, L501.9520, L500.4050, L500.4100 #### [facility] [address] [place], [place], [address] Glomerular filtration rate ( GFR) estimation/1.73 sq m using serum, plasma, or whole bOrdered By: Qi Martínez on 02-09-2025 GFR/1.73 sq M.predicted among non-blacks MDRD (S/P/Bld) [Vol rate/Area] 85 mL/min/{1.73_m2} >60 [facility] Comment on above: mL/min/1.73m2 CKD-EP I Creatinine Equation (2020) LDL calc ser/plasOrdered By: Qi Martínez on 02-09-2025 Cholesterol in LDL [Mass/Vol] 151 mg/dL [facility] Comment on above: Bqzdbdxyos=299-818 m g/dL & Higher Uhpj=857 mg/dL or greater Laboratory - Chemistry and C hemistry - challengeOrdered By: Qi Martínez on 02-09-2025 AST [Catalytic activity/Vol] 25 U/L <38 [facility] Lipid Profileon 02-09-2025 CHOL:HDL 5.65 Normal [facility] Comment on above: Performed By: #### L 501.5200, L501.9520, L500.4050, L500.4100 #### [facility] [address] [place], [address] Cholesterol [Mass/Vol] 258 mg/dL High <=200 [facility] Comment on above: Result Comment: Chol esterol level, Desirable <200 mg/dL Borderline high cholesterol 200-239 mg/dL High cholesterol >=240 mg/dL Recommendations of the NCEP Adult Treatment Panel for the following risk-cutoff thresholds for the [place] population. Performed By: #### L 501.5200, L501.9520, L500.4050, L500.4100 #### [facility] [address] [place], [address] Cholesterol in HDL [Mass/Vol] 46 mg/dL Normal [facility] Comment on above: Result Comment: Georgina onal Cholesterol Education Program (NCEP) guidelines: <40 mg/dL: Low HDL-cholesterol (major risk factor for CHD) >= 60 mg/dL: High HDL-cholesterol (negative risk factor for CHD) HDL-cholesterol is affected by a number of factors, e.g. smoking, exercise, hormones, sex and age. Performed By: #### L 501.5200, L501.9520, L500.4050, L500.4100 #### [facility] [address] [place], [address] Cholesterol in LDL [Mass/Vol] 151 mg/dL Normal [facility] Comment on above: Result Comment: Bord rnprxf=086-834 mg/dL Higher Jiig=772 mg/dL or greater Performed By: #### L 501.5200, L501.9520, L500.4050, L500.4100 #### [facility] [address] [place], [address] Cholesterol in VLDL [Mass/Vol] 62 mg/dL High 5-40 [facility] Comment on above: Performed By: #### L 501.5200, L501.9520, L500.4050, L500.4100 #### [facility] [address] [place], [address] Triglyceride [Mass/Vol] 309 mg/dL High [facility] Comment on above: Result Comment: The drugs N-Acetylcysteine and Metamizole may falsely depress this assay. Normal range: <150 mg/dL Borderline High: 150-199 mg/dL High: 200-499 mg/dL Very High: >500 mg/dL Performed By: #### L 501.5200, L501.9520, L500.4050, L500.4100 #### [facility] [address] [place], [address] Magnesiumon 02-09-2025 Magnesium [Mass/Vol] 2.2 mg/dL Normal 1.5-2.2 [facility] Comment on above: Performed By: #### L 501.5200, L501.9520, L500.4050, L500.4100 #### [facility] [place], [address] Magnesium measurement (mass/ volume)Ordered By: Qi Martínez on 02-09-2025 Magnesium (Unsp spec) [Mass/Vol] 2.2 mg/dL 1.5-2.2 [facility] Potassium measurement (mass/ volume)Ordered By: Qi Martínez on 02-09-2025 Potassium (Unsp spec) [Mass/Vol] 4.3 mmol/L 3.3-5.1 [facility] Screening total cholesterol/ high density lipoprotein (HDL) cholesterol ratioOrdered By: Qi Martínez on 02-09-2025 Cholesterol.total/C holesterol in HDL [Mass ratio] 5.65 {ratio} [facility] Serum creatinine measurement (mass/volume)Ordered By: Qi Martínez on 02-09-2025 Creatinine [Mass/Vol] 1.01 mg/dL 0.70-1.20 [facility] Serum globulin measurementOr dered By: Qi Martínez on 02-09-2025 Globulin (S) [Mass/Vol] 2.7 g/dL 2.2-4.2 [facility] Serum glucose measurement (m ass/volume)Ordered By: Qi Martínez on 02-09-2025 Glucose [Mass/Vol] 103 mg/dL High 70-99 [facility] Serum or plasma alanine shore otransferase (ALT) measurementOrdered By: Qi Matrínez on 02-09-2025 ALT [Catalytic activity/Vol] 23 U/L <47 [facility] Serum or plasma albumin wan urement (mass/volume)Ordered By: Qi Martínez on 02-09-2025 Albumin [Mass/Vol] 4.4 g/dL 3.4-4.8 [facility] Serum or plasma albumin/glob ulin mass ratioOrdered By: Qi Martínez on 02-09-2025 Albumin/Globulin [Mass ratio] 1.6 {ratio} 0.9-2.4 [facility] Serum or plasma alkaline abigail sphatase measurementOrdered By: Qi Martínez on 02-09-2025 ALP [Catalytic activity/Vol] 51 U/L 40-129 [facility] Serum or plasma calcium wan urement (mass/volume)Ordered By: Qi Martínez on 02-09-2025 Calcium [Mass/Vol] 9.3 mg/dL 7.6-11.0 [facility] Serum or plasma cholesterol in HDL measurement (mass/volume)Ordered By: Qi Martínez on 02-09-2025 Cholesterol in HDL [Mass/Vol] 46 mg/dL >40 [facility] Comment on above: National Cholesterol Education Program (NCEP) guidelines:<40 mg/dL: Low HDL-cholesterol (major risk factor for CHD)>= 60 mg/dL: High HDL-cholesterol (negative risk factor for CHD)HDL-cholesterol is affected by a number of factors, e.g. smoking, exercise, hormones, sex and age. Serum or plasma cholesterol measurement (mass/volume)Ordered By: Qi Martínez on 02-09-2025 Cholesterol [Mass/Vol] 258 mg/dL High <201 [facility] Comment on above: Cholesterol level, D esirable <200 mg/dLBorderline high cholesterol 200-239 mg/dLHigh cholesterol >=240 mg/dLRecommendations of the NCEP Adult Treatment Panel for the following risk-cutoff thresholds for the [place] population. Serum or plasma urea nitroge n measurement (mass/volume)Ordered By: Qi Martínez on 02-09-2025 Urea nitrogen [Mass/Vol] 12 mg/dL 4-19 [facility] Sodium levelOrdered By: Yoni Martínez on 02-09-2025 Sodium [Moles/Vol] 139 mmol/L 133-145 [facility] TSH DL <= 0.005 mIU/L QnOrde red By: Qi Martínez on 02-09-2025 TSH Qn 1.170 uIU/mL 0.300-4.20 0 [facility] Thyroid Stim Hormone (TSH)on 02-09-2025 TSH 1.170 uIU/mL Normal 0.300-4.20 0 [facility] Comment on above: Performed By: #### L 501.5200, L501.9520, L500.4050, L500.4100 #### [facility] [place], [address] Total proteinOrdered By: Denys Martínez on 02-09-2025 Protein [Mass/Vol] 7.1 g/dL 5.9-8.4 [facility] Triglycerides measurementOrd ered By: Qi Martínez on 02-09-2025 Triglyceride [Mass/Vol] 309 mg/dL High <199 [facility] Comment on above: The drugs N-Acetylcy steine and Metamizole may falsely depress this assay. Normal range: <150 mg/dLBorderline High: 150-199 mg/dLHigh: 200-499 mg/dLVery High: >500 mg/dL CNOVon 01-30-2025 CNOV Office Visit (FAMPWS ) JUANCARLOSKELSI HARTLEY ([id number]) 1965 M Date Time Provider Department 01/30/25 4:20 PM LYNN AVALOS [facility] During your visit today, we recorded the following information about you: Temperature Pulse Blood pressure Weight 97.7 degrees 76/minute 112/68 82.6 kg Lynn Avalos APRN.[facility] 01/30/2025 5:00 PM Signed This is a [...] or chest pain. 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 CHF: - Managed by a spanish translator; taking Entresto and Farxiga. - Denies dyspnea, [...] WHEN PFRMD 05/27/2018 Colonoscopy EPS: EP STUDY [facility] - negative LEFT HEART CATH 06/21/2015 [...] with cardiology - on Entresto - on ga 4. Essential hypertension - ICD9: 401.9, ICD10: I10 - Controlled - Recommend home blood pressure monitoring, to (more content not included)... Normal [facility] Cardiology Visit Reporton Cardiology Visit Report [facility] [address] [place], [place] [address] OFFICE VISIT Date of Service: 01/19/25 MR#: [id number] Acct: [id number] Name: KELSI SOTO Rep #: [id number] : 1965 Provider: Dr. Qi Martínez MD Age/Sex: 59/M Location: [facility] [place] [place].[facility] Status: Signed HPI HPI History of Present Illness Details: This gentleman was diagnosed with nonischemic cardiomyopathy about 10 years ago. His last echocardiogram was in 2022 which showed LVEF 40%. A coronary CT angio in 2019 showed mild nonobstructive calcific disease. Patient was previously established with another spanish translator. He wishes to switch to our care. [...] a day on weekends. 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 Normal [facility] Lipid 1996 panelon 5 Cholesterol [Mass/Vol] 254 mg/dL High <200 [facility] Comment on above: Order Comment: Vidal fonseca Type: BLOOD SPECIMEN Ordering Facility: [facility] Address: [address] [place] [address] Result Comment: <200 mg/dL, Desirable 200-239 mg/dL, Borderline high >239 mg/dL, High Performed By: #### P SAS1 #### [facility] CLIA [id number] [address] [place] [address] [place] Cholesterol in HDL [Mass/Vol] 47 mg/dL Normal >39 [facility] Comment on above: Order Comment: Vidal fonseca Type: BLOOD SPECIMEN Ordering Facility: [facility] Address: [address] [place] [address] Result Comment: 40-5 9 mg/dL, Acceptable >59 mg/dL, High: Negative risk factor for coronary heart disease <40 mg/dL, Low: Positive risk factor for coronary heart disease Performed By: #### P SAS1 #### [facility] CLIA [id number] [address] [place] [address] [place] Cholesterol in LDL [Mass/Vol] 178 mg/dL High <100 [facility] Comment on above: Order Comment: Vidal fonseca Type: BLOOD SPECIMEN Ordering Facility: [facility] Address: [address] [place] [address] Result Comment: <100 mg/dL, Optimal 100-129 mg/dL, Near optimal/above optimal 130-159 mg/dL, Borderline high 160-189 mg/dL, High >189 mg/dL, Very high Secondary prevention optimal LDL Cholesterol levels are recommended to be <70 mg/dL LDL cholesterol is calculated using the Sanchez-NIH equation. Performed By: #### P SAS1 #### [facility] CLIA [id number] [address] [place] [address] [place] Cholesterol in LDL/Cholesterol in HDL [Mass ratio] 3.79 {ratio} High <2.54 [facility] Comment on above: Order Comment: Vidal fonseca Type: BLOOD SPECIMEN Ordering Facility: [facility] Address: [address] [place] [address] Result Comment: Jammie prater: 1. National Cholesterol Education Program ATP III Guideline At-A-Glance Quick Desk Reference: National Heart, Lung, and Blood [place]. National Institutes of Health. 2001: NIH Publication No. 01-3305. 2. An International Atherosclerosis Society position paper: global recommendations for the management of dyslipidemia: executive summary, Atherosclerosis. 2014: 232(2):410-413. Performed By: #### P SAS1 #### [facility] CLIA [id number] [address] [place] [address] [place] Cholesterol in VLDL [Mass/Vol] 32 mg/dL High <30 [facility] Comment on above: Order Comment: Vidal fonseca Type: BLOOD SPECIMEN Ordering Facility: [facility] Address: [address] [place] [address] Performed By: #### P SAS1 #### [facility] CLIA [id number] [address] [place] [address] [place] Cholesterol non HDL [Mass/Vol] 207 mg/dL High <130 [facility] Comment on above: Order Comment: Vidal marian Type: BLOOD SPECIMEN Ordering Facility: [facility] Address: [address] [place] [address] Result Comment: <130 mg/dL, Optimal 130-159 mg/dL, Near optimal/above optimal 160-189 mg/dL, Borderline high 190-219 mg/dL, High >219 mg/dL, Very high Secondary prevention optimal non HDL Cholesterol levels are recommended to be <100 mg/dL Performed By: #### P SAS1 #### [facility] CLIA [id number] [address] [place] [address] [place] Cholesterol.total/C holesterol in HDL [Mass ratio] 5.40 {ratio} High <5.10 [facility] Comment on above: Order Comment: Speci men Type: BLOOD SPECIMEN Ordering Facility: [facility] Address: [address] [place] [address] Performed By: #### P SAS1 #### [facility] CLIA [id number] [address] [place] [address] [place] FASTING TIME 12 hrs Normal [facility] Comment on above: Order Comment: Speci men Type: BLOOD SPECIMEN Ordering Facility: [facility] Address: [address] [place] [address] Performed By: #### P SAS1 #### [facility] CLIA [id number] [address] [place] [address] [place] Triglyceride [Mass/Vol] 159 mg/dL High <150 [facility] Comment on above: Order Comment: Speci men Type: BLOOD SPECIMEN Ordering Facility: [facility] Address: [address] [place] [address] Result Comment: <150 mg/dL, Normal 150-199 mg/dL, Borderline high 200-499 mg/dL, High >499 mg/dL, Very high Performed By: #### P SAS1 #### [facility] CLIA [id number] [address] [place] [address] [place] Magnesium SerPl-mCncon 01-19 Magnesium [Mass/Vol] 2.1 mg/dL Normal 1.7-2.3 [facility] Comment on above: Order Comment: Speci men Type: BLOOD SPECIMEN Ordering Facility: [facility] Address: [address] [place] [address] Performed By: #### P SAS1 #### [facility] CLIA [id number] [address] [place] [address] [place] PSA/PROSTATE SPECIFIC ANTIGE N SCREENINGon 01-19-2025 Prostate specific Ag [Mass/Vol] 0.72 ng/mL Normal <2.60 [facility] Comment on above: Order Comment: Speci men Type: BLOOD SPECIMEN Ordering Facility: [facility] Address: [address] [place] [address] Result Comment: Tota l PSA test methodology used is the Electrochemiluminescence Immunoassay by [employer]. Total PSA values by differing methodologies cannot be interchanged. Performed By: #### P SAS1 #### [facility] CLIA [id number] [address] [place] [address] [place] TSH SerPl-aCncon 01-19-2025 TSH Qn 0.716 m[IU]/L Normal 0.270-4.20 0 [facility] Comment on above: Order Comment: Speci men Type: BLOOD SPECIMEN Ordering Facility: [facility] Address: [address] [place] [address] Performed By: #### P SAS1 #### [facility] CLIA [id number] [address] [place] [address] [place] CNPBeatriz 12-31-2024 [facility] KELSI SOTO ([id number]) 1965 M Date Time Provider Department 12/31/24 [facility] During your visit today, we recorded the following information about you: Pati Hdz RN 12/31/2024 8:41 AM Signed Juliane with [facility] called in and reports they [...] he is scheduled with Dr Meyer on March 09 at 9 am. Allergies As of Date: [...] Palpitations [R00.2] 05/27/2019 Coronary artery disease involving [place] daigle*03/12/2020 Asthenia [R53.1] 09/15/2022 Near syncope [R55] 09/15/2022 Syncope and collapse [R55] 10/04/2017 09/15/2022 Encounter Status:Closed by MARTIN MELENDEZ on 12/31/24 [facility] Rick 12-26-2024 CNOV Office Visit (FAMPWS ) KELSI SOTO ([id number]) 1965 M Date Time Provider Department 12/26/24 1:40 PM LYNN AVALOS During your visit today, we recorded the following information about you: Temperature Pulse Blood pressure Weight 97.3 degrees 69/minute 120/72 83 kg Lynn Avalos APRN.CNP 12/26/2024 2:11 PM Signed This is a [...] quit it Lisinopril made him nauseated. Seeing [facility] for dilated CM PAST MEDICAL HISTORY: PAST [...] Streptococcus specie (more content not included)... [facility] KELSI SOTO ([id number]) 1965 M Date Time Provider Department 12/26/24 [facility] During your visit today, we recorded the following information about you: Carson Chin RN 12/26/2024 10:26 AM Signed Spouse calls to request appointment for sore throat and swollen lymph nodes for atleast 5 days. Scheduled same day. Spouse also reports that patient was to see [facility] cardiology in [place] in February but was cancelled and rescheduled 07/13/2025 which spouse feels is too far out. Faxed cardiology referral to [facility]. Spouse will cancel appt with [facility] once gets scheduled with [facility] to make sure it is sooner. Carson hCin RN Allergies As of Date: 12/26/2024 (No Known Allergies) Date Reviewed: 07/31/2024 Reviewed by: Lynn Avalos APRN.[facility] - Fully Assessed Reason for Visit: Appointment [...] Palpitations [R00.2] 05/27/2019 Coronary artery disease involving [place] daigle*03/12/2020 Asthenia [R53.1] 09/15/2022 Near syncope [R55] 09/15/2022 Syncope and collapse [R55] 10/04/2017 09/15/2022 Encounter Status:Closed by CARSON CHIN on 12/26/24 Normal [facility] CBC W Auto Differential pane l (Bld)on 07-31-2024 Basophils (Bld) [#/Vol] 0.04 10*3/uL [facility] Basophils/100 WBC (Bld) 0.5 % [facility] Differential cell count method Nom (Bld) Auto [facility] Eosinophils (Bld) [#/Vol] 0.28 10*3/uL [facility] Eosinophils/100 WBC (Bld) 3.5 % [facility] Erythrocyte distribution width (RBC) [Ratio] 12.3 % 11.5 - 15.0 % [facility] Hematocrit (Bld) [Volume fraction] 41.7 % 39.0 - 51.0 % [facility] Hemoglobin (Bld) [Mass/Vol] 14.2 g/dL 13.0 - 17.0 g/dL [facility] Immature granulocytes (Bld) [#/Vol] 0.03 10*3/uL [facility] Immature granulocytes/100 WBC (Bld) 0.4 % [facility] Lymphocytes (Bld) [#/Vol] 1.80 10*3/uL [facility] Lymphocytes/100 WBC (Bld) 22.6 % [facility] MCH (RBC) [Entitic mass] 33.4 pg 26.0 - 34.0 pg [facility] MCHC (RBC) [Mass/Vol] 34.1 g/dL 30.5 - 36.0 g/dL [facility] MCV (RBC) [Entitic vol] 98.1 fL 80.0 - 100.0 fL [facility] Monocytes (Bld) [#/Vol] 0.69 10*3/uL [facility] Monocytes/100 WBC (Bld) 8.6 % [facility] Neutrophils (Bld) [#/Vol] 5.14 10*3/uL [facility] Neutrophils/100 WBC (Bld) 64.4 % [facility] Nucleated RBC (Bld) [#/Vol] [facility] Nucleated RBC/100 WBC (Bld) [Ratio] 0.0 % /100 WBC [facility] Platelet mean volume (Bld) [Entitic vol] 9.3 fL 9.0 - 12.7 fL [facility] Platelets (Bld) [#/Vol] 209 10*3/uL [facility] RBC (Bld) [#/Vol] 4.25 10*6/uL 4.20 - 6.00 m/uL [facility] WBC (Bld) [#/Vol] 7.98 10*3/uL [facility] Basophils (Bld) [#/Vol] 0.04 10*3/uL Normal <0.11 [facility] Comment on above: Order Comment: Speci men Type: BLOOD SPECIMEN Ordering Facility: [facility] Address: [address] [place], [place] [address] Performed By: #### 5 7021-8 #### [facility] CLIA [id number] [address] [place] [address] [place] Basophils/100 WBC (Bld) 0.5 % Normal [facility] Comment on above: Order Comment: Speci men Type: BLOOD SPECIMEN Ordering Facility: [facility] Address: [address] [place] [address] Performed By: #### 5 7021-8 #### [facility] CLIA [id number] [address] [place] [address] [place] Differential cell count method Nom (Bld) Auto Normal [facility] Comment on above: Order Comment: Speci men Type: BLOOD SPECIMEN Ordering Facility: [facility] Address: [address] [place] [address] Performed By: #### 5 7021-8 #### [facility] CLIA [id number] [address] [place] [address] [place] Eosinophils (Bld) [#/Vol] 0.28 10*3/uL Normal <0.46 [facility] Comment on above: Order Comment: Speci men Type: BLOOD SPECIMEN Ordering Facility: [facility] Address: [address] [place] [address] Performed By: #### 5 7021-8 #### [facility] CLIA [id number] [address] [place] [address] [place] Eosinophils/100 WBC (Bld) 3.5 % Normal [facility] Comment on above: Order Comment: Speci men Type: BLOOD SPECIMEN Ordering Facility: [facility] Address: [address] [place] [address] Performed By: #### 5 7021-8 #### [facility] CLIA [id number] [address] [place] [address] [place] Erythrocyte distribution width (RBC) [Ratio] 12.3 % Normal 11.5-15.0 [facility] Comment on above: Order Comment: Speci men Type: BLOOD SPECIMEN Ordering Facility: [facility] Address: [address] [place] [address] Performed By: #### 5 7021-8 #### [facility] CLIA [id number] [address] [place] [address] [place] Hematocrit (Bld) [Volume fraction] 41.7 % Normal 39.0-51.0 [facility] Comment on above: Order Comment: Speci men Type: BLOOD SPECIMEN Ordering Facility: [facility] Address: [address] [place] [address] Performed By: #### 5 7021-8 #### [facility] CLIA [id number] [address] [place] [address] [place] Hemoglobin (Bld) [Mass/Vol] 14.2 g/dL Normal 13.0-17.0 [facility] Comment on above: Order Comment: Speci men Type: BLOOD SPECIMEN Ordering Facility: [facility] Address: [address] [place] [address] Performed By: #### 5 7021-8 #### [facility] CLIA [id number] [address] [place] [address] [place] Immature granulocytes (Bld) [#/Vol] 0.03 10*3/uL Normal <0.10 [facility] Comment on above: Order Comment: Speci men Type: BLOOD SPECIMEN Ordering Facility: [facility] Address: [address] [place] [address] Performed By: #### 5 7021-8 #### [facility] CLIA [id number] [address] [place] [address] [place] Immature granulocytes/100 WBC (Bld) 0.4 % Normal [facility] Comment on above: Order Comment: Speci men Type: BLOOD SPECIMEN Ordering Facility: [facility] Address: [address] [place] [address] Performed By: #### 5 7021-8 #### [facility] CLIA [id number] [address] [place] [address] [place] Lymphocytes (Bld) [#/Vol] 1.80 10*3/uL Normal 1.00-4.00 [facility] Comment on above: Order Comment: Speci men Type: BLOOD SPECIMEN Ordering Facility: [facility] Address: [address] [place] [address] Performed By: #### 5 7021-8 #### [facility] CLIA [id number] [address] [place] [address] [place] Lymphocytes/100 WBC (Bld) 22.6 % Normal [facility] Comment on above: Order Comment: Speci men Type: BLOOD SPECIMEN Ordering Facility: [facility] Address: [address] [place] [address] Performed By: #### 5 7021-8 #### [facility] CLIA [id number] [address] [place] [address] [place] MCH (RBC) [Entitic mass] 33.4 pg Normal 26.0-34.0 [facility] Comment on above: Order Comment: Speci men Type: BLOOD SPECIMEN Ordering Facility: [facility] Address: [address] [place] [address] Performed By: #### 5 7021-8 #### [facility] CLIA [id number] [address] [place] [address] [place] MCHC (RBC) [Mass/Vol] 34.1 g/dL Normal 30.5-36.0 [facility] Comment on above: Order Comment: Speci men Type: BLOOD SPECIMEN Ordering Facility: [facility] Address: [address] [place] [address] Performed By: #### 5 7021-8 #### [facility] CLIA [id number] [address] [place] [address] [place] MCV (RBC) [Entitic vol] 98.1 fL Normal 80.0-100.0 [facility] Comment on above: Order Comment: Speci men Type: BLOOD SPECIMEN Ordering Facility: [facility] Address: [address] [place] [address] Performed By: #### 5 7021-8 #### [facility] CLIA [id number] [address] [place] [address] [place] Monocytes (Bld) [#/Vol] 0.69 10*3/uL Normal <0.87 [facility] Comment on above: Order Comment: Speci men Type: BLOOD SPECIMEN Ordering Facility: [facility] Address: [address] [place] [address] Performed By: #### 5 7021-8 #### [facility] CLIA [id number] [address] [place] [address] [place] Monocytes/100 WBC (Bld) 8.6 % Normal [facility] Comment on above: Order Comment: Speci men Type: BLOOD SPECIMEN Ordering Facility: [facility] Address: [address] [place] [address] Performed By: #### 5 7021-8 #### [facility] CLIA [id number] [address] [place] [address] [place] Neutrophils (Bld) [#/Vol] 5.14 10*3/uL Normal 1.45-7.50 [facility] Comment on above: Order Comment: Speci men Type: BLOOD SPECIMEN Ordering Facility: [facility] Address: [address] [place] [address] Performed By: #### 5 7021-8 #### [facility] CLIA [id number] [address] [place] [address] [place] Neutrophils/100 WBC (Bld) 64.4 % Normal [facility] Comment on above: Order Comment: Speci men Type: BLOOD SPECIMEN Ordering Facility: [facility] Address: [address] [place] [address] Performed By: #### 5 7021-8 #### [facility] CLIA [id number] [address] [place] [address] [place] Nucleated RBC (Bld) [#/Vol] 10*3/uL Normal <0.01 [facility] Comment on above: Order Comment: Speci men Type: BLOOD SPECIMEN Ordering Facility: [facility] Address: [address] [place] [address] Performed By: #### 5 7021-8 #### [facility] CLIA [id number] [address] [place] [address] [place] Nucleated RBC/100 WBC (Bld) [Ratio] 0.0 /100 WBC Normal [facility] Comment on above: Order Comment: Speci men Type: BLOOD SPECIMEN Ordering Facility: [facility] Address: [address] [place] [address] Performed By: #### 5 7021-8 #### [facility] CLIA [id number] [address] [place] [address] [place] Platelet mean volume (Bld) [Entitic vol] 9.3 fL Normal 9.0-12.7 [facility] Comment on above: Order Comment: Speci men Type: BLOOD SPECIMEN Ordering Facility: [facility] Address: [address] [place] [address] Performed By: #### 5 7021-8 #### [facility] CLIA [id number] [address] [place] [address] [place] Platelets (Bld) [#/Vol] 209 10*3/uL Normal 150-400 [facility] Comment on above: Order Comment: Speci men Type: BLOOD SPECIMEN Ordering Facility: [facility] Address: [address] [place] [address] Performed By: #### 5 7021-8 #### [facility] CLIA [id number] [address] [place] [address] [place] RBC (Bld) [#/Vol] 4.25 10*6/uL Normal 4.20-6.00 [facility] Comment on above: Order Comment: Speci men Type: BLOOD SPECIMEN Ordering Facility: [facility] Address: [address] [place] [address] Performed By: #### 5 7021-8 #### [facility] CLIA [id number] [address] [place] [address] [place] WBC (Bld) [#/Vol] 7.98 10*3/uL Normal 3.70-11.00 [facility] Comment on above: Order Comment: Speci men Type: BLOOD SPECIMEN Ordering Facility: [facility] Address: [address] [place] [address] Performed By: #### 5 7021-8 #### [facility] CLIA [id number] [address] [place] [address] [place] CNOVon 07-31-2024 CNOV Office Visit (FAMPWS ) KELSI SOTO ([id number]) 1965 M Date Time Provider Department 07/31/24 9:00 AM [facility] During your visit today, we recorded the following information about you: Pulse Respiration Blood pressure Weight 75/minute 16/minute 120/62 83.9 kg Lynn Avalos, CHEF KITCHEN MANAGER.SECRETARY OF STATE 07/31/2024 10:51 AM Signed Chief Reason For [...] No, Referral as Referring (Cardiology) Aretha Hemphill APRN.CULLEN as Boat Outfitting Supervisor (Family Medicine) Lynn Avalos APRN.CNP as Boat Outfitting Supervisor (Family Medicine) Concerns today: None HPI Hasn't seen cardiology lately, would like to see someone closer Reviewed echo from January Active Problems ACTIVE PROBLEM LIST Asthenia - 09/15/2022 Near Syncope - 09/15/2022 Coronary Artery Disease Involving [place] Coronary Artery of [place] Heart Without Angina Pectoris - 03/12/2020 Comment: [...] WHEN PFRMD 05/27/2018 Colonoscopy EPS: EP STUDY [facility] - negative LEFT HEART CATH 06/21/2015 [...] of la (more content not included)... Normal [facility] Comprehensive metabolic 2000 panelon 07-31-2024 Albumin [Mass/Vol] 4.8 g/dL Normal 3.9-4.9 [facility] Comment on above: Order Comment: Speci men Type: BLOOD SPECIMENOrdering Facility: [facility] Address: [address] [place] [address] [place] [address] Performed By: #### 2 7287-8, 79561-7, 0066-3, LIPNF ####[facility] LABCLIA [id number] [address] [address] [place] ALP [Catalytic activity/Vol] 62 U/L Normal 38-113 [facility] Comment on above: Order Comment: Speci men Type: BLOOD SPECIMENOrdering Facility: [facility] Address: [address] [place] [address] Performed By: #### 2 4323-8, , 3015-3, LIPNF ####[facility] LABCLIA [id number] [place] [address] [place] ALT [Catalytic activity/Vol] 24 U/L Normal 10-54 [facility] Comment on above: Order Comment: Speci men Type: BLOOD SPECIMENOrdering Facility: [facility] Address: [address] [place] [address] Performed By: #### 2 4323-8, , 3, LIPNF ####[facility] LABCLIA [id number] [place] [id number] [place] Anion gap [Moles/Vol] 11 mmol/L Normal 8-15 [facility] Comment on above: Order Comment: Speci men Type: BLOOD SPECIMENOrdering Facility: [facility] Address: [address] [place] [address] Performed By: #### 2 4323-8, , 3, LIPNF ####[facility]CLIA [id number] [address] [address] [place] AST [Catalytic activity/Vol] 27 U/L Normal 14-40 [facility] Comment on above: Order Comment: Speci men Type: BLOOD SPECIMENOrdering Facility: [facility] Address: [address] [place] [address] Performed By: #### 2 4323-8, 79532-0, 3015-3, LIPNF ####[facility]CLIA [id number] [address] [address] [place] Bilirubin [Mass/Vol] 0.5 mg/dL Normal 0.2-1.3 [facility] Comment on above: Order Comment: Speci men Type: BLOOD SPECIMENOrdering Facility: [facility] Address: [address] [place] [address] Performed By: #### 2 4323-8, 30952-9, 3, LIPNF ####[facility]CLIA [id number] [address] [address] [place] Calcium [Mass/Vol] 10.1 mg/dL Normal 8.5-10.2 [facility] Comment on above: Order Comment: Speci men Type: BLOOD SPECIMENOrdering Facility: [facility] Address: [address] [place] [address] Performed By: #### 2 4323-8, , 3, LIPNF ####[facility]CLIA [id number] [place] [id number] [place] Chloride [Moles/Vol] 102 mmol/L Normal 98-107 [facility] Comment on above: Order Comment: Speci men Type: BLOOD SPECIMENOrdering Facility: [facility] Address: [address] [place] [address] Performed By: #### 2 4323-8, , 3, LIPNF ####[facility] [id number] [address] [address] [place] CO2 [Moles/Vol] 26 mmol/L Normal 22-30 [facility] Comment on above: Order Comment: Speci men Type: BLOOD SPECIMENOrdering Facility: [facility] Address: [address] [place], [place] [address] Performed By: #### 2 4323-8, 02676-9, 3015-3, LIPNF ####[facility]CLIA [id number] [place] [id number] [place] Creatinine [Mass/Vol] 0.93 mg/dL Normal 0.73-1.22 [facility] Comment on above: Order Comment: Vidal fonseca Type: BLOOD SPECIMENOrdering Facility: [facility] Address: [address] [place] [address] Performed By: #### 2 4323-8, 58144-6, 3016-3, LIPNF ####[facility] LABIA [id number] [place] [address] [facility] [place] Creatinine and Glomerular filtration rate.predicted panel (S/P/Bld) 94 mL/min/1.73m??? Normal >=60 [facility] Comment on above: Order Comment: Vidal fonseca Type: BLOOD SPECIMENOrdering Facility: [facility] Address: [address] [place] [address] Result Comment: Sejal mated Glomerular Filtration Rate [...] actual GFR. Performed By: #### 2 4323-8, 61657-6, 6-3, LIPNF ####[facility] LABIA [id number] [place] [id number] [place] Glucose [Mass/Vol] 85 mg/dL Normal 74-99 [facility] Comment on above: Order Comment: Vidal fonseca Type: BLOOD SPECIMENOrdering Facility: [facility] Address: [address] [place] [address] Result Comment: The [place] Diabetes Association (ADA) provides guidance for cutoff [...] Standards of Medical Care in Diabetes 2016, Japanese Diabetes Association. Diabetes Care. 2016.39(Suppl 1). Performed By: #### 2 4323-8, 74900-6, 6-3, LIPNF ####[facility] LABCLIA [id number] [place] [address] [place] Potassium [Moles/Vol] 4.6 mmol/L Normal 3.7-5.1 [facility] Comment on above: Order Comment: Speci men Type: BLOOD SPECIMENOrdering Facility: [facility] Address: [address] [place] [address] Performed By: #### 2 4323-8, , 3015-3, LIPNF ####[facility] LABIA [id number] [place] [address] [place] Protein [Mass/Vol] 7.7 g/dL Normal 6.3-8.0 [facility] Comment on above: Order Comment: Modestoi marian Type: BLOOD SPECIMENOrdering Facility: [facility] Address: [address] [place] [address] Performed By: #### 2 4323-8, , 3, LIPNF ####[facility] LABCLIA [id number] [place] [address] [place] Sodium [Moles/Vol] 139 mmol/L Normal 136-144 [facility] Comment on above: Order Comment: Speci men Type: BLOOD SPECIMENOrdering Facility: [facility] Address: [address] [place] [address] Performed By: #### 2 4323-8, 03379-8, 6-3, LIPNF ####[facility] LABCLIA [id number] [place] [address] [place] Urea nitrogen [Mass/Vol] 15 mg/dL Normal 9-24 [facility] Comment on above: Order Comment: Vidal fonseca Type: BLOOD SPECIMENOrdering Facility: [facility] Address: [address] [place] [address] Performed By: #### 2 4323-8, 31344-6, 3016-3, LIPNF ####[facility]CLIA [id number] [place] [address] [place] HbA1c (Bld)on 07-31-2024 Average glucose Estimated from glycated hemoglobin (Bld) [Mass/Vol] 100 mg/dL Normal [facility] Comment on above: Order Comment: Vidal fonseca Type: BLOOD SPECIMENOrdering Facility: [facility] Address: [address] [place] [address] Result Comment: eAG: (Estimated average glucose) is a calculated value from HgbA1c and is field representatives director of the average blood glucose level in the last 2-3 month period. Performed By: #### 5 5454-3 ####[facility]CLIA [id number] [place] [address] [place] HbA1c (Bld) [Mass fraction] 5.1 % Normal 4.3-5.6 [facility] Comment on above: Order Comment: Vidal fonseca Type: BLOOD SPECIMENOrdering Facility: [facility] Address: [address] [place] [address] Result Comment: Amer ican Diabetes Association guidelines indicate that patients with HgbA1c in the range 5.7-6.4% are at increased risk for development of diabetes, and intervention by lifestyle modification may be beneficial. HgbA1c greater or equal to 6.5% is considered diagnostic of diabetes. Performed By: #### 5 5454-3 ####[facility]CLIA [id number] [place] [address] [place] LIPID PANEL, NONFASTINGon Cholesterol [Mass/Vol] 292 mg/dL High <200 [facility] Comment on above: Order Comment: Speci men Type: BLOOD SPECIMENOrdering Facility: [facility] Address: [address] [place] [address] Result Comment: <200 mg/dL, Desirable 200-239 mg/dL, Borderline high >239 mg/dL, High Performed By: #### 2 4323-8, 67823-1, 3016-3, LIPNF ####[facility] LABCLIA [id number] [place] [address] [place] HDL CHOLESTEROL, NF 50 mg/dL Normal >39 [facility] Comment on above: Order Comment: Speci men Type: BLOOD SPECIMENOrdering Facility: [facility] Address: [address] [place] [address] Result Comment: 40-5 9 mg/dL, Acceptable >59 mg/dL, High: Negative risk factor for coronary heart disease <40 mg/dL, Low: Positive risk factor for coronary heart disease Performed By: #### 2 4323-8, 54765-9, 6-3, LIPNF ####[facility] LABCLIA [id number] [place] [address] [place] LDL CHOLESTEROL, NF Normal [facility] Comment on above: Order Comment: Speci men Type: BLOOD SPECIMENOrdering Facility: [facility] Address: [address] [place] [address] Result Comment: Unab le to calculate due to increased Triglycerides. A Direct LDL Cholesterol measurement will not be performed. If clinically indicated, a fasting Basic Lipid Panel (LIPB) may be ordered. Performed By: #### 2 4323-8, 42884-9, 6-3, LIPNF ####[facility] LABCLIA [id number] [place] [id number] [place] LDL/HDL RATIO, NF Normal [facility] Comment on above: Order Comment: Speci men Type: BLOOD SPECIMENOrdering Facility: [facility] Address: [address] [place] [address] Result Comment: Unab le to calculate due to elevated Triglycerides. Reference: 1. National Cholesterol Education Program ATP III Guideline At-A-Glance Quick Desk Reference: National Heart, Lung, and Blood [place]. National Institutes of Health. 2001: NIH Publication No. 01-3305. 2. An International Atherosclerosis Society position paper: global recommendations for the management of dyslipidemia: executive summary, Atherosclerosis. 2014: 232(2):410-413. Performed By: #### 2 4323-8, 63517-3, 3016-3, LIPNF ####[facility] LABCLIA [id number] [place] [id number] [place] NON HDL CHOL, NF 242 mg/dL High <130 [facility] Comment on above: Order Comment: Speci men Type: BLOOD SPECIMENOrdering Facility: [facility] Address: [address] [place] [address] Result Comment: <130 mg/dL, Optimal 130-159 mg/dL, Near optimal/above optimal 160-189 mg/dL, Borderline high 190-219 mg/dL, High >219 mg/dL, Very high Secondary prevention optimal non HDL Cholesterol levels are recommended to be <100 mg/dL Performed By: #### 2 3-8, 18792-1, 6-3, LIPNF ####[facility] LABCLIA [id number] [place] [address] [place] T CHOL/HDL RATIO NF 5.84 mg/dL High <5.10 [facility] Comment on above: Order Comment: Speci men Type: BLOOD SPECIMENOrdering Facility: [facility] Address: [address] [place] [address] Performed By: #### 2 4323-8, 33606-9, 6-3, LIPNF ####[facility] LABCLIA [id number] [place] [id number] [place] TRIGLYCERIDES, NF 404 mg/dL High <150 [facility] Comment on above: Order Comment: Speci men Type: BLOOD SPECIMENOrdering Facility: [facility] Address: [address] [place] [address] Result Comment: <150 mg/dL, Normal 150-199 mg/dL, Borderline high 200-499 mg/dL, High >499 mg/dL, Very high Performed By: #### 2 4323-8, 92242-8, 3, LIPNF ####[facility] LABCLIA [id number] [place] [address] [place] VLDL CHOLESTEROL, NF Normal [facility] Comment on above: Order Comment: Speci men Type: BLOOD SPECIMENOrdering Facility: [facility] Address: [address] [place] [address] Result Comment: Unab le to calculate due to elevated Triglycerides. Performed By: #### 2 4323-8, , 3, LIPNF ####[facility] LABCLIA [id number] [place] [address] [place] Magnesium SerPl-mCncon 07-31 Magnesium [Mass/Vol] 2.2 mg/dL Normal 1.7-2.3 [facility] Comment on above: Order Comment: Speci men Type: BLOOD SPECIMENOrdering Facility: [facility] Address: [address] [place] [address] Performed By: #### 2 4323-8, , 3, LIPNF ####[facility] LABCLIA [id number] [place] [address] [place] TSH SerPl-aCncon 07-31-2024 TSH Qn 0.973 m[IU]/L Normal 0.270-4.20 0 [facility] Comment on above: Order Comment: Speci men Type: BLOOD SPECIMENOrdering Facility: [facility] Address: [address] [place] [address] Performed By: #### 2 4323-8, , 3, LIPNF ####[facility] LABCLIA [id number] [place] [address] [place] Vit B12 SerPl-mCncon 12-26-2 024 Cobalamin (Vitamin B12) [Mass/Vol] 662 pg/mL Normal 232-1245 [facility] Comment on above: Order Comment: Speci men Type: BLOOD SPECIMEN [facility] Address: [address] [place] [address] Performed By: #### P SAS1 #### [facility] CLIA [id number] [address] [place] [address] OF [facility] XR Elbow - left AP and Later becca 08-26-2023 IMPRESSION: Unremark able left elbow Adobe Layer: KATHLEEN Transcribe Date/Time: Aug 26 2023 6:21P Dictated by : REJI SAUNDERS MD This examination was interpreted and the report reviewed and electronically signed by: REJI SAUNDERS MD on Aug 26 2023 6:21PM [facility] DIVISION OF RADIOLOGY * * [...] acute fractures seen DIVISION OF RADIOLOGY Provider, [facility] - 08/26/2023 * * *Final Report* * [...] fractures seen IMPRESSION IMPRESSION: Unremarkable left elbow Adobe Layer: JERRYB Transcribe Date/Time: Aug 26 2023 6:21P Dictated by : REJI SAUNDERS MD This examination was interpreted and the report reviewed and electronically signed by: REJI SAUNDERS MD on Aug 26 2023 6:21PM EST [facility] XR Elbow - left AP and Later alOrdered By: Ccf Provider on 08-26-2023 [facility] XR Elbow - left AP and Later becca 08-25-2023 Radiology Study observation (narrative) [facility] XR Shoulder - right 3 Viewso n 09-20-2022 IMPRESSION: Degenerative changes as described. Adobe Layer: KATHLEEN Transcribe Date/Time: Sep 20 2022 10:30A [...] multilevel degenerative changes DIVISION OF RADIOLOGY Provider, [facility] - 09/20/2022 * * *Final Report* * [...] changes IMPRESSION IMPRESSION: Degenerative changes as described. Adobe Layer: PSCB Transcribe Date/Time: Sep 20 2022 10:30A Dictated by : ORLANDO ARIAS MD This examination was interpreted and the report reviewed and electronically signed by: ORLANDO ARIAS MD on Sep 20 2022 10:31AM EST [facility] XR Shoulder - right 3 ViewsO rdered By: Ccf Provider on 09-20-2022 [facility] XR Shoulder - right 3 Viewso n 09-15-2022 Radiology Study observation (narrative) [facility] ALLIED HEALTHon 02-23-2020 ALLIED HEALTH HNO ID: [id number] Author: Jania (Ct) [place]az[place], [place] Service: ? Author Type: Clinical Boat Pilot Type: Allied Health Filed: 02/23/2020 1:13 PM [...] 23, 2020 TREATMENT: N/A PERIPHERAL IV DATA: resident physician in radiology started iv RADIOLOGY DEPARTMENT: CT; Exam(s) Completed: coronary SIGNATURE: Jania Haile, CT PATIENT NAME: Kelsi Soto DATE: February 23, 2020 TIME: 1:[address] [facility] CTA CORONARY W IVCONon 02-22 CTA CORONARY W IVCON * * *Final Report* * * DATE OF EXAM: Feb 23 2020 1:15PM [facility] 0470 - CTA CORONARY W IVCON / [...] further evaluation with endoscopy could be considered. Adobe Layer: KATHLEEN Transcribe Date/Time: Feb 23 2020 1:44P Dictated by : JENNIFER DELGADILLO MD This examination was interpreted and the report reviewed and electronically signed by: DAVIDE QUINTANA MD on Feb 23 2020 4:08PM EST [id number] [facility] OBSOLETEon 10-15-2017 OBSOLETE Refill (AGCARDWST) JOSE KELSI BHATIA ([id number]) 1965 [facility] Time Provider Department10/15/17 NATHANIEL PALOMARESWSRichar During your visit today, we recorded the [...] [94]Order(s):metoprolol succinate ER (TOPROL XL) 100 mg [id number] 1 tablet by mouth once daily.Disp: 90 [...] file. Status:Closed by KIRK ADHIKARI on 10/15/17 Normal [facility] CNOVon 10-10-2017 CNOV Office Visit (AGCARDWST) KELSI LIRIANO ([id number]) 1965 [facility] Time Provider Department10/10/17 11:00 AM NATHANIEL PALOMARES [...] - N/ABeta zakiya for ASHD with prior SC or prior LVEFANDlt;40 (NQF 0070) - N/ABeta zakiya for HF with prior LVEFANDlt;40 (NQ 0083) - N/AACE-I or ARB for ASHD with DM or prior LVEFANDlt;40 (NQ 0066) - N/AStatin therapy for ASHD or FHL or DM - N/ABMI documented and plan if ANDgt;25 (NQ 0421) - lifestyle recommendation formTobacco use screening and referral (NQ 0028) - lifestyle recommendation formRecommendation for whole [...] with treatment plan.This note was generated using FoxyTunes voice recognition system, and there may besome [...] hadimproved to 50% by echocardiogram done at [facility].EKG showed sinus rhythm with right axis deviation. There was no significantabnormality.By report, prior angiography showed no evidence of obstructive coronary disease.Recent labs show normal LV function. LDL was 126. TSH was normal. Troponin wasundetectable on recent admission and magnesium level was normal.He now has an event monitor. He has made multiple transmissions, but noabnormal rhythms have been detected.Electronically Signed:Nathaniel Palomares, [facility] 2017 11:32 [facility]:Luis Rubio MD 10/10/2017 11:32 AM SignedLIFESTYLE CHANGEA [...] programs in your area.Referring Provider: NATHANIEL PALOMARES [[id number]]Allergies As of Date: 10/10/2017(No Known Allergies)Date Reviewed: [...] the following areas and commit to making long chain beamer changes. EAT A WHOLE FOOD, PLANT BASED [...] your area.Follow-up and Disposition History RecordedEncounter Number: [id number] Status:Closed by NATHANIEL PALOMARES MD on 10/10/17 Normal [facility] PROGRESSon 10-10-2017 PROGRESS HNO ID: [id number] thor: Nathaniel Nunez: (none)Author Type: PhysicianType: Progress NotesFiled: 10/10/2017 5:09 PMNote Text:PERTINENT CARDIAC HISTORYCardiomyopathy - nonischemicHTNHLTobaccoismChest pain - cath normal 2000, 2015Ventricular arrhythmia - EPS negativeQuestionable history of atrial fibrillation.ADHERENCE TO GUIDELINESACE-I or ARB for HF with prior LVEF<40 (NQF 0081) - N/AASA or Plavix for ASHD (NQF 0067) - N/ABeta zakiya for ASHD with prior SC or prior LVEF<40 (NQF 0070) - N/ABeta [...] with treatment plan.This note was generated using FoxyTunes voice recognition system, and theremay be some [...] improved to 50% by echocardiogram done at [facility].EKG showed sinus rhythm with right axis deviation. There was nosignificant abnormality.By report, prior angiography showed no evidence of obstructive coronarydisease.Recent labs show normal LV function. LDL was 126. TSH was normal. Troponinwas undetectable on recent admission and magnesium level was normal.He now has an event monitor. He has made multiple transmissions, but noabnormal rhythms have been detected.Electronically Signed:Nathaniel Palomares [facility] 2017 11:32 [facility]:Martin Melendez MD [facility] CNNURSEon 10-04-2017 CNNURSE Nurse Visit (AGCARDWST) KELSI LIRIANO ([id number]) 1965 MDate Time Provider Department10/04/17 3:00 PM NURSE CARD AG DONA AGCARDWST During your visit today, we recorded the following information about you:Pati Feliciano MA 10/04/2017 3:15 PM [id number] day Lifewatch monitor applied and instructions given.Patient verbalized understanding.Lizbeth Lomeli Provider: NATHANIEL PALOMARES [[id number]]Allergies As of Date: 10/04/2017(No Known Allergies)Date Reviewed: 07/17/2017Reviewed by: Katty Grant [facility] - Fully AssessedReason for Visit: Nurse Visit [...] Status:Closed by PATI FELICIANO MA on 10/04/17 [facility] PROGRESSon 10-04-2017 PROGRESS HNO ID: [id number] thor: Pati Jiang) JonathonkeyService: (none)Author Type: Medical AssistantType: Progress NotesFiled: 10/04/2017 3:15 PMNote Text:30 day Lifewatch monitor applied and instructions given.Patient verbalized understanding.Pati Feliciano MA [facility] Vital Signs Date Time Vital Sign Value Performing Clinician Wilma cavazos 01-30-2025 16:31-0400 Body mass index (BMI) [Ratio] 24.68 kg/m2 Lynn Suppwalter CHEF KITCHEN MANAGER.SECRETARY OF STATE Work Phone: [facility] 01-30-2025 16:31-0400 Body temperature 97.7 [degF] Lynn Suppan CHEF KITCHEN MANAGER.SECRETARY OF STATE Work Phone: [facility] 01-30-2025 16:31-0400 Body weight 82.56 kg Lynn Suppan CHEF KITCHEN MANAGER.SECRETARY OF STATE Work Phone: [facility] 01-30-2025 16:31-0400 Diastolic blood pressure 68 mm[Hg] Lynn Suppan CHEF KITCHEN MANAGER.SECRETARY OF STATE Work Phone: [facility] 01-30-2025 16:31-0400 Heart rate 76 /min Lynn Suppan CHEF KITCHEN MANAGER.SECRETARY OF STATE Work Phone: [facility] 01-30-2025 16:31-0400 SaO2% (BldA) [Mass fraction] 96 % Lynn Suppan CHEF KITCHEN MANAGER.SECRETARY OF STATE Work Phone: [facility] 01-30-2025 16:31-0400 Systolic blood pressure 112 mm[Hg] Lynn Suppan CHEF KITCHEN MANAGER.SECRETARY OF STATE Work Phone: [facility] 01-19-2025 08:10-0400 Body height [facility].88 cm [facility] 01-19-2025 08:10-0400 Body mass index (BMI) [Ratio] 25 kg/m2 [facility] 01-19-2025 08:10-0400 Body weight 83.91 kg [facility] 01-19-2025 08:10-0400 Diastolic blood pressure 82 mm[Hg] [facility] 01-19-2025 08:10-0400 Heart rate 69 /min [facility] 01-19-2025 08:10-0400 Respiratory rate 16 /min [facility] 01-19-2025 08:10-0400 Systolic blood pressure 118 mm[Hg] [facility] 07-31-2024 09:14-0500 Body mass index (BMI) [Ratio] 25.09 kg/m2 Lynn Suppan CHEF KITCHEN MANAGER.SECRETARY OF STATE Work Phone: [facility] 07-31-2024 09:14-0500 Body weight 83.92 kg Lynn Suppan CHEF KITCHEN MANAGER.SECRETARY OF STATE Work Phone: [facility] 07-31-2024 09:14-0500 Diastolic blood pressure 62 mm[Hg] Lynn Suppan CHEF KITCHEN MANAGER.SECRETARY OF STATE Work Phone: [facility] 07-31-2024 09:14-0500 Heart rate 75 /min Lynn Suppan CHEF KITCHEN MANAGER.SECRETARY OF STATE Work Phone: [facility] 07-31-2024 09:14-0500 Respiratory rate 16 /min Lynn Suppan CHEF KITCHEN MANAGER.SECRETARY OF STATE Work Phone: [facility] 07-31-2024 09:14-0500 SaO2% (BldA) [Mass fraction] 97 % Lynn Suppan CHEF KITCHEN MANAGER.SECRETARY OF STATE Work Phone: [facility] 07-31-2024 09:14-0500 Systolic blood pressure 120 mm[Hg] Lynn Suppan CHEF KITCHEN MANAGER.SECRETARY OF STATE Work Phone: [facility] 12-18-2022 13:42-0400 Body height 182.9 cm Keshav Landry DO Work Phone: [facility] 12-18-2022 13:42-0400 Body weight 84.82 kg Keshav Landry DO Work Phone: [facility] 12-18-2022 13:42-0400 Diastolic blood pressure 80 mm[Hg] Keshav Landry DO Work Phone: [facility] 12-18-2022 13:42-0400 Heart rate 74 /min Keshav Landry DO Work Phone: [facility] 12-18-2022 13:42-0400 SaO2% (BldA) [Mass fraction] 96 % Keshav Landry DO Work Phone: [facility] 12-18-2022 13:42-0400 Systolic blood pressure 110 mm[Hg] Keshav Landry DO Work Phone: [facility] Encounters Encounter Date Encounter Type Care Provider Facility Start: 04-14-2025 End: 04-14-2025 Patient encounter procedure Brianne MADRIGAL -[facility] Work Phone: Start: 04-14-2025 End: 04-14-2025 ambulatory Martin HEARD [facility] Start: 03-24-2025 Non-patient / Non-visit Gladis gan NP-[place] -[facility] Work Phone: Start: 03-24-2025 ambulatory Gladis Mckeon Facility: [facility] Start: 03-23-2025 ambulatory Gladis Mckeon Facility: [facility] Start: 03-23-2025 Non-patient / Non-visit Dr. Michaud [facility] Start: 03-23-2025 End: 03-23-2025 ambulatory Martin HEARD -[facility] Start: 03-23-2025 End: 03-23-2025 Patient encounter procedure Gladis BARKER -Cardi[facility] Services Work Phone: Start: 03-23-2025 End: 03-23-2025 ambulatory Gladis Mckeon Facility:[facility] Start: 03-16-2025 End: 03-16-2025 Follow-up encounter Lynn Avalos APRN.SECRETARY OF STATE Work Phone: [facility] Comment on above: Nausea Start: 03-13-2025 End: 03-13-[address] [facility] Facility:[facility] Start: 02-27-2025 Non-patient / Non-visit Dr. Qi caicedo MD -[facility] Start: 02-27-2025 End: 02-27-2025 ambulatory [facility] [place] -Cardiovascular Serv ices Start: 02-27-2025 End: 02-27-[address] Qi Martínez MD -Cardiovascular Services Work Phone: Start: 02-27-2025 End: 02-27-2025 ambulatory Qi [facility] Facility:[facility] Start: 02-09-2025 Non-patient / Non-visit Dr. Qi caicedo MD -[facility] Work Phone: Start: 02-09-2025 End: 02-09-2025 ambulatory [facility] [place] -Pulmonary Services/Neurology Start: 02-09-2025 End: 02-09-[address] Qi Martínez MD -Pulmonary Services/Neurology Work Phone: Start: 02-09-2025 End: 02-09-2025 ambulatory Qi [facility] Facility:[facility] Start: 01-30-2025 End: 01-30-2025 Office outpatient visit 15 minutes Lynn Avalos APRN.CNP Work Phone: [facility] Comment on above: Tonsillitis (Primary Dx); Acute otitis externa of both ears, unspecified type; Nonischemic cardiomyopathy (HCC); Essential hypertension; Coronary artery disease involving [place] coronary artery of [place] heart without angina pectoris; VT (ventricular tachycardia) (HCC) Start: 01-30-2025 End: 01-30-2025 ambulatory [facility] Facility:[facility] Start: 01-21-2025 End: 01-21-2025 Follow-up encounter Martin Melendez MD Work Phone: [facility] Start: 01-19-2025 End: 01-19-[address] Qi Martínez MD -[facility] Work Phone: Start: 01-19-2025 End: 01-19-2025 ambulatory Martin Melendez [facility] Work Phone: Start: 12-31-2024 End: 12-31-2024 Telephone encounter Martin Melendez MD Work Phone: [facility] Comment on above: Appointment Start: 12-26-2024 End: 12-26-2024 ambulatory MARTIN MELENDEZ Facility:[facility] Start: 07-31-2024 End: 07-31-2024 ambulatory [place] Facility:[facility] Start: 07-31-2024 End: 07-31-2024 Office outpatient visit 25 minutes Lynn Avalos APRN.CNP Work Phone: [facility] Comment on above: Systolic congestive heart failure, unspecified HF chronicity (HCC) (Primary Dx); Encounter for immunization; Screening for depression; Encounter for screening examination for other mental health and behavioral disorders; VT (ventricular tachycardia) (HCC); Hyperlipidemia, mixed; Coronary artery disease involving [place] coronary artery of [place] heart without angina pectoris; Screening for diabetes mellitus Start: 11-26-2023 Telephone encounter Martin Melendez MD Work Phone: [facility] Comment on above: Patient Question Start: 10-01-2023 Refill Martin Melendez MD Work Phone: Family [facility] Comment on above: Refill Request Start: 08-25-2023 End: 08-25-2023 Subsequent hospital visit by physician Daisy [facility] Work Phone: Radiology Comment on above: Lateral epicondyliti s of left elbow [M77.12] Start: 03-01-2023 Telephone encounter Keshav Landry DO Work Phone: Cardiology Comment on above: Forms Start: 12-18-2022 End: 12-18-2022 Patient encounter procedure Keshav Landry DO Work Phone: Cardiology Comment on above: Nonischemic cardiomy opathy (HCC) (Primary Dx); Coronary artery disease involving [place] coronary artery of [place] heart without angina pectoris; Essential hypertension; Mixed hyperlipidemia; PVC's (premature ventricular contractions) Start: 09-25-2022 Telephone encounter Keshav Landry DO Work Phone: Cardiology Comment on above: Forms Start: 09-20-2022 Telephone encounter Martin Melendez MD Work Phone: [facility] [place] Comment on above: Results (Xray ) Start: 09-15-2022 End: 09-15-2022 Subsequent hospital visit by physician Xr [facility] Work Phone: Radiology Comment on above: Chronic right should er pain [M25.511, G89.29] Start: 09-08-2022 Telephone encounter Martin Melendez MD Work Phone: [facility] [place] Comment on above: Results Start: 08-23-2022 Refill Martin Melendez MD Work Phone: [facility] [place] Comment on above: Refill Request Start: 08-15-2022 Telephone encounter Martin Melendez MD Work Phone: [facility] [place] Comment on above: Patient Question Start: 06-14-2022 Telephone encounter Larry kramer APRN.SECRETARY OF STATE Work Phone: [facility] Comment on above: Results Start: 03-06-2022 Refill Martin Melendez MD Work Phone: Family [facility] Comment on above: Refill Request Start: 02-02-2021 End: 02-02-2021 ambulatory [facility] Start: 01-28-2021 ambulatory [facility] Start: 04-12-2018 Ambulatory [place] Facility[facility] Start: 04-10-2018 Ambulatory Martin Melendez Facility:[facility] Start: 10-10-2017 End: 10-10-[address] [facility] Start: 10-04-2017 [facility] Procedures Date Procedure Procedure Detail Performing Clinician Start: 03-23-2025 Radionuclide imaging of perfusion of myocardium under exercise stress Martin Melendez [place] Start: 01-19-2025 Lipid 1996 panel - S chrissy or Plasma Martin Melendez MD Work Phone: Start: 07-31-2024 Adult depression scr eening assessment Lynnector Avalos CHEF KITCHEN MANAGER.SECRETARY OF STATE Work Phone: Start: 07-31-2024 Lipid 1996 panel - S chrissy or Plasma Martin Melendez MD Work Phone: Start: 08-25-2023 Radex elbow 2 views Kan Melendez MD Work Phone: Start: 12-18-2022 Ecg routine ecg w/le ast 12 lds i&r only [facility] Provider Start: 09-15-2022 Radex shoulder compl ete minimum 2 views Martin Melendez MD Work Phone: Start: 08-30-2022 Lipid 1996 panel - S chrissy or Plasma Martin Melendez MD Work Phone: Start: 05-27-2018 Colonoscopy Martin Soriano MD Work Phone: Plan of Treatment Date Care Activity Detail Author Start: 10-27-2038 RSV Vaccine (1 - 1-d ose 75+ series) RSV Vaccine (1 - 1-dose 75+ series) [facility] Start: 01-19-2030 Lipid panel Lipid Screening [facility] Start: 01-19-2030 Prostate specific an tigen measurement Prostate Cancer Screening Discussion [facility] Start: 07-31-2029 Lipid panel Lipid Screening [facility] Start: 05-27-2028 Colonoscopy COLONOSCOPY [facility] Start: 05-27-2028 COLORECTAL CANCER SCREENING COLORECTAL CANCER SCREENING [facility] Start: 05-27-2028 Screening for malign ant neoplasm of colon [facility] Start: 03-13-2028 Diabetes Screening Diabetes Screenin [facility] Start: 09-15-2027 PROSTATE CANCER SCRE ENING DISCUSSION PROSTATE CANCER SCREENING DISCUSSION [facility] Start: 09-15-2027 Prostate specific an tigen measurement Prostate Cancer Screening Discussion [facility] Start: 08-30-2027 Lipid panel Lipid Screening [facility] Start: 08-30-2027 LIPID SCREEN LIPID SCREEN [facility] Start: 07-31-2027 Diabetes Screening Diabetes Screenin g [facility] Start: 03-13-2026 Annual PCP Team Automatic Fancy Machine Operator chino Disease Visit Annual PCP Team Chronic Disease Visit [facility] Start: 01-30-2026 Annual PCP Team Automatic Fancy Machine Operator chino Disease Visit Annual PCP Team Chronic Disease Visit [facility] Start: 01-19-2026 Hepatitis B surface antibody level LDL Cholesterol [facility] Start: 01-01-2026 LIPID SCREEN LIPID SCREEN [facility] Start: 12-26-2025 Annual PCP Team Automatic Fancy Machine Operator chino Disease Visit Annual PCP Team Chronic Disease Visit [facility] Start: 12-26-2025 BP Controlled (<130/80) BP Controlle d (<130/80) [facility] Start: 08-30-2025 DIABETES SCREEN DIABETES SCREEN [facility] Start: 08-30-2025 Diabetes Screening Diabetes Screenin g [facility] Start: 08-07-2025 End: 08-07-2025 Patient encounter procedure 08/07/2025 2:40 PM EST Office Visit [facility] [address] [place], [place] [phone] Martin Melendez MD [address] [place], [place] [id number] 6 month exam [facility] [place] Comment on above: 6 month exam Start: 07-31-2025 Anxiety Screening Anxiety Screening [facility] Start: 07-31-2025 BP Controlled (<130/80) BP Controlle d (<130/80) [facility] Start: 07-31-2025 Covid-19 Vaccine ( season) Covid-19 Vaccine () [facility] Comment on above: Postponed from 04/06 (Declined at this time) Start: 07-31-2025 Depression Screening Depression Scre ening [facility] Start: 07-31-2025 Hepatitis B surface antibody level LDL Cholesterol [facility] Start: 07-13-2025 End: 07-13-2025 Patient encounter procedure 07/13/2025 1:40 PM EST Office Visit Cardiology [address] [place], [place] [phone] Andrew Lowry MD [address], [address] [place] [address] Systolic congestive heart failure, unspecified HF chronicity (HCC) [I50.20]; VT (ventricular tachycardia) (HCC) [I47.20] Cardiology Comment on above: Systolic congestive heart failure, unspecified HF chronicity (HCC) [I50.20]; VT (ventricular tachycardia) (HCC) [I47.20] Start: 04-06-2025 Influenza vaccination [facility] Start: 02-09-2025 End: 02-09-2025 Patient encounter procedure 02/09/2025 3:00 PM EDT Office Visit Cardiology [address] [place] [id number] Andrew Lowry MD [address], [address] [place] [address] Systolic congestive heart failure, unspecified HF chronicity (HCC) [I50.20]; VT (ventricular tachycardia) (HCC) [I47.20] Cardiology Comment on above: Systolic congestive heart failure, unspecified HF chronicity (HCC) [I50.20]; VT (ventricular tachycardia) (HCC) [I47.20] Start: 02-02-2025 Influenza vaccination Influenza Vacc ine (#1) [facility] Comment on above: Postponed from 04/06 (Declined at this time) Start: 01-30-2025 End: 01-30-2025 Patient encounter procedure 01/30/2025 4:20 PM EDT Office Visit [facility] [place] [address] [place], [place] [phone] Lynn Avalos APRN.SECRETARY OF STATE [address] [place], [place] [phone] 6 month exam [facility] [place] Comment on above: 6 month exam Start: 01-19-2025 Evaluation of diagno stic study results [facility] Start: 08-25-2024 Annual PCP Team Automatic Fancy Machine Operator chino Disease Visit Annual PCP Team Chronic Disease Visit [facility] Start: 08-25-2024 BP Controlled (<130/80) BP Controlle d (<130/80) [facility] Start: 08-25-2024 Covid-19 Vaccine (#1) Covid-19 Vacci ne (#1) [facility] Comment on above: Postponed from 04/29 (Declined at this time) Start: 08-25-2024 Covid-19 Vaccine ( - season) Covid-19 Vaccine ( - season) [facility] Comment on above: Postponed from 04/06 (Declined at this time) Start: 08-25-2024 Shingrix Vaccine (1 of 2) Souza grix Vaccine (1 of 2) [facility] Comment on above: Postponed from 10/27 (Declined at this time) Start: 08-25-2024 Urine microalbumin profile DTa P,Tdap,Td Vaccine (1 - Tdap) [facility] Comment on above: Postponed from 10/27 (Declined at this time) Start: 07-31-2024 End: 10-30-2024 Cobalamin (Vitamin B12) [Mass/volume] in Serum or Plasma [facility] Comment on above: Expected: 07/31/2024 , Expires: 10/30/2024 Start: 07-31-2024 End: 10-30-2024 Comprehensive metabolic 2000 panel - Serum or Plasma [facility] Comment on above: Expected: 07/31/2024 , Expires: 10/30/2024 Start: 07-31-2024 End: 10-30-2024 Hemoglobin A1c in Blood [facility] Comment on above: Expected: 07/31/2024 , Expires: 10/30/2024 Start: 07-31-2024 End: 10-30-2024 LIPID PANEL, NONFASTING [facility] Work Phone: Comment on above: Expected: 07/31/2024 , Expires: 10/30/2024 Start: 07-31-2024 End: 10-30-2024 Magnesium [Mass/volume] in Serum or Plasma [facility] Comment on above: Expected: 07/31/2024 , Expires: 10/30/2024 Start: 07-31-2024 End: 10-30-2024 Thyrotropin [Units/volume] in Serum or Plasma [facility] Comment on above: Expected: 07/31/2024 , Expires: 10/30/2024 Start: 04-06-2024 Covid-19 Vaccine ( season) Covid-19 Vaccine ( season) [facility] Start: 04-06-2024 Covid-19 Vaccine ( season) Covid-19 Vaccine ( season) [facility] Start: 04-06-2024 Influenza vaccination [facility] Start: 02-29-2024 End: 02-29-2024 Patient encounter procedure 02/29/2024 8:40 AM EDT Office Visit [facility] [address] [place], [place] [id number] Martin Melendez MD [address] [place], [place] [phone] 6 mo follow up [facility] Comment on above: 6 mo follow up Start: 02-03-2024 Influenza vaccination Influenza Vacc ine (#1) [facility] Comment on above: Postponed from 04/06 (Declined at this time) Start: 01-02-2024 DIABETES SCREEN DIABETES SCREEN [facility] Start: 2023 RSV Vaccine (1 - 1-d ose 60+ series) RSV Vaccine (1 - 1-dose 60+ series) [facility] Start: 2023 RSV Vaccine (1 - Ris k 60-74 years 1-dose series) RSV Vaccine (1 - Risk 60-74 years 1-dose series) [facility] Start: 09-15-2023 ANNUAL PCP TEAM REPEAT CHIEF CHINO DISEASE VISIT ANNUAL PCP TEAM CHRONIC DISEASE VISIT [facility] Start: 08-30-2023 Hepatitis B surface antibody level LDL CHOLESTEROL [facility] Start: 08-06-2023 Behavioral Health Screening Behavioral Health Screening [facility] Start: 06-13-2023 BP CONTROLLED (<130/80) BP CONTROLLE D (<130/80) [facility] Start: 04-06-2023 Influenza vaccination [facility] Start: 08-23-2022 End: 10-23-2022 CBC W Auto Differential panel - Blood CBC + DIFF Lab Routine Essential hypertension Expected: 08/23/2022, Expires: 10/23/2022 [facility] Work Phone: Comment on above: Expected: 08/23/2022 , Expires: 10/23/2022 Start: 08-23-2022 End: 10-23-2022 Comprehensive metabolic 2000 panel - Serum or Plasma COMP METABOLIC PANEL Lab Routine Essential hypertension Mixed hyperlipidemia Expected: 08/23/2022, Expires: 10/23/2022 [facility] Work Phone: Comment on above: Expected: 08/23/2022 , Expires: 10/23/2022 Start: 08-23-2022 End: 10-23-2022 Lipid 1996 panel - Serum or Plasma LIPID PANEL BASIC Lab Routine Mixed hyperlipidemia Expected: 08/23/2022, Expires: 10/23/2022 [facility] Work Phone: Comment on above: Expected: 08/23/2022 , Expires: 10/23/2022 Start: 08-06-2022 DEPRESSION ASSESSMENT DEPRESSION ASS ESSMENT [facility] Start: 07-17-2022 PROSTATE CANCER SCRE ENING DISCUSSION PROSTATE CANCER SCREENING DISCUSSION [facility] Start: 04-06-2022 Influenza vaccination INFLUENZA (#1) [facility] Start: 01-04-2022 ANNUAL PCP TEAM REPEAT CHIEF CHINO DISEASE VISIT ANNUAL PCP TEAM CHRONIC DISEASE VISIT [facility] Start: 01-01-2022 Hepatitis B surface antibody level LDL CHOLESTEROL [facility] Start: 08-06-2021 DEPRESSION ASSESSMENT DEPRESSION ASS ESSMENT [facility] Start: 10-27-2013 SHINGRIX VACCINE (1 of 2) SOUZA GRIX VACCINE (1 of 2) [facility] Start: 10-27-2008 COLOGUARD (FIT-DNA) COLOGUARD (FIT-D NA) [facility] Start: 10-27-[address] COLONOGRAPHY [facility] Start: 10-27-2008 FECAL OCCULT BLOOD FECAL OCCULT BLOO D [facility] Start: 10-27-2008 Screening for malign ant neoplasm of colon [facility] Start: 10-27-2008 [facility] [place] Start: 10-27-1982 Urine microalbumin profile [facility] Start: 10-27-1981 Anxiety Screening Anxiety Screening [facility] Start: 10-27-1981 BP CONTROLLED (<130/80) BP CONTROLLE D (<130/80) [facility] Start: 10-27-1981 Depression Screening Depression Scre ening [facility] Start: 10-27-1981 HIV SCREENING HIV SCREENING [facility] Start: 1975 Adult depression scr eening assessment DEPRESSION SCREENING [facility] Start: 04-29-1964 COVID-19 VACCINE (#1) COVID-19 VACCI NE (#1) [facility] Start: 1965 HEPATITIS B (1 of 3 - 3-dose series) HEPATITIS B (1 of 3 - 3-dose series) [facility] Clostridioides diffi cile DNA [Presence] in Unspecified specimen by CADENCE with probe detection [facility] ECG COMPLETE ECG COMPLETE ECG 12/18/2022 1:45 PM EDT [facility] End: 12-19-2023 Echocardiography ECHO Cardiology Routine Nonischemic cardiomyopathy (HCC) Coronary artery disease involving [place] coronary artery of [place] heart without angina pectoris Essential hypertension Mixed hyperlipidemia PVC's (premature ventricular contractions) 1 Occurrences starting 12/18/2022 until 12/19/2023 [facility] Work Phone: Comment on above: 1 Occurrences starti ng 12/18/2022 until 12/19/2023 Giardia lamblia Ag [Presence] in Stool by Immunoassay [facility] Lipid 1996 panel - S chrissy or Plasma [facility] Magnesium measurement [facility] Nucleic acid assay [facility] [place] parasites identification [facility] Protein measurement [facility] Thyroid stimulating hormone measurement [facility] US Heart [facility] Immunizations Immunization Date Immunization Notes Care Provider Fa cility 07-31-2024 pneumococcal conjuga te (PCV20) vaccine, 20 valent (PREVNAR 20) Lynn Avalos CHEF KITCHEN MANAGER.SECRETARY OF STATE Work Phone: [facility] 07-31-2024 pneumococcal Conjuga te, unspecified formulation Lynn Suppwalter CHEF KITCHEN MANAGER.SECRETARY OF STATE Work Phone: [facility] 07-02-2019 influenza, injectabl e, quadrivalent, contains preservative Martin Melendez MD Work Phone: [facility] 07-02-2019 influenza virus vacc ine, unspecified formulation Martin Melendez MD Work Phone: [facility] 07-17-2017 influenza, injectabl e, quadrivalent, contains preservative Martin Melendez MD Work Phone: [facility] 06-06-2017 Influenza virus vaccine Martin HEARD [facility] 06-06-2017 influenza, seasonal, injectable, preservative free Martin Melendez MD Work Phone: [facility] 05-06-2011 influenza virus vacc ine, unspecified formulation Martin Melendez MD Work Phone: [facility] 05-06-2010 influenza virus vacc ine, unspecified formulation Martin Melendez MD Work Phone: [facility] 05-06-2009 pneumococcal polysaccharide vaccine, 23 valent Martin Melendez MD Work Phone: [facility] Payers Date Payer Category Payer Unknown [id number] 2025 Self-pay 2025 Unknown [id number] 2023 Private Health Insurance [id number] 2023 Unknown [id number] 2022 Unknown [id number] 2018 Unknown MMO MMO [employer] [id number] 2018-Present [phone] [address] [place] [address] O [id number] Medicaid [id number] Unknown [id number] Unknown [id number] Unknown [id number] 62 Unknown [id number] 62 Unknown [id number] 62 Unknown [id number] 62 Unknown [id number] 62 Unknown [id number] 62 Unknown [id number] 62 Unknown [id number] 62 Unknown [id number] 62 Social History Date Type Detail Facility Start: 06-28-2015 End: 07-31-2024 Tobacco smoking status NHIS Ex-smoker [facility] Start: 06-17-1995 End: 06-17-2015 History of tobacco use Current smoker [facility] Start: 06-17-1995 End: 06-17-2015 History of tobacco use Cigarette Smoker [facility] Start: 06-28-2015 End: 08-25-2023 Cigarettes smoked current (pack per day) - Reported 0.3 [facility] Work Phone: Start: 06-28-2015 End: 07-31-2024 Tobacco use and exposure Former smokeless tobacco user [facility] End: 06-23-2015 History of tobacco use Snuff User [facility] Start: 04-10-2021 End: 03-13-2025 Alcohol intake Current drinker of alcohol (finding) [facility] Start: 01-12-2020 History SDOH Alcohol Frequency 3 [facility] Start: 01-12-2020 History SDOH Alcohol Std Drinks 1 [facility] Start: 05-27-2018 End: 06-13-2022 Tobacco Comment Occasional cigar [facility] Start: 1965 Sex Assigned At Not on file [facility] Start: 06-03-2022 End: 06-13-2022 Exposure to SARS-CoV-2 (event) Not sure [facility] Work Phone: Start: 12-18-2022 End: 08-25-2023 Tobacco use panel [facility] Work Phone: Start: 07-07-2012 Adult Depression Screening Assessment 0 [facility] Work Phone: How often to you hav e a drink containing alcohol? 2-4 times a month [facility] Work Phone: How many standard drinks containing alcohol do you have on a typical day? 1 or 2 [facility] Work Phone: How often do you hav e 6 or more drinks on 1 occasion? Never [facility] Work Phone: Start: 01-12-[address] [facility] sm[facility] Start: 04-01-2019 Alcohol Alcohol [facility] Start: 04-01-2019 Lives Lives [facility] Start: 1965 Sex Assigned At Male W [facility] Clinical Notes 07-28-2015 to 03-16-2025 Telephone Encounter - Didi Valenzuela MA - 03/16/2025 10:39 AM EDTTelephone Encounter - Didi Valenzuela MA - 03/16/2025 10:39 AM EDTTelephone Encounter - Didi Valenzuela MA - 03/16/2025 10:39 AM EDT Note Date & Type Note Facility 03-16-2025 Telephone encounter Note Patient was made aware of the results. Patient verbalizes understanding. Transferred to railroad dispatcher Didi Valenzuela Ma [facility] 03-16-2025 Telephone encounter Note Lynn Avalos APRN.SECRETARY OF STATE to tr [facility] 03/16/25 10:18 AM Note Sorry, I will refer to GI. Start on the metamucil.. Could even take it 2 x day. I will also order him ondansetron 4 mg as needed up to every 8 hours for nausea. Please call and schedule GI appointment. FECAL LACTOFERRIN/LEUKOCYTES; CRYPTOSPORIDIUM AND GIARDIA ANTIGENS BY EIA; CLOSTRIDIUM DIFFICILE TOXIN BY PCR [facility] 03-16-2025 Miscellaneous Notes Patient was made aware of the results. Patient verbalizes understanding. Transferred to railroad dispatcher Didi Valenzuela Ma Lynn Avalos APRN.SECRETARY OF STATE to [facility] Tisha [facility] 03/16/25 10:18 AM Note Sorry, I will [...] or more daily. documented in this encounter [facility] 03-16-2025 Progress note Formatting of t his note might be different from the original. Sorry, I will refer to GI. Start on the metamucil.. Could even take it 2 x day. I will also order him ondansetron 4 mg as needed up to every 8 hours for nausea. Please call and schedule GI appointment. [facility] 03-16-2025 Telephone encounter Note Pt notified of results and provider message. Pt reports he started having nausea yesterday. No vomiting. Pt reports he is still having diarrhea as much as before. Pt reports he has had diarrhea 4-5 times this morning and came home from work. Maxine Lawson LPN [facility] 03-16-2025 Progress note Formatting of t [...] 64 ounces of water or more daily. [facility] 03-13-2025 Note HNO ID: [id number] Author: LYNN AVALOS APRN.CULLEN Service: ? Author [...] DIFFERENTIAL - COMPREHENSIVE (more content not included)... [facility] 01-30-2025 Instructions Lynn Avalos APRN.CNP - 01/30/2025 5:00 PM EDT - Complete the blood work soon as your spanish translator recommended to check on everything. - Watch for any signs of a yeast infection in your groin (itching, redness, or discharge) while taking Farxiga, and let us know right away if you notice these symptoms. - Augmentin 875 mg 2 x day for 10 days - Sample of Zyrtec given for trial documented in this encounter [facility] 01-30-2025 Note HNO ID: [id number] Author: LYNN AVALOS APRN.CULLEN Service: ? Author [...] or chest pain. 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 CHF: - Managed by a spanish translator; taking Entresto and Farxiga. - Denies dyspnea, [...] WHEN PFRMD 05/27/2018 Colonoscopy EPS: EP STUDY [facility] - negative LEFT HEART CATH 06/21/2015 [...] aerobic exercise 5. Coronary artery disease involving [place] coronary artery of [place] heart without angina pectoris - ICD9: 414.01, ICD10: I25.10 Stable (more content not included)... [facility] 01-30-2025 History of Presen t illness Narrative [...] or chest pain. 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 CHF: - Managed by a spanish translator; taking Entresto and Farxiga. - Denies dyspnea, [...] WHEN PFRMD 05/27/2018 Colonoscopy EPS: EP STUDY [facility] - negative LEFT HEART CATH 06/21/2015 [...] aerobic exercise 5. Coronary artery disease involving [place] coronary artery of [place] heart without angina pectoris - ICD9: 414.01, ICD10: I25.10 Stable 6. VT (ventricular tachycardia) (HCC) - ICD9: 427.1, ICD10: I47.20 Stable Discussed treatment plan and patient voices understanding. Patient's questions answered appropriately. Medications and potential side effects were discussed and patient voices understanding. Return to the office as scheduled or as needed for worsening/no improvement. Lynn Avalos APRN.SECRETARY OF STATE documented in this encounter [facility] 01-21-2025 Telephone encounter Note Would like to review at upcoming visit on 01/30/25. [facility] 01-21-2025 Miscellaneous Notes Would like to review at upcoming visit on 01/30/25. documented in this encounter [facility] 01-19-2025 Evaluation note Diagnosis Onset Date Resolution Chronic left ventricular systolic dysfunction (LVSD) chronic January 19, 2025 9:05am Coronary artery disease involving [place] coronary artery of [place] heart wi chronic January 19, 2025 9:05am Dyslipidemia chronic January 19, 025 9:05am Essential hypertension chronic Ju 2024 9:05am ETOH abuse chronic January 19 9:05am Nicotine dependence chronic January 19, 2025 9:05am Nonischemic cardiomyopathy chronic January 19, 2025 9:05am Palpitations chronic January 19 025 9:05am [facility] Work Phone: 1(563) 290-909806-16-2025 Evaluation note* Diagnosis Onset Date Resolution Status Admit Date Chronic left ventricular systolic dysfunction (LVSD) chronic January 19, 2025 9:05am Coronary artery disease involving [place] coronary artery of [place] heart wi chronic January 042024 9:05am Dyslipidemia chronic January 19, 025 9:05am Essential hypertension chronic Ju 2024 9:05am ETOH abuse chronic January 19 9:05am Nicotine dependence chronic January 19, 2025 9:05am Nonischemic cardiomyopathy chronic January 19, 2025 9:05am Palpitations chronic January 19, 025 9:05am Diarrhea acute April 14, 2025 7:55am [facility] Work Phone: 1(266) 447-407106-16-2025 [facility] [place] [address] OFFICE VISIT Date of Service: 01/19/25 MR#: [id number] Acct: [id number] Name: KELSI SOTO Rep #: [id number] : 1965 Provider: Dr. Yoni Martínez MD Age/Sex: 59/M Location: [facility] [place] [place] Status: Signed HPI HPI History of Present Illness Details: This gentleman was diagnosed with nonischemic cardiomyopathy about 10 years ago. His last echocardiogram was in 2022 which showed LVEF 40%. A coronary CT angioin 2019 showed mild nonobstructive calcific disease. Patient was previously established with another spanish translator. He wishes to switch to our care. [...] a day on weekends. 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 Intake Vital Signs 01/19/25 08:10 Height 6 ft Weight: 185 lb BMI 25.0 BP 118/82 H Blood Pressure Location Lt brachial Position Sitting Respiration 16 Pulse 69 Pulse Source NIBP Intake Visit Reasons: TACHYCARDIA Cad Specialist Required: No Accompanied by: Self Is patient [...] Medical History Asthenia Coronary artery disease involving [place] coronary artery of [place] heart withoutangina pectoris Dilated cardiomyopathy Dyslipidemia Earache [...] 48-hour Holter. (4) Coronary artery disease involving [place] coronary artery of [place] heart without angina pectoris: Status: Chronic Plan: [...] I51.9 Palpitations R00.2 Coronary artery disease involving [place] coronary artery of [place] heart withoutangina pectoris I25.10 Dyslipidemia E78.5 Essential hypertension I10 Nicotine dependence F17.200 ETOH abuse F10.10 Coding Level of Care Code Off vis,new,level 4 Diagnoses Nonischemic cardiomyopathy I42.8 Chronic left ventricular systolic dysfunction (LVSD) I51.9 Palpitations R00.2 Coronary artery disease involving [place] coronary artery of [place] heart withoutangina pectoris I25.10 Dyslipidemia E78.5 Essential hypertension I10 Nicotine dependence F17.200 ETOH abuse F10.10 Clinical Quality Measures Falls Risk Screening/Assistive Devices Have you fallen in the past year?: No Cardiac Ejection fraction %: 40 01/19/25 0938 MD> Date _ Qi Martínez MD Cosigner Signature: Date (if applicable) CC: MARY Avalos ~ [facility]06-16-2025 Progress note Author Qi Martínez [facility] Note Date/Time January 19, 2025 9:38 am [facility] [address] [place] [address]. [address] [place] [address] OFFICE VISIT Date of Service: 01/19/25 MR#: [id number] Acct: [id number] Name: KELSI SOTO Rep #: [id number] : 1965 Provider: Dr. Yoni Martínez MD Age/Sex: 59/M Location: [facility] [place] Status: Signed HPI HPI History of Present Illness Details: This gentleman was diagnosed with nonischemic cardiomyopathy about 10 years ago. His last echocardiogram was in 2022 which showed LVEF 40%. A coronary CT angioin 2019 showed mild nonobstructive calcific disease. Patient was previously established with another spanish translator. He wishes to switch to our care. [...] a day on weekends. 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 Intake Vital Signs 01/19/25 08:10 Height 6 ft Weight: 185 lb BMI 25.0 BP 118/82 H Blood Pressure Location Lt brachial Position Sitting Respiration 16 Pulse 69 Pulse Source NIBP Intake Visit Reasons: TACHYCARDIA Cad Specialist Required: No Accompanied by: Self Is patient [...] Medical History Asthenia Coronary artery disease involving [place] coronary artery of [place] heart withoutangina pectoris Dilated cardiomyopathy Dyslipidemia Earache [...] 48-hour Holter. (4) Coronary artery disease involving [place] coronary artery of [place] heart without angina pectoris: Status: Chronic Plan: [...] I51.9 Palpitations R00.2 Coronary artery disease involving [place] coronary artery of [place] heart withoutangina pectoris I25.10 Dyslipidemia E78.5 Essential hypertension I10 Nicotine dependence F17.200 ETOH abuse F10.10 Coding Level of Care Code Off vis,new,level 4 Diagnoses Nonischemic cardiomyopathy I42.8 Chronic left ventricular systolic dysfunction (LVSD) I51.9 Palpitations R00.2 Coronary artery disease involving [place] coronary artery of [place] heart withoutangina pectoris I25.10 Dyslipidemia E78.5 Essential hypertension I10 Nicotine dependence F17.200 ETOH abuse F10.10 Clinical Quality Measures Falls Risk Screening/Assistive Devices Have you fallen in the past year?: No Cardiac Ejection fraction %: 40 01/19/25 0938 <Electronically signed by Qi Martínez MD> Date _ Qi Martínez MD Cosigner Signature: Date (if applicable) CC: MARY Avalos ~ [facility] Work Phone: 1(766) 341-491105-28-2025 Telephone encounter Note* Telephone Encounter - Martin Melendez MD - 12/31/2024 8:43 AM EDT Noted. Thank you. [facility]05-28-2025 Miscellaneous Notes* Telephone Encounter - Martin Melendez MD - 12/31/2024 8:43 AM EDT Noted. Thank you. * Telephone Encounter - Pati Hdz RN - 12/31/2024 8:37 AM EDT Juliane with [facility] called in and reports they have tried to get a hold of Pt twice so farwith no success. I told her the work phone # is Pts , to try and call that. She said she will try that, then send him a letter. Pati Hdz RN documented in [facility] encounterA[facility]05-[facility] Telephone encounter Note * Telephone Encounter - Pati Hdz RN - 12/31/2024 8:37 AM EDT Juliane with [facility] called in and reports they have tried to get a hold of Pt twice so farwith no success. I told her the work phone # is Pts , to try and call that. She said she will try that, then send him a letter. Pati Hdz RN [facility]05-23-2025 NoteHNO ID: [id number] Author: LYNN AVALOS APRN.SECRETARY OF STATE Service: ? Author Type: Nurse Practitioner Type: [...] quit it Lisinopril made him nauseated. Seeing [facility] for dilated CM PAST MEDICAL HISTORY: PAST MEDICAL HISTORY Diagnosis Date Dilated cardiomyopathy (HCC) Dyslipidemia Essential hypertension Left ventricular systolic dysfunction Nonsustained ventricular tachycardia (HCC) Pain in wrist PAST SURGICAL HISTORY Procedure Laterality Date COLONOSCOPY FLX DX W/COLLJ SPEC WHEN PFRMD 05/27/2018 Colonoscopy EPS: EP STUDY [facility] - negative LEFT HEART CATH 06/21/2015 [...] day 1, fol (more content not included)... [facility]12-26-2024 Instructions* Patient Instructions* Lynn Avalos APRN.CNP - 07/31/2024 10:03 AM EST 1) Start lisinopril 5 mg daily 2) Start rosuvastatin 5 mg daily 3) Check labs 4) Consult cardiology 5) Pneumonia vaccine 6) Follow up in 6 months [facility]24 NoteHNO ID: [id number] Author: LYNN AVALOS APRN.CNP Service: ? Author [...] as Referring (Cardiology) Aretha Hemphill APRN.CNP as Boat Outfitting Supervisor (Family Medicine) Lynn Avalos APRN.CNP as Boat Outfitting Supervisor (Family Medicine) Concerns today: None HPI Hasn't seen cardiology lately, would like to see someone closer Reviewed echo from January Active Problems ACTIVE PROBLEM LIST Asthenia - 09/15/2022 Near Syncope - 09/15/2022 Coronary Artery Disease Involving [place] Coronary Artery of [place] Heart Without Angina Pectoris - 03/12/2020 Comment: [...] WHEN PFRMD 05/27/2018 Colonoscopy EPS: EP STUDY [facility] - negative LEFT HEART CATH 06/21/2015 [...] ICD9: 428.20, 428.0, IC (more content not included)...[facility] 07-31-2024 History of Present illness Narrative* Lynn Avalos APRN.CULLEN - 07/31/2024 9:23 AM EST Chief Reason [...] No, Referral as Referring (Cardiology) Aretha Hemphill APRN.CULLEN as Boat Outfitting Supervisor (Family Medicine) Lynn Avalos APRN.CNP as Boat Outfitting Supervisor (Family Medicine) Concerns today: None HPI Hasn't seen cardiology lately, would like to see someone closer Reviewed echo from January Active Problems ACTIVE PROBLEM LIST Asthenia - 09/15/2022 Near Syncope - 09/15/2022 Coronary Artery Disease Involving [place] Coronary Artery of [place] Heart Without Angina Pectoris - 03/12/2020 Comment: [...] WHEN PFRMD 05/27/2018 Colonoscopy EPS: EP STUDY [facility] - negative LEFT HEART CATH 06/21/2015 [...] as needed for worsening/no improvement. Lynn Avalos APRN.CULLEN Follow Up Plans: 6 m documented in [facility]04[facility] Telephone encounter Note * Telephone Encounter - Yulissa Broussard MA - 11/26/2023 11:18 AM EDT Patient was notified Yulissa Broussard MA [facility]04-22-2024 Miscellaneous Notes* Telephone Encounter - Yulissa Broussard MA - 11/26/2023 11:18 AM EDT Patient was notified Yulissa Broussard MA * Telephone Encounter - Martin Melendez MD - 11/26/2023 10:52 AM EDT Zyrtec is ok but can cause drowsiness. 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 * Telephone Encounter - Carson Chin RN - 11/26/2023 10:12 AM EDT Spouse (Didi) calls to ask if patient could take Zyrtec for on-going allergy symptoms (sinus inflammation/congestion/ear pressure). Jessica wasn't very helpful but wants to verify Zyrtec is safe with heart condition. Request prescription be sent to [facility] if provider agrees. Also asking for recommendations, for cold symptoms x 2 days. (Sneezing, runny nose, afebrile). Coricidin HBP Cough and Cold recommended. 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 Spouse asking for any other recommendations. Carson Chin RN documented in this encounterAultman Hospital04-22-2024 Telephone encounter Note * Telephone Encounter - Martin Melendez MD - 11/26/2023 10:52 AM EDT Zyrtec is ok but can cause drowsiness. 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 [facility]04-22-2024 Telephone encounter Note* Telephone Encounter - Carson Chin RN - 11/26/2023 10:12 AM EDT Spouse (Didi) calls to ask if patient could take Zyrtec for on-going allergy symptoms (sinus inflammation/congestion/ear pressure). Jessica wasn't very helpful but wants to verify Zyrtec is safe with heart condition. Request prescription be sent to [facility] if provider agrees. Also asking for recommendations, for cold symptoms x 2 days. (Sneezing, runny nose, afebrile). Coricidin HBP Cough and Cold recommended. 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 Spouse asking for any other recommendations. Carson Chin RN [facility]02-28-2024 Miscellaneous Notes* Telephone Encounter - Natalie [...] you. Raven Mcdonnell RN. documented in this encounterAultman Hospital01-20-[facility]24 History of Present illness Narrative* Jhony, Thomas A, RT(R) - 08/25/2023 10:40 AM EST Radiology [...] 25, 2023 10:36 AM documented in this encounterAultman Hospital08-02-2023 Miscellaneous Notes* Telephone Encounter - Nahomy Beltran MA - 03/07/2023 3:38 PM EDT Signed form was successfully faxed to [phone]. * Telephone Encounter - Gayle Humphries - 03/07/2023 10:32 AM EDT Dental office called stating patient's appointment with them is Sunday03/14/23 and is asking for forms to be sent * Telephone Encounter - Nahomy Beltran MA - 03/01/2023 1:56 PM EDT Received clearance form from Dental office. Placed form on Dr. Gris frederick for review. documented in this encounterAultman Hospital05-15-2023 History of Present illness Narrative* Keshav Landry, DO - 12/18/2022 1:51 PM EDT Images from the original note were not included. [facility] SECTION OF REGIONAL CARDIOLOGY [facility] OUTPATIENT VISIT DATE December 18, 2022 PRIMARY CARE PHYSICIAN: Martin Melendez [address] [place] [address] HISTORY OF PRESENT ILLNESS: Mr. Soto is a 57 year old male. The patient returns for follow-up second history of nonischemic cardiomyopathy with mild CAD as well as hypertension, hyperlipidemia and previous PVCs. He underwent electrophysiology study which was negative. He was to have an MRI but has not had such as yet. Ayohas been lost to follow-up and recently returned [...] will do further management to your discretion. Wewill update an echocardiogram for now. In regards [...] WHEN PFRMD 05/27/2018 Colonoscopy EPS: EP STUDY [facility] - negative LEFT HEART CATH 06/21/2015 [...] Department of Medicine and Division of Cardiology, [facility] Security Officers And Guardsdirector of marketing analytics [facility] Security Officers And Guards of [facility] Cardiology Office Security Officers And Guards [facility] Staff Pattern Generator Operator, Kelsi and Catherine Hastings Department of Cardiovascular Medicine/Heart and Vascular [place], [facility] Clinical Welding Machine Operator Submerged Arc Profressor of Medicine, [facility] of Medicine - [facility] Please note: This note has been produced using speech recognition software and may contain errors related to that system including louann, punctuation, spelling, words, gender and phrases that may be inappropriate. documented in this encounterAultman Hospital02-21-2023 Miscellaneous Notes* Telephone Encounter - Gayle Humphries - 09/26/2022 1:03 PM EST Patient is scheduled * Telephone Encounter - Nahomy Beltran MA - 09/25/2022 12:32 PM EST Received surgical clearance form from Thien Seaman DDS. Pt not seen since 03/12/2020 with heavy cardiac hx. Pt will need to schedule a follow up visit with Dr. Landry. documented in this encounterAultman Hospital02-15-2023 Miscellaneous Notes* Telephone Encounter - Raven [...] Great site for shoulder stretching is [email or web address]/globalassets/[email or web address]_[email or web address].pdf Keith Bhagat PA-C documented in this encounterAultman Hospital02-10-2023 History of Present illness Narrative* Wendy Youssef, RT(R) - 09/15/2022 3:30 PM EST Radiology [...] 15, 2022 3:29 PM documented in this encounterAultman Hospital02-04-2023 Miscellaneous Notes* Telephone Encounter - Eileen [...] more at the appt. 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 Cecy Michael LPN documented in this encounterAultman Hospital01-11-2023 Miscellaneous Notes* Telephone Encounter - Liliana Kraus LPN - 08/16/2022 12:39 PM EST Notified and she verbalizes understanding. * Telephone Encounter - Martin Melendez MD - 08/16/2022 11:20 AM EST Let [...] problem. Will be seeing a dentist on Th or sooner if able. The current dentist [...] appt? Please advise . documented in this encounterAultman Hospital11-09-2022 Miscellaneous Notes* Telephone Encounter - Nahomy Lama - 06/14/2022 7:22 AM EST Patient given results and verbalized understanding of instructions given. Nahomy Lama * Telephone Encounter - Larry Lopez APRN.CNP - 06/14/2022 7:09 AM EST Follow the [...] care provider or schedule a visit with [facility]. A test is not recommended to return to work/school when meeting the above criteria. documented in this encounterAultman Hospital08-01-2022 Miscellaneous Notes* Telephone Encounter - Rossana Ann LPN - 03/06/2022 12:53 PM EDT Patient phones requesting refills as follows: Pending Prescriptions Disp Refills FEXOFENADINE 180 MG TABLET 90 tablet 3 Sig: Take 1 tablet by mouth once daily. IRENE: No Please review and advise. Rossana Ann LPN documented in this encounterAultman Hospital03-01-2018 History of Past illness Narrative* Problem Noted Date Resolved Date Syncope and collapse 10/04/2017 09/15/2022 Alcohol abuse 07/28/2015 07/17/2017 Arm pain, anterior 06/28/2015 07/17/2017 documented as of this encounter (statuses as of 09/21/2022) [facility] History of [facility] illness Narrative* Problem Noted Date Resolved Date Syncope and collapse 10/04/2017 09/15/2022 Alcohol abuse 07/28/2015 07/17/2017 Arm pain, anterior 06/28/2015 07/17/2017 documented as of this encounter (statuses as of 09/26/2022) [facility] History of Past illness Narrative* Problem Noted Date Resolved Date Syncope and collapse 10/04/2017 09/15/2022 Alcohol abuse 07/28/2015 07/17/2017 Arm pain, anterior 06/28/2015 07/17/2017 documented as of this encounter (statuses as of 12/18/2022) [facility] of [facility] illness Narrative* Problem Noted Date Diagnosed Date Resolved Date Syncope and collapse 10/04/2017 023 Alcohol abuse 07/28/2015 07/17/2017 Arm pain, anterior 06/28/2015 7 documented as of this encounter (statuses as of 03/08/2023) [facility] of [facility] illness Narrative* Problem Noted Date Diagnosed Date Resolved Date Syncope and collapse 10/04/2017 023 Alcohol abuse 07/28/2015 07/17/2017 Arm pain, anterior 06/28/2015 7 documented as of this encounter (statuses as of 10/04/2023) [facility] of [facility] illness Narrative* Problem Noted Date Resolved Date Alcohol abuse 07/28/2015 07/17/2017 Arm pain, anterior 06/28/2015 07/17/2017 documented as of this encounter (statuses as of 03/06/2022) [facility] Narrative* Problem Noted Date Resolved Date Alcohol abuse 07/28/2015 07/17/2017 Arm pain, anterior 06/28/2015 07/17/2017 documented as of this encounter (statuses as of 06/14/2022) [facility] of [facility] Narrative* Problem Noted Date Resolved Date Alcohol abuse 07/28/2015 07/17/2017 Arm pain, anterior 06/28/2015 07/17/2017 documented as of this encounter (statuses as of 08/16/2022) [facility] Narrative* Problem Noted Date Resolved Date Alcohol abuse 07/28/2015 07/17/2017 Arm pain, anterior 06/28/2015 07/17/2017 documented as of this encounter (statuses as of 08/23/2022) [address]23-2015 History of Past illness Narrative* Problem Noted Date Resolved Date Alcohol abuse 07/28/2015 07/17/2017 Arm pain, anterior 06/28/2015 07/17/2017 documented as of this encounter (statuses as of 09/09/2022) [facility] Diagnosis Essential hypertension- Primary Unspecified essential hypertension Mixed hyperlipidemia documented in this encounter [facility]* Diagnosis Nonischemic cardiomyopathy (HCC)- Primary Other primary cardiomyopathies Coronary artery disease involving [place] coronary artery of [place] heart without angina pectoris Essential hypertension Unspecified essential hypertension Mixed hyperlipidemia PVC's (premature ventricular contractions) Other premature beats documented in this encounter [facility]* Diagnosis Lateral epicondylitis of left elbow Lateral epicondylitis of elbow documented [facility] this [facility]* Diagnosis Chronic right shoulder pain Pain in joint, shoulder region documented in this encounter [facility]* Diagnosis Systolic congestive heart failure, unspecified HF chronicity (HCC)- Primary Encounter for immunization Need for other specified prophylactic vaccination against single bacterial disease Screening for depression Encounter for screening examination for other mental health and behavioral disorders VT (ventricular tachycardia) (HCC) Paroxysmal ventricular tachycardia Hyperlipidemia, mixed Mixed hyperlipidemia Coronary artery disease involving [place] coronary artery of [place] heart without angina pectoris Screening for diabetes mellitus [facility] encounter [facility]* Diagnosis Onset Date Resolution Status Admit Date Chronic left ventricular systolic dysfunction (LVSD) chronic January 19, 2025 9:05am Coronary artery disease involving [place] coronary artery of [place] heart [place] chronic January 19 9:05am Dyslipidemia chronic January 19 025 9:05am Essential hypertension chronic 2024 9:05am ETOH abuse chronic January 19 9:05am Nicotine dependence chronic January 19, 2025 9:05am Nonischemic cardiomyopathy chronic January 19, 2025 9:05am Palpitations chronic January 19 025 9:05am [facility] Work Phone: Evaluation note* Diagnosis Tonsillitis- Primary Acute tonsillitis Acute otitis externa of both ears, unspecified type Nonischemic cardiomyopathy (HCC) Other primary cardiomyopathies Essential hypertension Unspecified essential hypertension Coronary artery disease involving [place] coronary artery of [place] heart without angina pectoris VT (ventricular tachycardia) (HCC) Paroxysmal ventricular tachycardia [facility] Diarrhea of presumed infectious origin- Primary Nausea Nausea alone documented in this encounter [facility] for referral (narrative)* Outpatient Procedure (Routine) - Pending Review Specialty Diagnoses / Procedures Referred By Tino covington Referred To Contact [facility] Diagnoses Nonischemic cardiomyopathy (HCC) Coronary artery disease involving [place] coronary artery of [place] heart without angina pectoris Essential hypertension Mixed hyperlipidemia PVC's (premature ventricular contractions) Procedures ECHO ECHO TTHRC R-T 2D W/WOM-MODE COMPL SPEC&COLR D Keshav Landry DO [address] [place] [address] [facility] [place] [address] [place] [address] Referral ID Status Reason Start Date Expiration Date Visits Requested Visits Authorized [id number] Pending Review Auto-Generat ed Referral 12/18/2022 12/18/2023 1 1 [facility] for referral (narrative)* Diagnostic Procedure Only (Routine) - Closed Specialty Diagnoses / Procedures Referred By Tino covington Referred To Contact XR IMAGING Diagnoses Lateral epicondylitis of left elbow Procedures XR ELBOW GENERAL 2V AP/LAT LEFT RADEX ELBOW 2 VIEWS Martin Melendez MD [address] [place] [address] [place] [id number] Referral ID Status Reason Start Date Expiration Date V isits Requested Visits Authorized [id number] Closed Auto-Generate d Referral 08/25/2023 09/23/2024 1 1 [facility] for referral (narrative)No reason for referral [facility] Work [facility]: Reason for visit Narrative* Diagnostic Procedure Only (Routine) - Closed Specialty Diagnoses / Procedures Referred By Tino covington Referred To Contact XR IMAGING Diagnoses Lateral epicondylitis of left elbow Procedures XR ELBOW GENERAL 2V AP/LAT LEFT RADEX ELBOW 2 VIEWS Martin Melendez MD [address] [place] [address] [place] [id number] Referral ID Status Reason Start Date Expiration Date V isits Requested Visits Authorized [id number] Closed Auto-Generate d Referral 08/25/2023 09/23/2024 1 1 [facility] Summary Purpose Family History No Family History Records Found Relationship Condition Age at Onset Recorded Date/T jennie father Cardiomyopathy Unknown brother Atrial fibrillation Unknown son Cardiomyopathy Unknown Advance Directives No Advanced Directives Records FoundDocuments on File Type Date Recorded 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 Directive(s) 05/27/2018 8:08 AM [...] COMPLETE MINIMUM 2 VIEWS Martin Melendez MD [address] [id number] [place] [id number] Referral ID Status Reason Start Date Expiration Date V isits Requested Visits Authorized [id number] Closed Auto-Generate d Referral 09/15/2022 08/05/2023 1 1 Specialty Diagnoses / Procedures Referred By Contac t Referred To Contact Cardiology Diagnoses Systolic congestive heart failure, unspecified HF chronicity (HCC) VT (ventricular tachycardia) (HCC) Procedures CONSULT TO CARDIOLOGY OFFICE/OUTPATIENT [facility] 60 MINUTES Lynn Avalos APRN.SECRETARY OF STATE [address] [place] [address] Referral ID Status Reason Start Date Expiration Date Visits Requested Visits Authorized [id number] Authorized PCP Requested Referral 07/31/2025 1 1 Chief Complaint and Reason for Visit Chief Complaint Admit Date TACHYCARDIA January 19, 2025 9:05 am PALPITATIONS February 09, 2025 7:14a m Reason for Visit Admit Date Chronic left ventricular systolic dysfun ction (LVSD) January 19, 2025 9:05am Coronary artery disease invo lving [place] coronary artery of [place] heart [place] January 19, 2025 9:05am Dyslipidemia [...] 7:29a m HEART DISEASE,UNSPECIFIED February 27 2:17pm Chief Complaint Admit Date TACHYCARDIA January 19, 2025 9:05 am PALPITATIONS February 09, 2025 7:14a m PALPITATIONS February 09, 2025 7:29a m HEART DISEASE,UNSPECIFIED February 27 2:17pm V TACH March 23, 2025 6: 52am V TACH March 23, 2025 6: 27pm Amb Documentation March 24, 2025 8: 29am Chief Complaint Admit Date TACHYCARDIA January 19, 2025 9:05 am PALPITATIONS February 09, 2025 7:14a m PALPITATIONS February 09, 2025 7:29a m HEART DISEASE,UNSPECIFIED February 27 2:17pm V TACH March 23, 2025 6: 52am V TACH March 23, 2025 6: 27pm Amb Documentation March 24, 2025 8: 29am DIARRHEA PRESUMED INFECTIOUS April 142024 7:55am Reason for Visit Admit Date Chronic left ventricular systolic dysfun ction (LVSD) January 19, 2025 9:05am Coronary artery disease invo lving [place] coronary artery of [place] heart wi January 19, 2025 9:05am Dyslipidemia January 19, 2025 9:05 am Essential hypertension January 19, 2025 9 :05am ETOH abuse January 19, 2025 9:05 am Nicotine dependence January 19, 2025 9:05 am Nonischemic cardiomyopathy January 19 9:05am Palpitations January 19, 2025 9:05 am Diarrhea April 14, 2025 7:55am Additional Source Comments (unrecognized sect ion and content) No Status Records FoundNo Status Records FoundNo Status Records FoundNo Status Records FoundNo Status Records FoundNo Status Records Found INFORMATION SOURCE (unrecogn ized section and content) DATE CREATED AUTHOR 01/25/2018 [facility] DATE CREATED AUTHOR AUTHOR'S ORGANIZ ATION 01/25/2018 [facility] DATE CREATED AUTHOR AUTHOR'S ORGANIZ ATION 02/28/2020 [facility] DATE CREATED AUTHOR AUTHOR'S ORGANIZ ATION 02/03/2021 Tim Ambriz [facility] DATE CREATED AUTHOR AUTHOR'S ORGANIZ ATION 03/16/2025 [facility] DATE CREATED AUTHOR AUTHOR'S ORGANIZ ATION 04/15/2025 [facility] Source Comments (unrecognize d section and content) In the event this informatio n is protected by the Federal Confidentiality of Alcohol and Drug Abuse Patient Records regulations: The Federal rules restrict any use of the information to criminally investigate or prosecute any alcohol or drug abuse patient.[facility] the event this information is protected by the Federal Confidentiality of Alcohol and Drug Abuse Patient Records regulations: The Federal rules restrict any use of the information to criminally investigate or prosecute any alcohol or drug abuse patient.[facility] the event this information is protected by the Federal Confidentiality of Alcohol and Drug Abuse Patient Records regulations: The Federal rules restrict any use of the information to criminally investigate or prosecute any alcohol or drug abuse patient.[facility] the event this information is protected by the Federal Confidentiality of Alcohol and Drug Abuse Patient Records regulations: The Federal rules restrict any use of the information to criminally investigate or prosecute any alcohol or drug abuse patient.[facility] the event this information is protected by the Federal Confidentiality of Alcohol and Drug Abuse Patient Records regulations: The Federal rules restrict any use of the information to criminally investigate or prosecute any alcohol or drug abuse patient.[facility] the event this information is protected by the Federal Confidentiality of Alcohol and Drug Abuse Patient Records regulations: The Federal rules restrict any use of the information to criminally investigate or prosecute any alcohol or drug abuse patient.[facility] the event this information is protected by the Federal Confidentiality of Alcohol and Drug Abuse Patient Records regulations: The Federal rules restrict any use of the information to criminally investigate or prosecute any alcohol or drug abuse patient.[facility] the event this information is protected by the Federal Confidentiality of Alcohol and Drug Abuse Patient Records regulations: The Federal rules restrict any use of the information to criminally investigate or prosecute any alcohol or drug abuse patient.[facility] Hospital[facility] the event this information is protected by the Federal Confidentiality of Alcohol and Drug Abuse Patient Records regulations: The Federal rules restrict any use of the information to criminally investigate or prosecute any alcohol or drug abuse patient.[facility] the event this information is protected by the Federal Confidentiality of Alcohol and Drug Abuse Patient Records regulations: The Federal rules restrict any use of the information to criminally investigate or prosecute any alcohol or drug abuse patient.[facility] Hospital[facility] the event this information is protected by the Federal Confidentiality of Alcohol and Drug Abuse Patient Records regulations: The Federal rules restrict any use of the information to criminally investigate or prosecute any alcohol or drug abuse patient.[facility] HospitalIn the event this information is protected by the Federal Confidentiality of Alcohol and Drug Abuse Patient Records regulations: The Federal rules restrict any use of the information to criminally investigate or prosecute any alcohol or drug abuse patient.[facility] Hospital[facility] the event this information is protected by the Federal Confidentiality of Alcohol and Drug Abuse Patient Records regulations: The Federal rules restrict any use of the information to criminally investigate or prosecute any alcohol or drug abuse patient.[facility] HospitalIn the event this information is protected by the Federal Confidentiality of Alcohol and Drug Abuse Patient Records regulations: The Federal rules restrict any use of the information to criminally investigate or prosecute any alcohol or drug abuse patient.[facility] HospitalIn the event this information is protected by the Federal Confidentiality of Alcohol and Drug Abuse Patient Records regulations: The Federal rules restrict any use of the information to criminally investigate or prosecute any alcohol or drug abuse patient.[facility] HospitalIn the event this information is protected by the Federal Confidentiality of Alcohol and Drug Abuse Patient Records regulations: The Federal rules restrict any use of the information to criminally investigate or prosecute any alcohol or drug abuse patient.[facility] HospitalIn the event this information is protected by the Federal Confidentiality of Alcohol and Drug Abuse Patient Records regulations: The Federal rules restrict any use of the information to criminally investigate or prosecute any alcohol or drug abuse patient.[facility] HospitalIn the event this information is protected by the Federal Confidentiality of Alcohol and Drug Abuse Patient Records regulations: The Federal rules restrict any use of the information to criminally investigate or prosecute any alcohol or drug abuse patient.[facility] Reason for Visit (unrecogniz ed section and content) Reason Onset Date Comments Refill Request 03/06/2022 Reason Comments Results Reason Comments Patient Question Reason Onset Date Comments Refill Request 08/23/2022 Reason Comments Results Xray Reason Comments Forms Reason Comments Established Patient Follow-Up Surgical c learance Specialty Diagnoses / Procedures Referred By Contact Referred To Contact Cardiology / [facility] Diagnoses cardiac clearance Procedures EST PATIENT Keshav Landry, [address] [place] [address] Keshav Landry, [address] [place] [address] Referral ID Status Reason Start Date Expiration Date Visits Re quested Visits Authorized [id number] Closed 12/18/2022 08/05/2023 1 1 Reason Onset Date Comments Refill Request 10/01/2023 Specialty Diagnoses / Procedures Referred By Contac t Referred To Contact XR IMAGING Diagnoses Chronic right shoulder pain Procedures XR SHOULDER GENERAL 3V OR MORE AP/TRUE AP/OTHER RIGHT RADEX SHOULDER COMPLETE MINIMUM 2 VIEWS Martin Melendez MD [address] [place] [address] [place] [id number] Referral ID Status Reason Start Date Expiration Date V isits Requested Visits Authorized [id number] Closed Auto-Generate d Referral 09/15/2022 08/05/2023 1 1 Reason Comments Yearly Exam Reason Comments Appointment Reason Comments 6 Month Exam Reason Onset Date Comments Nausea 03/16/2025 Care Teams (unrecognized sec tion and content) Director Of Exhibits Relationship Specialty Start Date End Date Martin Melendez MD [address] [place], [place] [id number] PCP - General Family Practice 07/17/17 No, Referral Referring Cardiology 01/12/20 Director Of Exhibits Relationship Specialty Start Date End Date Martin Melendez MD [address] [place], [place] [id number] PCP - General Family Medicine 07/17/17 No, Referral Referring Cardiology 01/12/20 Director Of Exhibits Relationship Specialty Start Date End Date Martin Melendez MD [address] [facility] [address] PCP - General Family Medicine 07/17/17 No, Referral Referring Cardiology 01/12/20 Director Of Exhibits Relationship Specialty Start Date End Date Martin Melendez MD [address] [facility] [address] PCP - General Family Medicine 07/17/17 No, Referral Referring Cardiology 01/12/20 Director Of Exhibits Relationship Specialty Start Date End Date Martin Melendez MD [address] [facility] [address] PCP - General Family Medicine 07/17/17 No, Referral Referring Cardiology 01/12/20 Director Of Exhibits Relationship Specialty Start Date End Date Martin Melendez MD [address] [facility] [address] PCP - General Family Medicine 07/17/17 No, Referral Referring Cardiology 01/12/20 Director Of Exhibits Relationship Specialty Start Date End Date Martin Melendez MD [address] [facility] [address] PCP - General Family Medicine 07/17/17 No, Referral Referring Cardiology 01/12/20 Director Of Exhibits Relationship Specialty Start Date End Date Martin Melendez MD [address] [facility] [address] PCP - General Family Medicine 07/17/17 No, Referral Referring Cardiology 01/12/20 Director Of Exhibits Relationship Specialty Start Date End Date Martin Melendez MD [address] [facility] [place] [address] PCP - General Family Medicine 07/17/17 No, Referral Referring Cardiology 01/12/20 Director Of Exhibits Relationship Specialty Start Date End Date Martin Melendez MD [address] [facility] [address] PCP - General Family Medicine 07/17/17 No, Referral Referring Cardiology 01/12/20 Director Of Exhibits Relationship Specialty Start Date End Date Martin Melendez MD [address] [facility] [address] PCP - General Family Medicine 07/17/17 No, Referral Referring Cardiology 01/12/20 Director Of Exhibits Relationship Specialty Start Date End Date Martin Melendez MD [address] [facility] [address] PCP - General Family Medicine 07/17/17 No, Referral Referring Cardiology 01/12/20 Aretha Hemphill, CHEF KITCHEN MANAGER.SECRETARY OF STATE [address] [facility] [place] [address] Boat Outfitting Supervisor Family [facility] 07/14/24 Lynn Avalos CHEF KITCHEN MANAGER.SECRETARY OF STATE [address] [facility] [address] Boat Outfitting Supervisor [facility] 07/14/24 Director Of Exhibits Relationship Specialty Start Date End Date Martin Melendez MD [address] [facility] [address] PCP - General Family Medicine 07/17/17 No, Referral Referring Cardiology 01/12/20 Aretha Hemphill CHEF KITCHEN MANAGER.SECRETARY OF STATE [address] [facility] [place] [address] [facility] 07/14/24 Lynn Avalos CHEF KITCHEN MANAGER.SECRETARY OF STATE [address] [facility] [place] [place] [address] [facility] 07/14/24 Team Status: Active Member Role Status [...] January 19, 2025 End: January 19, 2025 Director Of Exhibits Relationship Specialty Start Date End Date Matrin Melendez MD [address] [place], [place] [address] PCP - General Family Medicine 07/17/17 No, Referral Referring Cardiology 01/12/20 Aretha Hemphill APRN.SECRETARY OF STATE [address] [place] [address] [facility] 07/14/24 Lynn Avalos CHEF KITCHEN MANAGER.SECRETARY OF STATE [address] [place], [place] [address] [facility] 07/14/24 Director Of Exhibits Relationship Specialty Start Date End Date Martin Melendez MD [address] [place], [place] [address] PCP - General Family Medicine 07/17/17 No, Referral Referring Cardiology 01/12/20 Aretha Hemphill CHEF KITCHEN MANAGER.SECRETARY OF STATE [address] [place], [place] [address] [facility] 07/14/24 Lynn Avalos CHEF KITCHEN MANAGER.SECRETARY OF STATE [address] [place], [place] [id number] Boat Outfitting Supervisor [facility] 07/14/24 Team Status: Active Member Role/Relationship Status Dates Lynn Suppan , AUTO DEALERSHIP P[employer]TER Primary Care Provider Active Team Status: Inactive Member Role/Relationship Status Dates Martin HEARD Referring Provider Active Start : January 19, 2025 End: January 19, 2025 Lynn Suppan , [employer] DEALERSH[employer]TER Primary Care Provider Active Start: January 19, 2025 End: January 19, 2025 Dr. Qi Martínez MD Attending Provider Active Start: January 19, 2025 End: January 19, 2025 Team Status: Inactive Member Role/Relationship Status Dates Lynn Suppan , [employer] DEAL[employer]TER Primary Care Provider Active Start: February 09, 2025 End: February 09, 2025 Dr. Qi Martínez MD Attending Provider Active Start: February 09, 2025 End: February 09, 2025 Dr. Qi Martínez MD Referring Provider Active Start: February 09, 2025 End: February 09, 2025 Team Status: Active Member Role/Relationship Status Dates Lynn Avalos , [employer] DEAL[employer]TER Primary Care Provider Active Start: February 09, 2025 Dr. Qi Martínez MD Attending Provider Active Start: February 09, 2025 Dr. Qi Martínez MD Referring Provider Active Start: February 09, 2025 Team Status: Inactive Member Role/Relationship Status Dates Lynn Suppan , [employer] DEAL[employer]TER Primary Care Provider Active Start: February 27, 2025 End: February 27, 2025 Dr. Qi Martínez MD Attending Provider Active Start: February 27, 2025 End: February 27, 2025 Dr. Qi Martínez MD Referring Provider Active Start: February 27, 2025 End: February 27, 2025 Team Status: Active Member Role/Relationship Status Dates Lynn Avalos , [employer] DEAL[employer]TER Primary Care Provider Active Start: February 27, 2025 Dr. Qi Martínez MD Attending Provider Active Start: February 27, 2025 Director Of Exhibits Relationship Specialty Start Date End Date Martin Melendez MD [address] [place] [address] PCP - General Family Medicine 07/17/17 No, Referral Referring Cardiology 01/12/20 Aretha Hemphill, CHEF KITCHEN MANAGER.SECRETARY OF STATE [address] [place] [address] [facility] 07/14/24 Lynn Avalos APRN.SECRETARY OF STATE [address] [place] [address] [facility] 07/14/24 Team Status: Inactive Member Role/Relationship Status Dates Lynn Avalos , [employer] DEALERSHIP [employer]TER Primary Care Provider Active Start: March 23, 2025 End: March 23, 2025 Gladis Mckeon INNER TUBE INSERTER, INNER TUBE INSERTER-C Attending Provider Active Start: March 23, 2025 End: March 23, 2025 Gladis Mckeon INNER TUBE INSERTER, INNER TUBE INSERTER-C Referring Provider Active Start: March 23, 2025 End: March 23, 2025 Team Status: Active Member Role/Relationship Status Dates Lynn Avalos AUTO DEALERSHIP P[employer]TER Primary Care Provider Active Start: March 23, 2025 Gladis Mckeon INNER TUBE INSERTER, INNER TUBE INSERTER-C Referring Provider Active Start: March 23, 2025 Gladis Mckeon INNER TUBE INSERTER, INNER TUBE INSERTER-C Other Provider Active Sta rt: March 23, 2025 Dr. Jaswant Momin MD Attending Provider Active S tart: March 23, 2025 Team Status: Active Member Role/Relationship Status Dates Lynn Avalos , AUT[employer] DEALERSHIP PORTER Primary Care Provider Active Start: March 24, 2025 Gladis Mckeon NP, INNER TUBE INSERTER-C Attending Provider Active Start: March 24, 2025 Team Status: Inactive Member Role/Relationship Status Dates Lynn Avalos , [employer] DEALER[employer]IP P[employer]TER Primary Care Provider Active Start: April 14, 2025 End: April 14, 2025 Lynn Avalos , [employer] DEALERSH[employer]TER Referring Provider Active Start: April 14, 2025 End: April 14, 2025 KAITLIN Frias Attending Provider Active Start: April 14, 2025 End: April 14, 2025 Goals (unrecognized section and content) Goals may [...] BE BASED ON THE PRIMARY CLINICAL RECORDS. [facility] [employer] [facility]. provides no warranty or guarantee of the accuracy or completeness of information in this document.
[2025-04-21 08:08] LABS: Calprotectin, Stool 42 ug/g (0-120)
== END 2025-04-17 23:59 | disposition home or self-care (01) ==
PROVIDERS: PCP Clinical Nurse Specialist Adult Health; Referring Provider Student in an Organized Health Care Education/Training Program; Visit Provider Student in an Organized Health Care Education/Training Program
DX: R19.7 Diarrhea, unspecified (principal); K58.9 Irritable bowel syndrome, unspecified
CPT/HCPCS: 83993; 87177; 87209; 87329; 87493; 87506

== ENCOUNTER → 2025-07-06 | Outpatient (CLI) | payer OTHER, SELFPAY ==
--- NOTE | 2025-07-06 07:47 | ECHOL_ITS ---
Reason For Study Reason For Study: DILATED CARDIOMYOPATHY Procedure This was a limited 2D transthoracic echocardiogram. Myocardial strain analysis was performed in this exam to aid in the assessment of cardiac function. Exam performed in department. Left Ventricle Moderately dilated left ventricle. Normal left ventricular thickness. The global longitudinal strain = -13.0% (abnormal). Severe global LV hypokinesis. Estimated LVEF 35%. At least stage I diastolic dysfunction. Right Ventricle Normal right ventricle. Atria The left atrium is mildly enlarged. Normal right atrium. Mitral Valve Trivial mitral valve insufficiency. Tricuspid Valve Trivial tricuspid valve insufficiency. Aortic Valve Trisinus/trileaflet aortic valve. Mild (1+) aortic valve insufficiency. Pulmonic Valve The pulmonic valve is not well visualized. Great Vessels Normal sized aortic root. Pericardium/Pleural No pericardial effusion. MMode/2D Measurements & Calculations LVIDd: 6.4 cm IVSd: 0.75 cm LAV(MOD- bp): 49.6 ml LVIDs: 4.8 cm LVPWd: 0.70 cm LAV(MOD- bp) Indexed: 24.1 ml/m2 FS: 25.4 % LAV(MOD- sp2): 49.1 ml LAV(MOD- sp4): 44.6 ml SV(MOD- sp4): 45.8 ml LVAd ap4: 36.7 cm2 LVAd ap2: 36.8 cm2 LVLd ap4: 8.8 cm LVLd ap2: 8.6 cm SI(MOD- sp4): 22.2 ml/m2 EDV(MOD-sp4): 126.5 ml EDV(MOD-sp2): 132.0 ml EDV(sp4-el): 129.2 ml EDV(sp2-el): 133.8 ml LVAs ap4: 27.6 cm2 LVAs ap2: 27.5 cm2 LVLs ap4: 7.9 cm LVLs ap2: 7.8 cm ESV(MOD-sp4): 80.7 ml ESV(MOD-sp2): 81.6 ml ESV(sp4-el): 81.3 ml ESV(sp2-el): 82.1 ml EF(MOD-sp4): 36.2 % EF(MOD-sp2): 38.2 % EF(sp4-el): 37.1 % SV(MOD-sp2): 50.4 ml SV(sp4-el): 47.9 ml LA A4 area: 17.3 cm2 SI(MOD-sp2): 24.5 ml/m2 RA A4 area: 11.8 cm2 Doppler Measurements & Calculations TR max desmond: 155.4 cm/sec TR max P.7 mmHg ECHO/Echo, Limited Study Interpretation Summary This was a limited 2D transthoracic echocardiogram. Severe global LV hypokinesis. Estimated LVEF 35%. At least stage I diastolic dy sfunction. The global longitudinal strain = -13.0% (abnormal). The left atrium is mildly enlarged. Mild (1+) aortic valve insufficiency. Ordering Physician: Michelle Curiel Referring Physician: Lynn Tomlin Performed By: Lore Cruz RDCS
--- OUTSIDE RECORDS SUMMARY | 2025-07-06 08:08 | XMS RPT_ITS | CCD ---
Author Organization [facility] Care Team Providers Care Emergency Technician Name Role Phone MARIELLE, NATHANIEL E Unavailable Unavailable MARIELLE, NATHANIEL E Unavailable Unavailable MARIELLE, NATHANIEL E Unavailable Unavailable MARIELLE, NATHANIEL Unavailable Unavailable Al, Martin Unavailable Unavailable MARIELLE, NATHANIEL Unavailable Unavailable MARIELLE, NATHANIEL Unavailable Unavailable Al, Martin Unavailable Unavailable Lyles, Martin Unavailable Unavailable MARIELLE, NATHANIEL Unavailable Unavailable MARIELLE, NATHANIEL Unavailable Unavailable Lyles, Martin Unavailable Unavailable MARIELLE, NATHANIEL Unavailable Unavailable [...] Attending Unava ilable PROVIDER, UNKNOWN Consulting Unavailable Maritn Melendez MD Primary Care Provider No, Referral Unavailable Unavailable Martin Melendez MD Primary Care Provider No, Referral Unavailable Unavailable Martin Melendez MD Primary Care Provider No, Referral Unavailable Unavailable Martin Melendez MD Primary Care Provider Haagen NAIL POLISH BRUSH MACHINE FEEDER.Aretha BERMAN Unavailable Suppan NAIL POLISH BRUSH MACHINE FEEDER.Lynn BERMAN Unavailable Suppan NAIL POLISH BRUSH MACHINE FEEDER.Lynn BERMAN A Unavailable Martin Marks Referring Provider Unavailable SuppLynn Lopes Primary Care Provider Mauricio MD, Dr. Busby Attending Provider Mauricio MOON, Dr. Busby Referring Provider AL, MARTIN J Primary Care [...] AL, MARTIN J Primary Care Unavailable Mike EMAIL MARKETING PROCESSOR-C, Gladis Attending Provider Mike EMAIL MARKETING PROCESSOR-C, Gladis Referring Provider Mike EMAIL MARKETING PROCESSOR-CGladis Other Provider Merrill MOON, Dr. Michaud Attending Provider Suppan WATCH COMMANDER, Lynn Referring Provider Brianne Lopez Attending Provider Suppan WATCH COMMANDER, Lynn Primary Care Physician [phone] Mauricio MOON, Dr. Busby Attending Physician Mike EMAIL MARKETING PROCESSOR-CGladis Attending Physician Mike EMAIL MARKETING PROCESSOR-CGladis Nurse Practitioner Merrill MOON, Dr. Michaud Attending Physician Brianne Lopez Attending Physician [phone] Brianne Lopez Referring Provider Suppan, Lynn Primary Care Unavailable Qi Martínez Attending Unavailable Gladis Mckeon NP Referring Unavailable Jaswant Momin Attending Unavailable Suppan, Lynn Primary Care Unavailable Gladis Mckeon NP Consulting Unavailable Suppan, Lynn Referring Unavailable Suppan, Lynn Primary Care Unavailable Brianne Webster Attending Unavailable Suppan, Lynn Primary Care Unavailable MauricioQi watson Attending Unavailable Al ORQUIDEA, Martin Referring Unavailable Suppan, Lynn Primary Care Unavailable Qi Martínez Attending Unavailable Mauricio, Qi Referring Unavailable Gladis Mckeon NP Referring Unavailable Suppan, Lynn Primary Care Unavailable Mike NESBITT, Gladis Attending Unavailable Michelle Stark Attending Unavail able Michelle Stark Referring Unavail able Suppan, Lynn Primary Care Unavailable Brianne Webster Referring Unavailable Suppan, Lynn Primary Care Unavailable Brianne Webster Attending Unavailable Suppan, Lynn Primary Care Unavailable Mauricio, Qi Attending Unavailable Mauricio, Qi Referring Unavailable Suppan, Lynn Primary Care Unavailable Gladis Mckeon NP Attending Unavailable Suppan, Lynn Primary Care Unavailable Mauricio, Qi Attending Unavailable Mauricio, Qi Referring Unavailable Allergies Allergy Classification Reported Allergen(s) Allergy Type Date of Onset Reaction(s) Facility (7 sources) Environmental Allergies: Uncoded; Translations: [Environmental Allergies: Uncoded] Allergy to substance Nasal Congestion [facility] Medications Current Medications Medication Drug Class(es) [...] Aggregation Inhibitor, Nonsteroidal Anti-inflammatory Drug Start: 08-01-2011 Comment on above: Take 1 tablet by [facility] daily. azithromycin 250 mg oral tablet (1 source) Macrolide Antimicrobial Start: 12-26-2024 End: 12-31-2024 azithromycin (ZITHROMAX Z-ENA) 250 mg tablet Indications: Pharyngitis due to Streptococcus species Take 2 tablets day one, then, 1 tablet daily until gone. 6 tablet 12/26/2024 12/31/2024 Active dapagliflozin 10 mg oral tablet (12 sources) Sodium-Glucose Cotransporter 2 Inhibitor Start: 01-19-2025 End: 01-21-2025 take 1 tablet by mouth once daily 24 hr metoprolol succinate 50 mg extended release oral tablet (20 sources) beta-Adrenergic Zakiya Start: 04-13-2025 take 1 tablet by mouth once daily Start: 01-19-2025 End: 04-13-2025 Metoprolol Succinate 50 mg t ablet extended release 24 hr Discontinued 75 mg PO DAILY January 19, 2025 9:13am April 13, 2025 3:18pm bp Start: 10-03-2023 End: 07-31-2024 Metoprolol Succinate 50 mg t ablet extended release 24 hr Active 75 mg PO DAILY January 19, 2025 9:13am bp Start: 06-17-2015 End: 01-19-2025 take 1 tablet [...] on above: Take by mouth. Multivitamin tablet (6 sources) Start: 01-12-2025 Start: 01-12-2025 Multivitamin t ablet Active 1 {tbl} PO daily January 12, 2025 12:00am ondansetron 4 mg oral tablet (1 source) Serotonin-3 Receptor Antagonist Start: 03-16-2025 End: 04-15-2025 take 1 tablet by mouth every eight hours as needed for nausea and nausea ondansetron (ZOFRAN) 4 mg tablet Indications: Nausea Take 1 tablet by mouth every 8 hours as needed for nausea/vomiting. 60 tablet 03/16/2025 04/15/2025 Active rifAXIMin 550 mg oral tablet (1 source) Rifamycin Antibacterial Start: 05-01-2025 take 1 tablet by mouth three times daily Start: 05-01-2025 take 1 tablet by mouth three t imes daily sacubitril 24 mg / valsartan 26 mg oral tablet (12 sources) Angiotensin 2 Receptor Zakiya Start: 01-19-2025 take 1 tablet by mouth every twelve hours ENTRESTO 24-26 mg tablet Take 1 tablet by mouth every 12 hours. 01/19/2025 Active Start: 01-19-2025 End: 01-21-2025 triamcinolone acetonide 1 mg/ml topical cream (1 [...] (Original) fexofenadine hydrochloride 180 mg oral tablet (16 sources) Histamine-1 Receptor Antagonist Start: 07-31-2024 End: [...] Location: back lisinopril 5 mg oral tablet (7 sources) Angiotensin Converting Enzyme Inhibitor Start: End: [...] injection (DEFINITY) (5 sources) Start: 3 End: perflutren lipid microspheres 1.3 mL in NaCl [...] DAY rosuvastatin calcium 5 mg oral tablet (7 sources) HMG-CoA Reductase Inhibitor Start: 4 End: [...] unspecified] Onset: 01-30-2025 01-30-2025 Episodic Alcohol-related disorders (20 sources) Alcohol abuse; Translations: [Alcohol abuse, uncomplicated] Onset: 07-28-2015 Resolved: 07-17-2017 07-17-2017 Chronic Cardiac dysrhythmias (20 sources) Ventricular tachycardia; Translations: [Ventricular tachycardia] Onset: 07-28-2015 07-28-2015 Chronic Congestive heart failure; nonhypertensive (2 sources) Congestive heart failure; Translations: [Unspecified systolic (congestive) heart failure] Onset: 07-31-2024 07-31-2024 Chronic Coronary atherosclerosis and other heart disease (20 sources) Coronary atherosclerosis; Translations: [Atherosclerotic heart disease of [place] coronary artery without angina pectoris] Onset: 03-12-2020 [...] 03-16-2025 Episodic Other and ill-defined heart disease (6 sources) Left ventricular systolic dysfunction; Translations: [Other ill-defined heart diseases] 01-12-2025 Chronic Other and ill-defined heart disease (12 sources) Chronic systolic dysfunction of left ventricle; Translations: [Heart disease, unspecified] 01-19-2025 Chronic Other and ill-defined heart disease (1 source) Other ill-defined heart diseases; Translations: [Other ill-defined heart diseases] Onset: 06-15-2025 Chronic Other and ill-defined heart disease (1 source) Heart disease, unspecified; Translations: [Heart disease, unspecified] Onset: 03-03-2025 Chronic Other circulatory disease (6 sources) History of cardiac arrhythmia; Translations: [Personal history of other diseases of the circulatory system] 04-01-2019 Episodic Other circulatory disease (6 sources) History of cardiomyopathy; Translations: [Personal history of other diseases of the circulatory system] 10-02-2017 Episodic Other connective tissue disease (1 source) [...] origin] Onset: 03-13-2025 Episodic Other gastrointestinal disorders (4 sources) Diarrhea; Translations: [Diarrhea, unspecified] 04-14-2025 Episodic [...] of mental health and substance abuse codes (6 sources) Tobacco use and exposure - finding; Translations: [Personal history of nicotine dependence] 01-12-2025 Episodic Substance-related disorders (13 sources) Nicotine dependence; Translations: [Nicotine dependence, unspecified, uncomplicated] Onset: 01-19-2025 01-19-2025 Chronic Unclassified (1 source) Unknown / UNK(Unknown) Onset: 10-04-2017 Unclassified (1 source) VT (ventricular tachycardia) (HCC); Translations: [VT (ventricular tachycardia) (HCC)] Onset: 07-28-2015 Unclassified (2 sources) Ventricular tachycardia, unspecified; Translations: [Ventricular tachycardia, unspecified] Onset: 04-20-2025 Past or Other Problems Problem Classification Problem Date Documented Da te Episodic/Chronic Cardiac dysrhythmias (20 sources) Palpitations; Translations: [Palpitations] Onset: 05-27-2019 05-27-2019 Episodic Conditions associated with dizziness or vertigo (20 sources) Lightheadedness; Translations: [Dizziness and giddiness] Onset: 07-28-2015 07-28-2015 Episodic Other circulatory disease (2 sources) Personal history of other diseases of the circulatory system; Translations: [Personal history of other diseases of the circulatory system] Onset: 01-19-2025 Episodic Other connective tissue disease (8 sources) Pain in upper limb; Translations: [Pain in arm, unspecified] Onset: 06-28-2015 Resolved: 07-17-2017 07-17-2017 Episodic Syncope (20 sources) Syncope and collapse; Translations: [Near syncope] Onset: 10-04-2017 Resolved: 09-15-2022 09-15-2022 Episodic Results Test Name Value Interpretation Reference Range Facility [facility] 8623on OP OVA AND PARASITES EX AM, ROUTINE These results were obtained using wet preparation(s) and trichrome stained smear. This test does not include testing for Crytosporidium parvum, Cyclospora, or Microsporidia. One negative specimen does not rule out the possibility of a parasitic infection. TESTING PERFORMED AT [facility]. ORIGINAL REPORT ON FILE IN LAB CONTAINS ADDITIONAL TEST SITE INFORMATION. Ova/Parasite Exam NO OVA, CYSTS, OR PARASITES FOUND. Normal [facility] Comment on above: Performed By: #### M 100.637, M600.5000, M100.6796, L7000.0700 #### [facility] [address] [place] [place], [address] Calprotectin, Stoolon [address] 42 ug/g Normal 0-120 [facility] Comment on above: Result Comment: Conc entration Interpretation Follow-Up < 5 - 50 ug/g Normal None >50 -120 ug/g Borderline Re-evaluate in 4-6 weeks >120 ug/g Abnormal Repeat as clinically indicated Performed at: [address] [id number] [place]: Beau Gunter MD, Phone: [phone] Performed By: #### M 100.637, M600.5000, M100.6796, L7000.0700 #### [facility] [address] [place], [place], [id number] CDIFF (PCR)on 04-17-2025 CDIFF Pending 027 027 [id number] Presumptive Negative *for epidemiolologic???use C. Diff PCR Negative- No toxigenic C. Diff Detected Normal [facility] Comment on above: Performed By: #### M 100.637, M600.5000, M100.6796, L7000.0700 #### [facility] [address] [place], [place], [id number] Calprotectin stoolOrdered By : Brianne Webster on 04-17-2025 Calprotectin stool 42 ug/g 0-120 [facility] Comment on above: Concentration Interp retation Follow-Up< 5 - 50 ug/g Normal None>50 -120 ug/g Borderline Re-evaluate in 4-6 weeks >120 ug/g Abnormal Repeat as clinically indicatedPerformed at: [facility] [id number] Director: Beau Gunter MD, Phone: [phone] Clostridium difficile detect ion by polymerase chain reactionOrdered By: Brianne Webster on 04-17-2025 C. difficile DNA CADENCE+probe Ql (Unsp spec) [facility] ENTERIC PATHOGEN PANEL STOOL on 04-17-2025 EP PANEL Normal Reference Ran ge = Not Detected Nucleic acid amplification test method Not detected for Campylobacter group, Salmonella species, Shigella species, Vibrio Group, Yersinia enterocolitica, EHEC (Shiga Toxin 1, Shiga Toxin 2), Norovirus Gl/Gll, and Rotavirus A. Other common stool pathogens are not detected on this panel include: Aeromonas/Plesiomonas or parasites. Order testing for these organisms separately if suspected. This is an amplified DNA test which makes it both specific and sensitive. CAMPYLOBACTER Not Detected Norovirus Not Detected Rotavirus Not Detected Salmonella Not Detected Shiga Toxin Not Detected Shigella sp. Not Detected VIBRIO Not Detected Yersinia Not Detected Normal [facility] Comment on above: Performed By: #### M 100.637, M600.5000, M100.6796, L7000.0700 #### [facility] [address] [place], [address] Gastroenterology Visit Repor ton 04-14-2025 Gastroenterology Visit Report [facility] [address] [place] [place] [address] OFFICE VISIT Date of Service: 04/14/25 MR#: [id number] Acct: [id number] Name: KELSI SOTO Rep #: [id number] : 1965 Provider: KAITLIN Frias Age/Sex: 59/M Location: [facility] Status: Signed Intake Vital Signs 01/19/25 08:10 [...] some RLQ pain relieved by passing gas. [facility] Medical History (Updated 04/14/25 @ 08:10 by KAITLIN Frias) Diarrhea Nonischemic cardiomyopathy Lightheadedness Ventricular tachycardia PVCs (premature ventricular contractions) Mixed hyperlipidemia Coronary artery 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 Asthenia History of [...] cooperative, healthy appearing and comfortable Orientation: alert HENMT Head: normal to inspection Eyes General: appearance [...] male p (more content not included)... Normal [facility] Cardiovascular stress test r eportOrdered By: Jaswant Momin on 03-23-2025 Study report [facility] [address] [place] [address] MR#: [id number] Acct: [id number] Name: KELSI SOTO Rep #: [id number] : 1965 59 From: Jaswant Momin MD Primary Care: Lynn Avalos, WATCH COMMANDER Stat us: REG CLI Referring Dr: Gladis Mckeon NP EMAIL MARKETING PROCESSOR-C Sex: M C Stress Test Report Exercise [...] Date ___ _ Jaswant Momin MD CC: MRAY Avalos; MJ Mckeon ~ Date Dictated: 03/23/251826 Date Transcribed: 03/23/251826 Blend Plant Operator: CO Signed [facility] Work Phone: Stress Reporton 03-23-2025 Stress Report [facility] [address] [place] [address] MR#: [id number] Acct: [id number] Name: KELSI SOTO Rep #: [id number] : 1965 59 From: Jaswant Momin MD Primary Care: MARY Ann Status: REG CLI Referring Dr: Gladis Mckeon NP EMAIL MARKETING PROCESSOR-Sonia Sex: M C Stress Test Report Exercise [...] 1831 Date ____ Jaswant Momin MD CC: MARY Avalos; MJ Mckeon Date Dictated: 03/23/251826 Date Transcribed: 03/23/251826 Blend Plant Operator: CO Signed Normal [facility] C diff Tox gens Stl Ql CADENCE+p robeon 03-14-2025 C. difficile toxin genes CADENCE+probe Ql (Stl) Negative Normal Negative for C. difficile toxin by PCR [facility] Comment on above: Order Comment: Speci marian Type: BLOOD SPECIMEN Ordering Facility: [facility] Address: [address] [place] [address] Performed By: #### P SAS1 #### [facility] CLIA [id number] [address] [place] [address] [place] FECAL LACTOFERRIN/LEUKOCYTES on 03-14-2025 Lactoferrin IA Ql (Stl) Negative for lactoferrin, which may indicate the absence of fecal white blood cells Normal Negative [facility] Comment on above: Order Comment: Vidal fonseca Type: BLOOD SPECIMEN Ordering Facility: [facility] Address: [address] [place] [address] Performed By: #### P SAS1 #### [facility] CLIA [id number] [address] [place] [address] [place] G lamblia+Cryptosp Ag Stl Ql IAon 03-14-2025 G. lamblia+Cryptospori dium sp Ag IA Ql (Stl) CRYPTOSPORIDIUM ANTIGEN BY EIA: Negative for Cryptosporidium by EIA. GIARDIA ANTIGEN BY EIA: Negative for Giardia lamblia by EIA. Normal [facility] Comment on above: Performed By: #### P SAS1 #### [facility] CLIA [id number] [address] [place] [address] [place] CBC W Auto Differential pane l (Bld)on 03-13-2025 Basophils (Bld) [#/Vol] 0.06 10*3/uL Normal <0.11 [facility] Comment on above: Order Comment: Speci men Type: BLOOD SPECIMEN Ordering Facility: [facility] Address: [address] [place] [address] Performed By: #### P SAS1 #### [facility] CLIA [id number] [address] [place] [address] [place] Basophils/100 WBC (Bld) 0.8 % Normal [facility] Comment on above: Order Comment: Speci men Type: BLOOD SPECIMEN Ordering Facility: [facility] Address: [address] [place] [address] Performed By: #### P SAS1 #### [facility] CLIA [id number] [address] [place] [address] [place] Differential cell count method Nom (Bld) Auto Normal [facility] Comment on above: Order Comment: Speci men Type: BLOOD SPECIMEN Ordering Facility: [facility] Address: [address] [place] [address] Performed By: #### P SAS1 #### [facility] CLIA [id number] [address] [place] [address] [place] Eosinophils (Bld) [#/Vol] 0.26 10*3/uL Normal <0.46 [facility] Comment on above: Order Comment: Speci men Type: BLOOD SPECIMEN Ordering Facility: [facility] Address: [address] [place] [address] Performed By: #### P SAS1 #### [facility] CLIA [id number] [address] [place] [address] [place] Eosinophils/100 WBC (Bld) 3.4 % Normal [facility] Comment on above: Order Comment: Speci men Type: BLOOD SPECIMEN Ordering Facility: [facility] Address: [address] [place] [address] Performed By: #### P SAS1 #### [facility] CLIA [id number] [address] [place] [address] [place] Erythrocyte distribution width (RBC) [Ratio] 13.0 % Normal 11.5-15.0 [facility] Comment on above: Order Comment: Speci men Type: BLOOD SPECIMEN Ordering Facility: [facility] Address: [address] [place] [address] Performed By: #### P SAS1 #### [facility] CLIA [id number] [address] [place] [address] [place] Hematocrit (Bld) [Volume fraction] 41.0 % Normal 39.0-51.0 [facility] Comment on above: Order Comment: Speci men Type: BLOOD SPECIMEN Ordering Facility: [facility] Address: [address] [place] [address] Performed By: #### P SAS1 #### [facility] CLIA [id number] [address] [place] [address] [place] Hemoglobin (Bld) [Mass/Vol] 14.0 g/dL Normal 13.0-17.0 [facility] Comment on above: Order Comment: Speci men Type: BLOOD SPECIMEN Ordering Facility: [facility] Address: [address] [place] [address] Performed By: #### P SAS1 #### [facility] CLIA [id number] [address] [place] [address] [place] Immature granulocytes (Bld) [#/Vol] 0.03 10*3/uL Normal <0.10 [facility] Comment on above: Order Comment: Speci men Type: BLOOD SPECIMEN Ordering Facility: [facility] Address: [address] [place] [address] Performed By: #### P SAS1 #### [facility] CLIA [id number] [address] [place] [address] [place] Immature granulocytes/100 WBC (Bld) 0.4 % Normal [facility] Comment on above: Order Comment: Speci men Type: BLOOD SPECIMEN Ordering Facility: [facility] Address: [address] [place] [address] Performed By: #### P SAS1 #### [facility] CLIA [id number] [address] [place] [address] [place] Lymphocytes (Bld) [#/Vol] 2.02 10*3/uL Normal 1.00-4.00 [facility] Comment on above: Order Comment: Speci men Type: BLOOD SPECIMEN Ordering Facility: [facility] Address: [address] [place] [address] Performed By: #### P SAS1 #### [facility] CLIA [id number] [address] [place] [address] [place] Lymphocytes/100 WBC (Bld) 26.3 % Normal [facility] Comment on above: Order Comment: Speci men Type: BLOOD SPECIMEN Ordering Facility: [facility] Address: [address] [place] [address] Performed By: #### P SAS1 #### [facility] CLIA [id number] [address] [place] [address] [place] MCH (RBC) [Entitic mass] 33.8 pg Normal 26.0-34.0 [facility] Comment on above: Order Comment: Speci men Type: BLOOD SPECIMEN Ordering Facility: [facility] Address: [address] [place] [address] Performed By: #### P SAS1 #### [facility] CLIA [id number] [address] [place] [address] [place] MCHC (RBC) [Mass/Vol] 34.1 g/dL Normal 30.5-36.0 [facility] Comment on above: Order Comment: Speci men Type: BLOOD SPECIMEN Ordering Facility: [facility] Address: [address] [place] [address] Performed By: #### P SAS1 #### [facility] CLIA [id number] [address] [place] [address] [place] MCV (RBC) [Entitic vol] 99.0 fL Normal 80.0-100.0 [facility] Comment on above: Order Comment: Speci men Type: BLOOD SPECIMEN Ordering Facility: [facility] Address: [address] [place] [address] Performed By: #### P SAS1 #### [facility] CLIA [id number] [address] [place] [address] [place] Monocytes (Bld) [#/Vol] 0.54 10*3/uL Normal <0.87 [facility] Comment on above: Order Comment: Speci men Type: BLOOD SPECIMEN Ordering Facility: [facility] Address: [address] [place] [address] Performed By: #### P SAS1 #### [facility] CLIA [id number] [address] [place] [address] [place] Monocytes/100 WBC (Bld) 7.0 % Normal [facility] Comment on above: Order Comment: Speci men Type: BLOOD SPECIMEN Ordering Facility: [facility] Address: [address] [place] [address] Performed By: #### P SAS1 #### [facility] CLIA [id number] [address] [place] [address] [place] Neutrophils (Bld) [#/Vol] 4.78 10*3/uL Normal 1.45-7.50 [facility] Comment on above: Order Comment: Speci men Type: BLOOD SPECIMEN Ordering Facility: [facility] Address: [address] [place] [address] Performed By: #### P SAS1 #### [facility] CLIA [id number] [address] [place] [address] [place] Neutrophils/100 WBC (Bld) 62.1 % Normal [facility] Comment on above: Order Comment: Speci men Type: BLOOD SPECIMEN Ordering Facility: [facility] Address: [address] [place] [address] Performed By: #### P SAS1 #### [facility] CLIA [id number] [address] [place] [address] [place] Nucleated RBC (Bld) [#/Vol] 10*3/uL Normal <0.01 [facility] Comment on above: Order Comment: Speci men Type: BLOOD SPECIMEN Ordering Facility: [facility] Address: [address] [place] [address] Performed By: #### P SAS1 #### [facility] CLIA [id number] [address] [place] [address] [place] Nucleated RBC/100 WBC (Bld) [Ratio] 0.0 /100 WBC Normal [facility] Comment on above: Order Comment: Speci men Type: BLOOD SPECIMEN Ordering Facility: [facility] Address: [address] [place] [address] Performed By: #### P SAS1 #### [facility] CLIA [id number] [address] [place] [address] [place] Platelet mean volume (Bld) [Entitic vol] 9.8 fL Normal 9.0-12.7 [facility] Comment on above: Order Comment: Speci men Type: BLOOD SPECIMEN Ordering Facility: [facility] Address: [address] [place] [address] Performed By: #### P SAS1 #### [facility] CLIA [id number] [address] [place] [address] [place] Platelets (Bld) [#/Vol] 238 10*3/uL Normal 150-400 [facility] Comment on above: Order Comment: Speci men Type: BLOOD SPECIMEN Ordering Facility: [facility] Address: [address] [place] [address] Performed By: #### P SAS1 #### [facility] CLIA [id number] [address] [place] [address] [place] RBC (Bld) [#/Vol] 4.14 10*6/uL Low 4.20-6.00 [place] Comment on above: Order Comment: Speci men Type: BLOOD SPECIMEN Ordering Facility: [facility] Address: [address] [place] [address] Performed By: #### P SAS1 #### [facility] CLIA [id number] [address] [place] [address] [place] WBC (Bld) [#/Vol] 7.69 10*3/uL Normal 3.70-11.00 [place] Comment on above: Order Comment: Speci men Type: BLOOD SPECIMEN Ordering Facility: [facility] Address: [address] [place] [address] Performed By: #### P SAS1 #### [facility] CLIA [id number] [address] [place] [address] [place] CNOVon 03-13-2025 CNOV Office Visit (FAMPWS ) KELSI SOTO ([id number]) 1965 M Date Time Provider Department 03/13/25 4:00 PM LYNN AVALOS During your visit today, we recorded the following information about you: Temperature Pulse Blood pressure Weight 98.7 degrees 80/minute 122/64 81.6 kg Lynn Avalos APRN.CNP 03/13/2025 4:37 PM Addendum This is a [...] WHEN PFRMD 05/27/2018 Colonoscopy EPS: EP STUDY [facility] - negative LEFT HEART CATH 06/21/2015 [...] results; patient (more content not included)... Normal [facility] Comprehensive metabolic 2000 panelon 03-13-2025 Albumin [Mass/Vol] 4.3 g/dL Normal 3.9-4.9 [facility] Comment on above: Order Comment: Speci men Type: BLOOD SPECIMENOrdering Facility: [facility] Address: [address] [place] [address] Performed By: #### 1 9123-9, 3, ####[facility] [id number] [place] [address] [place] ALP [Catalytic activity/Vol] 46 U/L Normal 38-113 [facility] Comment on above: Order Comment: Speci men Type: BLOOD SPECIMENOrdering Facility: [facility] Address: [address] [place] [address] Performed By: #### 1 9123-9, 3, ####[facility] [id number] [place] [id number] [place] ALT [Catalytic activity/Vol] 22 U/L Normal 10-54 [facility] Comment on above: Order Comment: Speci men Type: BLOOD SPECIMENOrdering Facility: [facility] Address: [address] [place] [address] Performed By: #### 1 9123-9, 3, ####[facility] [id number] [place] [id number] [place] Anion gap [Moles/Vol] 14 mmol/L Normal 8-15 [facility] Comment on above: Order Comment: Speci men Type: BLOOD SPECIMENOrdering Facility: [facility] Address: [address] [place] [address] Performed By: #### 1 9123-9, 3015-3, 52459-7 ####[facility] [id number] [place] [address] [place] AST [Catalytic activity/Vol] 23 U/L Normal 14-40 [facility] Comment on above: Order Comment: Speci men Type: BLOOD SPECIMENOrdering Facility: [facility] Address: [address] [place] [address] Performed By: #### 1 9123-9, 3015-3, 16562-7 ####[facility] [id number] [place] [address] [place] Bilirubin [Mass/Vol] 0.3 mg/dL Normal 0.2-1.3 [facility] Comment on above: Order Comment: Speci men Type: BLOOD SPECIMENOrdering Facility: [facility] Address: [address] [place] [address] Performed By: #### 1 9123-9, 3, 06567-3 ####[facility] [id number] [place] [address] [place] Calcium [Mass/Vol] 9.7 mg/dL Normal 8.5-10.2 [facility] Comment on above: Order Comment: Speci men Type: BLOOD SPECIMENOrdering Facility: [facility] Address: [address] [place] [address] Performed By: #### 1 9123-9, 3015-3, 10109-5 ####[facility] [id number] [place] [id number] [place] Chloride [Moles/Vol] 108 mmol/L High 98-107 [facility] Comment on above: Order Comment: Speci men Type: BLOOD SPECIMENOrdering Facility: [facility] Address: [address] [place] [address] Performed By: #### 1 9123-9, 3, 65360-9 ####[facility] [id number] [address] [address] [place] CO2 [Moles/Vol] 22 mmol/L Normal 22-30 [facility] Comment on above: Order Comment: Speci men Type: BLOOD SPECIMENOrdering Facility: [facility] Address: [address] [place] [address] Performed By: #### 1 9123-9, 3, ####[facility] [id number] [place] [id number] [place] Creatinine [Mass/Vol] 0.86 mg/dL Normal 0.73-1.22 [facility] Comment on above: Order Comment: Speci men Type: BLOOD SPECIMENOrdering Facility: [facility] Address: [address] [place] [address] Performed By: #### 1 9123-9, 3015-10, ####[facility] [id number] [place] [address] [place] eGFRcr SerPlBld CKD-EPI 2020 99 mL/min/1.73m??? Normal >=60 [facility] Comment on above: Order Comment: Speci men Type: BLOOD SPECIMENOrdering Facility: [facility] Address: [address] [place] [address] Result Comment: Sejal mated Glomerular Filtration Rate [...] GFR. Performed By: #### 1 9123-9, 3015-3, 27130-9 ####[facility] [id number] [address] [address] [place] Glucose [Mass/Vol] 78 mg/dL Normal 74-99 [facility] Comment on above: Order Comment: Speci men Type: BLOOD SPECIMENOrdering Facility: [facility] Address: [address] [place] [address] Result Comment: The [place] [employer] (ADA) provides guidance for cutoff [...] Standards of Medical Care in Diabetes 2016, [place] [employer]. Diabetes Care. 2016.39(Suppl 1). Performed By: #### 1 9123-9, 3015-3, 39713-4 ####[facility] [id number] [place] [address] [place] Potassium [Moles/Vol] 4.2 mmol/L Normal 3.7-5.1 [facility] Comment on above: Order Comment: Speci men Type: BLOOD SPECIMENOrdering Facility: [facility] Address: [address] [place] [address] Performed By: #### 1 9123-9, 3013, 09308-6 ####[facility] [id number] [place] [id number] [place] Protein [Mass/Vol] 7.0 g/dL Normal 6.3-8.0 [facility] Comment on above: Order Comment: Speci men Type: BLOOD SPECIMENOrdering Facility: [facility] Address: [address] [place] [address] Performed By: #### 1 9123-9, 30163, 44094-1 ####[facility] [id number] [place] [id number] [place] Sodium [Moles/Vol] 144 mmol/L Normal 136-144 [facility] Comment on above: Order Comment: Speci men Type: BLOOD SPECIMENOrdering Facility: [facility] Address: [address] [place] [address] Performed By: #### 1 9123-9, 3016-3, 33794-1 ####[facility] [id number] [place] [id number] [place] Urea nitrogen [Mass/Vol] 14 mg/dL Normal 9-24 [facility] Comment on above: Order Comment: Speci men Type: BLOOD SPECIMENOrdering Facility: [facility] Address: [address] [place] [address] Performed By: #### 1 9123-9, 3016-3, 98928-2 ####[facility] [id number] [place] [id number] [place] Magnesium SerPl-mCncon 03-13 Magnesium [Mass/Vol] 2.3 mg/dL Normal 1.7-2.3 [facility] Comment on above: Order Comment: Speci men Type: BLOOD SPECIMENOrdering Facility: [facility] Address: [address] [place] [address] Performed By: #### 1 9123-9, 3016-3, 92042-0 ####[facility] [id number] [place] [id number] [place] TSH SerPl-aCncon 03-13-2025 TSH Qn 0.931 m[IU]/L Normal 0.270-4.20 0 [facility] Comment on above: Order Comment: Speci men Type: BLOOD SPECIMENOrdering Facility: [facility] Address: [address] [place] [address] Performed By: #### 1 9123-9, 3016-3, 27881-3 ####[facility] [id number] [facility] [address] [address] [place] Echocardiogram study reportO rdered By: Qi Martínez on 03-02-2025 Study report [facility] [place] [address] Echo Complete W/ Contrast 02/27/25 1458 MR#: [id number] Acct: [id number] Name: KELSI SOTO Rep #:[id number] : 1965 59 From: Qi Martínez MD Attending Dr: Dr. Qi Martínez MD Status: REG CLI Ordering Dr: Qi Martínez MD Date: Location: [facility] Sex: M C Admitted: Reason For Study [...] Dr. Qi Martínez MD ~ Date Dictated: 02/27/251457 Date Transcribed: 03/02/25 132 [employer] Operator: Signed [facility] Work Phone: Echo Complete W/ Contraston 02-27-2025 Echo Complete W/ Contrast [facility] [address] [place] [address] Echo Complete W/ Contrast 02/27/251457 MR#: [id number] Acct: [id number] Name: KELSI SOTO Rep #: [id number] : 1965 59 From: Qi Martínez MD Attending Dr: Dr. Qi Martínez MD Status: REG CLI Ordering Dr: Qi Martínez MD Date: 02/27/25 Location: [facility] Sex: M C Admitted: Reason For [...] Date Dictated: 02/27/25 1458 Date Transcribed: 03/02/25 [employer] Operator: Signed Normal [facility] Anion gap in Serum or Plasma Ordered By: Qi Martínez on 02-09-2025 Anion gap [Moles/Vol] 11 mmol/L 5-15 [facility] BUN/creatinine ratioOrdered By: Qi Martínez on 02-09-2025 Urea nitrogen/Creatinine [Mass ratio] 11.7 mg/mg 10-20 [facility] Bilirubin, totalOrdered By: Qi Martínez on 02-09-2025 Bilirubin [Mass/Vol] 0.43 mg/dL 0.00-1.30 [facility] Calculated very low density lipoprotein (VLDL) cholesterol measurementOrdered By: Qi Martínez on 02-09-2025 Calculated very low density lipoprotein (VLDL) cholesterol measurement 62 mg/dL High 5-40 [facility] Carbon dioxide, total [Moles /volume] in Central venous bloodOrdered By: Qi Martínez on 02-09-2025 CO2 [Moles/Vol] 23.7 mmol/L 21.0-32.0 [facility] Chloride assayOrdered By: Adolfo Martínez on 02-09-2025 Chloride [Moles/Vol] 105 mmol/L 98-108 [facility] Comprehensive Metabolic Prof ilon 02-09-2025 Albumin [Mass/Vol] 4.4 g/dL Normal 3.4-4.8 [facility] Comment on above: Performed By: #### L 500.4100, L501.5200, L501.9520, L500.4050 #### [facility] [address] [place], [address] Albumin/Globulin [Mass ratio] 1.6 {ratio} Normal 0.9-2.4 [facility] Comment on above: Performed By: #### L 500.4100, L501.5200, L501.9520, L500.4050 #### [facility] [address] [place], [address] ALK PHOS 51 U/L Normal 40-129 [facility] Comment on above: Performed By: #### L 500.4100, L501.5200, L501.9520, L500.4050 #### [facility] [address] [place], [address] ALT [Catalytic activity/Vol] 23 U/L Normal <=46 [facility] Comment on above: Performed By: #### L 500.4100, L501.5200, L501.9520, L500.4050 #### [facility] [address] [place], [address] AST [Catalytic activity/Vol] 25 U/L Normal <=37 [facility] Comment on above: Performed By: #### L 500.4100, L501.5200, L501.9520, L500.4050 #### [facility] [address] [place], [address] Bilirubin [Mass/Vol] 0.43 mg/dL Normal 0.00-1.30 [facility] Comment on above: Performed By: #### L 500.4100, L501.5200, L501.9520, L500.4050 #### [facility] [address] [place], [address] BUN/CRE 11.7 RATIO Normal 10-20 [facility] Comment on above: Performed By: #### L 500.4100, L501.5200, L501.9520, L500.4050 #### [facility] [address] [place], [address] Calcium [Mass/Vol] 9.3 mg/dL Normal 7.6-11.0 [facility] Comment on above: Performed By: #### L 500.4100, L501.5200, L501.9520, L500.4050 #### [facility] [address] [place], [address] Chloride [Moles/Vol] 105 mmol/L Normal 98-108 [facility] Comment on above: Performed By: #### L 500.4100, L501.5200, L501.9520, L500.4050 #### [facility] [address] [place], [address] CO2 [Moles/Vol] 23.7 mmol/L Normal 21.0-32.0 [facility] Comment on above: Performed By: #### L 500.4100, L501.5200, L501.9520, L500.4050 #### [facility] [address] [place], [address] Creatinine [Mass/Vol] 1.01 mg/dL Normal 0.70-1.20 [facility] Comment on above: Performed By: #### L 500.4100, L501.5200, L501.9520, L500.4050 #### [facility] [address] [place], [address] GAP 11 Normal 5-15 [facility] Comment on above: Performed By: #### L 500.4100, L501.5200, L501.9520, L500.4050 #### [facility] [address] [place], [address] GFR/1.73 sq M.predicted among non-blacks MDRD (S/P/Bld) [Vol rate/Area] 85 mL/min/{1.73_m2} Normal >60 [facility] Comment on above: Result Comment: mL/m in/1.73m2 CKD-EPI Creatinine Equation (2020) Performed By: #### L 500.4100, L501.5200, L501.9520, L500.4050 #### [facility] [address] [place], [address] Globulin (S) [Mass/Vol] 2.7 g/dL Normal 2.2-4.2 [facility] Comment on above: Performed By: #### L 500.4100, L501.5200, L501.9520, L500.4050 #### [facility] [address] [place], [address] Glucose [Mass/Vol] 103 mg/dL High 70-99 [facility] Comment on above: Performed By: #### L 500.4100, L501.5200, L501.9520, L500.4050 #### [facility] [address] [place], [address] Potassium [Moles/Vol] 4.3 mmol/L Normal 3.3-5.1 [facility] Comment on above: Performed By: #### L 500.4100, L501.5200, L501.9520, L500.4050 #### [facility] [address] [place], [address] Sodium [Moles/Vol] 139 mmol/L Normal 133-145 [facility] Comment on above: Performed By: #### L 500.4100, L501.5200, L501.9520, L500.4050 #### [facility] [address] [place], [address] T PROT 7.1 g/dL Normal 5.9-8.4 [facility] Comment on above: Performed By: #### L 500.4100, L501.5200, L501.9520, L500.4050 #### [facility] [address] [place], [address] Urea nitrogen [Mass/Vol] 12 mg/dL Normal 4-19 [facility] Comment on above: Performed By: #### L 500.4100, L501.5200, L501.9520, L500.4050 #### [facility] [address] [place], [address] Glomerular filtration rate ( GFR) estimation/1.73 sq m using serum, plasma, or whole bOrdered By: Qi Martínez on 02-09-2025 GFR/1.73 sq M.predicted among non-blacks MDRD (S/P/Bld) [Vol rate/Area] 85 mL/min/{1.73_m2} >60 [facility] Comment on above: mL/min/1.73m2 CKD-EP I Creatinine Equation (2020) LDL calc ser/plasOrdered By: Qi Martínez on 02-09-2025 Cholesterol in LDL [Mass/Vol] 151 mg/dL [facility] Comment on above: Djzfgqmoiz=577-748 m g/dL & Higher Wppf=189 mg/dL or greater Laboratory - Chemistry and C hemistry - challengeOrdered By: Qi Martínez on 02-09-2025 AST [Catalytic activity/Vol] 25 U/L <38 [facility] Lipid Profileon 02-09-2025 CHOL:HDL 5.65 Normal [facility] Comment on above: Performed By: #### L 500.4100, L501.5200, L501.9520, L500.4050 #### [facility] [address] [place], [place], [address] Cholesterol [Mass/Vol] 258 mg/dL High <=200 [facility] Comment on above: Result Comment: Chol esterol level, Desirable <200 mg/dL Borderline high cholesterol 200-239 mg/dL High cholesterol >=240 mg/dL Recommendations of the NCEP Adult Treatment Panel for the following risk-cutoff thresholds for the [place] population. Performed By: #### L 500.4100, L501.5200, L501.9520, L500.4050 #### [facility] [address] [place], [address] Cholesterol in HDL [Mass/Vol] 46 mg/dL Normal [facility] Comment on above: Result Comment: [place]ina onal Cholesterol Education Program (NCEP) guidelines: <40 mg/dL: Low HDL-cholesterol (major risk factor for CHD) >= 60 mg/dL: High HDL-cholesterol (negative risk factor for CHD) HDL-cholesterol is affected by a number of factors, e.g. smoking, exercise, hormones, sex and age. Performed By: #### L 500.4100, L501.5200, L501.9520, L500.4050 #### [facility] [address] [place], [address] Cholesterol in LDL [Mass/Vol] 151 mg/dL Normal [facility] Comment on above: Result Comment: Bord ypcpis=666-434 mg/dL Higher Jqrd=122 mg/dL or greater Performed By: #### L 500.4100, L501.5200, L501.9520, L500.4050 #### [facility] [address] [place], [address] Cholesterol in VLDL [Mass/Vol] 62 mg/dL High 5-40 [facility] Comment on above: Performed By: #### L 500.4100, L501.5200, L501.9520, L500.4050 #### [facility] [address] [place], [address] Triglyceride [Mass/Vol] 309 mg/dL High [facility] Comment on above: Result Comment: The drugs N-Acetylcysteine and Metamizole may falsely depress this assay. Normal range: <150 mg/dL Borderline High: 150-199 mg/dL High: 200-499 mg/dL Very High: >500 mg/dL Performed By: #### L 500.4100, L501.5200, L501.9520, L500.4050 #### [facility] [address] [place], [address] Magnesiumon 02-09-2025 Magnesium [Mass/Vol] 2.2 mg/dL Normal 1.5-2.2 [facility] Comment on above: Performed By: #### L 500.4100, L501.5200, L501.9520, L500.4050 #### [facility] [address] [place], [address] Magnesium measurement (mass/ volume)Ordered By: Qi Martínez on 02-09-2025 Magnesium (Unsp spec) [Mass/Vol] 2.2 mg/dL 1.5-2.2 [facility] Potassium measurement (mass/ volume)Ordered By: Qi Martínez on 02-09-2025 Potassium (Unsp spec) [Mass/Vol] 4.3 mmol/L 3.3-5.1 [facility] Screening total cholesterol/ high density lipoprotein (HDL) cholesterol ratioOrdered By: Qi Martínez on 02-09-2025 Cholesterol.total/C holesterol in HDL [Mass ratio] 5.65 {ratio} [facility] Serum creatinine measurement (mass/volume)Ordered By: iQ Martínez on 02-09-2025 Creatinine [Mass/Vol] 1.01 mg/dL 0.70-1.20 [facility] Serum globulin measurementOr dered By: Qi Martínez on 02-09-2025 Globulin (S) [Mass/Vol] 2.7 g/dL 2.2-4.2 [facility] Serum glucose measurement (m ass/volume)Ordered By: Qi Martínez on 02-09-2025 Glucose [Mass/Vol] 103 mg/dL High 70-99 [facility] Serum or plasma alanine shore otransferase (ALT) measurementOrdered By: Qi Martínez on 02-09-2025 ALT [Catalytic activity/Vol] 23 U/L <47 [facility] Serum or plasma albumin wan urement (mass/volume)Ordered By: Qi Martínez on 02-09-2025 Albumin [Mass/Vol] 4.4 g/dL 3.4-4.8 [facility] Serum or plasma albumin/glob ulin mass ratioOrdered By: Qi Mauricio on 02-09-2025 Albumin/Globulin [Mass ratio] 1.6 {ratio} 0.9-2.4 [facility] Serum or plasma alkaline abigail sphatase measurementOrdered By: Qi Mauricio on 02-09-2025 ALP [Catalytic activity/Vol] 51 U/L 40-129 [facility] Serum or plasma calcium wan urement (mass/volume)Ordered By: Qi Mauricio on 02-09-2025 Calcium [Mass/Vol] 9.3 mg/dL 7.6-11.0 [facility] Serum or plasma cholesterol in HDL measurement (mass/volume)Ordered By: Qi Mauricio on 02-09-2025 Cholesterol in HDL [Mass/Vol] 46 mg/dL >40 [facility] Comment on above: National Cholesterol Education Program (NCEP) guidelines:<40 mg/dL: Low HDL-cholesterol (major risk factor for CHD)>= 60 mg/dL: High HDL-cholesterol (negative risk factor for CHD)HDL-cholesterol is affected by a number of factors, e.g. smoking, exercise, hormones, sex and age. Serum or plasma cholesterol measurement (mass/volume)Ordered By: Qi Martínez on 02-09-2025 Cholesterol [Mass/Vol] 258 mg/dL High <201 [facility] Comment on above: Cholesterol level, D esirable <200 mg/dLBorderline high cholesterol 200-239 mg/dLHigh cholesterol >=240 mg/dLRecommendations of the NCEP Adult Treatment Panel for the following risk-cutoff thresholds for the [place] population. Serum or plasma urea nitroge n measurement (mass/volume)Ordered By: Qi Martínez on 02-09-2025 Urea nitrogen [Mass/Vol] 12 mg/dL 4-19 [facility] Sodium levelOrdered By: Yoni Martínez on 02-09-2025 Sodium [Moles/Vol] 139 mmol/L 133-145 [facility] TSH DL <= 0.005 mIU/L QnOrde red By: Qi Martínez on 02-09-2025 TSH Qn 1.170 uIU/mL 0.300-4.20 0 [facility] Thyroid Stim Hormone (TSH)on 02-09-2025 TSH 1.170 uIU/mL Normal 0.300-4.20 0 [facility] Comment on above: Performed By: #### L 500.4100, L501.5200, L501.9520, L500.4050 ####[facility] [id number] [place], [address] Total proteinOrdered By: Denys Martínez on 02-09-2025 Protein [Mass/Vol] 7.1 g/dL 5.9-8.4 [facility] Triglycerides measurementOrd ered By: Qi Martínez on 02-09-2025 Triglyceride [Mass/Vol] 309 mg/dL High <199 [facility] Comment on above: The drugs N-Acetylcy steine and Metamizole may falsely depress this assay. Normal range: <150 mg/dLBorderline High: 150-199 mg/dLHigh: 200-499 mg/dLVery High: >500 mg/dL CNOVon 01-30-2025 CNOV Office Visit (FAMPWS ) JUANCARLOSKELSI ([id number]) 1965 M Date Time Provider Department 01/30/25 4:20 PM [facility] During your visit today, we recorded the following information about you: Temperature Pulse Blood pressure Weight 97.7 degrees 76/minute 112/68 82.6 kg Lynn Avalos APRN.CNP 01/30/2025 5:00 PM Signed This is a [...] or chest pain. 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 CHF: - Managed by a orthotic aide; taking Entresto and Farxiga. - Denies dyspnea, [...] WHEN PFRMD 05/27/2018 Colonoscopy EPS: EP STUDY [facility] - negative LEFT HEART CATH 06/21/2015 [...] with cardiology - on Entresto - on Farxiga 4. Essential hypertension - ICD9: 401.9, ICD10: I10 - Controlled - Recommend home blood pressure monitoring, to (more content not included)... Normal [facility] Cardiology Visit Reporton Cardiology Visit Report [facility] [address] [place] [address] OFFICE VISIT Date of Service: 01/19/25 MR#: [id number] Acct: [id number] Name: KELSI SOTO Rep #: [id number] : 1965 Provider: Dr. Qi Martínez MD Age/Sex: 59/M Location: [facility] Status: Signed HPI HPI History of Present Illness Details: This gentleman was diagnosed with nonischemic cardiomyopathy about 10 years ago. His last echocardiogram was in 2022 which showed LVEF 40%. A coronary CT angio in 2019 showed mild nonobstructive calcific disease. Patient was previously established with another orthotic aide. He wishes to switch to our care. [...] a day on weekends. 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 Normal [facility] Lipid 1996 panelon 5 Cholesterol [Mass/Vol] 254 mg/dL High <200 [facility] Comment on above: Order Comment: Vidal fonseca Type: BLOOD SPECIMEN Ordering Facility: [facility] Address: [address] [place] [address] Result Comment: <200 mg/dL, Desirable 200-239 mg/dL, Borderline high >239 mg/dL, High Performed By: #### P SAS1 #### [facility] CLIA [id number] [address] [place] [address] [place] Cholesterol in HDL [Mass/Vol] 47 mg/dL Normal >39 [facility] Comment on above: Order Comment: Vidal fonseca Type: BLOOD SPECIMEN Ordering Facility: [facility] Address: [address] [place] [address] Result Comment: 40-5 9 mg/dL, Acceptable >59 mg/dL, High: Negative risk factor for coronary heart disease <40 mg/dL, Low: Positive risk factor for coronary heart disease Performed By: #### P SAS1 #### [facility] CLIA [id number] [address] [place] [address] [place] Cholesterol in LDL [Mass/Vol] 178 mg/dL High <100 [facility] Comment on above: Order Comment: Vidal fonseca Type: BLOOD SPECIMEN Ordering Facility: [facility] Address: [address] [place] [address] Result Comment: <100 mg/dL, Optimal 100-129 mg/dL, Near optimal/above optimal 130-159 mg/dL, Borderline high 160-189 mg/dL, High >189 mg/dL, Very high Secondary prevention optimal LDL Cholesterol levels are recommended to be <70 mg/dL LDL cholesterol is calculated using the Sanchez-NIH equation. Performed By: #### P SAS1 #### [facility] CLIA [id number] [address] [place] [address] [place] Cholesterol in LDL/Cholesterol in HDL [Mass ratio] 3.79 {ratio} High <2.54 [facility] Comment on above: Order Comment: Speci men Type: BLOOD SPECIMEN Ordering Facility: [facility] Address: [address] [place] [address] Result Comment: Jammie prater: 1. National Cholesterol Education Program ATP III Guideline At-A-Glance Quick Desk Reference: National Heart, Lung, and Blood [place]. National Institutes of Health. 2001: NIH Publication No. 01-3305. 2. An International Atherosclerosis Society position paper: global recommendations for the management of dyslipidemia: executive summary, Atherosclerosis. 2014: 232(2):410-413. Performed By: #### P SAS1 #### [facility] CLIA [id number] [address] [place] [address] [place] Cholesterol in VLDL [Mass/Vol] 32 mg/dL High <30 [facility] Comment on above: Order Comment: Modestoi men Type: BLOOD SPECIMEN Ordering Facility: [facility] Address: [address] [place] [address] Performed By: #### P SAS1 #### [facility] CLIA [id number] [address] [place] [address] [place] Cholesterol non HDL [Mass/Vol] 207 mg/dL High <130 [facility] Comment on above: Order Comment: Vidal men Type: BLOOD SPECIMEN Ordering Facility: [facility] Address: [address] [place] [address] Result Comment: <130 mg/dL, Optimal 130-159 mg/dL, Near optimal/above optimal 160-189 mg/dL, Borderline high 190-219 mg/dL, High >219 mg/dL, Very high Secondary prevention optimal non HDL Cholesterol levels are recommended to be <100 mg/dL Performed By: #### P SAS1 #### [facility] CLIA [id number] [address] [place] [address] [place] Cholesterol.total/C holesterol in HDL [Mass ratio] 5.40 {ratio} High <5.10 [facility] Comment on above: Order Comment: Speci men Type: BLOOD SPECIMEN Ordering Facility: [facility] Address: [address] [place] [address] Performed By: #### P SAS1 #### [facility] CLIA [id number] [address] [place] [address] [place] FASTING TIME 12 hrs Normal [facility] Comment on above: Order Comment: Speci men Type: BLOOD SPECIMEN Ordering Facility: [facility] Address: [address] [place] [address] Performed By: #### P SAS1 #### [facility] CLIA [id number] [address] [place] [address] [place] Triglyceride [Mass/Vol] 159 mg/dL High <150 [facility] Comment on above: Order Comment: Speci men Type: BLOOD SPECIMEN Ordering Facility: [facility] Address: [address] [place] [address] Result Comment: <150 mg/dL, Normal 150-199 mg/dL, Borderline high 200-499 mg/dL, High >499 mg/dL, Very high Performed By: #### P SAS1 #### [facility] CLIA [id number] [address] [place] [address] [place] Magnesium SerPl-mCncon 01-19 Magnesium [Mass/Vol] 2.1 mg/dL Normal 1.7-2.3 [facility] Comment on above: Order Comment: Speci men Type: BLOOD SPECIMEN Ordering Facility: [facility] Address: [address] [place] [address] Performed By: #### P SAS1 #### [facility] CLIA [id number] [address] [place] [address] [place] PSA/PROSTATE SPECIFIC ANTIGE N SCREENINGon 01-19-2025 Prostate specific Ag [Mass/Vol] 0.72 ng/mL Normal <2.60 [facility] Comment on above: Order Comment: Speci men Type: BLOOD SPECIMEN Ordering Facility: [facility] Address: [address] [place] [address] Result Comment: Tota l PSA test methodology used is the Electrochemiluminescence Immunoassay by Kole Vivocha. Total PSA values by differing methodologies cannot be interchanged. Performed By: #### P SAS1 #### [facility] CLIA [id number] [address] [place] [address] [place] TSH SerPl-aCncon 01-19-2025 TSH Qn 0.716 m[IU]/L Normal 0.270-4.20 0 [facility] Comment on above: Order Comment: Speci men Type: BLOOD SPECIMEN Ordering Facility: [facility] Address: [address] [place] [address] Performed By: #### P SAS1 #### [facility] CLIA [id number] [address] [place] [address] [place] CNPBeatriz 12-31-2024 [facility] KELSI SOTO ([id number]) 1965 M Date Time Provider Department 12/31/24 MARTIN MELENDEZ [facility] During your visit today, we recorded the following information about you: Pati Hdz, VIRAJ 12/31/2024 8:41 AM Signed Juliane with [facility] called in and reports they have tried to get a hold of Pt twice so far with no success. I told her the work phone # is Pts , to try and call that. She said she will try that, then send him a letter. VIRAJ Duvall, Martin Agee MD 12/31/2024 8:43 AM Signed Noted. Thank [...] Palpitations [R00.2] 05/27/2019 Coronary artery disease involving emmonak daigle*03/12/2020 Asthenia [R53.1] 09/15/2022 Near syncope [R55] 09/15/2022 Syncope and collapse [R55] 10/04/2017 09/15/2022 Encounter Status:Closed by MARTIN MELENDEZ on 12/31/24 [facility] CNOVon 12-26-2024 CNOV Office Visit (FAMPWS ) KELSI SOTO ([id number]) 1965 M Date Time Provider Department 12/26/24 1:40 PM [facility] During your visit today, we recorded the following information about you: Temperature Pulse Blood pressure Weight 97.3 degrees 69/minute 120/72 83 kg Lynn Avalos APRN.[facility] 12/26/2024 2:11 PM Signed This is a [...] quit it Lisinopril made him nauseated. Seeing [facility] for dilated CM PAST MEDICAL HISTORY: PAST MEDICAL HISTORY Diagnosis Date Dilated cardiomyopathy (HCC) Dyslipidemia Essential hypertension Left ventricular systolic dysfunction Nonsustained ventricular tachycardia (HCC) Pain in wrist PAST SURGICAL HISTORY Procedure Laterality Date COLONOSCOPY FLX DX W/COLLJ SPEC WHEN PFRMD 05/27/2018 Colonoscopy EPS: EP STUDY [facility] - negative LEFT HEART CATH 06/21/2015 [...] Streptococcus specie (more content not included)... Normal [facility] 12-26-2024 [facility] KELSI SOTO ([id number]) 1965 M Date Time Provider Department 12/26/24 MARTIN EMLENDEZ [facility] During your visit today, we recorded the following information about you: Carson Chin, VIRAJ 12/26/2024 10:26 AM Signed Spouse calls to request appointment for sore throat and swollen lymph nodes for atleast 5 days. Scheduled same day. Spouse also reports that patient was to see [facility] cardiology in [place] in February but was cancelled and rescheduled 07/13/2025 which spouse feels is too far out. Faxed cardiology referral to [facility]. Spouse will cancel appt with [facility] once gets scheduled with [facility] to make sure it is sooner. Carson Chin RN Allergies As of Date: 12/26/2024 (No Known Allergies) Date Reviewed: 07/31/2024 Reviewed by: Lynn Avalos APRN.MARKETING INFORMATION COORDINATOR - Fully Assessed Reason for Visit: Appointment [...] Palpitations [R00.2] 05/27/2019 Coronary artery disease involving emmonak daigle*03/12/2020 Asthenia [R53.1] 09/15/2022 Near syncope [R55] 09/15/2022 Syncope and collapse [R55] 10/04/2017 09/15/2022 Encounter Status:Closed by CARSON CHIN on 12/26/24 Normal [facility] CBC W Auto Differential pane l (Bld)on 07-31-2024 Basophils (Bld) [#/Vol] 0.04 10*3/uL NINF [facility] Basophils/100 WBC (Bld) 0.5 % [facility] Differential cell count method Nom (Bld) Auto [facility] Eosinophils (Bld) [#/Vol] 0.28 10*3/uL [facility] Eosinophils/100 WBC (Bld) 3.5 % [facility] Erythrocyte distribution width (RBC) [Ratio] 12.3 % 11.5 - 15.0 % [facility] Hematocrit (Bld) [Volume fraction] 41.7 % 39.0 - 51.0 % [facility] Hemoglobin (Bld) [Mass/Vol] 14.2 g/dL 13.0 - 17.0 g/dL [facility] Immature granulocytes (Bld) [#/Vol] 0.03 10*3/uL [facility] Immature granulocytes/100 WBC (Bld) 0.4 % [facility] Lymphocytes (Bld) [#/Vol] 1.80 10*3/uL [facility] Lymphocytes/100 WBC (Bld) 22.6 % [facility] MCH (RBC) [Entitic mass] 33.4 pg 26.0 - 34.0 pg [facility] MCHC (RBC) [Mass/Vol] 34.1 g/dL 30.5 - 36.0 g/dL [facility] MCV (RBC) [Entitic vol] 98.1 fL 80.0 - 100.0 fL [facility] Monocytes (Bld) [#/Vol] 0.69 10*3/uL [facility] Monocytes/100 WBC (Bld) 8.6 % [facility] Neutrophils (Bld) [#/Vol] 5.14 10*3/uL [facility] Neutrophils/100 WBC (Bld) 64.4 % [facility] Nucleated RBC (Bld) [#/Vol] [facility] Nucleated RBC/100 WBC (Bld) [Ratio] 0.0 % /100 WBC [facility] Platelet mean volume (Bld) [Entitic vol] 9.3 fL 9.0 - 12.7 fL [facility] Platelets (Bld) [#/Vol] 209 10*3/uL [facility] RBC (Bld) [#/Vol] 4.25 10*6/uL 4.20 - 6.00 m/uL [facility] WBC (Bld) [#/Vol] 7.98 10*3/uL [facility] Basophils (Bld) [#/Vol] 0.04 10*3/uL Normal <0.11 [facility] Comment on above: Order Comment: Speci men Type: BLOOD SPECIMEN Ordering Facility: [facility] Address: [address] [place] [address] Performed By: #### 5 7021-8 #### [facility] CLIA [id number] [address] [place] [address] [place] Basophils/100 WBC (Bld) 0.5 % Normal [facility] Comment on above: Order Comment: Speci men Type: BLOOD SPECIMEN Ordering Facility: [facility] Address: [address] [place] [address] Performed By: #### 5 7021-8 #### [facility] CLIA [id number] [address] [place] [address] [place] Differential cell count method Nom (Bld) Auto Normal [facility] Comment on above: Order Comment: Speci men Type: BLOOD SPECIMEN Ordering Facility: [facility] Address: [address] [place] [address] Performed By: #### 5 7021-8 #### [facility] CLIA [id number] [address] [place] [address] [place] Eosinophils (Bld) [#/Vol] 0.28 10*3/uL Normal <0.46 [facility] Comment on above: Order Comment: Speci men Type: BLOOD SPECIMEN Ordering Facility: [facility] Address: [address] [place] [address] Performed By: #### 5 7021-8 #### [facility] CLIA [id number] [address] [place] [address] [place] Eosinophils/100 WBC (Bld) 3.5 % Normal [facility] Comment on above: Order Comment: Speci men Type: BLOOD SPECIMEN Ordering Facility: [facility] Address: [address] [place] [address] Performed By: #### 5 7021-8 #### [facility] CLIA [id number] [address] [place] [address] [place] Erythrocyte distribution width (RBC) [Ratio] 12.3 % Normal 11.5-15.0 [facility] Comment on above: Order Comment: Speci men Type: BLOOD SPECIMEN Ordering Facility: [facility] Address: [address] [place] [address] Performed By: #### 5 7021-8 #### [facility] CLIA [id number] [address] [place] [address] [place] Hematocrit (Bld) [Volume fraction] 41.7 % Normal 39.0-51.0 [facility] Comment on above: Order Comment: Speci men Type: BLOOD SPECIMEN Ordering Facility: [facility] Address: [address] [place] [address] Performed By: #### 5 7021-8 #### [facility] CLIA [id number] [address] [place] [address] [place] Hemoglobin (Bld) [Mass/Vol] 14.2 g/dL Normal 13.0-17.0 [facility] Comment on above: Order Comment: Speci men Type: BLOOD SPECIMEN Ordering Facility: [facility] Address: [address] [place] [address] Performed By: #### 5 7021-8 #### [facility] CLIA [id number] [address] [place] [address] [place] Immature granulocytes (Bld) [#/Vol] 0.03 10*3/uL Normal <0.10 [facility] Comment on above: Order Comment: Speci men Type: BLOOD SPECIMEN Ordering Facility: [facility] Address: [address] [place] [address] Performed By: #### 5 7021-8 #### [facility] CLIA [id number] [address] [place] [address] [place] Immature granulocytes/100 WBC (Bld) 0.4 % Normal [facility] Comment on above: Order Comment: Speci men Type: BLOOD SPECIMEN Ordering Facility: [facility] Address: [address] [place] [address] Performed By: #### 5 7021-8 #### [facility] CLIA [id number] [address] [place] [address] [place] Lymphocytes (Bld) [#/Vol] 1.80 10*3/uL Normal 1.00-4.00 [facility] Comment on above: Order Comment: Speci men Type: BLOOD SPECIMEN Ordering Facility: [facility] Address: [address] [place] [address] Performed By: #### 5 7021-8 #### [facility] CLIA [id number] [address] [place] [address] [place] Lymphocytes/100 WBC (Bld) 22.6 % Normal [facility] Comment on above: Order Comment: Speci men Type: BLOOD SPECIMEN Ordering Facility: [facility] Address: [address] [place] [address] Performed By: #### 5 7021-8 #### [facility] CLIA [id number] [address] [place] [address] [place] MCH (RBC) [Entitic mass] 33.4 pg Normal 26.0-34.0 [facility] Comment on above: Order Comment: Speci men Type: BLOOD SPECIMEN Ordering Facility: [facility] Address: [address] [place] [address] Performed By: #### 5 7021-8 #### [facility] CLIA [id number] [address] [place] [address] [place] MCHC (RBC) [Mass/Vol] 34.1 g/dL Normal 30.5-36.0 [facility] Comment on above: Order Comment: Speci men Type: BLOOD SPECIMEN Ordering Facility: [facility] Address: [address] [place] [address] Performed By: #### 5 7021-8 #### [facility] CLIA [id number] [address] [place] [address] [place] MCV (RBC) [Entitic vol] 98.1 fL Normal 80.0-100.0 [facility] Comment on above: Order Comment: Speci men Type: BLOOD SPECIMEN Ordering Facility: [facility] Address: [address] [place] [address] Performed By: #### 5 7021-8 #### [facility] CLIA [id number] [address] [place] [address] [place] Monocytes (Bld) [#/Vol] 0.69 10*3/uL Normal <0.87 [facility] Comment on above: Order Comment: Speci men Type: BLOOD SPECIMEN Ordering Facility: [facility] Address: [address] [place] [address] Performed By: #### 5 7021-8 #### [facility] CLIA [id number] [address] [place] [address] [place] Monocytes/100 WBC (Bld) 8.6 % Normal [facility] Comment on above: Order Comment: Speci men Type: BLOOD SPECIMEN Ordering Facility: [facility] Address: [address] [place] [address] Performed By: #### 5 7021-8 #### [facility] CLIA [id number] [address] [place] [address] [place] Neutrophils (Bld) [#/Vol] 5.14 10*3/uL Normal 1.45-7.50 [facility] Comment on above: Order Comment: Speci men Type: BLOOD SPECIMEN Ordering Facility: [facility] Address: [address] [place] [address] Performed By: #### 5 7021-8 #### [facility] CLIA [id number] [address] [place] [address] [place] Neutrophils/100 WBC (Bld) 64.4 % Normal [facility] Comment on above: Order Comment: Speci men Type: BLOOD SPECIMEN Ordering Facility: [facility] Address: [address] [place] [address] Performed By: #### 5 7021-8 #### [facility] CLIA [id number] [address] [place] [address] [place] Nucleated RBC (Bld) [#/Vol] 10*3/uL Normal <0.01 [facility] Comment on above: Order Comment: Speci men Type: BLOOD SPECIMEN Ordering Facility: [facility] Address: [address] [place] [address] Performed By: #### 5 7021-8 #### [facility] CLIA [id number] [address] [place] [address] [place] Nucleated RBC/100 WBC (Bld) [Ratio] 0.0 /100 WBC Normal [facility] Comment on above: Order Comment: Speci men Type: BLOOD SPECIMEN Ordering Facility: [facility] Address: [address] [place] [address] Performed By: #### 5 7021-8 #### [facility] CLIA [id number] [address] [place] [address] [place] Platelet mean volume (Bld) [Entitic vol] 9.3 fL Normal 9.0-12.7 [facility] Comment on above: Order Comment: Speci men Type: BLOOD SPECIMEN Ordering Facility: [facility] Address: [address] [place] [address] Performed By: #### 5 7021-8 #### [facility] CLIA [id number] [address] [place] [address] [place] Platelets (Bld) [#/Vol] 209 10*3/uL Normal 150-400 [facility] Comment on above: Order Comment: Speci men Type: BLOOD SPECIMEN Ordering Facility: [facility] Address: [address] [place] [address] Performed By: #### 5 7021-8 #### [facility] CLIA [id number] [address] [place] [address] [place] RBC (Bld) [#/Vol] 4.25 10*6/uL Normal 4.20-6.00 [place] Comment on above: Order Comment: Speci men Type: BLOOD SPECIMEN Ordering Facility: [facility] Address: [address] [place] [address] Performed By: #### 5 7021-8 #### [facility] CLIA [id number] [address] [place] [address] [place] WBC (Bld) [#/Vol] 7.98 10*3/uL Normal 3.70-11.00 [place] Comment on above: Order Comment: Speci men Type: BLOOD SPECIMEN Ordering Facility: [facility] Address: [address] [place] [address] Performed By: #### 5 7021-8 #### [facility] CLIA [id number] [address] [place] [address] [place] CNOVon 07-31-2024 CNOV Office Visit (FAMPWS ) KELSI SOTO ([id number]) 1965 M Date Time Provider Department 07/31/24 9:00 AM LYNN AVALOS [facility] During your visit today, we recorded the following information about you: Pulse Respiration Blood pressure Weight 75/minute 16/minute 120/62 83.9 kg Lynn AvalosWILSON 07/31/2024 10:51 AM Signed Chief Reason For [...] as Referring (Cardiology) Aretha Hemphill APRN.CNP as Supervisor Fine Grading (Family Medicine) Lynn Avalos APRN.CNP as Supervisor Fine Grading (Family Medicine) Concerns today: None HPI Hasn't seen cardiology lately, would like to see someone closer Reviewed echo from January Active Problems ACTIVE PROBLEM LIST Asthenia - 09/15/2022 Near Syncope - 09/15/2022 Coronary Artery Disease Involving [place] Coronary Artery of [place] Heart Without Angina Pectoris - 03/12/2020 Comment: [...] WHEN PFRMD 05/27/2018 Colonoscopy EPS: EP STUDY [facility] - negative LEFT HEART CATH 06/21/2015 [...] of [place] (more content not included)... Normal [facility] Comprehensive metabolic 2000 panelon 07-31-2024 Albumin [Mass/Vol] 4.8 g/dL Normal 3.9-4.9 [facility] Comment on above: Order Comment: Speci men Type: BLOOD SPECIMENOrdering Facility: [facility] Address: [address] [place] [place] [address] Performed By: #### 2 4323-8, 20204-5, 3015-3, LIPNF ####[facility] LABCLIA [id number] [place] [address] [place] ALP [Catalytic activity/Vol] 62 U/L Normal 38-113 [facility] Comment on above: Order Comment: Speci men Type: BLOOD SPECIMENOrdering Facility: [facility] Address: [address] [place] [address] Performed By: #### 2 4323-8, 44822-0, 3015-3, LIPNF ####[facility] LABIA [id number] [place] [address] [place] ALT [Catalytic activity/Vol] 24 U/L Normal 10-54 [facility] Comment on above: Order Comment: Speci men Type: BLOOD SPECIMENOrdering Facility: [facility] Address: [address] [place] [address] Performed By: #### 2 4323-8, 98337-1, 3, LIPNF ####[facility] LABCLIA [id number] [address] [address] [place] Anion gap [Moles/Vol] 11 mmol/L Normal 8-15 [facility] Comment on above: Order Comment: Speci men Type: BLOOD SPECIMENOrdering Facility: [facility] Address: [address] [place] [address] Performed By: #### 2 4323-8, 23694-6, 6-3, LIPNF ####[facility] LABCLIA [id number] [place] [id number] [place] AST [Catalytic activity/Vol] 27 U/L Normal 14-40 [facility] Comment on above: Order Comment: Speci men Type: BLOOD SPECIMENOrdering Facility: [facility] Address: [address] [place] [address] Performed By: #### 2 4323-8, 01344-5, 6-3, LIPNF ####[facility] LABCLIA [id number] [place] [address] [place] Bilirubin [Mass/Vol] 0.5 mg/dL Normal 0.2-1.3 [facility] Comment on above: Order Comment: Speci men Type: BLOOD SPECIMENOrdering Facility: [facility] Address: [address] [place] [address] Performed By: #### 2 4323-8, 65901-1, 3015-3, LIPNF ####[facility] LABCLIA [id number] [place] [address] [place] Calcium [Mass/Vol] 10.1 mg/dL Normal 8.5-10.2 [facility] Comment on above: Order Comment: Speci men Type: BLOOD SPECIMENOrdering Facility: [facility] Address: [address] [place] [address] Performed By: #### 2 4323-8, 01570-2, 3015-3, LIPNF ####[facility] LABCLIA [id number] [place] [address] [place] Chloride [Moles/Vol] 102 mmol/L Normal 98-107 [facility] Comment on above: Order Comment: Speci men Type: BLOOD SPECIMENOrdering Facility: [facility] Address: [address] [place] [address] Performed By: #### 2 4323-8, 86823-2, 6-3, LIPNF ####[facility] LABCLIA [id number] [place] [address] [place] CO2 [Moles/Vol] 26 mmol/L Normal 22-30 [facility] Comment on above: Order Comment: Vidal fonseca Type: BLOOD SPECIMENOrdering Facility: [facility] Address: [address] [place] [address] Performed By: #### 2 4323-8, 85092-8, 3016-3, LIPNF ####[facility] LABCLIA [id number] [place] [address] [place] Creatinine [Mass/Vol] 0.93 mg/dL Normal 0.73-1.22 [facility] Comment on above: Order Comment: Vidal fonseca Type: BLOOD SPECIMENOrdering Facility: [facility] Address: [address] [place] [address] Performed By: #### 2 4323-8, 22467-1, 6-3, LIPNF ####[facility] LABCLIA [id number] [place] [address] [place] Creatinine and Glomerular filtration rate.predicted panel (S/P/Bld) 94 mL/min/1.73m??? Normal >=60 [facility] Comment on above: Order Comment: Vidal fonseca Type: BLOOD SPECIMENOrdering Facility: [facility] Address: [address] [place] [address] Result Comment: Sejal mated Glomerular Filtration Rate [...] actual GFR. Performed By: #### 2 4323-8, 69263-7, 6-3, LIPNF ####[facility] LABCLIA [id number] [place] [id number] [place] Glucose [Mass/Vol] 85 mg/dL Normal 74-99 [facility] Comment on above: Order Comment: Vidal fonseca Type: BLOOD SPECIMENOrdering Facility: [facility] Address: [address] [place] [address] Result Comment: The [place] Diabetes Association (ADA) provides guidance for cutoff [...] Standards of Medical Care in Diabetes 2016, [place] [employer]. Diabetes Care. 2016.39(Suppl 1). Performed By: #### 2 4323-8, 46029-3, 6-3, LIPNF ####[facility] LABCLIA [id number] [place] [address] [place] Potassium [Moles/Vol] 4.6 mmol/L Normal 3.7-5.1 [facility] Comment on above: Order Comment: Vidal fonseca Type: BLOOD SPECIMENOrdering Facility: [facility] Address: [address] [place] [address] Performed By: #### 2 4323-8, 60451-7, 6-3, LIPNF ####[facility] LABCLIA [id number] [place] [id number] [place] Protein [Mass/Vol] 7.7 g/dL Normal 6.3-8.0 [facility] Comment on above: Order Comment: Vidal fonseca Type: BLOOD SPECIMENOrdering Facility: [facility] Address: [address] [place] [address] Performed By: #### 2 4323-8, 67368-6, 3016-3, LIPNF ####[facility] LABCLIA [id number] [place] [id number] [place] Sodium [Moles/Vol] 139 mmol/L Normal 136-144 [facility] Comment on above: Order Comment: Speci men Type: BLOOD SPECIMENOrdering Facility: [facility] Address: [address] [place] [address] Performed By: #### 2 4323-8, 96031-9, 3016-3, LIPNF ####[facility] LABCLIA [id number] [place] [address] [place] Urea nitrogen [Mass/Vol] 15 mg/dL Normal 9-24 [facility] Comment on above: Order Comment: Speci men Type: BLOOD SPECIMENOrdering Facility: [facility] Address: [address] [place] [address] Performed By: #### 2 4323-8, 72144-0, 3016-3, LIPNF ####[facility] LABIA [id number] [place] [address] [place] HbA1c (Bld)on 07-31-2024 Average glucose Estimated from glycated hemoglobin (Bld) [Mass/Vol] 100 mg/dL Normal [facility] Comment on above: Order Comment: Modestoi men Type: BLOOD SPECIMENOrdering Facility: [facility] Address: [address] [place] [address] Result Comment: eAG: (Estimated average glucose) is a calculated value from HgbA1c and is business representative of the average blood glucose level in the last 2-3 month period. Performed By: #### 5 5454-3 ####[facility] LABCLIA [id number] [place] [address] [place] HbA1c (Bld) [Mass fraction] 5.1 % Normal 4.3-5.6 [facility] Comment on above: Order Comment: Modestoi men Type: BLOOD SPECIMENOrdering Facility: [facility] Address: [address] [place] [address] Result Comment: [place] Diabetes Association guidelines indicate that patients with HgbA1c in the range 5.7-6.4% are at increased risk for development of diabetes, and intervention by lifestyle modification may be beneficial. HgbA1c greater or equal to 6.5% is considered diagnostic of diabetes. Performed By: #### 5 5454-3 ####[facility] LABCLIA [id number] [place] [address] [place] LIPID PANEL, NONFASTINGon Cholesterol [Mass/Vol] 292 mg/dL High <200 [facility] Comment on above: Order Comment: Speci men Type: BLOOD SPECIMENOrdering Facility: [facility] Address: [address] [place] [address] Result Comment: <200 mg/dL, Desirable 200-239 mg/dL, Borderline high >239 mg/dL, High Performed By: #### 2 4323-8, , 6-3, LIPNF ####[facility] LABIA [id number] [place] [address] [place] HDL CHOLESTEROL, NF 50 mg/dL Normal >39 [place] Comment on above: Order Comment: Speci men Type: BLOOD SPECIMENOrdering Facility: [facility] Address: [address] [place] [address] Result Comment: 40-5 9 mg/dL, Acceptable >59 mg/dL, High: Negative risk factor for coronary heart disease <40 mg/dL, Low: Positive risk factor for coronary heart disease Performed By: #### 2 4323-8, , 6-3, LIPNF ####[facility] LABIA [id number] [place] [id number] [place] LDL CHOLESTEROL, NF Normal [place] Comment on above: Order Comment: Speci men Type: BLOOD SPECIMENOrdering Facility: [facility] Address: [address] [place] [address] Result Comment: Unab le to calculate due to increased Triglycerides. A Direct LDL Cholesterol measurement will not be performed. If clinically indicated, a fasting Basic Lipid Panel (LIPB) may be ordered. Performed By: #### 2 4323-8, 26970-8, 3016-3, LIPNF ####[facility] LABCLIA [id number] [place] [address] [place] LDL/HDL RATIO, NF Normal [facility] Comment on above: Order Comment: Speci men Type: BLOOD SPECIMENOrdering Facility: [facility] Address: [address] [place] [address] Result Comment: Unab le to calculate due to elevated Triglycerides. Reference: 1. National Cholesterol Education Program ATP III Guideline At-A-Glance Quick Desk Reference: National Heart, Lung, and Blood [place]. National Institutes of Health. 2001: NIH Publication No. 01-3305. 2. An International Atherosclerosis Society position paper: global recommendations for the management of dyslipidemia: executive summary, Atherosclerosis. 2014: 232(2):410-413. Performed By: #### 2 3-8, 71513-9, 3015-3, LIPNF ####[facility] LABCLIA [id number] [place] [address] [place] NON HDL CHOL, NF 242 mg/dL High <130 [facility] Comment on above: Order Comment: Speci men Type: BLOOD SPECIMENOrdering Facility: [facility] Address: [address] [place] [address] Result Comment: <130 mg/dL, Optimal 130-159 mg/dL, Near optimal/above optimal 160-189 mg/dL, Borderline high 190-219 mg/dL, High >219 mg/dL, Very high Secondary prevention optimal non HDL Cholesterol levels are recommended to be <100 mg/dL Performed By: #### 2 4323-8, 22297-3, 6-3, LIPNF ####[facility] LABCLIA [id number] [place] [address] [place] T CHOL/HDL RATIO NF 5.84 mg/dL High <5.10 [place] Comment on above: Order Comment: Speci men Type: BLOOD SPECIMENOrdering Facility: [facility] Address: [address] [place] [address] Performed By: #### 2 4323-8, 47663-4, 3015-3, LIPNF ####[facility] LABCLIA [id number] [place] [address] [place] TRIGLYCERIDES, NF 404 mg/dL High <150 [facility] Comment on above: Order Comment: Speci men Type: BLOOD SPECIMENOrdering Facility: [facility] Address: [address] [place] [address] Result Comment: <150 mg/dL, Normal 150-199 mg/dL, Borderline high 200-499 mg/dL, High >499 mg/dL, Very high Performed By: #### 2 4323-8, , 3015-10, LIPNF ####[facility] LABCLIA [id number] [place] [address] [place] VLDL CHOLESTEROL, NF Normal [facility] Comment on above: Order Comment: Speci men Type: BLOOD SPECIMENOrdering Facility: [facility] Address: [address] [place] [address] Result Comment: Unab le to calculate due to elevated Triglycerides. Performed By: #### 2 4323-8, , 3, LIPNF ####[facility] LABCLIA [id number] [place] [address] [place] Magnesium SerPl-mCncon 07-31 Magnesium [Mass/Vol] 2.2 mg/dL Normal 1.7-2.3 [facility] Comment on above: Order Comment: Speci men Type: BLOOD SPECIMENOrdering Facility: [facility] Address: [address] [place] [address] Performed By: #### 2 4323-8, 62230-8, 3, LIPNF ####[facility] LABCLIA [id number] [place] [address] [place] TSH SerPl-aCncon 07-31-2024 TSH Qn 0.973 m[IU]/L Normal 0.270-4.20 0 [facility] Comment on above: Order Comment: Speci men Type: BLOOD SPECIMENOrdering Facility: [facility] Address: [address] [place] [address] Performed By: #### 2 4323-8, 28472-7, 3016-3, LIPNF ####[facility] LABCLIA [id number] [place] [address] [place] Vit B12 SerPl-ncon 12-26-2 024 Cobalamin (Vitamin B12) [Mass/Vol] 662 pg/mL Normal 232-1245 [facility] Comment on above: Order Comment: Speci men Type: BLOOD SPECIMEN [facility] Address: [address] [place] [address] Performed By: #### P SAS1 #### [facility] CLIA [id number] [address] [place] [address] [place] XR Elbow - left AP and Later becca 08-26-2023 IMPRESSION: Unremark able left elbow Blend Plant Operator: KATHLEEN Transcribe Date/Time: Aug 26 2023 6:21P Dictated by : REJI SAUNDERS MD This examination was interpreted and the report reviewed and electronically signed by: REJI SAUNDERS MD on Aug 26 2023 6:21PM [facility] DIVISION OF RADIOLOGY * * *Final [...] acute fractures seen DIVISION OF RADIOLOGY Provider, [facility] - 08/26/2023 * * *Final Report* [...] fractures seen IMPRESSION IMPRESSION: Unremarkable left elbow Blend Plant Operator: [facility] Transcribe Date/Time: Aug 26 2023 6:21P Dictated by : REJI SAUNDERS MD This examination was interpreted and the report reviewed and electronically signed by: REJI SAUNDERS MD on Aug 26 2023 6:21PM EST [facility] XR Elbow - left AP and Later alOrdered By: [facility]cf Provider on 08-26-2023 [facility] XR Elbow - left AP and Later becca 08-25-2023 Radiology Study observation (narrative) [facility] XR Shoulder - right 3 Viewso n 09-20-2022 IMPRESSION: Degenerative changes as described. Blend Plant Operator: [facility] Transcribe Date/Time: Sep 20 2022 10:30A Dictated by : ORLANDO ARAIS MD This examination was interpreted and the [...] multilevel degenerative changes DIVISION OF RADIOLOGY Provider, [facility] - 09/20/2022 * * *Final Report* * [...] changes IMPRESSION IMPRESSION: Degenerative changes as described. Blend Plant Operator: [facility] Transcribe Date/Time: Sep 20 2022 10:30A Dictated by : ORLANDO ARIAS MD This examination was interpreted and the report reviewed and electronically signed by: ORLANDO ARIAS MD on Sep 20 2022 10:31AM EST [facility] XR Shoulder - right 3 ViewsO rdered By: Ccf Provider on 09-20-2022 [facility] XR Shoulder - right 3 Viewso n 09-15-2022 Radiology Study observation (narrative) [facility] ALLIED HEALTHon 02-23-2020 ALLIED HEALTH HNO ID: [id number] Author: Jania (Ct) [place], [place] Service: ? 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 Blend Plant Operator: KATHLEEN Transcribe Date/Time: Feb 23 2020 1:44P Dictated by : JENNIFER DELGADILLO MD This examination was interpreted and the report reviewed and electronically signed by: DAVIDE QUINTANA MD on Feb 23 2020 4:08PM EST [id number] [facility] OBSOLETEon 10-15-2017 OBSOLETE Refill (AGCARDWST) KELSI LIRIANO ([id number]) 1965 [facility] Time Provider Department10/15/17 NATHANIEL PALOMARES AGCARDWST During your visit today, [...] [94]Order(s):metoprolol succinate ER (TOPROL XL) 100 mg Up58Tvgi 1 tablet by mouth once daily.Disp: 90 [...] file. Status:Closed by KIRK ADHIKARI [facility] 10/15/17 [facility] Office Visit (AGCARDWST) KELSI LIRIANO ([id number]) 1965 MDate Time Provider Department10/10/17 11:00 AM NATHANIEL PALOMARES During your visit today, we recorded the following information about you: Pulse Blood pressure Weight 62/minute 104/71 82.4 kgNathaniel Palomares MD 10/10/2017 5:09 PM SignedPERTINENT CARDIAC HISTORYCardiomyopathy - nonischemicHTNHLTobaccoismChest pain - cath normal 2000, 2014Ventricular arrhythmia - EPS ANDquot;negativeANDquot;Questio jermain history of atrial fibrillation.ADHERENCE TO GUIDELINESACE-I or ARB for HF with prior LVEFANDlt;40 (NQF 0081) - N/AASA or Plavix for ASHD (NQF 0067) - N/ABeta zakiya for ASHD with prior DC or prior LVEFANDlt;40 (NQF 0070) - N/ABeta zakiya for HF with prior LVEFANDlt;40 (NQF 0083) - N/AACE-I or ARB for ASHD with DM or prior LVEFANDlt;40 (NQF 0066) - N/AStatin therapy for ASHD or FHL or DM - N/ABMI documented and plan if ANDgt;25 (NQF 0421) - lifestyle recommendation formTobacco use screening and referral (NQF 0028) - lifestyle recommendation formRecommendation for whole [...] with treatment plan.This note was generated using [employer] voice recognition system, and there may besome [...] hadimproved to 50% by echocardiogram done at [facility].EKG showed sinus rhythm with right axis deviation. There was no significantabnormality.By report, prior angiography showed no evidence of obstructive coronary disease.Recent labs show normal LV function. LDL was 126. TSH was normal. Troponin wasundetectable on recent admission and magnesium level was normal.He now has an event monitor. He has made multiple transmissions, but noabnormal rhythms have been detected.Electronically Signed:Nathaniel Palomares [facility] 2017 11:32 [facility]:Luis Rubio MD 10/10/2017 11:32 AM SignedLIFESTYLE CHANGEA [...] programs in your area.Referring Provider: NATHANIEL PALOMARES [[id number]]Allergies As of Date: 10/10/2017(No Known Allergies)Date Reviewed: 10/10/2017Reviewed by: Ayanna Talbert) Juwan - Fully AssessedReason for Visit: Recheck [92]Primary [...] the following areas and commit to making manager terminal changes. EAT A WHOLE FOOD, PLANT BASED [...] your area.Follow-up and Disposition History RecordedEncounter Number: [id number] Status:Closed by NATHANIEL PALOMARES MD on 10/10/17 [facility] PROGRESSon 10-10-2017 PROGRESS HNO ID: [id number] thor: Nathaniel Nunez: (none)Author Type: PhysicianType: Progress NotesFiled: 10/10/2017 5:09 PMNote Text:PERTINENT CARDIAC HISTORYCardiomyopathy - nonischemicHTNHLTobaccoismChest pain - cath normal 2000, 2015Ventricular arrhythmia - EPS negativeQuestionable history of atrial fibrillation.ADHERENCE TO GUIDELINESACE-I or ARB for HF with prior LVEF<40 (NQF 0081) - N/AASA or Plavix for ASHD (NQF 0067) - N/ABeta zakiya for ASHD with prior DC or prior LVEF<40 (NQF 0070) - N/ABeta [...] with treatment plan.This note was generated using [employer] voice recognition system, and theremay be some [...] improved to 50% by echocardiogram done at [facility].EKG showed sinus rhythm with right axis deviation. There was nosignificant abnormality.By report, prior angiography showed no evidence of obstructive coronarydisease.Recent labs show normal LV function. LDL was 126. TSH was normal. Troponinwas undetectable on recent admission and magnesium level was normal.He now has an event monitor. He has made multiple transmissions, but noabnormal rhythms have been detected.Electronically Signed:Nathaniel Palomares, [facility] 2017 11:32 [facility]:Martin Melendez MD [facility] 10-04-2017 [facility] Nurse Visit (AGCARDWST) KELSI LIRIANO ([id number]) 1965 MDate Time Provider Department10/04/17 3:00 PM NURSE CARD [facility] AGCARDWST During your visit today, we recorded the following information about you:Pati Feliciano MA 10/04/2017 3:15 PM Ayopbo95 day Lifewatch monitor applied and instructions given.Patient verbalized understanding.Lizbeth Lomeli Provider: NATHANIEL PALOMARES [[id number]]Allergies As of Date: 10/04/2017(No Known Allergies)Date Reviewed: 07/17/2017Reviewed by: Katty Grant [facility] - Fully AssessedReason for Visit: Nurse Visit [...] Status:Closed by PATI FELICIANO MA on 10/04/17 [facility] PROGRESSon 10-04-2017 PROGRESS HNO ID: [id number] thor: Pati Jiang) JonathonkeyService: (none)Author Type: Medical AssistantType: Progress NotesFiled: 10/04/2017 3:15 PMNote Text:30 day Lifewatch monitor applied and instructions given.Patient verbalized understanding.Pati Feliciano MA [facility] Vital Signs Date Time Vital Sign Value Performing Clinician Faci lity 01-30-2025 16:31-0400 Body mass index (BMI) [Ratio] 24.68 kg/m2 Lynn Avalos APRN.CNP Work Phone: [facility] 01-30-2025 16:31-0400 Body temperature 97.7 [degF] Lynn Avalos APRN.CNP Work Phone: [facility] 01-30-2025 16:31-0400 Body weight 82.56 kg Lynn Avalos APRN.CNP Work Phone: [facility] 01-30-2025 16:31-0400 Diastolic blood pressure 68 mm[Hg] Lynn Avalos APRN.CNP Work Phone: [facility] 01-30-2025 16:31-0400 Heart rate 76 /min Lynn Avalos APRN.CNP Work Phone: [facility] 01-30-2025 16:31-0400 SaO2% (BldA) [Mass fraction] 96 % Lynn Avalos APRN.CNP Work Phone: [facility] 01-30-2025 16:31-0400 Systolic blood pressure 112 mm[Hg] Lynn Suppan NAIL POLISH BRUSH MACHINE FEEDER.MARKETING INFORMATION COORDINATOR Work Phone: [facility] 01-19-2025 08:10-0400 Body height 182.88 cm [facility] 01-19-2025 08:10-0400 Body mass index (BMI) [Ratio] 25 kg/m2 [facility] 01-19-2025 08:10-0400 Body weight 83.91 kg [facility] 01-19-2025 08:10-0400 Diastolic blood pressure 82 mm[Hg] [facility] 01-19-2025 08:10-0400 Heart rate 69 /min [facility] 01-19-2025 08:10-0400 Respiratory rate 16 /min [facility] 01-19-2025 08:10-0400 Systolic blood pressure 118 mm[Hg] [facility] 07-31-2024 09:14-0500 Body mass index (BMI) [Ratio] 25.09 kg/m2 Lynn Suppan NAIL POLISH BRUSH MACHINE FEEDER.MARKETING INFORMATION COORDINATOR Work Phone: [facility] 07-31-2024 09:14-0500 Body weight 83.92 kg Lynn Suppan NAIL POLISH BRUSH MACHINE FEEDER.MARKETING INFORMATION COORDINATOR Work Phone: [facility] 07-31-2024 09:14-0500 Diastolic blood pressure 62 mm[Hg] Lynn Suppan NAIL POLISH BRUSH MACHINE FEEDER.MARKETING INFORMATION COORDINATOR Work Phone: [facility] 07-31-2024 09:14-0500 Heart rate 75 /min Lynn Suppan NAIL POLISH BRUSH MACHINE FEEDER.MARKETING INFORMATION COORDINATOR Work Phone: [facility] 07-31-2024 09:14-0500 Respiratory rate 16 /min Lynn Suppan NAIL POLISH BRUSH MACHINE FEEDER.MARKETING INFORMATION COORDINATOR Work Phone: [facility] 07-31-2024 09:14-0500 SaO2% (BldA) [Mass fraction] 97 % Lynn Suppan NAIL POLISH BRUSH MACHINE FEEDER.MARKETING INFORMATION COORDINATOR Work Phone: [facility] 07-31-2024 09:14-0500 Systolic blood pressure 120 mm[Hg] Lynn Avalos NAIL POLISH BRUSH MACHINE FEEDER.MARKETING INFORMATION COORDINATOR Work Phone: [facility] 12-18-2022 13:42-0400 Body height 182.9 cm Keshav Landry DO Work Phone: [facility] 12-18-2022 13:42-0400 Body weight 84.82 kg Keshav Landry DO Work Phone: [facility] 12-18-2022 13:42-0400 Diastolic blood pressure 80 mm[Hg] Keshav Landry DO Work Phone: [facility] 12-18-2022 13:42-0400 Heart rate 74 /min Keshav Landry DO Work Phone: [facility] 12-18-2022 13:42-0400 SaO2% (BldA) [Mass fraction] 96 % Keshav Landry DO Work Phone: [facility] 12-18-2022 13:42-0400 Systolic blood pressure 110 mm[Hg] Keshav Landry DO Work Phone: [facility] Encounters Encounter Date Encounter Type Care Provider Facility Start: 07-06-2025 ambulatory Michelle MADRIGAL Facility:[facility] Start: 04-17-2025 End: 04-17-2025 ambulatory Martin HEARD -Laboratory Specimen Start: 04-17-2025 End: 04-17-2025 Patient encounter procedure Brianne MADRIGAL -Laboratory Specimen Work Phone: Start: 04-17-2025 End: 04-17-2025 ambulatory Brianne Webster Facility:[facility] Start: 04-14-2025 End: 04-14-2025 Patient encounter procedure Brianne MADRIGAL -[facility] Work Phone: Start: 04-14-2025 End: 04-14-2025 ambulatory Martin HEARD -[facility] Start: 03-24-2025 Non-patient / Non-visit Gladis gna NP-C -[facility] Work Phone: Start: 03-24-2025 ambulatory Lynn Avalos Facil ity:[facility] Start: 03-23-2025 ambulatory Gladis Mckeon NP Facili ty:[facility] Start: 03-23-2025 Non-patient / Non-visit Dr. Cira MOON -[facility] Start: 03-23-2025 End: 03-23-2025 ambulatory Martin Lyles OLS -Cardiovascular Serv ices Start: 03-23-2025 End: 03-23-2025 Patient encounter procedure Gladis Mckeon EMAIL MARKETING PROCESSOR-C -Cardiovascular Services Work Phone: Start: 03-23-2025 End: 03-23-2025 ambulatory Gladis Mckeon NP Facility:[facility] Start: 03-16-2025 End: 03-16-2025 Follow-up encounter Lynn Avalos NAIL POLISH BRUSH MACHINE FEEDER.MARKETING INFORMATION COORDINATOR Work Phone: [facility] Comment on above: Nausea Start: 03-13-2025 End: 03-13-2025 ambulatory [facility] Facility:[facility] Start: 02-27-2025 Non-patient / Non-visit Dr. Qi caicedo MD -[facility] Start: 02-27-2025 End: 02-27-2025 ambulatory Martin Lyles OLS -Cardiovascular Serv ices Start: 02-27-2025 End: 02-27-[address] Qi Martínez MD -Cardiovascular Services Work Phone: Start: 02-27-2025 End: 02-27-2025 ambulatory Lynn Avalos Facility:[facility] Start: 02-09-2025 Non-patient / Non-visit Dr. Qi caicedo MD -[facility] Work Phone: Start: 02-09-2025 End: 02-09-2025 ambulatory [facility] OLS -Pulmonary Services/Neurology Start: 02-09-2025 End: 02-09-[address] Qi Martínez MD -Pulmonary Services/Neurology Work Phone: Start: 02-09-2025 End: 02-09-2025 ambulatory Lynn Avalos Facility:[facility] Start: 01-30-2025 End: 01-30-2025 Office outpatient visit 15 minutes Lynn Avalos NAIL POLISH BRUSH MACHINE FEEDER.MARKETING INFORMATION COORDINATOR Work Phone: [facility] Comment on above: Tonsillitis (Primary Dx); Acute otitis externa of both ears, unspecified type; Nonischemic cardiomyopathy (HCC); Essential hypertension; Coronary artery 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; VT (ventricular tachycardia) (HCC) Start: 01-30-2025 End: 01-30-2025 ambulatory [facility] Facility:[facility] Start: 01-21-2025 End: 01-21-2025 Follow-up encounter Martin Melendez MD Work Phone: [facility] Start: 01-19-2025 End: 01-19-[address] Qi Martínez MD -[facility] Work Phone: Start: 01-19-2025 End: 01-19-2025 ambulatory [facility] Work Phone: Start: 12-31-2024 End: 12-31-2024 Telephone encounter Martin Melendez MD Work Phone: [facility] Comment on above: Appointment Start: 12-26-2024 End: 12-26-2024 ambulatory [facility] Facility:[facility] Start: 07-31-2024 End: 07-31-2024 ambulatory [facility] Facility:[facility] Start: 07-31-2024 End: 07-31-2024 Office outpatient visit 25 minutes Lynn Avalos NAIL POLISH BRUSH MACHINE FEEDER.MARKETING INFORMATION COORDINATOR Work Phone: [facility] Comment on above: Systolic congestive heart failure, unspecified HF chronicity (HCC) (Primary Dx); Encounter for immunization; Screening for depression; Encounter for screening examination for other mental health and behavioral disorders; VT (ventricular tachycardia) (HCC); Hyperlipidemia, mixed; Coronary artery 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; Screening for diabetes mellitus Start: 11-26-2023 Telephone encounter Martin Melendez MD Work Phone: [facility] Comment on above: Patient Question Start: 10-01-2023 Refill Martin Melendez MD Work Phone: [facility] Comment on above: Refill Request Start: 08-25-2023 End: 08-25-2023 Subsequent hospital visit by physician Xr [facility] Work Phone: Radiology Comment on above: Lateral epicondyliti s of left elbow [M77.12] Start: 03-01-2023 Telephone encounter Keshav Landry DO Work Phone: Cardiology Comment on above: Forms Start: 12-18-2022 End: 12-18-2022 Patient encounter procedure Keshav Landry DO Work Phone: Cardiology Comment on above: Nonischemic cardiomy opathy (HCC) (Primary Dx); Coronary artery 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; Essential hypertension; Mixed hyperlipidemia; PVC's (premature ventricular contractions) Start: 09-25-2022 Telephone encounter Keshav Landry DO Work Phone: Cardiology Comment on above: Forms Start: 09-20-2022 Telephone encounter Martin Melendez MD Work Phone: [facility] Comment on above: Results (Xray ) Start: 09-15-2022 End: 09-15-2022 Subsequent hospital visit by physician Xr [facility] Work Phone: Radiology Comment on above: [...] Question Start: 06-14-2022 Telephone encounter Larry kramer APRN.MARKETING INFORMATION COORDINATOR Work Phone: [facility] Comment on above: Results Start: 03-06-2022 Refill Martin Melendez MD Work Phone: [facility] Comment on above: Refill Request Start: 02-02-2021 End: 02-02-2021 ambulatory [facility] Start: 01-28-2021 ambulatory [facility] Start: 04-12-2018 Ambulatory Martin Lyles Facility:[facility] Start: 04-10-2018 Ambulatory [facility] Facility:[facility] Start: 10-10-2017 End: 10-10-2017 Ambulatory [facility] Start: 10-04-2017 [facility] Procedures Date Procedure Procedure Detail Performing Clinician Start: 04-17-2025 Clostridium difficil e detection Martin Trevizojesus HEARD Start: 04-17-2025 Nucleic acid assay Will isabellemarissa HEARD Start: 04-17-2025 Ova OR parasites identification Martin Melendez ORQUIDEA Start: 04-17-2025 Iadna-dna/rna gi pth gn multiplex probe tq 6-11 Martin Trevizojesus HEARD Start: 03-23-2025 Radionuclide imaging of perfusion of myocardium under exercise stress Martin Lylesjesus HEARD Start: 01-19-2025 Lipid 1996 panel - S chrissy or Plasma Martin Melendez MD Work Phone: Start: 07-31-2024 Adult depression scr eening assessment Lynn Avalos APRN.MARKETING INFORMATION COORDINATOR Work Phone: Start: 07-31-2024 Lipid 1996 panel [...] RSV Vaccine (1 - 1-dose 75+ series) [facility] Start: 01-19-2030 Lipid panel Lipid Screening [facility] Start: 01-19-2030 Prostate specific an tigen measurement Prostate Cancer Screening Discussion [facility] Start: 07-31-2029 Lipid panel Lipid Screening [facility] Start: 05-27-2028 Colonoscopy COLONOSCOPY [facility] Start: 05-27-2028 COLORECTAL CANCER SCREENING COLORECTAL CANCER SCREENING [facility] Start: 05-27-2028 Screening for malign ant neoplasm of colon [facility] Start: 03-13-2028 Diabetes Screening Diabetes Screenin g [facility] Start: 09-15-2027 PROSTATE CANCER SCRE ENING DISCUSSION PROSTATE CANCER SCREENING DISCUSSION [facility] Start: 09-15-2027 Prostate specific an tigen measurement Prostate Cancer Screening Discussion [facility] Start: 08-30-2027 Lipid panel Lipid Screening [facility] Start: 08-30-2027 LIPID SCREEN LIPID SCREEN [facility] Start: 07-31-2027 Diabetes Screening Diabetes Screenin g [facility] Start: 03-13-2026 Annual PCP Team Metal Machinist chino Disease Visit Annual PCP Team Chronic Disease Visit [facility] Start: 01-30-2026 Annual PCP Team Metal Machinist chino Disease Visit Annual PCP Team Chronic Disease Visit [facility] Start: 01-19-2026 Hepatitis B surface antibody level LDL Cholesterol [facility] Start: 01-01-2026 LIPID SCREEN LIPID SCREEN [facility] Start: 12-26-2025 Annual PCP Team Metal Machinist chino Disease Visit Annual PCP Team Chronic Disease Visit [facility] Start: 12-26-2025 BP Controlled (<130/80) BP Controlle d (<130/80) [facility] Start: 08-30-2025 DIABETES SCREEN DIABETES SCREEN [facility] Start: 08-30-2025 Diabetes Screening Diabetes Screenin g [facility] Start: 08-07-2025 End: 08-07-2025 Patient encounter procedure 08/07/2025 2:40 PM EST Office Visit [facility] [address] [place] [address] Martin Melendez MD [address] [facility] [place] [id number] 6 month exam [facility] Comment on above: 6 month exam Start: 07-31-2025 Anxiety Screening Anxiety Screening [facility] Start: 07-31-2025 BP Controlled (<130/80) BP Controlle d (<130/80) [facility] Start: 07-31-2025 Covid-19 Vaccine () Covid-19 Vaccine () [facility] Comment on above: Postponed from 04/06 (Declined at this time) Start: 07-31-2025 Depression Screening Depression Scre ening [facility] Start: 07-31-2025 Hepatitis B surface antibody level LDL Cholesterol [facility] Start: 07-13-2025 End: 07-13-2025 Patient encounter procedure 07/13/2025 1:40 PM EST Office Visit Cardiology [address] [place], [place] [address] Andrew Lowry MD [address], [address] [place] [address] Systolic congestive heart failure, unspecified HF chronicity (HCC) [I50.20]; VT (ventricular tachycardia) (HCC) [I47.20] Cardiology Comment on above: Systolic congestive heart failure, unspecified HF chronicity (HCC) [I50.20]; VT (ventricular tachycardia) (HCC) [I47.20] Start: 04-17-2025 Giardia Antigen (LUIZ) Giardia Antige n (LUIZ) [facility] Start: 04-17-2025 [facility] Start: 04-06-2025 Influenza vaccination [facility] Start: 02-09-2025 End: 02-09-2025 Patient encounter procedure 02/09/2025 3:00 PM EDT Office Visit Cardiology [address] [place] [id number] Andrew Lowry MD [address], [address] [place] [address] Systolic congestive heart failure, unspecified HF chronicity (HCC) [I50.20]; VT (ventricular tachycardia) (HCC) [I47.20] [facility]iology Comment on above: Systolic congestive heart failure, unspecified HF chronicity (HCC) [I50.20]; VT (ventricular tachycardia) (HCC) [I47.20] Start: 02-02-2025 Influenza vaccination Influenza Vacc ine (#1) [facility] Comment on above: Postponed from 04/06 (Declined at this time) Start: 01-30-2025 End: 01-30-2025 Patient encounter procedure 01/30/2025 4:20 PM EDT Office Visit [facility] [address] [place], [place] [phone] Lynn Avalos APRN.MARKETING INFORMATION COORDINATOR [address] [place], [place] [id number] 6 month exam [facility] Comment on above: 6 month exam Start: 01-19-2025 End: 01-19-2025 Evaluation of diagnostic study results [facility] Start: 08-25-2024 Annual PCP Team Metal Machinist chino Disease Visit Annual PCP Team Chronic Disease Visit [facility] Start: 08-25-2024 BP Controlled (<130/80) BP Controlle d (<130/80) [facility] Start: 08-25-2024 Covid-19 Vaccine (#1) Covid-19 Vacci ne (#1) [facility] Comment on above: Postponed from 04/29 (Declined at this time) Start: 08-25-2024 Covid-19 Vaccine ( season) Covid-19 Vaccine ( season) [facility] Comment on above: Postponed from 04/06 (Declined at this time) Start: 08-25-2024 Shingrix Vaccine (1 of 2) Souza grix Vaccine (1 of 2) [facility] Comment on above: Postponed from 10/27 (Declined at this time) Start: 08-25-2024 Urine microalbumin profile DTa P,Tdap,Td Vaccine (1 - Tdap) [facility] Comment on above: Postponed from 10/27 (Declined at this time) Start: 07-31-2024 End: 10-30-2024 Cobalamin (Vitamin B12) [Mass/volume] in Serum or Plasma [facility] Comment on above: Expected: 07/31/2024 , Expires: 10/30/2024 Start: 07-31-2024 End: 10-30-2024 Comprehensive metabolic 2000 panel - Serum or Plasma [facility] Comment on above: Expected: 07/31/2024 , Expires: 10/30/2024 Start: 07-31-2024 End: 10-30-2024 Hemoglobin A1c in Blood [facility] Comment on above: Expected: 07/31/2024 , Expires: 10/30/2024 Start: 07-31-2024 End: 10-30-2024 LIPID PANEL, NONFASTING [facility] Work Phone: Comment on above: Expected: 07/31/2024 , Expires: 10/30/2024 Start: 07-31-2024 End: 10-30-2024 Magnesium [Mass/volume] in Serum or Plasma [facility] Comment on above: Expected: 07/31/2024 , Expires: 10/30/2024 Start: 07-31-2024 End: 10-30-2024 Thyrotropin [Units/volume] in Serum or Plasma [facility] Comment on above: Expected: 07/31/2024 , Expires: 10/30/2024 Start: 04-06-2024 Covid-19 Vaccine ( season) Covid-19 Vaccine ( season) [facility] Start: 04-06-2024 Covid-19 Vaccine ( season) Covid-19 Vaccine ( season) [facility] Start: 04-06-2024 Influenza vaccination [facility] Start: 02-29-2024 End: 02-29-2024 Patient encounter procedure 02/29/2024 8:40 AM EDT Office Visit [facility] [address] [facility] [place] [address] Martin Melendez MD [address] [facility] [place] [address] 6 mo follow up [facility] Comment on above: 6 mo follow up Start: 02-03-2024 Influenza vaccination Influenza Vacc ine (#1) [facility] Comment on above: Postponed from 04/06 (Declined at this time) Start: 01-02-2024 DIABETES SCREEN DIABETES SCREEN [facility] Start: 2023 RSV Vaccine (1 - 1-d ose 60+ series) RSV Vaccine (1 - 1-dose 60+ series) [facility] Start: 2023 RSV Vaccine (1 - Ris k 60-74 years 1-dose series) RSV Vaccine (1 - Risk 60-74 years 1-dose series) [facility] Start: 09-15-2023 ANNUAL PCP TEAM WARD MAID CHINO DISEASE VISIT ANNUAL PCP TEAM CHRONIC DISEASE VISIT [facility] Start: 08-30-2023 Hepatitis B surface antibody level LDL CHOLESTEROL [facility] Start: 08-06-2023 Behavioral Health Screening Behavioral Health Screening [facility] Start: 06-13-2023 BP CONTROLLED (<130/80) BP CONTROLLE D (<130/80) [facility] Start: 04-06-2023 Influenza vaccination [facility] Start: 08-23-2022 End: 10-23-2022 CBC W Auto Differential panel - Blood CBC + DIFF Lab Routine Essential hypertension Expected: 08/23/2022, Expires: 10/23/2022 [facility] Work Phone: Comment on above: Expected: 08/23/2022 , Expires: 10/23/2022 Start: 08-23-2022 End: 10-23-2022 Comprehensive metabolic 2000 panel - Serum or Plasma COMP METABOLIC PANEL Lab Routine Essential hypertension Mixed hyperlipidemia Expected: 08/23/2022, Expires: 10/23/2022 [facility] Work Phone: Comment on above: Expected: 08/23/2022 , Expires: 10/23/2022 Start: 08-23-2022 End: 10-23-2022 Lipid 1996 panel - Serum or Plasma LIPID PANEL BASIC Lab Routine Mixed hyperlipidemia Expected: 08/23/2022, Expires: 10/23/2022 [facility] Work Phone: Comment on above: Expected: 08/23/2022 , Expires: 10/23/2022 Start: 08-06-2022 DEPRESSION ASSESSMENT DEPRESSION ASS ESSMENT [facility] Start: 07-17-2022 PROSTATE CANCER SCRE ENING DISCUSSION PROSTATE CANCER SCREENING DISCUSSION [facility] Start: 04-06-2022 Influenza vaccination INFLUENZA (#1) [facility] Start: 01-04-2022 ANNUAL PCP TEAM WARD MAID CHINO DISEASE VISIT ANNUAL PCP TEAM CHRONIC DISEASE VISIT [facility] Start: 01-01-2022 Hepatitis B surface antibody level LDL CHOLESTEROL [facility] Start: 08-06-2021 DEPRESSION ASSESSMENT DEPRESSION ASS ESSMENT [facility] Start: 10-27-2013 SHINGRIX VACCINE (1 of 2) SOUZA GRIX VACCINE (1 of 2) [facility] Start: 10-27-2008 COLOGUARD (FIT-DNA) COLOGUARD (FIT-D NA) [facility] Start: 10-27-[address] COLONOGRAPHY [facility] Start: 10-27-2008 FECAL OCCULT BLOOD FECAL OCCULT BLOO D [facility] Start: 10-27-2008 Screening for malign ant neoplasm of colon [facility] Start: 10-27-2008 SIGMOIDOSCOPY SIGMOIDOSCOPY [facility] Start: 10-27-1982 Urine microalbumin profile [facility] Start: 10-27-1981 Anxiety Screening Anxiety Screening [facility] Start: 10-27-1981 BP CONTROLLED (<130/80) BP CONTROLLE D (<130/80) [facility] Start: 10-27-1981 Depression Screening Depression Scre ening [facility] Start: 10-27-1981 HIV SCREENING HIV SCREENING [facility] Start: 1975 Adult depression scr eening assessment DEPRESSION SCREENING [facility] Start: 04-29-1964 COVID-19 VACCINE (#1) COVID-19 VACCI NE (#1) [facility] Start: 1965 HEPATITIS B (1 of 3 - 3-dose series) HEPATITIS B (1 of 3 - 3-dose series) [facility] Clostridioides diffi cile DNA [Presence] in Unspecified specimen by CADENCE with probe detection [facility] ECG COMPLETE ECG COMPLETE ECG 12/18/2022 1:45 PM EDT [facility] End: 12-19-2023 Echocardiography ECHO Cardiology Routine Nonischemic cardiomyopathy (HCC) Coronary artery 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 Essential hypertension Mixed hyperlipidemia PVC's (premature ventricular contractions) 1 Occurrences starting 12/18/2022 until 12/19/2023 [facility] Work Phone: Comment on above: 1 Occurrences starti ng 12/18/2022 until 12/19/2023 Giardia lamblia Ag [Presence] in Stool by Immunoassay [facility] Giardia lamblia anti gen assay [facility] Lipid 1996 panel - S chrissy or Plasma [facility] Magnesium measurement [facility] Nucleic acid assay [facility] Ova OR parasites identification [facility] Protein measurement [facility] Thyroid stimulating hormone measurement [facility] US Heart [facility] Immunizations Immunization Date Immunization Notes Care Provider Rehan chamberlain 07-31-2024 pneumococcal conjuga te (PCV20) vaccine, 20 valent (PREVNAR 20) Lynn Avalos NAIL POLISH BRUSH MACHINE FEEDER.MARKETING INFORMATION COORDINATOR Work Phone: [facility] 07-31-2024 pneumococcal Conjuga te, unspecified formulation Lynn Suppwalter NAIL POLISH BRUSH MACHINE FEEDER.MARKETING INFORMATION COORDINATOR Work Phone: [facility] 07-02-2019 influenza, injectabl e, quadrivalent, contains preservative Martin Melendez MD Work Phone: [facility] 07-02-2019 influenza virus vacc ine, unspecified formulation Martin Melendez MD Work Phone: [facility] 07-17-2017 influenza, injectabl e, quadrivalent, contains preservative Martin Melendez MD Work Phone: [facility] 06-06-2017 Influenza virus vaccine Martin HEARD [facility] 06-06-2017 influenza, seasonal, injectable, preservative free Martin Melendez MD Work Phone: [facility] 05-06-2011 influenza virus vacc ine, unspecified formulation Martin Melendez MD Work Phone: [facility] 05-06-2010 influenza virus vacc ine, unspecified formulation Martin Melendez MD Work Phone: [facility] 05-06-2009 pneumococcal polysaccharide vaccine, 23 valent Martin Melendez MD Work Phone: [facility] Payers Date Payer Category Payer Unknown [id number] 2025 Self-pay 2025 Unknown [id number] 2023 Private Health Insurance [id number] 2023 Unknown [id number] 2022 Unknown [id number] 2018 Unknown MMO MMO [employer] [id number] 2018-Present [phone] [address] [place] [address] PPO [id number] Medicaid [id number] Unknown [id number] Unknown [id number] Unknown [id number] 62 Unknown [id number] 62 Unknown [id number] 62 Unknown [id number] 62 Unknown [id number] 62 Unknown [id number] 62 Unknown [id number] 62 Unknown [id number] 62 Unknown [id number] 62 Unknown [id number] 62 Unknown [id number] 62 Social History Date Type Detail Facility Start: 06-28-2015 End: 07-31-2024 Tobacco smoking status NHIS Ex-smoker [facility] Start: 06-17-1995 End: 06-17-2015 History of tobacco use Current smoker [facility] Start: 06-17-1995 End: 06-17-2015 History of tobacco use Cigarette Smoker [facility] Start: 06-28-2015 End: 08-25-2023 Cigarettes smoked current (pack per day) - Reported 0.3 [facility] Work Phone: Start: 06-28-2015 End: 07-31-2024 Tobacco use and exposure Former smokeless tobacco user [facility] End: 06-23-2015 History of tobacco use Snuff User [facility] Start: 04-10-2021 End: 03-13-2025 Alcohol intake Current drinker of alcohol (finding) [facility] Start: 01-12-2020 History SDOH Alcohol Frequency 3 [facility] Start: 01-12-2020 History SDOH Alcohol Std Drinks 1 [facility] Start: 05-27-2018 End: 06-13-2022 Tobacco Comment Occasional cigar [facility] Start: 1965 Sex Assigned At Not on file [facility] Start: 06-03-2022 End: 06-13-2022 Exposure to SARS-CoV-2 (event) Not sure [facility] Work Phone: Start: 12-18-2022 End: 08-25-2023 Tobacco use panel [facility] Work Phone: Start: 07-07-2012 Adult Depression Screening Assessment 0 [facility] Work Phone: How often to you hav e a drink containing alcohol? 2-4 times a month [facility] Work Phone: How many standard drinks containing alcohol do you have on a typical day? 1 or 2 [facility] Work Phone: How often do you hav e 6 or more drinks on 1 occasion? Never [facility] Work Phone: Start: 01-12-2025 [facility] Start: 04-01-2019 Alcohol Alcohol [facility] Start: 04-01-2019 Lives Lives [facility] Start: 1965 Sex Assigned At Male W [facility] Clinical Notes 07-28-2015 to 03-16-2025 Telephone Encounter - Didi Valenzuela MA - 03/16/2025 10:39 AM EDTTelephone Encounter - Didi Valenzuela MA - 03/16/2025 10:39 AM EDTTelephone Encounter - Didi Valenzuela MA - 03/16/2025 10:39 AM EDT Note Date & Type Note Facility 03-16-2025 Telephone encounter Note Patient was made aware of the results. Patient verbalizes understanding. Transferred to computer processing scheduler Didi Valenzuela Ma [facility] 03-16-2025 Telephone encounter Note Lynn Avalos, STEFANIA.MARKETING INFORMATION COORDINATOR to [facility] Sada WYNN 03/16/25 10:18 AM Note Sorry, I will refer to GI. Start on the metamucil.. Could even take it 2 x day. I will also order him ondansetron 4 mg as needed up to every 8 hours for nausea. Please call and schedule GI appointment. FECAL LACTOFERRIN/LEUKOCYTES; CRYPTOSPORIDIUM AND GIARDIA ANTIGENS BY EIA; CLOSTRIDIUM DIFFICILE TOXIN BY PCR [facility] 03-16-2025 Miscellaneous Notes Patient was made aware of the results. Patient verbalizes understanding. Transferred to computer processing scheduler Didi Valenzuela Ma Lynn Avalos APRN.MARKETING INFORMATION COORDINATOR to [facility] Tisha WYNN 03/16/25 10:18 AM Note [...] or more daily. documented in this encounter [facility] 03-16-2025 Progress note Formatting of t his note might be different from the original. Sorry, I will refer to GI. Start on the metamucil.. Could even take it 2 x day. I will also order him ondansetron 4 mg as needed up to every 8 hours for nausea. Please call and schedule GI appointment. [facility] 03-16-2025 Telephone encounter Note Pt notified of results and provider message. Pt reports he started having nausea yesterday. No vomiting. Pt reports he is still having diarrhea as much as before. Pt reports he has had diarrhea 4-5 times this morning and came home from work. Maxine Lawson LPN [facility] 03-16-2025 Progress note Formatting of t [...] 64 ounces of water or more daily. [facility] 03-13-2025 Note HNO ID: [id number] Author: LYNN AVALOS APRN.CNP Service: ? Author [...] WHEN PFRMD 05/27/2018 Colonoscopy EPS: EP STUDY [facility] - negative LEFT HEART CATH 06/21/2015 [...] DIFFERENTIAL - COMPREHENSIVE (more content not included)... [facility] 01-30-2025 Instructions Lynn Avalos APRN.CNP - 01/30/2025 5:00 PM EDT - Complete the blood work soon as your orthotic aide recommended to check on everything. - Watch for any signs of a yeast infection in your groin (itching, redness, or discharge) while taking Farxiga, and let us know right away if you notice these symptoms. - Augmentin 875 mg 2 x day for 10 days - Sample of Zyrtec given for trial documented in this encounter [facility] 01-30-2025 Note HNO ID: [id number] Author: LYNN AVALOS APRN.CNP Service: ? Author [...] or chest pain. 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 CHF: - Managed by a orthotic aide; taking Entresto and Farxiga. - Denies dyspnea, [...] WHEN PFRMD 05/27/2018 Colonoscopy EPS: EP STUDY [facility] - negative LEFT HEART CATH 06/21/2015 [...] with cardiology - on Entresto - on Farxiga 4. Essential hypertension - ICD9: 401.9, ICD10: I10 - Controlled - Recommend home blood pressure monitoring, to bring results to next visit - Encouraged sodium restriction, DASH or Mediterranean diet - Recommend regular aerobic exercise 5. Coronary artery 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 - ICD9: 414.01, ICD10: I25.10 Stable (more content not included)... [facility] 01-30-2025 History of Presen t illness Narrative [...] or chest pain. 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 CHF: - Managed by a orthotic aide; taking Entresto and Farxiga. - Denies dyspnea, [...] aerobic exercise 5. Coronary artery 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 - ICD9: 414.01, ICD10: I25.10 Stable 6. VT (ventricular tachycardia) (HCC) - ICD9: 427.1, ICD10: I47.20 Stable Discussed treatment plan and patient voices understanding. Patient's questions answered appropriately. Medications and potential side effects were discussed and patient voices understanding. Return to the office as scheduled or as needed for worsening/no improvement. Lynn Avalos APRN.MARKETING INFORMATION COORDINATOR documented in this encounter [facility] 01-21-2025 Telephone encounter Note Would like to review at upcoming visit on 01/30/25. [facility] 01-21-2025 Miscellaneous Notes Would like to review at upcoming visit on 01/30/25. documented in this encounter [facility] 01-19-2025 Evaluation note Diagnosis Onset Date Resolution Chronic left ventricular systolic dysfunction (LVSD) chronic January 19, 2025 9:05am Coronary artery disease involving [place] coronary artery of [place] heart wi chronic January 19, 2025 9:05am Dyslipidemia chronic January 19, 025 9:05am Essential hypertension [facility] 2024 9:05am ETOH abuse chronic January 19 9:05am Nicotine dependence chronic January 19, 2025 9:05am Nonischemic cardiomyopathy chronic January 19, 2025 9:05am Palpitations chronic January 19, 025 9:05am [facility] Work Phone: 1(378) 478-838406-16-2025 Evaluation note* Diagnosis Onset Date Resolution Status Admit Date Chronic left ventricular systolic dysfunction (LVSD) chronic January 19, 2025 9:05am Coronary artery disease involving [place] coronary artery of [place] heart wi chronic January 042024 9:05am Dyslipidemia chronic January 19, 025 9:05am Essential hypertension chronic [facility] 2024 9:05am ETOH abuse chronic January 19 9:05am Nicotine dependence chronic January 19, 2025 9:05am Nonischemic cardiomyopathy chronic January 19, 2025 9:05am Palpitations chronic January 19, 025 9:05am Diarrhea acute April 14, 2025 7:55am [facility] Work Phone: 1(845) 206-139406-16-2025 Progress [facility] [address] [place] [address] OFFICE VISIT Date of Service: 01/19/25 MR#: [id number] Acct: [id number] Name: KELSI SOTO Rep #: [id number] : 1965 Provider: Dr. Yoni Marítnez MD Age/Sex: 59/M Location: [facility] Status: Signed HPI HPI History of Present Illness Details: This gentleman was diagnosed with nonischemic cardiomyopathy about 10 years ago. His last echocardiogram was in 2022 which showed LVEF 40%. A coronary CT angioin 2019 showed mild nonobstructive calcific disease. Patient was previously established with another orthotic aide. He wishes to switch to our care. [...] a day on weekends. 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 Intake Vital Signs 01/19/25 08:10 Height 6 ft Weight: 185 lb BMI 25.0 BP 118/82 H Blood Pressure Location Lt brachial Position Sitting Respiration 16 Pulse 69 Pulse Source NIBP Intake Visit Reasons: TACHYCARDIA Osteologist Required: No Accompanied by: Self Is patient [...] Medical History Asthenia Coronary artery disease involving [place] coronary artery of [place] heart withoutangina pectoris Dilated cardiomyopathy Dyslipidemia Earache [...] 48-hour Holter. (4) Coronary artery 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: Status: Chronic Plan: [...] I51.9 Palpitations R00.2 Coronary artery disease involving [place] coronary artery of [place] heart withoutangina pectoris I25.10 Dyslipidemia E78.5 Essential hypertension I10 Nicotine dependence F17.200 ETOH abuse F10.10 Coding Level of Care Code Off vis,new,level 4 Diagnoses Nonischemic cardiomyopathy I42.8 Chronic left ventricular systolic dysfunction (LVSD) I51.9 Palpitations R00.2 Coronary artery disease involving [place] coronary artery of [place] heart withoutangina pectoris I25.10 Dyslipidemia E78.5 Essential hypertension I10 Nicotine dependence F17.200 ETOH abuse F10.10 Clinical Quality Measures Falls Risk Screening/Assistive Devices Have you fallen in the past year?: No Cardiac Ejection fraction %: 40 01/19/25 0938 MD> Date _ Qi Martínez MD Cosigner Signature: Date (if applicable) CC: MARY Avalos ~ [facility]06-16-2025 Progress note Author Qi Martínez [facility] Note Date/Time January 19, 2025 9:38 am [facility] [address] [place] [address] OFFICE VISIT Date of Service: 01/19/25 MR#: [id number] Acct: [id number] Name: KELSI SOTO Rep #: [id number] : 1965 Provider: Dr. Yoni Martínez MD Age/Sex: 59/M Location: [facility] [place] Status: Signed HPI HPI History of Present Illness Details: This gentleman was diagnosed with nonischemic cardiomyopathy about 10 years ago. His last echocardiogram was in 2022 which showed LVEF 40%. A coronary CT angioin 2019 showed mild nonobstructive calcific disease. Patient was previously established with another orthotic aide. He wishes to switch to our care. [...] a day on weekends. 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 Intake Vital Signs 01/19/25 08:10 Height 6 ft Weight: 185 lb BMI 25.0 BP 118/82 H Blood Pressure Location Lt brachial Position Sitting Respiration 16 Pulse 69 Pulse Source NIBP Intake Visit Reasons: TACHYCARDIA Osteologist Required: No Accompanied by: Self Is patient [...] Medical History Asthenia Coronary artery disease involving [place] coronary artery of [place] heart withoutangina pectoris Dilated cardiomyopathy Dyslipidemia Earache [...] 48-hour Holter. (4) Coronary artery 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: Status: Chronic Plan: [...] I51.9 Palpitations R00.2 Coronary artery disease involving [place] coronary artery of [place] heart withoutangina pectoris I25.10 Dyslipidemia E78.5 Essential hypertension I10 Nicotine dependence F17.200 ETOH abuse F10.10 Coding Level of Care Code Off vis,new,level 4 Diagnoses Nonischemic cardiomyopathy I42.8 Chronic left ventricular systolic dysfunction (LVSD) I51.9 Palpitations R00.2 Coronary artery disease involving [place] coronary artery of [place] heart withoutangina pectoris I25.10 Dyslipidemia E78.5 Essential hypertension I10 Nicotine dependence F17.200 ETOH abuse F10.10 Clinical Quality Measures Falls Risk Screening/Assistive Devices Have you fallen in the past year?: No Cardiac Ejection fraction %: 40 01/19/25 0938 <Electronically signed by Qi Martínez MD> Date _ Qi Martínez MD Cosigner Signature: Date (if applicable) CC: MARY Avalos ~ [facility] Work Phone: 1(728) 660-462305-28-2025 Telephone encounter Note* Telephone Encounter - Martin Melendez MD - 12/31/2024 8:43 AM EDT Noted. Thank you. [facility]05-28-2025 Miscellaneous Notes* Telephone Encounter - Martin Melendez MD - 12/31/2024 8:43 AM EDT Noted. Thank you. * Telephone Encounter - Pati Hdz RN - 12/31/2024 8:37 AM EDT Juliane with [facility] called in and reports they have tried to get a hold of Pt twice so farwith no success. I told her the work phone # is Pts , to try and call that. She said she will try that, then send him a letter. Pati Hdz RN documented in [facility] encounterCl[facility]05-28-[facility]25 Telephone encounter Note * Telephone Encounter - Pati Hdz RN - 12/31/2024 8:37 AM EDT Juliane with [facility] called in and reports they have tried to get a hold of Pt twice so farwith no success. I told her the work phone # is Pts , to try and call that. She said she will try that, then send him a letter. Pati Hdz RN [facility]05-23-2025 NoteHNO ID: [id number] Author: LYNN AVALOS APRN.MARKETING INFORMATION COORDINATOR Service: ? Author Type: Nurse Practitioner Type: [...] quit it Lisinopril made him nauseated. Seeing [facility] for dilated CM PAST MEDICAL HISTORY: [...] day 1, fol (more content not included)... [facility]12-26-2024 Instructions* Patient Instructions* Lynn Avalos APRN.CNP - 07/31/2024 10:03 AM EST 1) Start lisinopril 5 mg daily 2) Start rosuvastatin 5 mg daily 3) Check labs 4) Consult cardiology 5) Pneumonia vaccine 6) Follow up in 6 months documented in [facility] encounterCl[facility]12-[facility]-2024 NoteHNO ID: [id number] Author: LYNN AVALOS APRN.CNP Service: ? Author [...] as Referring (Cardiology) Aretha Hemphill APRN.CNP as Supervisor Fine Grading (Family Medicine) Lynn Avalos APRN.CNP as Supervisor Fine Grading (Family Medicine) Concerns today: None HPI Hasn't seen cardiology lately, would like to see someone closer Reviewed echo from January Active Problems ACTIVE PROBLEM LIST Asthenia - 09/15/2022 Near Syncope - 09/15/2022 Coronary Artery Disease Involving [place] Coronary Artery of [place] Heart Without Angina Pectoris - 03/12/2020 Comment: [...] ICD9: 428.20, 428.0, IC (more content not included)...[facility] 07-31-2024 History of Present illness Narrative* Lynn [...] as Referring (Cardiology) Aretha Hemphill APRN.CNP as Supervisor Fine Grading (Family Medicine) Lynn Avalos APRN.CNP as Supervisor Fine Grading (Family Medicine) Concerns today: None HPI Hasn't seen cardiology lately, would like to see someone closer Reviewed echo from January Active Problems ACTIVE PROBLEM LIST Asthenia - 09/15/2022 Near Syncope - 09/15/2022 Coronary Artery Disease Involving [place] Coronary Artery of [place] Heart Without Angina Pectoris - 03/12/2020 Comment: [...] Up Plans: 6 m documented in this encounterCl[facility]04-[facility]24 Telephone encounter Note * Telephone Encounter - Yulissa Broussard MA - 11/26/2023 11:18 AM EDT Patient was notified Yulissa Broussard MA [facility]04-22-2024 Miscellaneous Notes* Telephone Encounter - Yulissa Broussard MA - 11/26/2023 11:18 AM EDT Patient was notified Yulissa Broussard MA * Telephone Encounter - Martin Melendez MD - 11/26/2023 10:52 AM EDT Zyrtec is ok but can cause drowsiness. 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 * Telephone Encounter - Carson Chin RN - 11/26/2023 10:12 AM EDT Spouse (Didi) calls to ask if patient could take Zyrtec for on-going allergy symptoms (sinus inflammation/congestion/ear pressure). Jessica wasn't very helpful but wants to verify Zyrtec is safe with heart condition. Request prescription be sent to [facility] if provider agrees. Also asking for recommendations, for cold symptoms x 2 days. (Sneezing, runny nose, afebrile). Coricidin HBP Cough and Cold recommended. 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 Spouse asking for any other recommendations. Carson Chin RN documented in this encounterClerm[facility] Hospital04-22-2024 Telephone encounter Note * Telephone Encounter - Martin Melendez MD - 11/26/2023 10:52 AM EDT Zyrtec is ok but can cause drowsiness. 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 [facility]04-22-2024 Telephone encounter Note* Telephone Encounter - Carson Chin RN - 11/26/2023 10:12 AM EDT Spouse (Didi) calls to ask if patient could take Zyrtec for on-going allergy symptoms (sinus inflammation/congestion/ear pressure). Jessica wasn't very helpful but wants to verify Zyrtec is safe with heart condition. Request prescription be sent to [facility] if provider agrees. Also asking for recommendations, for cold symptoms x 2 days. (Sneezing, runny nose, afebrile). Coricidin HBP Cough and Cold recommended. 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 Spouse asking for any other recommendations. Carson Chin RN [facility]02-28-2024 Miscellaneous Notes* Telephone Encounter - Natalie Lopez MA - 10/03/2023 2:01 PM EST Patient's notified and verbalized understanding. Natalie Lopez MA * Telephone Encounter - Marissa Wild PA-C - 10/03/2023 8:42 AM EST Needs to complete outstanding lab The following approved medication requests have been transmitted electronically. Requested Prescriptions Signed Prescriptions Disp Refills metoprolol succinate ER (TOPROL XL) 50 mg 24 hr tablet 135 tablet 3 Sig: Take 1.5 tablets by mouth once daily. Authorizing Provider: Marissa WILD PA-C * Telephone Encounter - Raven [...] you. Raven Mcdonnell RN. documented in this encounterClermont [facility] Hospital01-20-2024 History of Present illness Narrative* Thomas Booker, RT(R) - 08/25/2023 10:40 AM EST Radiology [...] 25, 2023 10:36 AM documented in this encounterClermont [facility] Hospital08-02-2023 Miscellaneous Notes* Telephone Encounter - Nahomy Beltran MA - 03/07/2023 3:38 PM EDT Signed form was successfully faxed to [phone]. * Telephone Encounter - Gayle Humphries - 03/07/2023 10:32 AM EDT Dental office called stating patient's appointment with them is Sunday03/14/23 and is asking for forms to be sent * Telephone Encounter - Nahomy Beltran MA - 03/01/2023 1:56 PM EDT Received clearance form from Dental office. Placed form on Dr. Landry desk for review. documented in this encounterClermont County Hospital05-15-2023 History of Present illness Narrative* Keshav Landry DO - 12/18/2022 1:51 PM EDT Images from the original note were not included. [facility] CARDIOLOGY [facility] OUTPATIENT VISIT DATE December 18, 2022 PRIMARY CARE PHYSICIAN: Martin Melendez [address] [place] [address] HISTORY OF PRESENT ILLNESS: Mr. Soto is [...] Department of Medicine and Division of Cardiology, [facility] Medical Technologist Clinicallyric writer [facility] Medical Technologist Clinical of Congestive Heart Failure Clinic [facility] Cardiology Office Medical Technologist Clinical [facility] Staff Community Health Advisor, Kelsi and Catherine Hastings Department of Cardiovascular Medicine/Heart and Vascular [place], [facility] Clinical Supervisor Roving Department Profressor of Medicine, [facility] of Medicine - [facility] Please note: This note has been produced using speech recognition software and may contain errors related to that system including louann, punctuation, spelling, words, gender and phrases that may be inappropriate. documented in this encounterClermont County Hospital02-21-2023 Miscellaneous Notes* Telephone Encounter - Gayle Humphries - 09/26/2022 1:03 PM EST Patient is scheduled * Telephone Encounter - Nahomy Beltran MA - 09/25/2022 12:32 PM EST Received surgical clearance form from Thien Seaman DDS. Pt not seen since 03/12/2020 with heavy cardiac hx. Pt will need to schedule a follow up visit with Dr. Landry. documented in this encounterClermont County Hospital02-15-2023 Miscellaneous Notes* Telephone Encounter - Raven [...] 09/20/2022 2:25 PM EST ----- Message from Marsisa Wild PA-C sent at 09/20/2022 12:26 PM EST ----- Please advise Shoulder xr shows mild AC spurring, otherwise normal. Pain can improve with icing, stretching and antiinflammatories like ibuprofen or Aleve. Great site for shoulder stretching is https://orthoinfo.aaos.org/globalassets/pdfs/2017-rehab_shoulder.pdf Keith Bhagat PA-C documented in this encounterClermont County Hospital02-10-2023 History of Present illness Narrative* Wendy [...] 15, 2022 3:29 PM documented in this encounterClermont County Hospital02-04-2023 Miscellaneous Notes* Telephone Encounter - Eileen [...] more at the appt. 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 Cecy Michael LPN documented in this encounterClermont County Hospital01-11-2023 Miscellaneous Notes* Telephone Encounter - Liliana Stdavion MYLES - 08/16/2022 12:39 PM EST Notified and [...] Cardiology as well. * Telephone Encounter - Marissa Sepulveda RN - 08/15/2022 4:31 PM EST [...] appt? Please advise . documented in this encounterClermont County Hospital11-09-2022 Miscellaneous Notes* Telephone Encounter - Nahomy Lama - 06/14/2022 7:22 AM EST Patient given results and verbalized understanding of instructions given. Nahomy Lama * Telephone Encounter - Larry Lopez APRN.[facility] - 06/14/2022 7:09 AM EST Follow the [...] care provider or schedule a visit with [facility]. A test is not recommended to return to work/school when meeting the above criteria. documented in this encounterClermont County Hospital08-01-2022 Miscellaneous Notes* Telephone Encounter - Rossana Ann LPN - 03/06/2022 12:53 PM EDT Patient phones requesting refills as follows: Pending Prescriptions Disp Refills FEXOFENADINE 180 MG TABLET 90 tablet 3 Sig: Take 1 tablet by mouth once daily. IRENE: No Please review and advise. Rossana Ann LPN documented in this encounterClermont County Hospital03-01-2018 History of Past illness Narrative* Problem Noted Date Resolved Date Syncope and collapse 10/04/2017 09/15/2022 Alcohol abuse 07/28/2015 07/17/2017 Arm pain, anterior 06/28/2015 07/17/2017 documented as of this encounter (statuses as of 09/21/2022) [facility] History of Past illness Narrative* Problem Noted Date Resolved Date Syncope and collapse 10/04/2017 09/15/2022 Alcohol abuse 07/28/2015 07/17/2017 Arm pain, anterior 06/28/2015 07/17/2017 documented as of this encounter (statuses as of 09/26/2022) [facility] History of Past illness Narrative* Problem Noted Date Resolved Date Syncope and collapse 10/04/2017 09/15/2022 Alcohol abuse 07/28/2015 07/17/2017 Arm pain, anterior 06/28/2015 07/17/2017 documented as of this encounter (statuses as of 12/18/2022) [facility] of Past illness Narrative* Problem Noted Date Diagnosed Date Resolved Date Syncope and collapse 10/04/2017 023 Alcohol abuse 07/28/2015 07/17/2017 Arm pain, anterior 06/28/2015 7 documented as of this encounter (statuses as of 03/08/2023) [facility] of Past illness Narrative* Problem Noted Date Diagnosed Date Resolved Date Syncope and collapse 10/04/2017 023 Alcohol abuse 07/28/2015 07/17/2017 Arm pain, anterior 06/28/2015 7 documented as of this encounter (statuses as of 10/04/2023) [facility] History of Past illness Narrative* Problem Noted Date Resolved Date Alcohol abuse 07/28/2015 07/17/2017 Arm pain, anterior 06/28/2015 07/17/2017 documented as of this encounter (statuses as of 03/06/2022) [facility] of Past illness Narrative* Problem Noted Date Resolved Date Alcohol abuse 07/28/2015 07/17/2017 Arm pain, anterior 06/28/2015 07/17/2017 documented as of this encounter (statuses as of 06/14/2022) [facility] of [facility] illness Narrative* Problem Noted Date Resolved Date Alcohol abuse 07/28/2015 07/17/2017 Arm pain, anterior 06/28/2015 07/17/2017 documented as of this encounter (statuses as of 08/16/2022) [facility]12[facility] History of Past illness Narrative* Problem Noted Date Resolved Date Alcohol abuse 07/28/2015 07/17/2017 Arm pain, anterior 06/28/2015 07/17/2017 documented as of this encounter (statuses as of 08/23/2022) [facility]12-[facility]-2015 History of Past illness Narrative* Problem Noted Date Resolved Date Alcohol abuse 07/28/2015 07/17/2017 Arm pain, anterior 06/28/2015 07/17/2017 documented as of this encounter (statuses as of 09/09/2022) [facility] Essential hypertension- Primary Unspecified essential hypertension Mixed hyperlipidemia [facility] Diagnosis Nonischemic cardiomyopathy (HCC)- Primary Other primary cardiomyopathies Coronary artery 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 Essential hypertension Unspecified essential hypertension Mixed hyperlipidemia PVC's (premature ventricular contractions) Other premature beats [facility] Diagnosis Lateral epicondylitis of left elbow Lateral epicondylitis of elbow documented [facility] this [facility] Diagnosis Chronic right shoulder pain Pain in joint, shoulder region documented [facility] this [facility] Diagnosis Systolic congestive heart failure, unspecified HF chronicity (HCC)- Primary Encounter for immunization Need for other specified prophylactic vaccination against single bacterial disease Screening for depression Encounter for screening examination for other mental health and behavioral disorders VT (ventricular tachycardia) (HCC) Paroxysmal ventricular tachycardia Hyperlipidemia, mixed Mixed hyperlipidemia Coronary artery 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 Screening for diabetes mellitus documented in this encounter [facility]* Diagnosis Onset Date Resolution Status Admit Date Chronic left ventricular systolic dysfunction (LVSD) chronic January 19, 2025 9:05am Coronary artery disease involving emmonak coronary artery of emmonak heart wi chronic January 19 9:05am Dyslipidemia chronic January 19 025 9:05am Essential hypertension chronic Ju 2024 9:05am ETOH abuse chronic January 19 9:05am Nicotine dependence chronic January 19, 2025 9:05am Nonischemic cardiomyopathy chronic January 19, 2025 9:05am Palpitations chronic January 19 025 9:05am [place] [employer] Work Phone: Evaluation note* Diagnosis Tonsillitis- Primary Acute tonsillitis Acute otitis externa of both ears, unspecified type Nonischemic cardiomyopathy (HCC) Other primary cardiomyopathies Essential hypertension Unspecified essential hypertension Coronary artery 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 VT (ventricular tachycardia) (HCC) Paroxysmal ventricular tachycardia [facility] this [facility] Diagnosis Diarrhea of presumed infectious origin- Primary Nausea Nausea alone [facility] Outpatient Procedure (Routine) - Pending Review Specialty Diagnoses / Procedures Referred By Tino t Referred To Contact [facility] Diagnoses Nonischemic cardiomyopathy (HCC) Coronary artery 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 Essential hypertension Mixed hyperlipidemia PVC's (premature ventricular contractions) Procedures ECHO ECHO TTHRC R-T 2D W/WOM-MODE COMPL SPEC&COLR Keshav Babb DO [address] [place] [address] [facility] [place] [address] [place] [address] Referral ID Status Reason Start Date Expiration Date Visits Requested Visits Authorized [id number] Pending Review Auto-Generat ed Referral 12/18/2022 12/18/2023 1 1 [facility] for referral (narrative)* Diagnostic Procedure Only (Routine) - Closed Specialty Diagnoses / Procedures Referred By Tino covington Referred To Contact XR IMAGING Diagnoses Lateral epicondylitis of left elbow Procedures XR ELBOW GENERAL 2V AP/LAT LEFT RADEX ELBOW 2 VIEWS Martin Melendez MD [address] [place] [address] [place] [address] Referral ID Status Reason Start Date Expiration Date V isits Requested Visits Authorized [id number] Closed Auto-Generate d Referral 08/25/2023 09/23/2024 1 1 [facility] for referral (narrative)No reason for referral [facility] Narrative* Diagnostic Procedure Only (Routine) - Closed Specialty Diagnoses / Procedures Referred By Contac t Referred To Contact XR IMAGING Diagnoses Lateral epicondylitis of left elbow Procedures XR ELBOW GENERAL 2V AP/LAT LEFT RADEX ELBOW 2 VIEWS Martin Melendez MD [address] [place] [address] [place] [address] Referral ID Status Reason Start Date Expiration Date V isits Requested Visits Authorized [id number] Closed Auto-Generate d Referral 08/25/2023 09/23/2024 1 1 [facility] Summary Purpose Family History No Family History Records Found Relationship Condition Age at Onset Recorded Date/T jennie father Cardiomyopathy Unknown brother Atrial fibrillation Unknown son Cardiomyopathy Unknown Advance Directives No Advanced Directives Records FoundDocuments on File Type Date Recorded 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 Advance Directive(s) 05/27/2018 8:08 AM Health Concerns Infection Onset Date Last Indicated Resolved Time COVID-19 Rule-Out 06/13/2022 06/13/2022 06/14/2022 3:07 AM EST COVID-19 Confirmed 06/13/2022 06/13/2022 Reason for Referral Specialty Diagnoses / Procedures Referred By Tino t Referred To Contact XR IMAGING Diagnoses Chronic right shoulder pain Procedures XR SHOULDER GENERAL 3V OR MORE AP/TRUE AP/OTHER RIGHT RADEX SHOULDER COMPLETE MINIMUM 2 VIEWS Martin Melendez MD [address] [place] [address] Xr Imaging [facility] Referral ID Status Reason Start Date Expiration Date V isits Requested Visits Authorized [id number] Closed Auto-Generate d Referral 09/15/2022 08/05/2023 1 1 Specialty Diagnoses / Procedures Referred By Tino covington Referred To Contact Cardiology Diagnoses Systolic congestive heart failure, unspecified HF chronicity (HCC) VT (ventricular tachycardia) (HCC) Procedures CONSULT TO CARDIOLOGY OFFICE/OUTPATIENT [facility] 60 MINUTES Lynn Avalos APRN.MARKETING INFORMATION COORDINATOR [address] [place] [address] Referral ID Status Reason Start Date Expiration Date Visits Requested Visits Authorized [id number] Authorized PCP Requested Referral 07/31/2025 1 1 Chief Complaint and Reason for Visit Chief Complaint Admit Date TACHYCARDIA January 19, 2025 9:05 am PALPITATIONS February 09, 2025 7:14a m Reason for Visit Admit Date Chronic left ventricular systolic dysfun ction (LVSD) January 19, 2025 9:05am Coronary artery disease invo lving emmonak coronary artery of em[place] heart wi January 19, 2025 9:05am Dyslipidemia [...] 2025 9:05am Coronary artery disease invo lving emmonak coronary artery of em[place] heart wi January 19, 2025 9:05am Dyslipidemia January 19, 2025 9:05 am Essential hypertension January 19, 2025 9 :05am ETOH abuse January 19, 2025 9:05 am Nicotine dependence January 19, 2025 9:05 am Nonischemic cardiomyopathy January 19 9:05am Palpitations January 19, 2025 9:05 am Diarrhea April 14, 2025 7:55am Chief Complaint Admit Date TACHYCARDIA January 19, 2025 9:05 am PALPITATIONS February 09, 2025 7:14a m PALPITATIONS February 09, 2025 7:29a m HEART DISEASE,UNSPECIFIED February 27 2:17pm V TACH March 23, 2025 6: 52am V TACH March 23, 2025 6: 27pm Amb Documentation March 24, 2025 8: 29am DIARRHEA PRESUMED INFECTIOUS April 142024 7:55am INT [facility] April 17, 2025 7:27am Additional Source Comments (unrecognized sect ion and content) No Status Records FoundNo Status Records FoundNo Status Records FoundNo Status Records FoundNo Status Records FoundNo Status Records Found INFORMATION SOURCE (unrecogn ized section and content) DATE CREATED AUTHOR 01/25/2018 [facility] DATE CREATED AUTHOR AUTHOR'S ORGANIZ ATION 01/25/2018 [facility] DATE CREATED AUTHOR AUTHOR'S ORGANIZ ATION 02/28/2020 [facility] DATE CREATED AUTHOR AUTHOR'S ORGANIZ ATION 02/03/2021 [facility] DATE CREATED AUTHOR AUTHOR'S ORGANIZ ATION 03/16/2025 [facility] DATE CREATED AUTHOR AUTHOR'S ORGANIZ ATION 06/16/2025 [facility] Source Comments (unrecognize d section and content) In the event this informatio n is protected by the Federal Confidentiality of Alcohol and Drug Abuse Patient Records regulations: The Federal rules restrict any use of the information to criminally investigate or prosecute any alcohol or drug abuse patient.[facility] the event this information is protected by the Federal Confidentiality of Alcohol and Drug Abuse Patient Records regulations: The Federal rules restrict any use of the information to criminally investigate or prosecute any alcohol or drug abuse patient.[facility] the event this information is protected by the Federal Confidentiality of Alcohol and Drug Abuse Patient Records regulations: The Federal rules restrict any use of the information to criminally investigate or prosecute any alcohol or drug abuse patient.[facility] the event this information is protected by the Federal Confidentiality of Alcohol and Drug Abuse Patient Records regulations: The Federal rules restrict any use of the information to criminally investigate or prosecute any alcohol or drug abuse patient.[facility] the event this information is protected by the Federal Confidentiality of Alcohol and Drug Abuse Patient Records regulations: The Federal rules restrict any use of the information to criminally investigate or prosecute any alcohol or drug abuse patient.[facility] the event this information is protected by the Federal Confidentiality of Alcohol and Drug Abuse Patient Records regulations: The Federal rules restrict any use of the information to criminally investigate or prosecute any alcohol or drug abuse patient.[facility] the event this information is protected by the Federal Confidentiality of Alcohol and Drug Abuse Patient Records regulations: The Federal rules restrict any use of the information to criminally investigate or prosecute any alcohol or drug abuse patient.[facility] the event this information is protected by the Federal Confidentiality of Alcohol and Drug Abuse Patient Records regulations: The Federal rules restrict any use of the information to criminally investigate or prosecute any alcohol or drug abuse patient.[facility] the event this information is protected by the Federal Confidentiality of Alcohol and Drug Abuse Patient Records regulations: The Federal rules restrict any use of the information to criminally investigate or prosecute any alcohol or drug abuse patient.[facility] the event this information is protected by the Federal Confidentiality of Alcohol and Drug Abuse Patient Records regulations: The Federal rules restrict any use of the information to criminally investigate or prosecute any alcohol or drug abuse patient.[facility] the event this information is protected by the Federal Confidentiality of Alcohol and Drug Abuse Patient Records regulations: The Federal rules restrict any use of the information to criminally investigate or prosecute any alcohol or drug abuse patient.[facility] the event this information is protected by the Federal Confidentiality of Alcohol and Drug Abuse Patient Records regulations: The Federal rules restrict any use of the information to criminally investigate or prosecute any alcohol or drug abuse patient.[facility] the event this information is protected by the Federal Confidentiality of Alcohol and Drug Abuse Patient Records regulations: The Federal rules restrict any use of the information to criminally investigate or prosecute any alcohol or drug abuse patient.[facility] the event this information is protected by the Federal Confidentiality of Alcohol and Drug Abuse Patient Records regulations: The Federal rules restrict any use of the information to criminally investigate or prosecute any alcohol or drug abuse patient.[facility] the event this information is protected by the Federal Confidentiality of Alcohol and Drug Abuse Patient Records regulations: The Federal rules restrict any use of the information to criminally investigate or prosecute any alcohol or drug abuse patient.[facility] the event this information is protected by the Federal Confidentiality of Alcohol and Drug Abuse Patient Records regulations: The Federal rules restrict any use of the information to criminally investigate or prosecute any alcohol or drug abuse patient.[facility] the event this information is protected by the Federal Confidentiality of Alcohol and Drug Abuse Patient Records regulations: The Federal rules restrict any use of the information to criminally investigate or prosecute any alcohol or drug abuse patient.[facility] the event this information is protected by the Federal Confidentiality of Alcohol and Drug Abuse Patient Records regulations: The Federal rules restrict any use of the information to criminally investigate or prosecute any alcohol or drug abuse patient.[facility] Reason for Visit (unrecogniz ed section and content) Reason Onset Date Comments Refill Request 03/06/2022 Reason Comments Results Reason Comments Patient Question Reason Onset Date Comments Refill Request 08/23/2022 Reason Comments Results Xray Reason Comments Forms Reason Comments Established Patient Follow-Up Surgical c learance Specialty Diagnoses / Procedures Referred By Contact Referred To Contact Cardiology / [facility] Diagnoses cardiac clearance Procedures EST PATIENT Keith Landrysara Olivarez, [address] [place] [address] Keshav Landry Sher, [address] [place] [address] Referral ID Status Reason Start Date Expiration Date Visits Re quested Visits Authorized [id number] Closed 12/18/2022 08/05/2023 1 1 Reason Onset Date Comments Refill Request 10/01/2023 Specialty Diagnoses / Procedures Referred By Contac t Referred To Contact XR IMAGING Diagnoses Chronic right shoulder pain Procedures XR SHOULDER GENERAL 3V OR MORE AP/TRUE AP/OTHER RIGHT RADEX SHOULDER COMPLETE MINIMUM 2 VIEWS Martin Melendez MD [address] [place] [address] [place] [address] Referral ID Status Reason Start Date Expiration Date V isits Requested Visits Authorized [id number] Closed Auto-Generate d Referral 09/15/2022 08/05/2023 1 1 Reason Comments Yearly Exam Reason Comments Appointment Reason Comments 6 Month Exam Reason Onset Date Comments Nausea 03/16/2025 Care Teams (unrecognized sec tion and content) Emergency Technician Relationship Specialty Start Date End Date Martin Melendez MD [address], [place] [id number] PCP - General Family Practice 07/17/17 No, Referral Referring Cardiology 01/12/20 Emergency Technician Relationship Specialty Start Date End Date Martin Melendez MD [address] [facility] [place] [address] PCP - General Family Medicine 07/17/17 No, Referral Referring Cardiology 01/12/20 Emergency Technician Relationship Specialty Start Date End Date Martin Melendez MD [address] [facility] [place] [address] PCP - General Family Medicine 07/17/17 No, Referral Referring Cardiology 01/12/20 Emergency Technician Relationship Specialty Start Date End Date Martin Melendez MD [address] [facility] [place] [address] PCP - General Family Medicine 07/17/17 No, Referral Referring Cardiology 01/12/20 Emergency Technician Relationship Specialty Start Date End Date Martin Melendez MD [address] [facility] [place] [address] PCP - General Family Medicine 07/17/17 No, Referral Referring Cardiology 01/12/20 Emergency Technician Relationship Specialty Start Date End Date Martin Melendez MD [address] [facility] [place], [place] [id number] PCP - General Family Medicine 07/17/17 No, Referral Referring Cardiology 01/12/20 Emergency Technician Relationship Specialty Start Date End Date Martin Melendez MD [address] [facility] [place] [address] PCP - General Family Medicine 07/17/17 No, Referral Referring Cardiology 01/12/20 Emergency Technician Relationship Specialty Start Date End Date Martin Melendez MD [address] [facility] [place] [address] PCP - General Family Medicine 07/17/17 No, Referral Referring Cardiology 01/12/20 Emergency Technician Relationship Specialty Start Date End Date Martin Melendez MD [address] [facility] [place], [place] [address] PCP - General Family Medicine 07/17/17 No, Referral Referring Cardiology 01/12/20 Emergency Technician Relationship Specialty Start Date End Date Martin Melendez MD [address] [place], [place] [id number] PCP - General Family Medicine 07/17/17 No, Referral Referring Cardiology 01/12/20 Emergency Technician Relationship Specialty Start Date End Date Martin Melendez MD [address] [facility] [place] [address] PCP - General Family Medicine 07/17/17 No, Referral Referring Cardiology 01/12/20 Emergency Technician Relationship Specialty Start Date End Date Martin Melendez MD [address] [place] [address] PCP - General Family Medicine 07/17/17 No, Referral Referring Cardiology 01/12/20 Aretha Hemphill, NAIL POLISH BRUSH MACHINE FEEDER.MARKETING INFORMATION COORDINATOR [address] [place] [address] Supervisor [facility] 07/14/24 Lynn Avalos, NAIL POLISH BRUSH MACHINE FEEDER.MARKETING INFORMATION COORDINATOR [address] [facility] [place] [address] Supervisor Fine Grading Family Medicine 07/14/24 Emergency Technician Relationship Specialty Start Date End Date Martin Melendez MD [address] [facility] [place] [address] PCP - General Family Medicine 07/17/17 No, Referral Referring Cardiology 01/12/20 Aretha Hemphill NAIL POLISH BRUSH MACHINE FEEDER.MARKETING INFORMATION COORDINATOR [address] [place] [address] [facility] 07/14/24 Lynn Avalos NAIL POLISH BRUSH MACHINE FEEDER.MARKETING INFORMATION COORDINATOR [address] [facility] [place], [place] [address] [facility] 07/14/24 Team Status: Active Member Role Status Dates Dr. Martin Melendez MD Family Provider Active MARY Ann Primary Care Provider Active Team Status: Inactive Member Role Status Dates Martin HEARD Referring Provider Active Start : January 19, 2025 End: January 19, 2025 MARY Ann Primary Care Provider Active Start: January 19, 2025 End: January 19, 2025 Dr. Qi Martínez MD Attending Provider Active Start: January 19, 2025 End: January 19, 2025 Emergency Technician Relationship Specialty Start Date End Date Martin Melendez MD [address] [facility] [place], [place] [id number] PCP - General Family Medicine 07/17/17 No, Referral Referring Cardiology 01/12/20 Aretha Hemphill, NAIL POLISH BRUSH MACHINE FEEDER.MARKETING INFORMATION COORDINATOR [address] [facility], [place] [address] [facility] 07/14/24 Lynn Avalos NAIL POLISH BRUSH MACHINE FEEDER.MARKETING INFORMATION COORDINATOR [address] [facility] [place], [place] [id number] [facility] 07/14/24 Emergency Technician Relationship Specialty Start Date End Date Martin Melendez MD [address] [facility] [place], [place] [id number] PCP - General Family Medicine 07/17/17 No, Referral Referring Cardiology 01/12/20 Aretha Hemphill, NAIL POLISH BRUSH MACHINE FEEDER.MARKETING INFORMATION COORDINATOR [address] [facility], [place] [id number] [facility] 07/14/24 Lynn Avalos APRN.CNP [address] [place] [address] [facility] 07/14/24 Team Status: Active Member Role/Relationship Status Dates Lynn Suppan , WATCH COMMANDER Primary Care Provider Active Team Status: Inactive Member Role/Relationship Status Dates Martin HEARD Referring Provider Active Start : January 19, 2025 End: January 19, 2025 Lynn Suppan , WATCH COMMANDER Primary Care Provider Active Start: January 19, 2025 End: January 19, 2025 Dr. Qi Martínez MD Attending Provider Active Start: January 19, 2025 End: January 19, 2025 Team Status: Inactive Member Role/Relationship Status Dates Lynn Suppan , WATCH COMMANDER Primary Care Provider Active Start: February 09, 2025 End: February 09, 2025 Dr. Qi Martínez MD Attending Provider Active Start: February 09, 2025 End: February 09, 2025 Dr. Qi Martínez MD Referring Provider Active Start: February 09, 2025 End: February 09, 2025 Team Status: Active Member Role/Relationship Status Dates Lynn Avalos , WATCH COMMANDER Primary Care Provider Active Start: February 09, 2025 Dr. Qi Martínez MD Attending Provider Active Start: February 09, 2025 Dr. Qi Martínez MD Referring Provider Active Start: February 09, 2025 Team Status: Inactive Member Role/Relationship Status Dates Lynn Avalos , WATCH COMMANDER Primary Care Provider Active Start: February 27, 2025 End: February 27, 2025 Dr. Qi Martínez MD Attending Provider Active Start: February 27, 2025 End: February 27, 2025 Dr. Qi Martínez MD Referring Provider Active Start: February 27, 2025 End: February 27, 2025 Team Status: Active Member Role/Relationship Status Dates Lynn Avalos , WATCH COMMANDER Primary Care Provider Active Start: February 27, 2025 Dr. Qi Martínez MD Attending Provider Active Start: February 27, 2025 Emergency Technician Relationship Specialty Start Date End Date Martin Melendez MD [address] [place] [place], [place] [id number] PCP - General Family Medicine 07/17/17 No, Referral Referring Cardiology 01/12/20 Aretha Hemphill, STEFANIA.MARKETING INFORMATION COORDINATOR [address] [place] [address] [facility] 07/14/24 Lynn Avalos APRN.CULLEN [address] [place] [address] [facility] 07/14/24 Team Status: Inactive Member Role/Relationship Status Dates Lynn Avalos , WATCH COMMANDER Primary Care Provider Active Start: March 23, 2025 End: March 23, 2025 Gladis Mckeon EMAIL MARKETING PROCESSOR, EMAIL MARKETING PROCESSOR-C Attending Provider Active Start: March 23, 2025 End: March 23, 2025 Gladis Mckeon EMAIL MARKETING PROCESSOR, EMAIL MARKETING PROCESSOR-C Referring Provider Active Start: March 23, 2025 End: March 23, 2025 Team Status: Active Member Role/Relationship Status Dates Lynn Avalos WATCH COMMANDER Primary Care Provider Active Start: March 23, 2025 Gladis Mckeon EMAIL MARKETING PROCESSOR, EMAIL MARKETING PROCESSOR-C Referring Provider Active Start: March 23, 2025 Gladis Mckeon EMAIL MARKETING PROCESSOR, EMAIL MARKETING PROCESSOR-C Other Provider Active Sta rt: March 23, 2025 Dr. Jaswant Momin MD Attending Provider Active S tart: March 23, 2025 Team Status: Active Member Role/Relationship Status Dates Lynn Avalos , WATCH COMMANDER Primary Care Provider Active Start: March 24, 2025 Gladis Mckeon EMAIL MARKETING PROCESSOR, EMAIL MARKETING PROCESSOR-C Attending Provider Active Start: March 24, 2025 Team Status: Inactive Member Role/Relationship Status Dates Lynn Avalos WATCH COMMANDER Primary Care Provider Active Start: April 14, 2025 End: April 14, 2025 Lynn Avalos WATCH COMMANDER Referring Provider Active Start: April 14, 2025 End: April 14, 2025 KAITLIN Frias Attending Provider Active Start: April 14, 2025 End: April 14, 2025 Team Status: Active Member Role/Relationship Status Dates MARY Ann Primary care physician Active Team Status: Inactive Member Role/Relationship Status Dates Martin HEARD Referring Provider Active Start : January 19, 2025 End: January 19, 2025 MARY Ann Primary care physician Active Start: January 19, 2025 End: January 19, 2025 Dr. Qi Martínez MD Attending physician Active Start: January 19, 2025 End: January 19, 2025 Team Status: Inactive Member Role/Relationship Status Dates Lynn Avalos , WATCH COMMANDER Primary care physician Active Start: February 09, 2025 End: February 09, 2025 Dr. Qi Martínez MD Attending physician Active Start: February 09, 2025 End: February 09, 2025 Dr. Qi Martínez MD Referring Provider Active Start: February 09, 2025 End: February 09, 2025 Team Status: Active Member Role/Relationship Status Dates MARY Ann Primary care physician Active Start: February 09, 2025 Dr. Qi Martínez MD Attending physician Active Start: February 09, 2025 Dr. Qi Martínez MD Referring Provider Active Start: February 09, 2025 Team Status: Inactive Member Role/Relationship Status Dates Lynn Avalos , WATCH COMMANDER Primary care physician Active Start: February 27, 2025 End: February 27, 2025 Dr. Qi Martínez MD Attending physician Active Start: February 27, 2025 End: February 27, 2025 Dr. Qi Martínez MD Referring Provider Active Start: February 27, 2025 End: February 27, 2025 Team Status: Active Member Role/Relationship Status Dates Lynn Avalos , WATCH COMMANDER Primary care physician Active Start: February 27, 2025 Dr. Qi Martínez MD Attending physician Active Start: February 27, 2025 Team Status: Inactive Member Role/Relationship Status Dates Lynn Avalos , WATCH COMMANDER Primary care physician Active Start: March 23, 2025 End: March 23, 2025 Gladis Mckeon EMAIL MARKETING PROCESSOR, EMAIL MARKETING PROCESSOR-C Attending physician Active Start: March 23, 2025 End: March 23, 2025 Gladis Mckeon EMAIL MARKETING PROCESSOR, EMAIL MARKETING PROCESSOR-C Referring Provider Active Start: March 23, 2025 End: March 23, 2025 Team Status: Active Member Role/Relationship Status Dates Lynn Avalos , WATCH COMMANDER Primary care physician Active Start: March 23, 2025 Gladis Mckeon EMAIL MARKETING PROCESSOR, EMAIL MARKETING PROCESSOR-C Referring Provider Active Start: March 23, 2025 Gladis Mckeon EMAIL MARKETING PROCESSOR, EMAIL MARKETING PROCESSOR-C Nurse Practitioner Active Start: March 23, 2025 Dr. Jaswant Momin MD Attending physician Active Start: March 23, 2025 Team Status: Active Member Role/Relationship Status Dates Lynn Avalos , WATCH COMMANDER Primary care physician Active Start: March 24, 2025 Gladis Mckeon EMAIL MARKETING PROCESSOR, EMAIL MARKETING PROCESSOR-C Attending physician Active Start: March 24, 2025 Team Status: Inactive Member Role/Relationship Status Dates Lynn Suppwalter , WATCH COMMANDER Primary care physician Active Start: April 14, 2025 End: April 14, 2025 Lynn Suppan , WATCH COMMANDER Referring Provider Active Start: April 14, 2025 End: April 14, 2025 KAITLIN Frias Attending physician Active Start: April 14, 2025 End: April 14, 2025 Team Status: Inactive Member Role/Relationship Status Dates Lynn Suppwalter , WATCH COMMANDER Primary care physician Active Start: April 17, 2025 End: April 17, 2025 KAITLIN Frias Attending physician Active Start: April 17, 2025 End: April 17, 2025 KAITLIN Frais Referring Provider Active Start: April 17, 2025 End: April 17, 2025 Goals (unrecognized section and content) Goals [...] BE BASED ON THE PRIMARY CLINICAL RECORDS. [employer] provides no warranty or guarantee of the accuracy or completeness of information in this document.
== END | disposition home or self-care (01) ==
LOC: CVS 07:47
PROVIDERS: PCP Clinical Nurse Specialist Adult Health; Referring Provider Physician Assistant Medical; Visit Provider Physician Assistant Medical
DX: I51.89 Other ill-defined heart diseases (principal)
CPT/HCPCS: 93308

== ENCOUNTER 2025-08-03 10:19 | Emergency (ER) | payer OTHER, SELFPAY ==
[2025-08-03 10:20] VITALS: BP 120/81; PULSE 94; RESP 18; TEMP 36.8; O2SAT 98; BMI 25.4
--- NOTE | 2025-08-03 10:37 | EKG12_ITS ---
Test Reason : PALP Blood Pressure : */* mmHG Vent. Rate : 90 BPM Atrial Rate : 90 BPM P-R Int : 170 ms QRS Dur : 96 ms QT Int : 358 ms P-R-T Axes : 51 92 -25 degrees QTcB Int : 437 ms Sinus rhythm with occasional Premature ventricular complexes Rightward axis T wave abnormality, consider inferior ischemia Abnormal ECG Confirmed by Philip Delaney ([id number]), deputy editor in chief JANN ESTEBAN ([id number]) on 08/07/2025 6:32:53 AM Referred By: JEFF Confirmed By: Philip Delaney
--- NOTE | 2025-08-03 10:38 | EDS_ITS ---
HPI History of Present Illness Chief Complaint: Palpitations Narrative Narrative: 59-year-old male history of PVCs, CHF, alcohol abuse, cardiomyopathy presents emergency department for complaint of palpitations. Patient states that since Sunday he has been having palpitations that lasted 2 yesterday and this morning. States that he drink a lot of Gatorade yesterday which did help minimally but still symptomatic occasionally. Denying any symptoms right now but states that he felt palpitations on the way to the hospital. States he does have a history of atrial fibrillation and is on metoprolol daily and aspirin daily. Denies any history of blood clots, fever, chills, chest pain or shortness of breath. [facility] Medical History Diarrhea Nonischemic cardiomyopathy Lightheadedness Ventricular tachycardia PVCs (premature ventricular contractions) Mixed hyperlipidemia Coronary artery disease involving [place] coronary artery of [place] heart without angina pectoris [place] History of left heart catheterization History of electrophysiologic study Pain in wrist Nonsustained ventricular tachycardia Left ventricular systolic dysfunction Essential hypertension Dyslipidemia Dilated cardiomyopathy Smoking history Other dental procedure status Sinus congestion Earache Fatigue Sore throat Home Medications Medication Instructions Recorded Last Taken Type aspirin 81 mg tablet,delayed 81 mg PO DAILY heart heal [facility] 06/14/16 10/01/17 History release (Lo-Dose Aspirin) multivitamin 1 tab PO QDAY 01/12/25 Unkno wn History dapagliflozin propanediol 10 mg 10 mg PO QDAY #90 tabs 01/21/25 Unknown Rx tablet (Farxiga) sacubitril 24 mg-valsartan 26 mg 1 tab PO BID #90 tabs 01/21/25 Unknown Rx tablet (Entresto) metoprolol succinate 50 mg 75 mg PO QDAY 07/09/25 Unkn own History tablet,extended release 24 hr Allergy/AdvReac Type Severity Reaction Status Date / Time Environmental Allergies: Allergy Mild Nasal Verified 08/03/25 10:20 Uncoded (seasonal) Congestion Family History Father Cardiomyopathy Brother A-fib Son Cardiomyopathy Surgical History History of colonoscopy Social History Smoking Status: Current some day smoker tobacco type: cigarettes Smokeless tobacco user: snuff and other Electronic Cigarette Use: not used alcohol intake: current alcohol intake frequency: a few times a week substance use type: does not use EXAM Physical Exam Const Vital Signs:
--- NOTE | 2025-08-03 10:38 | EX.ED.DYSGE1 ---
HPI History of Present Illness Chief Complaint: Palpitations Narrative Narrative: 59-year-old male history of PVCs, CHF, alcohol abuse, cardiomyopathy presents emergency department for complaint of palpitations. Patient states that since Sunday he has been having palpitations that lasted 2 yesterday and this morning. States that he drink a lot of Gatorade yesterday which did help minimally but still symptomatic occasionally. Denying any symptoms right now but states that he felt palpitations on the way to the hospital. States he does have a history of atrial fibrillation and is on metoprolol daily and aspirin daily. Denies any history of blood clots, fever, chills, chest pain or shortness of breath. [facility] Medical History Diarrhea Nonischemic cardiomyopathy Lightheadedness Ventricular tachycardia PVCs (premature ventricular contractions) Mixed hyperlipidemia Coronary artery disease involving [place] coronary artery of [place] heart without angina pectoris [place] History of left heart catheterization History of electrophysiologic study Pain in wrist Nonsustained ventricular tachycardia Left ventricular systolic dysfunction Essential hypertension Dyslipidemia Dilated cardiomyopathy Smoking history Other dental procedure status Sinus congestion Earache Fatigue Sore throat Home Medications Medication Instructions Recorded Last Taken Type aspirin 81 mg tablet,delayed 81 mg PO DAILY heart [facility] 06/14/16 10/01/17 History release (Lo-Dose Aspirin) multivitamin 1 tab PO QDAY 01/12/25 Unknown History dapagliflozin propanediol 10 mg 10 mg PO QDAY #90 tabs 01/21/25 Unknown Rx tablet (Farxiga) sacubitril 24 mg-valsartan 26 mg 1 tab PO BID #90 tabs 01/21/25 Unknown Rx tablet (Entresto) metoprolol succinate 50 mg 75 mg PO QDAY 07/09/25 Unknown History tablet,extended release 24 hr Allergy/AdvReac Type Severity Reaction Status Date / Time Environmental Allergies: Allergy Mild Nasal Verified 08/03/25 10:20 Uncoded (seasonal) Congestion Family History Father Cardiomyopathy Brother A-fib Son Cardiomyopathy Surgical History History of colonoscopy Social History Smoking Status: Current some day smoker tobacco type: cigarettes Smokeless tobacco user: snuff and other Electronic Cigarette Use: not used alcohol intake: current alcohol intake frequency: a few times a week substance use type: does not use EXAM Physical Exam Const Vital Signs: 08/03/25 10:20 08/03/25 10:30 08/03/25 11:20 Temperature 98.3 F Temperature Source Oral Pulse Rate 94 68 Respiratory Rate 18 20 H Respiratory Effort Normal Non-Labored Respiratory Pattern Normal Blood Pressure 120/81 H 110/67 Blood Pressure Mean 94 81 Pulse Ox 98 97 Oxygen Delivery Method Room Air Room Air 08/03/25 12:00 08/03/25 13:00 08/03/25 13:31 Temperature 98.3 F Temperature Source Pulse Rate 84 89 89 Respiratory Rate 18 19 H 19 H Respiratory Effort Respiratory Pattern Blood Pressure 111/84 H 116/69 116/69 Blood Pressure Mean 93 84 84 Pulse Ox 94 96 96 Oxygen Delivery Method Room Air Room Air Resp normal respiratory effort, normal air movement, no retractions and clear to auscultation bilaterally Cardio regular rate, regular rhythm and no murmurs Cardio Narrative: 2+ radial and DP pulses bilaterally Jugular Venous Distention: Negative for JVD GI normal to inspection, nondistended, normoactive bowel sounds, non-tender and non-distended Extremity General Extremety ED: Negative for edema General Extremity: Negative for edema MDM MDM MDM Narrative Medical decision making narrative: 59-year-old male history of PVCs, CHF, alcohol abuse, cardiomyopathy presents emergency department for complaint of palpitations. Patient states that since Sunday he has been having palpitations that lasted 2 yesterday and this morning. States that he drink a lot of Gatorade yesterday which did help minimally but still symptomatic occasionally. Denying any symptoms right now but states that he felt palpitations on the way to the hospital. States he does have a history of atrial fibrillation and is on metoprolol daily and aspirin daily. Denies any history of blood clots, fever, chills, chest pain or shortness of breath. On my physical exam patient resting comfortably no acute distress. Telemetry does show PVCs and EKG showing occasional PVCs but no evidence of acute ischemia. No evidence of arrhythmia or atrial fibrillation noted as EKG does appear normal sinus. Chest x-ray showed no evidence of fluid overload or acute cardiopulmonary process and BNP normal at 223. Patient does not appear to be clinically fluid overloaded as he is resting on room air saturating in the mid 90s to 100%. No evidence of infection with no leukocytosis. Hemoglobin within normal limits at 14.9. No evidence of acute thyroid abnormalities with TSH normal. I discussed with patient I believe his symptoms likely related to the PVCs as he has had these in the past. Patient does see cardiology and recent echocardiogram showed 35% from 40% 6 months ago. I do not believe his symptoms today are related to his heart failure however recommending follow-up with cardiology for Holter monitor to record how many PVCs he is throwing. Troponin negative with EKG no signs of ischemia, low suspicion for ACS. Patient was given potassium to optimize his electrolyte numbers to help possibly decrease the number of PVCs he is having. I educated patient to call his spike maker and return if any worsening symptoms and he is agreeable to this. Vitals remained stable and agreeable for discharge. Lab Data Attestation: I reviewed the patient's lab results. Lab results narrative: Labs showing no evidence of leukocytosis, hemoglobin within normal limits at 14.9. Electrolytes within normal limits. Normal TSH and BNP to 23, normal limits. Troponin negative at less than 6 Labs: Laboratory Results - last 24 hr 08/03/25 10:50 WBC 7.8 RBC 4.40 L Hgb 14.9 Hct 41.5 MCV 94.3 H MCH 33.9 H MCHC 35.9 RDW Std Deviation 44.3 H RDW Coeff of V[place]ha 12.8 Plt Count 173 MPV 9.1 Immature Gran % (Auto) 0.400 Neut % (Auto) 76.2 H Lymph % (Auto) 14.9 L [place] % (Auto) 6.3 Eos % (Auto) 1.8 Baso % (Auto) 0.4 Absolute Neuts (auto) 5.9 Absolute Lymphs (auto) 1.16 Nucleated RBC % 0 Sodium 139 Potassium 3.7 Chloride 105 Carbon Dioxide 23.8 Anion Gap 11 BUN 14 Creatinine 0.95 Estim Creat Clear Calc 89.63 Est GFR (MDRD) Non-Af 91 BUN/Creatinine Ratio 14.5 Glucose 162 H Calcium 9.2 Magnesium 2.2 Troponin T High Sens < 6 NT pro BNP II 223 TSH 1.440 Radiography Chest X-Ray - ED: 1 View Diagnostic Testing: Clinical Impression(s) from Imaging Studies Chest X-Ray 08/03/25 11:00 IMPRESSION: No Acute Findings. Reading Location: [facility] Chest x-ray dependently interpreted by myself showing no evidence of acute cardiopulmonary process EKG Initial EKG: Attestation: I personally reviewed and interpreted this EKG as follows: Comments: EKG interpreted by myself showing ventricular rate 90 with sinus rhythm. PVCs noted new compared to previous on 07/09/25. Rightward axis deviation. [place] interval 170, QTc 431. No signs of ST elevation depression or T wave inversions consistent with acute ischemia Prior EKG tracings: available for review Discharge Plan Triage Chief Complaint: Palpitations ED Provider: Yris Larson Dx/Rx/DC Orders Clinical Impression: Palpitations Prescriptions: No Action multivitamin Tablet 1 tab PO QDAY metoprolol succinate 50 mg tablet extended release 24 hr 75 mg PO QDAY aspirin [Lo-Dose Aspirin] 81 MG tablet,delayed release (DR/EC) 81 mg PO DAILY dapagliflozin propanediol [Farxiga] 10 mg tablet 10 mg PO QDAY Qty: 90 3RF Entresto 24-26 mg tablet 1 tab PO BID Qty: 90 3RF Primary Care Provider: Lynn Tomlin Referrals: Lynn Tomlin [facility] [Primary Care Provider, Family Practice] Activity Restrictions/Additional Instructions: Please follow-up with your spike maker regarding your visit today within the next 2 to 3 days. Recommended you likely need Holter monitor as you are having some PVCs which I suspect you are symptomatic from. Please make sure you are eating leafy greens to keep your potassium and magnesium up in your diet as this can sometimes exacerbate PVCs. Return if you develop any worsening symptoms, chest pain, shortness of breath. Print Language: Danish Disposition Disposition: Home, Self Care Discharge Date/Time: 08/03/25 13:32
[2025-08-03 10:59] LABS: Hematocrit 41.5 % (40-54); Hemoglobin 14.9 g/dL (13.0-16.5); Immature Granulocytes Count 0.030 X10^3/uL (0.0-0.0); Mean Corp Hgb Conc 35.9 g/dL (32-36); Mean Corpuscular Volume 94.3 fL (80-94); Mean Platelet Vol. 9.1 fl (6.2-12.0); NRBC Flagged by Analyzer 0 % (0-5); Platelet Count 173 K/mm3 (150-450); RBC Distribution Width CV 12.8 % (11.6-14.6); RBC Distribution Width SD 44.3 fl (35.1-43.9); Red Blood Count 4.40 M/mm3 (4.6-6.2); White Blood Count 7.8 K/mm3 (4.4-11.0)
--- NOTE | 2025-08-03 11:00 | RAD_ITS ---
PROCEDURE: CHEST 1 VIEW (PORTABLE) 08/03/2025 REASON FOR EXAM: CHEST PAIN TECHNIQUE: Frontal view of the chest. COMPARISON: Reviewed FINDINGS: Heart size normal. Lungs clear. RAD/Chest 1 View (Portable) IMPRESSION: No Acute Findings. Reading Location: [facility]
[2025-08-03 11:20] VITALS: BP 110/67; PULSE 68; RESP 20; O2SAT 97
[2025-08-03 11:32] LABS: Anion Gap 11 (7-18); BUN 14 mg/dL (4-19); BUN/Creat Ratio 14.5 RATIO (10-20); Calcium,Total 9.2 mg/dL (7.6-11.0); Carbon Dioxide 23.8 mmol/L (20.0-29.0); Chloride 105 mmol/L (96-106); Estimated Creatinine Clearance 89.63 ml/min (50-250); Glucose 162 mg/dL (70-99); Magnesium 2.2 mg/dL (1.5-2.2); Potassium 3.7 mmol/L (3.5-5.1); Pro- Brain NATRIURETIC PEPTIDE 223 pg/mL (<=900); Troponin T High Sensitivity < 6 ng/L (<=22)
[2025-08-03 12:00] VITALS: BP 111/84; PULSE 84; RESP 18; O2SAT 94
[2025-08-03] MEDS: Potassium Chloride Oral Tablet 20 MEQ PO (12:41)
[2025-08-03 13:00] VITALS: BP 116/69; PULSE 89; RESP 19; O2SAT 96
[2025-08-03 13:31] VITALS: BP 116/69; PULSE 89; RESP 19; TEMP 36.8; O2SAT 96
== END 2025-08-03 13:32 | disposition home or self-care (01) ==
PROVIDERS: Emergency Provider Student in an Organized Health Care Education/Training Program; PCP Clinical Nurse Specialist Adult Health; Visit Provider Student in an Organized Health Care Education/Training Program
DX: R00.2 Palpitations (principal); I11.0 Hypertensive heart disease with heart failure; I50.22 Chronic systolic (congestive) heart failure; I42.0 Dilated cardiomyopathy; Z87.891 Personal history of nicotine dependence
CPT/HCPCS: 71045; 80048; 83735; 83880; 84443; 84484; 85025; 93005; 99284; A4216